=== PATIENT | female | born 1965 | race Caucasian/White ===

== ENCOUNTER 2017-09-08 15:27 | Outpatient (POV) | payer MEDICAID, SELFPAY | END 2017-09-08 16:23 | disposition home or self-care (01) | PROVIDERS: Visit Provider Podiatrist | DX: S93.402D Sprain of unspecified ligament of left ankle, subsequent encounter (principal); M76.72 Peroneal tendinitis, left leg | CPT/HCPCS: 99213 ==

== ENCOUNTER 2017-09-24 13:35 | Outpatient (POV) | payer MEDICAID, SELFPAY | END 2017-09-24 14:12 | disposition home or self-care (01) | PROVIDERS: Visit Provider Podiatrist | DX: S93.402D Sprain of unspecified ligament of left ankle, subsequent encounter (principal) | CPT/HCPCS: 99212 ==

== ENCOUNTER → 2017-10-29 19:19 | Outpatient (CLI) | payer MEDICAID, SELFPAY | PROVIDERS: PCP Podiatrist; Visit Provider Podiatrist | DX: B35.1 Tinea unguium (principal) | CPT/HCPCS: 87220 ==

== ENCOUNTER 2017-12-09 15:00 | Outpatient (RCR) | payer MEDICAID, SELFPAY ==
--- NOTE | 2017-11-17 16:10 | HMH.PTOPEV ---
Rehab Outpatient Evaluation Rehab OP Evaluation Start: 11/17/17 15:42 Freq: Status: Active Protocol: Document 11/17/17 15:54 PHOWILL (Rec: 11/17/17 16:09 PHORNE [id number]) Electronically Signed By Naga Estrada, PT 11/17/17 15:54 Outpatient Therapy Subjective History Subjective History Pt presents with c/o pain in left ankle and foot x ~ 3-4 mos s/p ankle sprain. She reports, I did it at work, but worker's comp denied it so I have to fight them. Pt reports her foot became stuck under a rail and she almost fell, but was able to catch herself. She reports going to the ED ~ 2 days later where she received X-ray with no fx present. She had been wearing a walking boot and then an ankle brace until recently. She currently c/o continued pain worse around the lateral foot. Chief Complaint Pain Symptom Type Ache Sharp Symptoms Relieved By Rest/Positioning Symptoms Aggravated By Standing Physical Activity Walking Prior Functional Limitations None Current Functional Limitations Standing Walking Symptom Description Constant but Variable Level of pain today (0-10) 2 Pain scale - at its worst (0-10) 8 Ankle/Foot Eval Gait Observation General Gait Pattern Observation Antalgic Gait Palpation Tenderness left Ankle/Foot Palpation Findings Tenderness Ankle/Foot Palpation Overall Comment peroneal tendon insertion. ROM Ankle/Foot Dorsiflexion w/Knee Extended 0-10 Active Range Motion (degrees) Ankle/Foot Dorsiflexion w/Knee Extended 0-24 Passive Range (degrees) Ankle/Foot Plantar Flexion Active Range 0-37 of Motion (degrees) Ankle/Foot Plantar Flexion Passive Range 0-38 of Motion (degrees) Ankle/Foot Eversion Active Range of 0-15 Motion (degrees) Ankle/Foot Eversion Passive Range of 0-26 Motion (degrees) Ankle/Foot Inversion Active Range of 0-38 Motion (degrees) Ankle/Foot Inversion Passive Range of 0-40 Motion (degrees) Ankle/Foot ROM Limitations Pain Special Tests Ankle Anterior Drawer Test Negative Left Ankle Eversion Test Negative Left Talar Tilt T
== END 2017-12-09 15:01 | disposition home or self-care (01) ==
LOC: PT 15:00
PROVIDERS: PCP Physician Assistant; Visit Provider Podiatrist
DX: S93.402A Sprain of unspecified ligament of left ankle, initial encounter (principal)
CPT/HCPCS: 97010; 97014; 97033; 97035; 97110; G0283

== ENCOUNTER 2017-12-18 20:53 | Observation (INO) | payer MEDICAID, SELFPAY ==
[2017-12-18 20:58] VITALS: BP 171/99; PULSE 111; RESP 24; TEMP 37; O2SAT 95; BMI 23.0
--- NOTE | 2017-12-18 21:09 | XR_ITS ---
XR chest 2V COMPARISON: PA and lateral chest 01/29/2017 HISTORY: Shortness of breath TECHNIQUE: PA and lateral chest FINDINGS: Moderate emphysematous changes are seen with hyperexpansion lung hartman and depression and flattening of the hemidiaphragms. There is no infiltrate. Cardiac size is normal and is no pleural fluid. IMPRESSION: Moderate COPD, no acute chest pathology noted
[2017-12-18 21:25] LABS: ABG Base Excess 0.4 mmol/L (-2.4-2.3); ABG Oxygen Saturation 94 % (90-100); ABG PCO2 40.3 mmhg (35.0-45.0); ABG PH 7.41 mmol/L (7.35-7.45); ABG PO2 64.3 mmhg (80-100); ABG TCO2 26.3 mmhg (23-27)
[2017-12-18 21:27] LABS: Allen's Test Acceptable; Oxygen room air %; Source Right Radial
--- NOTE | 2017-12-18 21:51 | HMH.EDGENADL ---
ED Disposition Clinical Impression: COPD exacerbation Upper respiratory infection Qualifiers: URI type: unspecified URI Qualified Code(s): J06.9 - Acute upper respiratory infection, unspecified Disposition: Still a Patient Condition on Discharge: Fair Referrals: Billie Quesada PA [Primary Care Provider] - - Critical Care Critical Care Time: No Attestation: On 12/18/17, the high probability of a clinically significant, sudden or life threatening deterioration of the following system(s) required my full and direct attention, intervention and personal management. The time I documented below is in addition to time spent performing reported procedures but includes the following listed in this critical care notation. Medical Decision Making - Kiel Inquiry Pt receiving controlled substance: No Vital Signs: 12/18/17 20:58 12/18/17 22:25 Temperature 98.6 F Temperature Source Oral Pulse Rate [Right Radial] 111 H 94 H Respiratory Rate 24 Blood Pressure [Right Arm] 171/99 123/87 Blood Pressure Mean [Right Arm] 123 99 Blood Pressure Source [Right Arm] Automatic Cuff Blood Pressure Position [Right Arm] Sitting Supine 02 Sat by Pulse Oximetry 95 95 Oxygen Delivery Method Room Air - Lab Data Lab Results 12/18/17 21:10: Specimen Source Right radial, O2 % room air, ABG pH 7.41, ABG pCO2 40.3, ABG pO2 64.3 L, ABG HCO3 25.0, ABG Total CO2 26.3, ABG O2 Saturation 94, ABG Base Excess 0.4, Fabiano Test Acceptable 12/18/17 21:25: WBC 9.5, RBC 4.59, Hgb 14.5, Hct 43.4, MCV 94.6, MCH 31.7 H, MCHC 33.5, RDW 12.2, Plt Count 232, MPV 8.4, Neut % (Auto) 46.7, Lymph % (Auto) 44.3, [place] % (Auto) 7.8, Eos % (Auto) 0.7, Baso % (Auto) 0.5, Neut # (Auto) 4.5, Lymph # (Auto) 4.2, [place] # (Auto) 0.7, Eos # (Auto) 0.1, Baso # (Auto) 0.1 12/18/17 21:25: Sodium 139, Potassium 3.6, Chloride 103, Carbon Dioxide 26, Anion Gap 13.6, BUN 5 L, Creatinine 0.64, Estimated Creat Clear 99, Estimated GFR 97, Est GFR ( Amer) 118, Glucose 107 H, Calcium 8.8, Total Bilirubin 0.2, AST 15, ALT 18, Alkaline Phosphatase 114, Total Creatine Kinase 124, CK-MB (CK-2) 0.8, CK-MB (CK-2) Rel Index 0.6, Troponin I < 0.02, Total Protein 7.7, Albumin 3.9, Globulin 3.8 H, Albumin/Globulin Ratio 1.0 L 12/18/17 21:25: Lactic Acid 1.5 Result diagrams: 12/18/17 21:25 12/18/17 21:25 Orders (Tests/Meds): ED MEDICATIONS Generic Name Dose Route Start Last Admin Trade Name Freq PRN Reason Stop Dose Admin Azithromycin 500 mg/ Sodium 250 mls @ 250 mls/hr 12/18/17 23:45 Chloride IV 01/01/18 23:44 Q24H FATOU Protocol Discontinued Medications Generic Name Dose Route Start Last Admin Trade Name Freq PRN Reason Stop Dose Admin Acetaminophen 500 mg 12/18/17 22:17 12/18/17 22:20 Tylenol 500mg Tablet PO 12/18/17 22:18 500 mg ONCE ONE Administration Albuterol/Ipratropium 3 ml 12/18/17 21:09 12/18/17 21:14 Duoneb 3ml [facility] 12/18/17 21:10 3 ml ONCE ONE Administration Albuterol/Ipratropium 3 ml 12/18/17 23:52 Duoneb 3ml [facility] 12/18/17 23:53 ONCE ONE Methylprednisolone Sodium Succinate 125 mg 12/18/17 21:10 12/18/17 21:14 Solu-Medrol 125mg/2ml Vial IV 12/18/17 21:11 125 mg ONCE ONE Administration ORDERS Category Date Time Status XR chest 2V Stat Exams 12/18/17 21:09 Taken Upper Respiratory Panel, PCR Stat Lab 12/18/17 23:44 Ordered Blood Culture Stat Micro 12/18/17 21:25 Received Sputum Culture & Gram Stain Stat Micro 12/18/17 21:25 Results - Radiology Data #1 Image(s): Chest Image Reviewed: Yes I reviewed the patient's radiology image COPD, calcified granuloma. No infiltrate seen. - ECG Data Tracing #1 EKG interpreted by Chong Oviedo MD: Rhythm: sinus Rate: 99 [place]son: normal Ectopy: none Conduction: normal ST Segment Changes: none T Wave Changes: none Q Waves: none No evidence of acute ischemia or injury Medical Decision Narrative:
[2017-12-18 21:58] LABS: Basophils # 0.1 K/mm3 (0-0.2); Basophils % 0.5 % (0.1-2.0); Eosinophils # 0.1 K/mm3 (0.0-0.4); Eosinophils % 0.7 % (0.1-12.0); Hematocrit 43.4 % (37.0-47.0); Hemoglobin 14.5 g/dL (12.2-16.2); Lymphocytes # 4.2 K/mm3 (0.7-4.5); Lymphocytes % 44.3 K/mm3 (10-50); Mean Corpuscular HGB Conc 33.5 g/dL (31.8-35.4); Mean Corpuscular Hemoglobin 31.7 pg (27.0-31.2); Mean Corpuscular Volume 94.6 fl (81-99); Mean Platelet Volume 8.4 fl (7.4-10.4); Monocytes # 0.7 K/mm3 (0.1-1.0); Monocytes % 7.8 % (1.7-9.3); Neutrophils # 4.5 K/mm3 (1.8-7.8); Neutrophils % 46.7 % (37.0-80.0); Platelet Count 232 K/mm3 (142-424); Red Blood Count 4.59 M/mm3 (4.20-5.40); Red Cell Distribution Width 12.2 % (11.5-17.5); White Blood Count 9.5 K/mm3 (4.8-10.8)
[2017-12-18 22:15] LABS: Lactic Acid 1.5 mmol/L (0.4-2.0)
[2017-12-18 22:24] LABS: Alanine Aminotransferase 18 U/L (12-78); Albumin Level 3.9 gm/dL (3.4-5.0); Alkaline Phosphatase 114 U/L (46-116); Anion Gap 13.6 mEq/L (5-15); Aspartate Amino Transferase 15 U/L (15-37); Bilirubin,Total 0.2 mg/dL (0.2-1.0); Blood Urea Nitrogen 5 mg/dL (7-18); CKMB Relative Index 0.6 U/L (0-4.0); Calcium 8.8 mg/dL (8.5-10.1); Carbon Dioxide 26 mmol/L (21.0-32.0); Chloride 103 mmol/L (98-107); Creatine Kinase 124 U/L (26-192); Creatine Kinase MB 0.8 mg/ml (0.0-3.6); Creatinine Clearance Estimated 99 mL/min (0-300); Creatinine,Serum 0.64 mg/dL (0.55-1.02); Estimated Glomerular Filt Rate 97 ml/min (>60); GFR (African American) 118 ML/MIN (>60); Globulin 3.8 gm/dl (1.3-3.2); Glucose 107 mg/dL (74-106); Potassium 3.6 mmoL/L (3.5-5.1); Sodium 139 mmol/L (136-145); Total Protein,Serum 7.7 gm/dL (6.4-8.2); Troponin I < 0.02 ng/ml (0.00-0.06)
[2017-12-18 22:25] VITALS: BP 123/87; PULSE 94; O2SAT 95
[2017-12-19] VITALS (13 sets, daily range): BP systolic 109–148; BP diastolic 68–89; PULSE 73–117; RESP 18–22; TEMP 36.6–37.7; O2SAT 92–96; BMI 20.5
[2017-12-19 00:12] LABS: Adenovirus,PCR Not Detected (NotDetected); Bordetella Pertussis Not Detected (NotDetected); Chlamydophila Pneumoniae, PCR Not Detected (NotDetected); Coronavirus 229E Not Detected (NotDetected); Coronavirus NL63 Not Detected (NotDetected); Coronavirus OC43 Not Detected (NotDetected); Coronovirus HKU1,PCR Not Detected (NotDetected); Human Metapneumovirus Not Detected (NotDetected); Influenza A, PCR Not Detected (NotDetected); Influenza AH1, 2009 Not Detected (NotDetected); Influenza AH1, PCR Not Detected (NotDetected); Influenza AH3,PCR Not Detected (NotDetected); Influenza B, PCR Not Detected (NotDetected); Mycoplasma Pneumoniae, PCR Not Detected (NotDected); Parainfluenza 1, PCR Not Detected (NotDetected); Parainfluenza 2, PCR Not Detected (NotDetected); Parainfluenza 3, PCR Not Detected (NotDetected); Parainfluenza 4, PCR Not Detected (NotDetected); Rhinovirus/Enterovirus Not Detected (NotDetected)
--- NOTE | 2017-12-19 00:16 | PC.NURSE ---
PT FULL CODE, REPORT FROM [facility] IN ER
[2017-12-19 01:28] LABS: Respiratory Syncytial Virus Detected (NotDetected)
--- NOTE | 2017-12-19 07:21 | PC.NURSE ---
NEW ADMIT, COPD EXACERBATION AND URI. BREATH SOUNDS EQUAL AND CLEAR, NO S/S OF DISTRESS. SATS WNL ON ROOM AIR. C/O IGNACIO X1 THIS SHIFT, PT GIVEN TYLENOL. SLEEPING SOUNDLY SOON AFTER THIS. IV TO SALINE LOCK. IV ABX AND STEROIDS. PT STABLE. WILL CONTINUE TO MONITOR. REPORT TO BE GIVEN TO ONCOMING NURSE.
--- NOTE | 2017-12-19 07:30 | PC.NURSE ---
REPORT GIVEN TO Kevin HEDRICK W/C
--- NOTE | 2017-12-19 13:10 | HMH.PHAVTE ---
[facility] Pharmacy VTE Monitoring - Patient Demographics Admission date: 12/19/17 Report Date: 12/19/17 Time: 13:10 Allergies/Adverse Reactions: Patient Allergies Sulfa (Sulfonamide Antibiotics) [SULFA (SULFONAMIDE ANTIBIOTICS)] Allergy (Intermediate, Verified 12/10/17 13:53) I-RASH Height: 1.63 m Weight: 54.431 kg Patient Problems: Current Active Problems COPD exacerbation (Acute) Upper respiratory infection (Acute) - VTE Risk Labs: VTE Related Lab Results Hgb 14.5 g/dL (12.2-16.2) 12/18/17 21:25 Hct 43.4 % (37.0-47.0) 12/18/17 21:25 Plt Count 232 K/mm3 (142-424) 12/18/17 21:25 BUN 5 mg/dL (7-18) L 12/18/17 21:25 Creatinine 0.64 mg/dL (0.55-1.02) 12/18/17 21:25 Estimated Creat Clear 99 mL/min (0-300) 12/18/17 21:25 VTE Score: 3 VTE Risk Level: Low Risk - Prophylaxis Types of VTE Prophylaxis: TEDS Knee High Location of Applied Device: Refused - VTE Diagnosis Confirmed Comment: [place] ORDERED
--- NOTE | 2017-12-19 15:04 | HMH.HP ---
*Admission Date: 12/19/17 *Chief complaint: sob *History of present illness: 52-year-old female presented to the ER with complains of a 3 day history of cough, patient states coughing fits will make her very short of breath,increasing shortness of breath, dyspnea on exertion, fever, bilateral rib pain, wheezing and productive thick colored sputum. History of COPD. Patient states she has a nebulizer at home, ran out of solution in mouthpieces, but had them refilled today. Has been using her rescue inhaler without improvement. Patient admitted for COPD exacerbation placed on IV steroids. [facility] History I have reviewed the patient's past medical history: Yes Medical History: Reports:: Chronic Obstructive Pulmonary Disease (COPD), Hyperlipidemia Denies:: Cancer, Diabetes Mellitus Type 1, Diabetes Mellitus Type 2, Hypertension, MRSA Other Medical History: Reports: Hypothyroidism, Thyroid Disease Laterality Cases: Bilateral: Tonsillectomy Other Surgeries: Yes: Hysterectomy-Total, Other Amputation: No Fractures: No - *Social History Smoking Status: Current every day smoker Tobacco Type: cigarettes # Packs/Day (cigarettes): 1 Alcohol Intake: never Alcohol Intake Frequency:: 0-2 drinks per day Substance Use Type: denies use Occupational Status: unemployed Housing: house Household Members: family, children - Psychiatric History Expresses thoughts of harming self/others: None Suicide Plan Description: No Plan *Family Hx:: Hyperlipidemia, Hypertension, Cancer Review of Systems - Review of Systems Review of systems:: pertinent systems reviewed and negative unless documented below - Constitutional Reports chills, Reports fever(s) - Eyes Denies change in vision - ENT Denies change in voice - *Cardiovascular Reports chest pain with activity, Reports shortness of breath - *Respiratory Reports change in phlegm color, Reports chest congestion, Reports cough, Reports shortness of breath, Reports shortness of breath with activity, Reports excessive phlegm production, Reports pain on inspiration, Reports pain with cough, Reports wheezing - *Gastrointestinal Denies bloating - *Genitourinary Denies abnormal vaginal bleeding - *Musculoskeletal Denies decreased muscle mass - Integumentary/Breasts Denies change in hair - *Neurologic Reports weakness, Denies abnormal movements - Psychiatric Denies lack of enjoyment - Endocrine Denies flushing - Hematologic/Lymphatic Denies enlarged lymph nodes - Allergic/Immunologic Denies lip swelling Meds Home Medications Medication Instructions Recorded Confirmed Type fluticasone 250 mcg-salmeterol 50 1 inh INHALATION BID 12/10/17 12/19/17 History mcg/dose blistr powdr for inhalation umeclidinium 62.5 mcg/actuation 1 inh INHALATION Q24H 12/10/17 12/19/17 History blister powder for inhalation Cholecalciferol (Vitamin D3) 1,000 unit PO DAILY 12/19/17 12/19/17 History [Vitamin D3 1,000 Unit Tab] Omeprazole [Omeprazole 40mg 40 mg PO DAILY 12/19/17 12/19/17 History Capsule] Simvastatin [Simvastatin] 20 mg PO HS 12/19/17 12/19/17 History Venlafaxine HCl [Venlafaxine HCl 150 mg PO DAILY 12/19/17 12/19/17 History ER] Allergies Allergy/AdvReac Type Severity Reaction Status Date / Time Sulfa (Sulfonamide Allergy Intermediate I-RASH Verified 12/10/17 13:53 Antibiotics) [SULFA (SULFONAMIDE ANTIBIOTICS)] Exam Vital signs and Labs for Last 24 Hours: Temp Pulse Resp BP Pulse Ox 97.8 F 86 18 109/69 94 L 12/19/17 07:37 12/19/17 07:37 12/19/17 07:37 12/19/17 07:37 12/19/17 08:00 I & O for Last 24 hours: Intake & Output 12/17/17 12/18/17 12/19/17 12/20/17 11:59 11:59 11:59 11:59 Intake Total 620 / 620 240 / 240 Balance 620 / 620 240 / 240 Weight 120 lb 120 lb - Constitutional no acute distress - *Routine HEENT Exam Head: Present: normocephalic Eye: Present: PERRL ENT: Present: muco
--- NOTE | 2017-12-19 15:07 | P.HP_ITS ---
*Admission Date: 12/19/17 *Chief complaint: sob *History of present illness: 52-year-old female presented to the ER with complains of a 3 day history of cough, patient states coughing fits will make her very short of breath, increasing shortness of breath, dyspnea on exertion, fever, bilateral rib pain, wheezing and productive thick colored sputum. History of COPD. Patient states she has a nebulizer at home, ran out of solution in mouthpieces, but had them refilled today. Has been using her rescue inhaler without improvement. Patient admitted for COPD exacerbation placed on IV steroids. [facility] History I have reviewed the patient's past medical history: Yes Medical History: Reports:: Chronic Obstructive Pulmonary Disease (COPD), Hyperlipidemia Denies:: Cancer, Diabetes Mellitus Type 1, Diabetes Mellitus Type 2, Hypertension, MRSA Other Medical History: Reports: Hypothyroidism, Thyroid Disease Laterality Cases: Bilateral: Tonsillectomy Other Surgeries: Yes: Hysterectomy-Total, Other Amputation: No Fractures: No - *Social History Smoking Status: Current every day smoker Tobacco Type: cigarettes # Packs/Day (cigarettes): 1 Alcohol Intake: never Alcohol Intake Frequency:: 0-2 drinks per day Substance Use Type: denies use Occupational Status: unemployed Housing: house Household Members: family, children - Psychiatric History Expresses thoughts of harming self/others: None Suicide Plan Description: No Plan *Family Hx:: Hyperlipidemia, Hypertension, Cancer Review of Systems - Review of Systems Review of systems:: pertinent systems reviewed and negative unless documented below - Constitutional Reports chills, Reports fever(s) - Eyes Denies change in vision - ENT Denies change in voice - *Cardiovascular Reports chest pain with activity, Reports shortness of breath - *Respiratory Reports change in phlegm color, Reports chest congestion, Reports cough, Reports shortness of breath, Reports shortness of breath with activity, Reports excessive phlegm production, Reports pain on inspiration, Reports pain with cough, Reports wheezing - *Gastrointestinal Denies bloating - *Genitourinary Denies abnormal vaginal bleeding - *Musculoskeletal Denies decreased muscle mass - Integumentary/Breasts Denies change in hair - *Neurologic Reports weakness, Denies abnormal movements - Psychiatric Denies lack of enjoyment - Endocrine Denies flushing - Hematologic/Lymphatic Denies enlarged lymph nodes - Allergic/Immunologic Denies lip swelling Meds Home Medications Medication Instructions Recorded Confirmed Type fluticasone 250 mcg-salmeterol 50 1 inh INHALATION BID 12/10/17 12/19/17 History mcg/dose blistr powdr for inhalation umeclidinium 62.5 mcg/actuation 1 inh INHALATION Q24H 12/10/17 12/19/17 History blister powder for inhalation Cholecalciferol (Vitamin D3) 1,000 unit PO DAILY 12/19/17 12/19/17 History [Vitamin D3 1,000 Unit Tab] Omeprazole [Omeprazole 40mg 40 mg PO DAILY 12/19/17 12/19/17 History Capsule] Simvastatin [Simvastatin] 20 mg PO HS 12/19/17 12/19/17 History Venlafaxine HCl [Venlafaxine HCl 150 mg PO DAILY 12/19/17 12/19/17 History ER] Allergies Allergy/AdvReac Type Severity Reaction Status Date / Time Sulfa (Sulfonamide Allergy Intermediate I-RASH Verified 12/10/17 13:53 Antibiotics) [SULFA (GONZALEZ
[2017-12-20] VITALS (7 sets, daily range): BP systolic 103–143; BP diastolic 60–76; PULSE 81–101; RESP 18–20; TEMP 36.3–36.9; O2SAT 92–96
--- NOTE | 2017-12-20 03:35 | PC.NURSE ---
C/O COUGH AND IGNACIO THIS SHIFT, MEDICATED PER MAR WITH PRN COUGH AND PAIN MEDICATIONS. ICE PACK WAS ALSO PROVIDED R/T PT STATING I THINK IF I WAS TO HAVE AN ICE PACK ON MY HEAD IT WOULD HELP WITH MY HEADACHE. ON REASSESSMENT PT STATED MY IGNACIO IS GONE. SCATTERED WHEEZING HEARD ON AUSCULTATION OF LUNG SOUNDS. TOLERATED RA WELL. VSS. WILL CONTINUE TO MONITOR.
--- NOTE | 2017-12-20 06:33 | PC.NURSE ---
DROPLET PRECAUTIONS IN PLACE AND EDUCATION PROVIDED REGARDING PPE.
--- NOTE | 2017-12-20 07:16 | PC.NURSE ---
REPORT GIVEN TO Kevin HEDRICK W/C
[2017-12-20 07:17] LABS: Basophils % 0.1 % (0.1-2.0); Eosinophils # 0.1 K/mm3 (0.0-0.4); Eosinophils % 0.7 % (0.1-12.0); Hematocrit 40.9 % (37.0-47.0); Hemoglobin 13.6 g/dL (12.2-16.2); Lymphocytes # 1.4 K/mm3 (0.7-4.5); Lymphocytes % 9.4 K/mm3 (10-50); Mean Corpuscular HGB Conc 33.1 g/dL (31.8-35.4); Mean Corpuscular Hemoglobin 31.8 pg (27.0-31.2); Mean Corpuscular Volume 96.1 fl (81-99); Mean Platelet Volume 8.4 fl (7.4-10.4); Monocytes # 0.3 K/mm3 (0.1-1.0); Monocytes % 1.8 % (1.7-9.3); Neutrophils % 87.9 % (37.0-80.0); Platelet Count 239 K/mm3 (142-424); Red Blood Count 4.26 M/mm3 (4.20-5.40); Red Cell Distribution Width 12.3 % (11.5-17.5); White Blood Count 14.8 K/mm3 (4.8-10.8)
[2017-12-20 07:24] LABS: MANUAL DIFFERENTIAL MANUAL DIFFERENTIAL (MANUAL DIFF)
[2017-12-20 07:29] LABS: Alanine Aminotransferase 16 U/L (12-78); Albumin Level 3.5 gm/dL (3.4-5.0); Anion Gap 15.1 mEq/L (5-15); Aspartate Amino Transferase 12 U/L (15-37); Blood Urea Nitrogen 11 mg/dL (7-18); Calcium 8.7 mg/dL (8.5-10.1); Carbon Dioxide 25 mmol/L (21.0-32.0); Chloride 107 mmol/L (98-107); Creatinine Clearance Estimated 93 mL/min (0-300); Creatinine,Serum 0.61 mg/dL (0.55-1.02); Estimated Glomerular Filt Rate 103 ml/min (>60); GFR (African American) 125 ML/MIN (>60); Glucose 132 mg/dL (74-106); Potassium 4.1 mmoL/L (3.5-5.1); Sodium 143 mmol/L (136-145)
[2017-12-20 07:42] LABS: Alkaline Phosphatase 87 U/L (46-116); Bilirubin,Total 0.1 mg/dL (0.2-1.0); Globulin 3.6 gm/dl (1.3-3.2); Total Protein,Serum 7.1 gm/dL (6.4-8.2)
[2017-12-20 08:30] LABS: Lymphocytes % 9 % (10-50); Monocytes % 3 % (2-9); Neutrophils % 88 % (42-76); Platelet Estimate Normal; RBC Morphology Normal; Total Cells Counted 100
--- NOTE | 2017-12-20 09:45 | HMH.ACPN2 ---
Internal Medicine - PN: Subj *Date: 12/20/17 *Time: 09:45 Exam Vital signs and Labs for Last 24 Hours: Temp Pulse Resp BP Pulse Ox 97.4 F L 96 H 18 112/70 92 L 12/20/17 07:33 12/20/17 07:33 12/20/17 07:33 12/20/17 07:33 12/20/17 07:33 Laboratory Results - last 24 hr 12/20/17 06:30: WBC 14.8 H D, RBC 4.26, Hgb 13.6, Hct 40.9, MCV 96.1, MCH 31.8 H, MCHC 33.1, RDW 12.3, Plt Count 239, MPV 8.4, Neut % (Auto) 87.9 H, Lymph % (Auto) 9.4 L, [place] % (Auto) 1.8, Eos % (Auto) 0.7, Baso % (Auto) 0.1, Neut # (Auto) 13.0 H, Lymph # (Auto) 1.4, [place] # (Auto) 0.3, Eos # (Auto) 0.1, Baso # (Auto) 0.0, Total Counted 100, Neutrophils % (Manual) 88 H, Lymphocytes % (Manual) 9 L, Monocytes % (Manual) 3, Platelet Estimate Normal, RBC Morphology Normal 12/20/17 06:30: Sodium 143, Potassium 4.1, Chloride 107, Carbon Dioxide 25, Anion Gap 15.1 H, BUN 11 D, Creatinine 0.61, Estimated Creat Clear 93, Estimated GFR 103, Est GFR ( Amer) 125, Glucose 132 H, Calcium 8.7, Total Bilirubin 0.1 L, AST 12 L, ALT 16, Alkaline Phosphatase 87, Total Protein 7.1, Albumin 3.5 D, Globulin 3.6 H, Albumin/Globulin Ratio 1.0 L I & O for Last 24 hours: Intake & Output 12/17/17 12/18/17 12/19/17 12/20/17 11:59 11:59 11:59 11:59 Intake Total 620 / 620 1320 / 1320 Output Total 450 / 450 Balance 620 / 620 870 / 870 Weight 120 lb 120 lb - Constitutional no acute distress - *Routine HEENT Exam Head: Present: normocephalic Eye: Present: PERRL ENT: Present: mucous membranes moist - *Routine Neck Exam Present: supple, full ROM - *Routine Respiratory Exam Present: wheezes, diminished air movement - *Routine Cardiovascular Exam Present: RRR - *Routine Abdominal Exam Present: soft, normoactive bowel sounds - *Routine Extremities Exam Present: full ROM - *Routine Skin Exam Present: intact - *Routine Neurological Exam Present: alert, oriented X3, CN II-XII intact - Routine Psychiatric Exam Present: normal affect, normal thought process Assessment and Plan - Assessment and plan all Dx Assessment and Plan for all problems:: Waiting for C&S, continue IV steroids
--- NOTE | 2017-12-20 09:48 | P.PN_ITS ---
Internal Medicine - PN: Subj *Date: 12/20/17 *Time: 09:45 Exam Vital signs and Labs for Last 24 Hours: Temp Pulse Resp BP Pulse Ox 97.4 F L 96 H 18 112/70 92 L 12/20/17 07:33 12/20/17 07:33 12/20/17 07:33 12/20/17 07:33 12/20/17 07:33 Laboratory Results - last 24 hr 12/20/17 06:30: WBC 14.8 H D, RBC 4.26, Hgb 13.6, Hct 40.9, MCV 96.1, MCH 31.8 H , MCHC 33.1, RDW 12.3, Plt Count 239, MPV 8.4, Neut % (Auto) 87.9 H, Lymph % ( Auto) 9.4 L, [place] % (Auto) 1.8, Eos % (Auto) 0.7, Baso % (Auto) 0.1, Neut # ( Auto) 13.0 H, Lymph # (Auto) 1.4, [place] # (Auto) 0.3, Eos # (Auto) 0.1, Baso # ( Auto) 0.0, Total Counted 100, Neutrophils % (Manual) 88 H, Lymphocytes % (Manual ) 9 L, Monocytes % (Manual) 3, Platelet Estimate Normal, RBC Morphology Normal 12/20/17 06:30: Sodium 143, Potassium 4.1, Chloride 107, Carbon Dioxide 25, Anion Gap 15.1 H, BUN 11 D, Creatinine 0.61, Estimated Creat Clear 93, Estimated GFR 103, Est GFR ( Amer) 125, Glucose 132 H, Calcium 8.7, Total Bilirubin 0.1 L, AST 12 L, ALT 16, Alkaline Phosphatase 87, Total Protein 7.1, Albumin 3.5 D, Globulin 3.6 H, Albumin/Globulin Ratio 1.0 L I & O for Last 24 hours: Intake & Output 12/17/17 12/18/17 12/19/17 12/20/17 11:59 11:59 11:59 11:59 Intake Total 620 / 620 1320 / 1320 Output Total 450 / 450 Balance 620 / 620 870 / 870 Weight 120 lb 120 lb - Constitutional no acute distress - *Routine HEENT Exam Head: Present: normocephalic Eye: Present: PERRL ENT: Present: mucous membranes moist - *Routine Neck Exam Present: supple, full ROM - *Routine Respiratory Exam Present: wheezes, diminished air movement - *Routine Cardiovascular Exam Present: RRR - *Routine Abdominal Exam Present: soft, normoactive bowel sounds - *Routine Extremities Exam Present: full ROM - *Routine Skin Exam Present: intact - *Routine Neurological Exam Present: alert, oriented X3, CN II-XII intact - Routine Psychiatric Exam Present: normal affect, normal thought process Assessment and Plan - Assessment and plan all Dx Assessment and Plan for all problems:: Waiting for C&S, continue IV steroids
--- NOTE | 2017-12-20 17:40 | PC.NURSE ---
Rhonchi and wheezes noted t/o lungs. O2 sats in mid 90's on RA. Pt reports a non productive cough with no relief from tessalon perls. She slept the majority of morning w/no complaints. She has ambulated to and from the bathroom with no distress of shortness of air noted. Appetite is good. Will continue to monitor.
[2017-12-21 04:00] VITALS: BP 112/76; PULSE 78; RESP 18; TEMP 36.2; O2SAT 96
--- NOTE | 2017-12-21 04:03 | PC.NURSE ---
REQUESTED PRN COUGH MEDICATION, ADMINISTERED PRN ROBITUSSIN PER DEC, NO COMPLAINTS OF COUGH OR FURTHER REQUESTS STATED FOLLOWING ADMINISTRATION. NICOTENE PATCH ADMINISTERED PER REQUEST, APPLIED TO AKIRA. DROPLET PRECAUTIONS MAINTAINED THIS SHIFT. EDUCATION PROVIDED R/T RSV SYMPTOMS/TREATMENT AND ISOLATION PRECAUTIONS. WHEEZING T/O PER AUSCULTATION. TOLERATED RA WELL. VSS. WILL CONTINUE TO MONITOR.
[2017-12-21 05:53] VITALS: PULSE 100; PULSE 96; O2SAT 94
[2017-12-21 06:42] LABS: Basophils % 0.1 % (0.1-2.0); Eosinophils % 0.3 % (0.1-12.0); Hematocrit 39.1 % (37.0-47.0); Hemoglobin 12.7 g/dL (12.2-16.2); Lymphocytes # 1.6 K/mm3 (0.7-4.5); Lymphocytes % 13.1 K/mm3 (10-50); Mean Corpuscular HGB Conc 32.6 g/dL (31.8-35.4); Mean Corpuscular Hemoglobin 31.5 pg (27.0-31.2); Mean Corpuscular Volume 96.7 fl (81-99); Mean Platelet Volume 8.4 fl (7.4-10.4); Monocytes # 0.2 K/mm3 (0.1-1.0); Monocytes % 1.8 % (1.7-9.3); Neutrophils # 10.2 K/mm3 (1.8-7.8); Neutrophils % 84.8 % (37.0-80.0); Platelet Count 237 K/mm3 (142-424); Red Blood Count 4.04 M/mm3 (4.20-5.40); Red Cell Distribution Width 12.4 % (11.5-17.5)
--- NOTE | 2017-12-21 06:44 | PC.NURSE ---
PT REPORT PRODUCTIVE COUGH BUT SCANT DRAINAGE, PT STATES THE DRAINAGE IS CLEAR IN COLOR AND THIN WHEN I ACTUALLY DO COUGH STUFF UP BUT I HAVEN'T BEEN COUGHING MUCH UP AT ALL.
--- NOTE | 2017-12-21 07:16 | PC.NURSE ---
REPORT GIVEN TO Aleksandra DONALD W/C
[2017-12-21 07:26] VITALS: BP 120/73; PULSE 85; RESP 16; TEMP 36.6; O2SAT 94
[2017-12-21 07:32] LABS: Alanine Aminotransferase 16 U/L (12-78); Albumin Level 3.4 gm/dL (3.4-5.0); Albumin/Globulin Ratio 1.1 (1.1-1.8); Alkaline Phosphatase 84 U/L (46-116); Anion Gap 13.1 mEq/L (5-15); Aspartate Amino Transferase 9 U/L (15-37); Blood Urea Nitrogen 15 mg/dL (7-18); Calcium 8.5 mg/dL (8.5-10.1); Carbon Dioxide 27 mmol/L (21.0-32.0); Chloride 107 mmol/L (98-107); Creatinine Clearance Estimated 99 mL/min (0-300); Creatinine,Serum 0.57 mg/dL (0.55-1.02); Estimated Glomerular Filt Rate 111 ml/min (>60); GFR (African American) 135 ML/MIN (>60); Glucose 129 mg/dL (74-106); Potassium 4.1 mmoL/L (3.5-5.1); Sodium 143 mmol/L (136-145); Total Protein,Serum 6.4 gm/dL (6.4-8.2)
[2017-12-21 09:20] VITALS: PULSE 86; PULSE 91
--- NOTE | 2017-12-21 10:04 | PC.NURSE ---
Ambulated complete lap on [facility] floor
--- NOTE | 2017-12-21 13:03 | HMH.DCSUM ---
General - General Admission date: 12/19/17 Discharge date: 12/21/17 HPI HPI: 52-year-old female presented to the ER with complains of a 3 day history of cough, patient states coughing fits will make her very short of breath,increasing shortness of breath, dyspnea on exertion, fever, bilateral rib pain, wheezing and productive thick colored sputum. History of COPD. Patient states she has a nebulizer at home, ran out of solution in mouthpieces, but had them refilled today. Has been using her rescue inhaler without improvement. Patient admitted for COPD exacerbation placed on IV steroids. Hospital Course Hospital Course: pt has did well on meds and has ongoing resp illness- no added o2 requirement at this time and will d/c on steroids and inhalers at this time Objective Vital signs: Temp Pulse Resp BP Pulse Ox 97.8 F 91 H 16 120/73 94 L 12/21/17 07:26 12/21/17 09:20 12/21/17 07:26 12/21/17 07:26 12/21/17 07:26 no acute distress - *Routine HEENT Exam Head: Present: normocephalic Eye: Present: EOMI, PERRL ENT: Present: mucous membranes dry - *Routine Neck Exam Present: supple - *Routine Respiratory Exam Present: CTA bilaterally. Absent: accessory muscle use - *Routine Cardiovascular Exam Present: RRR. Absent: murmur - *Routine Abdominal Exam Present: soft - *Routine Extremities Exam Present: full ROM - *Routine Skin Exam Present: intact - *Routine Neurological Exam Present: alert, oriented X3, CN II-XII intact - Routine Psychiatric Exam Present: normal affect Results Labs on day of discharge: Labs from last 24 hours 12/21/17 12/21/17 06:08 06:08 WBC 12.0 H RBC 4.04 L Hgb 12.7 Hct 39.1 MCV 96.7 MCH 31.5 H MCHC 32.6 RDW 12.4 Plt Count 237 MPV 8.4 Neut % (Auto) 84.8 H Lymph % (Auto) 13.1 Crenshaw % (Auto) 1.8 Eos % (Auto) 0.3 Baso % (Auto) 0.1 Neut # (Auto) 10.2 H Lymph # (Auto) 1.6 Crenshaw # (Auto) 0.2 Eos # (Auto) 0.0 Baso # (Auto) 0.0 Sodium 143 Potassium 4.1 Chloride 107 Carbon Dioxide 27 Anion Gap 13.1 BUN 15 D Creatinine 0.57 Estimated Creat Clear 99 Estimated GFR 111 Est GFR ( Amer) 135 Glucose 129 H Calcium 8.5 Total Bilirubin 0.0 L AST 9 L ALT 16 Alkaline Phosphatase 84 Total Protein 6.4 Albumin 3.4 Globulin 3.0 Albumin/Globulin Ratio 1.1 DS: Diagnosis - Discharge Diagnosis (1) COPD exacerbation Status: Acute (2) Upper respiratory infection Status: Acute (3) RSV (respiratory syncytial virus infection) Status: Acute (4) RSV bronchitis Status: Acute Discharge Plan - Patient Discharge Instructions ACTIVITY: Continue current activity DIET: continue same diet Patient Instructions: DI for Respiratory Syncytial Virus -- Adults, DI for Chronic Obstructive Pulmonary Disease - Follow up Plan Disposition: Home, Self-[facility] Medications: Home Medications Medication Instructions Recorded Confirmed Type fluticasone 250 mcg-salmeterol 50 1 inh INHALATION BID 12/10/17 12/19/17 History mcg/dose blistr powdr for inhalation umeclidinium 62.5 mcg/actuation 1 inh INHALATION Q24H 12/10/17 12/19/17 History blister powder for inhalation Cholecalciferol (Vitamin D3) 1,000 unit PO DAILY 12/19/17 12/19/17 History [Vitamin D3 1,000 Unit Tab] Omeprazole [Omeprazole 40mg 40 mg PO DAILY 12/19/17 12/19/17 History Capsule] Simvastatin [Simvastatin] 20 mg PO HS 12/19/17 12/19/17 History Venlafaxine HCl [Venlafaxine HCl 150 mg PO DAILY 12/19/17 12/19/17 History ER] Prescriptions/Medication Reconciliation: New predniSONE [Prednisone 20mg Tab] 20 mg PO DAILY #10 tab Benzonatate [Benzonatate 100mg cap] 100 mg PO TID PRN #30 cap PRN Reason: Cough Continue levothyroxine 50 mcg tablet 50 mcg PO QDAY 90 Days #90 tab umeclidinium 62.5 mcg/actuation blister powder for inhalation 1
--- NOTE | 2017-12-21 13:07 | P.DS_ITS ---
General - General Admission date: 12/19/17 Discharge date: 12/21/17 HPI HPI: 52-year-old female presented to the ER with complains of a 3 day history of cough, patient states coughing fits will make her very short of breath, increasing shortness of breath, dyspnea on exertion, fever, bilateral rib pain, wheezing and productive thick colored sputum. History of COPD. Patient states she has a nebulizer at home, ran out of solution in mouthpieces, but had them refilled today. Has been using her rescue inhaler without improvement. Patient admitted for COPD exacerbation placed on IV steroids. Hospital Course Hospital Course: pt has did well on meds and has ongoing resp illness- no added o2 requirement at this time and will d/c on steroids and inhalers at this time Objective Vital signs: Temp Pulse Resp BP Pulse Ox 97.8 F 91 H 16 120/73 94 L 12/21/17 07:26 12/21/17 09:20 12/21/17 07:26 12/21/17 07:26 12/21/17 07:26 no acute distress - *Routine HEENT Exam Head: Present: normocephalic Eye: Present: EOMI, PERRL ENT: Present: mucous membranes dry - *Routine Neck Exam Present: supple - *Routine Respiratory Exam Present: CTA bilaterally. Absent: accessory muscle use - *Routine Cardiovascular Exam Present: RRR. Absent: murmur - *Routine Abdominal Exam Present: soft - *Routine Extremities Exam Present: full ROM - *Routine Skin Exam Present: intact - *Routine Neurological Exam Present: alert, oriented X3, CN II-XII intact - Routine Psychiatric Exam Present: normal affect Results Labs on day of discharge: Labs from last 24 hours 12/21/17 12/21/17 06:08 06:08 WBC 12.0 H RBC 4.04 L Hgb 12.7 Hct 39.1 MCV 96.7 MCH 31.5 H MCHC 32.6 RDW 12.4 Plt Count 237 MPV 8.4 Neut % (Auto) 84.8 H Lymph % (Auto) 13.1 Hale % (Auto) 1.8 Eos % (Auto) 0.3 Baso % (Auto) 0.1 Neut # (Auto) 10.2 H Lymph # (Auto) 1.6 Hale # (Auto) 0.2 Eos # (Auto) 0.0 Baso # (Auto) 0.0 Sodium 143 Potassium 4.1 Chloride 107 Carbon Dioxide 27 Anion Gap 13.1 BUN 15 D Creatinine 0.57 Estimated Creat Clear 99 Estimated GFR 111 Est GFR ( Amer) 135 Glucose 129 H Calcium 8.5 Total Bilirubin 0.0 L AST 9 L ALT 16 Alkaline Phosphatase 84 Total Protein 6.4 Albumin 3.4 Globulin 3.0 Albumin/Globulin Ratio 1.1 DS: Diagnosis - Discharge Diagnosis (1) COPD exacerbation Status: Acute (2) Upper respiratory infection Status: Acute (3) RSV (respiratory syncytial virus infection) Status: Acute (4) RSV bronchitis Status: Acute Discharge Plan - Patient Discharge Instructions ACTIVITY: Continue current activity DIET: continue same diet Patient Instructions: DI for Respiratory Syncytial Virus -- Adults, DI for Chronic Obstructive Pulmonary Disease - Follow up Plan Disposition: Home, [facility] Medications: Home Medications Medication Instructions Recorded Confirmed Type fluticasone
== END 2017-12-21 12:40 | disposition home or self-care (01) ==
LOC: ER 23:56 → 2ND 12-19 00:35
PROVIDERS: Nurse Practitioner Family; Admitting Provider Family Medicine; Emergency Provider Emergency Medicine; PCP Physician Assistant; Visit Provider Emergency Medicine
DX: J44.1 Chronic obstructive pulmonary disease with (acute) exacerbation (principal); J06.9 Acute upper respiratory infection, unspecified; B97.4 Respiratory syncytial virus as the cause of diseases classified elsewhere; F41.9 Anxiety disorder, unspecified
CPT/HCPCS: 36415; 71046; 80053; 82550; 82553; 82803; 83605; 84484; 85007; 85025; 87040; 87070; 87077; 87186; 87205; 87486; 87581; 87633; 87798; 93005; 94640; 94761; 96366; 96374; 99284; G0378; J0456

== ENCOUNTER 2018-01-13 15:30 | Outpatient (RCR) | payer MEDICAID, SELFPAY | END 2018-01-13 15:31 | disposition home or self-care (01) | LOC: PT 15:30 | PROVIDERS: Visit Provider Podiatrist | DX: S93.402A Sprain of unspecified ligament of left ankle, initial encounter (principal); M76.72 Peroneal tendinitis, left leg | CPT/HCPCS: 97016; 97110; 97112 ==

== ENCOUNTER → 2018-01-21 14:54 | Outpatient (CLI) | payer MEDICAID, SELFPAY ==
--- NOTE | 2018-01-21 14:54 | XR_ITS ---
XR foot wt bearing LT 3V HISTORY: Foot pain ORDERING PHYSICIAN: Ifeoma Davis DPM PATIENT AGE: 52 years COMPARISON: 07/16/2017 FINDINGS: No fracture or dislocation. No lytic or blastic change. There is normal mineralization.. The joint spaces are well-preserved. No significant degenerative/arthritic changes. No erosive changes evident. No change with no acute finding IMPRESSION: Negative, no acute finding
--- NOTE | 2018-01-21 14:54 | XR_ITS ---
XR ankle wt bearing LT min 3V HISTORY: Ankle pain ORDERING PHYSICIAN: Ifeoma Davis DPM PATIENT AGE: 52 years COMPARISON: None FINDINGS: No fracture or dislocation. No lytic or blastic change. There is normal mineralization.. The joint spaces are well-preserved. No significant degenerative/arthritic changes. No erosive changes evident. IMPRESSION: Negative ankle, no acute finding
== END ==
PROVIDERS: Visit Provider Podiatrist
DX: M79.672 Pain in left foot (principal)
CPT/HCPCS: 73610; 73630

== ENCOUNTER → 2018-02-26 13:04 | Outpatient (CLI) | payer MEDICAID, SELFPAY ==
--- NOTE | 2018-02-26 13:06 | MR_ITS ---
MR foot LT wo con, MR ankle LT wo con Ordering Physician: Ifeoma Davis DPM Patient Age: 52 years: Female HISTORY: ITS.REASON: Left Foot Peroneal Tendonitis Left foot and ankle pain. Peroneal tendinitis. Twisted foot 7 months ago pain lateral and dorsal aspect of foot. Burning pain dorsal aspect of foot. Ongoing Physical therapy. TECHNIQUE: Multisequence multiplanar MR imaging 1.5 T MR of left ankle; with separate MRI left foot positioning and exam COMPARISON :. Plain films left foot MRI OF LEFT ANKLE The peroneus tendons appear overall intact but noting slight starks signal at the the distal peroneus brevis as it passes along the distal calcaneus,. This is actually most evident on the coronal image set, coronal slice 22, 21 and less evident on the axial & sagittal images. On this is minimal observation but can be seen with prior interstitial tear or injury of the peroneus brevis tendon tendon. Magic angle artifact may also contribute to increased signal at these tendons in this region. No fluid or inflammation is otherwise seen associated with peroneus tendons. The previous plain films showed a moderate-sized ovoid osseous density reflecting accessory ossicle most likely the os peroneum. On plain film I question there may be some connection of this accessory ossicle to the cuboid but this is not apparent on MR. It appears to be a separate discrete ossicle. But this ossicle incorporated within the course of the peroneus longus tendon as it turns beneath the cuboid. No abnormal increased signal within this accessory ossicle or adjacent tendon appreciated. ....... Also at lateral ankle the talofibular ligament appears to be intact fact. Small Fibular calcaneal ligament I believe intact as well. Anterior & posterior tibiofibular ligament intact. It distal calcaneus with normal signal. Subtalar joint unremarkable. MRI LEFT FOOT There is a focus of increased signal at the dorsal aspect of the intermediate cuneiform. (Coronal foot image 29, sagittal 16.; Axial slice 4). Appears to be a cystic area, suspect subchondral cyst at this dorsal subarticular location and what are likely some early degenerative changes of this joint.... It measures up to 11 mm length x 6 mm wide x 7 mm height . It is not readily apparent on previous plain films only questionably vaguely evident on one of the oblique views of the ankle. If the patient should developed progressive pain or redness in this region then this might consider follow-up MR with contrast but currently favor most likely a subchondral cyst. Doubt erosive change. other joint spaces are satisfactory with no no erosions elsewhere On close inspection there may be 2 or 3 extremely tiny subchondral cystic areas at the distal margin cuboid, at articulation with fourth and fifth metatarsals. Equivocal. (Sagittal image 22 and axial STIR foot image 8,).. A very unimpressive but noted Otherwise the metatarsals and toes appear satisfactory with no erosions or soft tissue findings of significance otherwise seen. IMPRESSION------- MRI Left Ankle: 1. Slightly starks [id number] is seen at the peroneus brevis tendon distally. No fluid here currently on water-weighted images but with this appearance raise possibility question prior interstitial tear or injury if focally tender here.. Magic angle artifact may also contribute to signal in this region 2. Note moderate-sized os peroneumaccessory ossicle is seen along the course of peroneus longus tendon. No inflammation or edema at the tendon or ossicle . 3. The anterior talofibular ligament appears intact.. No tear nor inflammation or edema or swelling evident here or in this region. 4. Upper normal joint fluid ankle and posterior subtalar joint. MRI Left Foot:: 11 x 7 mm area of increased signal, dorsal subar
== END ==
PROVIDERS: Visit Provider Podiatrist
DX: M76.72 Peroneal tendinitis, left leg (principal)
CPT/HCPCS: 73718; 73721

== ENCOUNTER 2018-04-30 15:30 | Outpatient (RCR) | payer MEDICAID, SELFPAY ==
--- NOTE | 2018-03-31 15:36 | HMH.PTOPEV ---
PT Outpatient Evaluation Rehab PT Outpatient Evaluation Start: 03/31/18 14:15 Freq: Status: Active Protocol: Document 03/31/18 14:57 KIMO (Rec: 03/31/18 15:33 PHORNE [id number]) Electronically Signed By Naga Estrada, PT 03/31/18 14:57 Outpatient Therapy Subjective History Subjective History Pt is 52 yo white female who presents with left ankle/foot pain x ~ 8 mos after initially injuring her left ankle at work. 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 She has had therapy previously and states, When they started me doing exercises the first day it just ached and burned too bad and I couldn't do it. Pt had MRI performed ~ 1 mo ago which showed possible peroneal tendinitis and arthritis, but was otherwise unremarkable. She has been wearing her lace up ankle brace per MD recommendations x ~ 2-3 wks, but reports increased pain and swelling with the brace. Today she reports no pain or swelling, but reports she has not been in the brace very long. She reports pain is worse with prolonged walking. She has PMH of HL and COPD. Chief Complaint Pain Symptom Type Ache Sharp Symptoms Relieved By Rest/Positioning Symptoms Aggravated By Walking Prior Functional Limitations Walking Current Functional Limitations Walking Symptom Description Activity Dependent Level of pain today (0-10) 0 Pain scale - at its worst (0-10) 8 Ankle/Foot Eval Gait Observation General Gait Pattern Observation Antalgic Gait Decrease Stride Lngth (L) Palpation Tenderness left Ankle/Foot Palpation Findings None/Normal ROM right Ankle/Foot Dorsiflexion w/Knee Extended 0-9 Active Range Motion (degrees) Ankle/Foot Dorsiflexion w/Knee Extended 0-13 Passive Range (degrees) Ankle/Foot Plantar Flexion Active Range 0-56 of Motion (degrees)
== END 2018-04-30 15:31 | disposition home or self-care (01) ==
LOC: PT 15:30
PROVIDERS: Family Provider Nurse Practitioner Family; PCP Nurse Practitioner Family; Visit Provider Podiatrist
DX: M76.72 Peroneal tendinitis, left leg (principal)
CPT/HCPCS: 97033; 97035; 97110; 97163

== ENCOUNTER → 2018-07-20 13:53 | Outpatient (CLI) | payer MEDICAID, SELFPAY ==
--- NOTE | 2018-07-20 13:54 | XR_ITS ---
XR chest 2V HISTORY: ITS.REASON: cough ORDERING PHYSICIAN: GIORGI Bourne PATIENT AGE: 53 years COMPARISON: 12/18/2017 FINDINGS: The cardiomediastinal silhouette and pulmonary vascularity are within normal limits. The lungs are clear without infiltrates, suspicious nodules, or pleural effusions. No acute bony abnormalities. IMPRESSION: Negative chest, no acute finding
== END ==
PROVIDERS: PCP Physician Assistant; Visit Provider Physician Assistant
DX: R05 Cough (principal)
CPT/HCPCS: 71046

== ENCOUNTER → 2018-07-20 16:16 | Outpatient (REF) | payer MEDICAID, SELFPAY ==
[2018-07-20 19:44] LABS: Basophils # 0.1 K/mm3 (0-0.2); Basophils % 0.7 % (0.1-2.0); Eosinophils # 0.1 K/mm3 (0.0-0.4); Eosinophils % 0.8 % (0.1-12.0); Hematocrit 45.7 % (37.0-47.0); Hemoglobin 14.7 g/dL (12.2-16.2); Lymphocytes # 3.4 K/mm3 (0.7-4.5); Lymphocytes % 33.7 K/mm3 (10-50); Mean Corpuscular HGB Conc 32.2 g/dL (31.8-35.4); Mean Corpuscular Hemoglobin 30.9 pg (27.0-31.2); Mean Platelet Volume 8.3 fl (7.4-10.4); Monocytes # 0.6 K/mm3 (0.1-1.0); Monocytes % 6.2 % (1.7-9.3); Neutrophils # 5.9 K/mm3 (1.8-7.8); Neutrophils % 58.6 % (37.0-80.0); Platelet Count 285 K/mm3 (142-424); Red Blood Count 4.76 M/mm3 (4.20-5.40); Red Cell Distribution Width 12.3 % (11.5-17.5)
[2018-07-20 20:04] LABS: Alanine Aminotransferase 18 U/L (12-78); Albumin Level 3.8 gm/dL (3.4-5.0); Albumin/Globulin Ratio 1.2 (1.1-1.8); Alkaline Phosphatase 96 U/L (46-116); Anion Gap 10.8 mEq/L (5-15); Aspartate Amino Transferase 14 U/L (15-37); Bilirubin,Total 0.2 mg/dL (0.2-1.0); Blood Urea Nitrogen 6 mg/dL (7-18); Calcium 8.9 mg/dL (8.5-10.1); Carbon Dioxide 32 mmol/L (21.0-32.0); Chloride 104 mmol/L (98-107); Cholesterol 201 mg/dL (140-200); Creatinine,Serum 0.47 mg/dL (0.55-1.02); Estimated Glomerular Filt Rate 139 ml/min (>60); GFR (African American) 168 ML/MIN (>60); Globulin 3.1 gm/dl (1.3-3.2); Glucose 73 mg/dL (74-106); HDL Cholesterol 67 mg/dL (29-89); LDL Cholesterol 104 mg/dL (0-130); Potassium 3.8 mmoL/L (3.5-5.1); Sodium 143 mmol/L (136-145); T4 (Thyroxine) 8.3 ug/dl (4.7-13.3); Thyroid Stimulating Hormone 5.53 uIU/ml (0.358-3.740); Total Protein,Serum 6.9 gm/dL (6.4-8.2); Triglycerides 152 mg/dL (30-200); VLDL Cholesterol 30 mg/dL (0-40)
[2018-07-22 10:15] LABS: Vitamin D 25 Hydroxy 39.1 ng/mL (30.0-100.0)
== END ==
LOC: LAB 16:16
PROVIDERS: Visit Provider Physician Assistant
DX: R53.81 Other malaise (principal)
CPT/HCPCS: 80053; 80061; 82652; 84436; 84443; 85025

== ENCOUNTER 2018-07-21 11:06 | Outpatient (CLI) | payer MEDICAID, SELFPAY ==
[2018-07-21 11:15] VITALS: BP 122/87; PULSE 87; RESP 18; TEMP 36.7; O2SAT 99
[2018-07-21 12:32] VITALS: BP 136/87; PULSE 70; RESP 18; O2SAT 95
[2018-07-21 12:53] LABS: Adenovirus F 40/41, stool Not Detected (NotDetected); Astrovirus Not Detected (NotDetected); Campylobacter Not Detected (NotDetected); Clostridium Difficile A/B, PCR Not Detected (NotDetected); Cryptosporidium Not Detected (NotDetected); Cyclospora Cayetanesis Not Detected (NotDetected); Entamoeba histolytica Not Detected (NotDetected); Enteroaggregative E coli Not Detected (NotDetected); Enteropathogenic E coli Not Detected (NotDetected); Enterotoxigenic E coli Not Detected (NotDetected); Giardia lamblia Not Detected (NotDetected); Norovirus Not Detected (NotDetected); Plesimonas Shigalloides, PCR Not Detected (NotDetected); Rotavirus A Not Detected (NotDetected); Salmonella, PCR Not Detected (NotDetected); Sapovirus Not Detected (NotDetected); Shiga-like toxin E coli Not Detected (NotDetected); Shigella Enterovasive E coli Not Detected (NotDetected); Vibrio Cholerae Not Detected (NotDetected); Vibrio, PCR Not Detected (NotDetected); Yersinia Entercolitica, PCR Not Detected (NotDetected)
[2018-07-21 13:15] VITALS: BP 143/81; PULSE 84; RESP 18; O2SAT 95
[2018-07-21 13:45] VITALS: BMI 22.8
== END 2018-07-21 13:15 | disposition home or self-care (01) ==
LOC: INF 11:07
PROVIDERS: PCP Physician Assistant; Visit Provider Physician Assistant
DX: R19.7 Diarrhea, unspecified (principal); E86.0 Dehydration; R34 Anuria and oliguria
CPT/HCPCS: 87507; 96360; 96361

== ENCOUNTER → 2018-07-28 16:07 | Outpatient (CLI) | payer MEDICAID, SELFPAY ==
--- NOTE | 2018-07-28 16:11 | CT_ITS ---
CT head/brain wo con HISTORY: ITS.REASON: Confusion, chills, vertigo ORDERING PHYSICIAN: GIORGI Bourne PATIENT AGE: 53 years COMPARISON: 12/25/2008 TECHNIQUE: Axial images obtained without contrast. Brain and bone windows reviewed. All CT scans at the facility use one or more dose reduction, viz: automated exposure control, ma/kV adjustment per patient size (including targeted exams where dose is matched to indication, i.e. head), or iterative reconstruction technique. FINDINGS: No midline shift, mass effect, intracranial hemorrhage, hydrocephalus, or extra-axial fluid collection is evident. Small isodense area in both basal ganglia 6 mm on the right and 4 mm on the left and may be due to choroidal fissure cyst or dilated perivascular spaces similar when compared to the previous exam The calvarium has an unremarkable appearance. No mastoid effusion. No sinus air-fluid levels.. IMPRESSION: No change with no acute finding
== END ==
PROVIDERS: PCP Physician Assistant; Visit Provider Physician Assistant
DX: R41.0 Disorientation, unspecified (principal)
CPT/HCPCS: 70450

== ENCOUNTER → 2018-08-02 10:53 | Outpatient (POV) | payer MEDICAID, SELFPAY ==
[2018-08-02 11:07] VITALS: BP 149/93; PULSE 96; RESP 18; O2SAT 98
--- NOTE | 2018-08-02 12:17 | HMH.PMCON ---
Assessment and Plan (1) CRPS (complex regional pain syndrome type I) Current visit: Yes Status: Chronic Qualifiers: Complex regional pain syndrome affected site: lower extremity Laterality: left Qualified Code(s): G90.522 - Complex regional pain syndrome I of left lower limb Category: Medical Code(s): G90.50 - Complex regional pain syndrome I, unspecified - Assessment and plan all Dx Assessment and Plan for all problems:: Patient and I had a long discussion in regards to the best treatment. I believe a DRG stimulator would be the best course of treatment given her age. I gave the patient information regards to this we will get a psychological evaluation to determine if she is candidate. I will follow-up with the patient after her psych eval... This note was dictated using voice recognition software and may contain errors or omissions HPI - Data of Consult Consult date: 08/02/18 Requesting Physician: Karma Giraldo APRN Primary Care Provider: GIORGI Marcial - Consult Narrative Reason for consult: CRPS left foot History of present illness: Ms. Malhotra is a 53 year old female who presents for consultation in regards to her CRPS. Patient had a crush injury at work a year ago. Since then she has continual burning and swelling and color changes in her left foot. Patient rates her pain today a 4 out of 10 she states that it is constant. Patient states that it feels like it is on fire and freezing at the same time. Patient's tried and failed physical therapy and massage therapy she is taking ibuprofen and Tylenol for several months without any relief. Patient states that any activity increases her pain while resting decreases her pain. Patient has been followed by podiatry. CC: Karma Giraldo APRN [facility] History I have reviewed the patient's past medical history: Yes Medical History: Reports:: Chronic Obstructive Pulmonary Disease (COPD), Hyperlipidemia Denies:: Cancer, Diabetes Mellitus Type 1, Diabetes Mellitus Type 2, Hypertension, MRSA Other Medical History: Reports: Hypothyroidism, Thyroid Disease Laterality Cases: Bilateral: Tonsillectomy Other Surgeries: Yes: Cholecystectomy, Hysterectomy-Total, Other Amputation: No Fractures: No - *Social History Smoking Status: Current every day smoker Tobacco Type: cigarettes # Packs/Day (cigarettes): 1 #Yrs smoked (if former smoker): 39 Alcohol Intake: never Alcohol Intake Frequency:: other Substance Use Type: denies use Occupational Status: unemployed Housing: house Household Members: family, children - Psychiatric History Expresses thoughts of harming self/others: None Suicide Plan Description: No Plan *Family Hx:: Hyperlipidemia, Hypertension, Cancer Review of Systems - Review of Systems ROS General: no recent weight change, no fever, no sleep disturbances Respiratory: no cough, no shortness of air, no recurring pulmonary infections Cardiovascular/Peripheral Vascular: No chest pain, No palpitations, no edema, no shortness of breath. Gastrointestinal: no incontinence, normal bowel movements reported Genitourinary: no incontinence Musculoskeletal: Left foot pain Psychiatric: normal mood/ affect Neurological: [denies weakness in extremities], [denies balance issues] Meds Home Medications Medication Instructions Recorded Confirmed Type Cholecalciferol (Vitamin D3) 1,000 unit PO DAILY 12/19/17 07/21/18 History [Vitamin D3 1,000 Unit Tab] ciclopirox 8 % topical solution 1 applic TOPICAL QHS 12/28/17 07/21/18 History Ergocalciferol (Vitamin D2) 50,000 unit PO QWEEK 07/21/18 07/21/18 History [Drisdol] Omeprazole [Omeprazole 40mg 40 mg PO DAILY 07/21/18 07/21/18 History Capsule] Venlafaxine HCl [Venlafaxine HCl 150 mg PO DAILY 07/21/18 07/21/18 History ER] Allergies Allergy/AdvReac Type Severity Reaction Status Date / Time Sulfa (Sulfonamide Allergy Intermediate I-RASH Verified
--- NOTE | 2018-08-02 12:23 | P.CONS_ITS ---
Assessment and Plan (1) CRPS (complex regional pain syndrome type I) Current visit: Yes Status: Chronic Qualifiers: Complex regional pain syndrome affected site: lower extremity Laterality: left Qualified Code(s): G90.522 - Complex regional pain syndrome I of left lower limb Category: Medical Code(s): G90.50 - Complex regional pain syndrome I, unspecified - Assessment and plan all Dx Assessment and Plan for all problems:: Patient and I had a long discussion in regards to the best treatment. I believe a DRG stimulator would be the best course of treatment given her age. I gave the patient information regards to this we will get a psychological evaluation to determine if she is candidate. I will follow-up with the patient after her psych eval... This note was dictated using voice recognition software and may contain errors or omissions HPI - Data of Consult Consult date: 08/02/18 Requesting Physician: Karma Giraldo APRN Primary Care Provider: GIORGI Marcial - Consult Narrative Reason for consult: CRPS left foot History of present illness: Ms. Malhotra is a 53 year old female who presents for consultation in regards to her CRPS. Patient had a crush injury at work a year ago. Since then she has continual burning and swelling and color changes in her left foot. Patient rates her pain today a 4 out of 10 she states that it is constant. Patient states that it feels like it is on fire and freezing at the same time. Patient's tried and failed physical therapy and massage therapy she is taking ibuprofen and Tylenol for several months without any relief. Patient states that any activity increases her pain while resting decreases her pain. Patient has been followed by podiatry. CC: Karma Giraldo APRN [facility] History I have reviewed the patient's past medical history: Yes Medical History: Reports:: Chronic Obstructive Pulmonary Disease (COPD), Hyperlipidemia Denies:: Cancer, Diabetes Mellitus Type 1, Diabetes Mellitus Type 2, Hypertension, MRSA Other Medical History: Reports: Hypothyroidism, Thyroid Disease Laterality Cases: Bilateral: Tonsillectomy Other Surgeries: Yes: Cholecystectomy, Hysterectomy-Total, Other Amputation: No Fractures: No - *Social History Smoking Status: Current every day smoker Tobacco Type: cigarettes # Packs/Day (cigarettes): 1 #Yrs smoked (if former smoker): 39 Alcohol Intake: never Alcohol Intake Frequency:: other Substance Use Type: denies use Occupational Status: unemployed Housing: house Household Members: family, children - Psychiatric History Expresses thoughts of harming self/others: None Suicide Plan Description: No Plan *Family Hx:: Hyperlipidemia, Hypertension, Cancer Review of Systems - Review of Systems ROS General: no recent weight change, no fever, no sleep disturbances Respiratory: no cough, no shortness of air, no recurring pulmonary infections Cardiovascular/Peripheral Vascular: No chest pain, No palpitations, no edema, no shortness of breath. Gastrointestinal: no incontinence, normal bowel movements reported Genitourinary: no incontinence Musculoskeletal: Left foot pain Psychiatric: normal mood/ affect Neurological: [denies weakness in extremities], [denies balance issues] Meds Home Medications Medication Instructions Recorded Confirmed Type Cholecalciferol (Vitamin D3) 1,000 unit PO DAILY 12/19/17 07/21/18 History [Vitamin D3 1,000 Unit Tab]
== END ==
PROVIDERS: PCP Physician Assistant; Visit Provider Clinical Nurse Specialist Family Health
DX: G90.522 Complex regional pain syndrome I of left lower limb (principal)
CPT/HCPCS: 99202

== ENCOUNTER → 2018-08-19 13:00 | Outpatient (CLI) | payer MEDICAID, SELFPAY ==
--- NOTE | 2018-08-19 13:01 | FL_ITS ---
FL barium swallow modified: 08/19/2018 1:01 PM CLINICAL HISTORY: Dysphagia ORDERING PHYSICIAN: GIORGI Bourne PATIENT AGE: 53 years Comparison: None TECHNIQUE: Patient administered varying consistencies of barium contrast, while viewed in lateral position under real-time fluoroscopy with cine recording. FLUOROSCOPY TIME: 2 minutes and 54 seconds The study was performed in conjunction with speech pathologist. Please see that report & recommendations. FINDINGS: Patient was given varying consistencies of barium. Normal swallowing mechanism. No evidence of aspiration or penetration or pooling. IMPRESSION: Unremarkable modified barium swallow Please see speech pathologist report and recommendations.
--- NOTE | 2018-08-19 14:08 | HMH.SLMBS2 ---
Speech & Language Evaluation Speech/Language Mod Barium Swallow Start: 08/19/18 13:56 Freq: once Status: Complete Protocol: Document 08/19/18 13:56 JOSE (Rec: 08/19/18 14:08 JOSE [id number]) [facility] [place], [place] Recommendations Diet Dietary Recommendations Regular Thin Liquids Referrals/Other Recommended Referrals ENT Consult Other Recommendations Schedule laryngoscopy to determine cause of discomfort. Mod Barium Swallow Impressions Summary and Impressions Oral Phase Impression No Impairment (WFL) Oral Phase Summary Ms. Malhotra was given the following consistencies: thins via straw and open cup, pudding, mechanical soft, regular, and pill with thin wash. No oral phase impairments noted. Pharyngeal Phase Impression No Impairment (WFL) Pharyngeal Phase Summary No pharyngeal phase impairments noted. Speech/Language MBS Assessment/Goals/Plan Assessment Date of Evaluation: 08/19/18 Evaluation Type Initial Certification Assessment/Problems Dysphagia Does Patient Qualify for Service No Qualify/Failure Comment Diet is appropriate Plan Pt/Guardian verbally ack understanding Yes of dx/prognosis/goals G -code Required No Mod Barium Swallow Setup Exam Setup Radiologist Fabiano Valentine Level of Consciousness Awake Position (degrees) 90 PHYSICIAN CERTIFICATION: I certify the specified therapy services for Mckenna Malhotra are required, authorized, and reviewed every 30 days.
== END ==
PROVIDERS: PCP Physician Assistant; Visit Provider Physician Assistant
DX: R13.10 Dysphagia, unspecified (principal)
CPT/HCPCS: 70371; 92611

== ENCOUNTER → 2018-09-22 21:03 | Outpatient (CLI) | payer MEDICAID, SELFPAY ==
[2018-09-22 21:12] LABS: Basophils % 0.6 % (0.1-2.0); Eosinophils # 0.1 K/mm3 (0.0-0.4); Eosinophils % 1.1 % (0.1-12.0); Hematocrit 44.9 % (37.0-47.0); Hemoglobin 14.5 g/dL (12.2-16.2); Lymphocytes # 2.2 K/mm3 (0.7-4.5); Lymphocytes % 32.1 % (10-50); Mean Corpuscular HGB Conc 32.4 g/dL (31.8-35.4); Mean Corpuscular Hemoglobin 31.6 pg (27.0-31.2); Mean Corpuscular Volume 97.4 fl (81-99); Mean Platelet Volume 9.6 fl (7.4-10.4); Monocytes # 0.4 K/mm3 (0.1-1.0); Monocytes % 6.3 % (1.7-9.3); Neutrophils # 4.1 K/mm3 (1.8-7.8); Neutrophils % 59.9 % (37.0-80.0); Platelet Count 279 K/mm3 (142-424); Red Blood Count 4.61 M/mm3 (4.20-5.40); Red Cell Distribution Width 12.8 % (11.5-17.5); White Blood Count 6.8 K/mm3 (4.8-10.8)
[2018-09-22 23:21] LABS: Alanine Aminotransferase 17 U/L (12-78); Albumin Level 4.1 gm/dL (3.4-5.0); Albumin/Globulin Ratio 1.3 (1.1-1.8); Alkaline Phosphatase 107 U/L (46-116); Aspartate Amino Transferase 12 U/L (15-37); Bilirubin,Total 0.3 mg/dL (0.2-1.0); Blood Urea Nitrogen 8 mg/dL (7-18); Calcium 9.1 mg/dL (8.5-10.1); Carbon Dioxide 29 mmol/L (21.0-32.0); Chloride 102 mmol/L (98-107); Chol/HDL Ratio 3.2 (1-3.5); Cholesterol 198 mg/dL (140-200); Creatinine,Serum 0.57 mg/dL (0.55-1.02); Estimated Glomerular Filt Rate 111 ml/min (>60); GFR (African American) 134 ML/MIN (>60); Globulin 3.2 gm/dl (1.3-3.2); Glucose 102 mg/dL (74-106); HDL Cholesterol 62 mg/dL (29-89); LDL Cholesterol 124 mg/dL (0-130); Sodium 139 mmol/L (136-145); T4 (Thyroxine) 11.9 ug/dl (4.7-13.3); Thyroid Stimulating Hormone 0.74 uIU/ml (0.358-3.740); Total Protein,Serum 7.3 gm/dL (6.4-8.2); Triglycerides 59 mg/dL (30-200); VLDL Cholesterol 12 mg/dL (0-40)
[2018-09-24 16:15] LABS: Vitamin D 25 Hydroxy 40.6 ng/mL (30.0-100.0)
== END ==
PROVIDERS: Visit Provider Physician Assistant
DX: F41.9 Anxiety disorder, unspecified (principal)
CPT/HCPCS: 80053; 80061; 82652; 84436; 84443; 85025

== ENCOUNTER → 2018-10-11 10:44 | Outpatient (CLI) | payer MEDICAID, SELFPAY | PROVIDERS: Visit Provider Podiatrist | DX: L60.8 Other nail disorders (principal) | CPT/HCPCS: 87102; 87206; 87220 ==

== ENCOUNTER → 2018-10-12 12:59 | Outpatient (CLI) | payer MEDICAID, SELFPAY ==
--- NOTE | 2018-10-12 13:04 | US_ITS ---
US extremity LT limited HISTORY: Palpable abnormality of the left buttock ITS.REASON: Knot left buttock ORDERING PHYSICIAN: GIORGI Bourne PATIENT AGE: 53 years COMPARISON: None FINDINGS: ultrasound is performed of the area of clinical concern in the left buttock region. No sonographic abnormality is are evident. No soft tissue mass or abnormal fluid collection. If pain persists, would consider CT or MRI for further evaluation. IMPRESSION: Unremarkable ultrasound of the left buttock region
== END ==
PROVIDERS: PCP Physician Assistant; Visit Provider Physician Assistant
DX: R22.2 Localized swelling, mass and lump, trunk (principal)
CPT/HCPCS: 76882

== ENCOUNTER → 2018-10-21 09:31 | Outpatient (CLI) | payer MEDICAID, SELFPAY ==
--- NOTE | 2018-10-21 09:35 | CT_ITS ---
CT abdomen pelvis wo/w con CLINICAL INDICATION: ITS.REASON: Hematuria ORDERING PHYSICIAN: Mark Nash MD PATIENT AGE: 53 years COMPARISON: 05/14/2017 TECHNIQUE: Axial images obtained without contrast. Sagittal and coronal reformatted images were also generated and reviewed.. All CT scans at the facility use one or more dose reduction, viz: automated exposure control, ma/kV adjustment per patient size (including targeted exams where dose is matched to indication, i.e. head), or iterative reconstruction technique. PROCEDURE: Oral Contrast: None IV Contrast: 75 mL Isovue-370. FINDINGS: Lower thorax: There are scattered small ill-defined opacities in both lower lobes measuring up to 7 mm more prominent in the left lower lobe. These have developed since the previous exam of 05/14/2017. No effusions. Postcholecystectomy change. The liver, spleen, adrenal glands, and pancreas have an unremarkable appearance. No renal or ureteral calculi. No hydronephrosis. There is an exophytic right renal isodensity measuring 17 mm consistent with a renal cyst. This previously measured 12 mm No suspicious renal masses. No intestinal obstruction or free air. There has been a prior appendectomy. Status post hysterectomy. No pelvic mass or abnormal fluid collection or focal inflammatory change of the pelvis. Urinary bladder has an unremarkable CT appearance. No acute bony anomalies. IMPRESSION: 1. No acute abdominal or pelvic findings. 2. 17 mm right renal cyst slightly increased in size. 3. No renal or ureteral calculi. No suspicious renal masses.
== END ==
PROVIDERS: PCP Physician Assistant; Visit Provider Urology
DX: R31.9 Hematuria, unspecified (principal)
CPT/HCPCS: 74178; Q9967

== ENCOUNTER → 2018-11-23 09:37 | Outpatient (CLI) | payer MEDICAID, SELFPAY ==
--- NOTE | 2018-11-23 09:41 | MM_ITS ---
MM Dig screening mamm BI w/CAD ORDERING PHYSICIAN : Rafael Guardado MD PATIENT AGE: 53 years GENDER: Female COMPARISON: Bilateral mammogram August 2016 [facility] and April 2010 [facility] INDICATION: .: screening. No hormones. No new complaints. Noncontributory family history TECHNIQUE: Standard CC and MLO images were obtained. R2 CAD reviewed. FINDINGS: Minimal fibroglandular elements bilaterally with no dominant mass nor suspicious calcifications. No new areas of significant concern when compared to 2016. . IMPRESSION: Stable bilateral mammogram with no significant new findings. Bilateral follow-up in one year suggested BI-RADS Category: 1 Negative RECOMMENDED FOLLOW-UP: 1YR 1 YEAR FOLLOW-UP (A letter has been sent to the patient regarding results of the study.)
--- NOTE | 2018-11-23 09:41 | XR_ITS ---
XR DEXA axial skeleton HISTORY: ITS.REASON: screening ORDERING PHYSICIAN: Rafael Guardado MD PATIENT AGE: 53 years COMPARISON: None FINDINGS: The BMD measured at the right femoral neck is 0.693 g/cm squared with a T score of -2.5. This is considered osteoporotic according to the World Health Organization criteria. Fracture risk is high. The L1 L4 density has a T score of -0.8. IMPRESSION: Osteoporosis with high fracture risk. Treatment recommended. Suggest follow-up exam November 2019
== END ==
PROVIDERS: PCP Physician Assistant; Visit Provider Obstetrics & Gynecology
DX: Z12.31 Encounter for screening mammogram for malignant neoplasm of breast (principal); Z78.0 Asymptomatic menopausal state
CPT/HCPCS: 77067; 77080

== ENCOUNTER → 2018-12-29 16:34 | Outpatient (CLI) | payer MEDICAID, SELFPAY ==
[2018-12-29 17:12] LABS: Calcium 9.2 mg/dL (8.5-10.1)
== END ==
PROVIDERS: Visit Provider Obstetrics & Gynecology
DX: M81.0 Age-related osteoporosis without current pathological fracture (principal)
CPT/HCPCS: 36415; 82310

== ENCOUNTER 2019-01-21 15:09 | Outpatient (CLI) | payer MEDICAID, SELFPAY ==
[2019-01-21 15:15] VITALS: BP 99/64; PULSE 68; RESP 20; TEMP 36.9; O2SAT 95
== END 2019-01-21 15:40 | disposition home or self-care (01) ==
LOC: INF 15:09
PROVIDERS: Visit Provider Obstetrics & Gynecology
DX: M81.0 Age-related osteoporosis without current pathological fracture (principal)
CPT/HCPCS: 96372; J0897

== ENCOUNTER → 2019-02-03 15:00 | Outpatient (CLI) | payer MEDICAID, SELFPAY ==
--- NOTE | 2019-02-03 15:04 | CT_ITS ---
CT chest wo con HISTORY: Follow-up pulmonary nodule ITS.REASON: nodule,smoker, dyspnea ORDERING PHYSICIAN: GIORGI Marcial PATIENT AGE: 53 years COMPARISON: 05/06/2017 Technique: Axial images obtained. Sagittal, and coronal reformatted images are also generated and reviewed. All CT scans at the facility use one or more dose reduction, viz: automated exposure control, ma/kV adjustment per patient size (including targeted exams where dose is matched to indication, i.e. head), or iterative reconstruction technique. FINDINGS: No mediastinal or hilar mass or adenopathy. Coronary artery calcifications are present. Normal heart size. Centrilobular emphysema. There are 2 nodular opacities in the apex on the right which are unchanged the largest at 6 mm. There is a new nodule in the right upper lobe posteriorly at 5 mm series 3 #18. There is an irregular nodule in the right upper lobe anteriorly measuring approximately 12 x 8 x 13 mm. This has increased in size from the previous study. There is some subadjacent hyperlucency/emphysematous change around this nodule medially. There is a stable 5 mm nodule in the right lung base medially along the major fissure. There is a calcified granuloma in the right lower lobe. On the left there is a new 6 mm nodule in the left upper lobe anteriorly series the #21. A 3 mm nodule is present in the left upper lobe centrally series 3 #38 unchanged. A new irregular nodule present in the left apex laterally at 7 mm series 3 #18 There is a small hiatal hernia. No effusions are evident. There are few small lymph nodes in the retroperitoneum within the upper abdomen. The adrenal glands are unremarkable. The intrinsic imaged. IMPRESSION: 1. 13 x 12 x 8 mm irregular nodule in the right upper lobe centrally slightly increased in size. The nodule has irregular margins and there is some subadjacent emphysematous change. This is suspicious for neoplasm due to the increase in size and appearance of the nodule. PET/CT and pulmonary consult suggested for further evaluation 2. There are multiple small new nodular opacities of the lungs also present as described above which could be neoplastic/metastatic disease versus inflammatory or infectious changes. 3. Centrilobular emphysema. 4. Coronary artery calcifications
== END ==
PROVIDERS: PCP Physician Assistant; Visit Provider Physician Assistant
DX: R91.1 Solitary pulmonary nodule (principal); R06.00 Dyspnea, unspecified; F17.200 Nicotine dependence, unspecified, uncomplicated
CPT/HCPCS: 71250

== ENCOUNTER 2019-08-02 14:56 | Outpatient (CLI) | payer MEDICAID, SELFPAY ==
[2019-08-02 15:00] VITALS: BP 135/78; PULSE 98; RESP 20; TEMP 36.9; O2SAT 97
== END 2019-08-02 15:30 | disposition home or self-care (01) ==
LOC: INF 14:56
PROVIDERS: Visit Provider Obstetrics & Gynecology
DX: M81.0 Age-related osteoporosis without current pathological fracture (principal)
CPT/HCPCS: 96372; J0897

== ENCOUNTER 2019-09-22 13:14 | Outpatient (RCR) | payer MEDICAID, SELFPAY | END 2020-01-04 10:11 | disposition home or self-care (01) | LOC: PT 13:14 | PROVIDERS: Visit Provider Internal Medicine Pulmonary Disease | DX: J44.9 Chronic obstructive pulmonary disease, unspecified (principal) | CPT/HCPCS: G0424 ==

== ENCOUNTER → 2019-10-18 14:24 | Outpatient (CLI) | payer MEDICAID, SELFPAY ==
--- NOTE | 2019-10-18 14:25 | US_ITS ---
PROCEDURE: US BREAST RT COMPLETE CLINICAL INDICATION: swelling right breast and axilla Possible lump, swelling at 11 o'clock COMPARISON: No exams were available for comparison FINDINGS: No cystic or solid lesions evident. Recommend correlation with mammography IMPRESSION: Category 0 incomplete. Additional imaging recommended with mammogram Dictated by: Fabiano Valentine MD 10/21/2019 14:32 Electronically signed by Fabiano Valentine MD in [place] 10/21/2019 14:32
== END ==
PROVIDERS: PCP Physician Assistant; Visit Provider Physician Assistant
DX: N63.10 Unspecified lump in the right breast, unspecified quadrant (principal)
CPT/HCPCS: 76641

== ENCOUNTER → 2019-12-01 12:54 | Outpatient (CLI) | payer MEDICAID, SELFPAY ==
--- NOTE | 2019-12-01 12:54 | MM_ITS ---
PROCEDURE: MM DIG MAMM BI DX W/CAD CLINICAL INDICATION: swelling Right axillary swelling COMPARISON: DIGMAMMS MAMMOGRAM SCREEN-QUALITY MANAGEMENT COORDINATOR N/C from 05/03/2010 DMDXUL DIG MAMM-DX UNILATERAL-LT from 01/20/2011 DMSB DIG MAMM-SCREEN CAIN from 09/03/2016 [facility] MM Dig screening mamm BI w/CAD from 11/23/2018 US BREAST RT COMPLETE from 10/18/2019 TECHNIQUE: Standard CC and MLO images and 3D Tomosynthesis was obtained. R2 CAD reviewed. FINDINGS: There is mild degree of motion artifact on several of the images. There is average fibroglandular tissue. No malignant appearing mass or malignant-appearing microcalcification is evident. There is puffiness of the axillary fat on the right. No discrete mass. There is a small cluster microcalcifications noted in the deep slightly inferior aspect of the right breast. This is only seen on the MLO view. This may been present on the previous study of 09/03/2016 however appearing somewhat more anterior on that exam. A stable benign-appearing nodular density is present in the upper aspect of the left breast. IMPRESSION: No convincing evidence of malignancy. There is a cluster of calcifications along the inferior aspect of the right breast which may have been present previously somewhat difficult to ascertain due to the slight difference in positioning. Would recommend a 3 month follow-up of the right breast with magnification views . BI-RAD Category: 3 Probably Benign Finding Short Term Follow-up FOLLOW-UP: 3M 3 Month Follow-up (A letter has been sent to the patient regarding results of the study.) Dictated by: Fabiano Valentine MD 12/06/2019 09:57 Electronically signed by Fabiano Valentine MD in [place] 12/06/2019 09:57
== END ==
PROVIDERS: PCP Physician Assistant; Visit Provider Physician Assistant
DX: N63.10 Unspecified lump in the right breast, unspecified quadrant (principal); M79.89 Other specified soft tissue disorders
CPT/HCPCS: 77062; 77066; G0279

== ENCOUNTER → 2020-03-05 14:04 | Outpatient (CLI) | payer MEDICAID, SELFPAY ==
--- NOTE | 2020-03-05 14:04 | MM_ITS ---
PROCEDURE: MM DIG MAMM DX UNILAT RT CAD Digital Breast Tomosynthesis Included CLINICAL INDICATION: 3 mth f/u Follow-up calcifications COMPARISON: DMSB DIG MAMM-SCREEN CAIN from 09/03/2016 [facility] MM Dig screening mamm BI w/CAD from 11/23/2018 MM DIG MAMM BI DX W/CAD from 12/01/2019 TECHNIQUE: Mag views performed of the right breast along with standard images FINDINGS: Average fibroglandular tissue. Faint cluster of calcification noted in the deep inferior aspect of the right breast does not appear significantly changed probably benign. The no malignant appearing mass or malignant-appearing microcalcification IMPRESSION: BI-RAD Category: 2 Benign Finding(s) FOLLOW-UP: 9M 9Month Follow-up bilateral (A letter has been sent to the patient regarding results of the study.) Dictated by: Fabiano Valentine MD 03/09/2020 13:02 Electronically signed by Fabiano Valentine MD in [place] 03/09/2020 13:02
[2020-03-05 15:26] LABS: Basophils # 0.1 K/mm3 (0-0.2); Basophils % 1.5 % (0.1-2.0); Eosinophils # 0.1 K/mm3 (0.0-0.4); Eosinophils % 1.5 % (0.1-12.0); Hematocrit 39.9 % (37.0-47.0); Hemoglobin 13.1 g/dL (12.2-16.2); Lymphocytes # 2.6 K/mm3 (0.7-4.5); Lymphocytes % 31.9 % (10-50); Mean Corpuscular HGB Conc 32.8 g/dL (31.8-35.4); Mean Corpuscular Hemoglobin 31.1 pg (27.0-31.2); Mean Corpuscular Volume 94.9 fl (81-99); Mean Platelet Volume 7.2 fl (7.4-10.4); Monocytes # 0.6 K/mm3 (0.1-1.0); Monocytes % 7.1 % (1.7-9.3); Neutrophils # 4.8 K/mm3 (1.8-7.8); Platelet Count 410 K/mm3 (142-424); Red Cell Distribution Width 12.3 % (11.5-17.5); White Blood Count 8.3 K/mm3 (4.8-10.8)
[2020-03-05 16:28] LABS: Chloride 100 mmol/L (98-107); Potassium 4.5 mmoL/L (3.5-5.1); Sodium 139 mmol/L (136-145)
[2020-03-05 16:30] LABS: Alanine Aminotransferase 15 U/L (12-78); Aspartate Amino Transferase 23 U/L (14-36); Blood Urea Nitrogen 14 mg/dl (7-17); Estimated Glomerular Filt Rate 75 ml/min (>60); GFR (African American) 90 ML/MIN (>60)
[2020-03-05 16:31] LABS: Albumin Level 4.1 g/dl (3.5-5.0); Albumin/Globulin Ratio 1.3 (1.1-1.8); Alkaline Phosphatase 162 U/L (38-126); Anion Gap 11.5 mEq/L (5-15); Bilirubin,Total 0.4 mg/dl (0.2-1.3); Calcium 9.4 mg/dl (8.4-10.2); Carbon Dioxide 32 mmol/L (22.0-30.0); Cholesterol 175 mg/dl (140-200); Globulin 3.1 g/dL (1.3-3.2); Glucose 108 mg/dl (74-100); Total Protein,Serum 7.2 g/dl (6.3-8.2); Triglycerides 125 mg/dl (30-150); VLDL Cholesterol 25 mg/dL (0-40)
[2020-03-05 16:32] LABS: Chol/HDL Ratio 2.4 (1-3.5); HDL Cholesterol 74 mg/dl (40-60)
[2020-03-05 16:48] LABS: T4 (Thyroxine) 13.3 ug/dl (5.53-11.0)
[2020-03-07 14:16] LABS: Vitamin D 25 Hydroxy 66.4 ng/mL (30.0-100.0)
== END ==
PROVIDERS: PCP Physician Assistant; Visit Provider Physician Assistant
DX: R92.8 Other abnormal and inconclusive findings on diagnostic imaging of breast (principal); E03.9 Hypothyroidism, unspecified; E78.5 Hyperlipidemia, unspecified
CPT/HCPCS: 36415; 77061; 77065; 80053; 80061; 82652; 84436; 84443; 85025; G0279

== ENCOUNTER 2020-03-07 02:51 | Emergency (ER) | payer MEDICAID, SELFPAY ==
[2020-03-07 03:05] VITALS: BP 145/88; PULSE 90; RESP 22; TEMP 37.3; O2SAT 96; BMI 25.7
--- NOTE | 2020-03-07 03:14 | ECG_ITS ---
APPROVED REPORT Exam: Resting ECG HR:93 bpm ECG Measurements Heart Rate 93 AXES OH 112 P 60 QRSd 68 QRS 74 QT 386 T 29 QTc 479 <Conclusion> Normal sinus rhythm Junctional ST depression, probably normal Borderline ECG Electronically signed by : Cosme Mayberry, 03/10/2020 14:18:04
--- NOTE | 2020-03-07 03:14 | XR_ITS ---
PROCEDURE: XR CHEST 2V CLINICAL HISTORY: pain Right chest pain COMPARISON: CXR1 CHEST-PORTABLE from 06/15/2017 CXR2V XR chest 2V from 12/18/2017 CXR2V XR chest 2V from 07/20/[address] chest wo con from 02/03/2019 FINDINGS: The cardiomediastinal silhouette and pulmonary vascularity are within normal limits. There postsurgical changes on the right in the right midlung with irregular opacity noted at this area which could be due to postsurgical scarring. The left lung is clear. No effusions or infiltrates. No acute bony abnormalities. IMPRESSION: Postsurgical changes on the right. Consider follow-up to confirm stability as this was the region of the previously noted pulmonary nodule. Please correlate with surgical findings and pathology. No acute finding Dictated by: Fabiano Valentine MD 03/07/2020 06:50 Electronically signed by Fabiano Valentine MD in [place] 03/07/2020 06:50
--- NOTE | 2020-03-07 03:20 | PC.NURSE ---
spoke with electrician helper powerhouse at [facility] to get pt records from yesterdays visit.
--- NOTE | 2020-03-07 03:23 | XR_ITS ---
PROCEDURE: XR RIBS RT 2V CLINICAL INDICATION: right sided pain/soa Right-sided chest pain, rib pain COMPARISON: No exams were available for comparison FINDINGS: No fracture, lytic change or blastic change evident. IMPRESSION: No acute findings. Dictated by: Fabiano Valentine MD 03/07/2020 06:51 Electronically signed by Fabiano Valentine MD in [place] 03/07/2020 06:51
--- NOTE | 2020-03-07 03:25 | PC.NURSE ---
pt to xr at this time
[2020-03-07 03:40] LABS: Basophils # 0.1 K/mm3 (0-0.2); Basophils % 0.4 % (0.1-2.0); Eosinophils # 0.1 K/mm3 (0.0-0.4); Eosinophils % 1.1 % (0.1-12.0); Hematocrit 36.6 % (37.0-47.0); Hemoglobin 12.3 g/dL (12.2-16.2); Lymphocytes # 2.1 K/mm3 (0.7-4.5); Lymphocytes % 15.6 % (10-50); Mean Corpuscular HGB Conc 33.5 g/dL (31.8-35.4); Mean Corpuscular Hemoglobin 31.1 pg (27.0-31.2); Mean Platelet Volume 7.2 fl (7.4-10.4); Monocytes # 1.1 K/mm3 (0.1-1.0); Monocytes % 8.1 % (1.7-9.3); Neutrophils # 10.1 K/mm3 (1.8-7.8); Neutrophils % 74.8 % (37.0-80.0); Platelet Count 351 K/mm3 (142-424); Red Blood Count 3.94 M/mm3 (4.20-5.40); Red Cell Distribution Width 12.3 % (11.5-17.5); White Blood Count 13.5 K/mm3 (4.8-10.8)
[2020-03-07 03:41] LABS: Chloride 103 mmol/L (98-107)
[2020-03-07 03:42] LABS: Sodium 137 mmol/L (136-145)
[2020-03-07 03:44] LABS: Blood Urea Nitrogen 12 mg/dl (7-17); Creatinine Clearance Estimated 99 mL/min (50-200); Estimated Glomerular Filt Rate 87 ml/min (>60); GFR (African American) 106 ML/MIN (>60)
[2020-03-07 03:45] LABS: Alanine Aminotransferase 19 U/L (12-78); Albumin Level 3.9 g/dl (3.5-5.0); Albumin/Globulin Ratio 1.2 (1.1-1.8); Alkaline Phosphatase 161 U/L (38-126); Aspartate Amino Transferase 24 U/L (14-36); Bilirubin,Total 0.4 mg/dl (0.2-1.3); Calcium 8.7 mg/dl (8.4-10.2); Carbon Dioxide 26 mmol/L (22.0-30.0); Globulin 3.2 g/dL (1.3-3.2); Glucose 106 mg/dl (74-100); Total Protein,Serum 7.1 g/dl (6.3-8.2)
[2020-03-07 03:46] VITALS: BP 148/81; PULSE 88; RESP 24; O2SAT 95
[2020-03-07 03:59] VITALS: BP 142/91; PULSE 90; RESP 22; O2SAT 94
[2020-03-07 04:00] LABS: Troponin I < 0.01 ng/ml (0.00-0.034)
[2020-03-07 04:05] LABS: Coronavirus 19 IgG Antibody Negative (Negative); Coronavirus 19 IgM Antibody Negative (Negative)
[2020-03-07 04:13] LABS: Erythrocyte Sedimentation Rate 73 mm/hr (0-30)
[2020-03-07 04:15] LABS: Lactic Acid 1.1 mmol/L (0.7-2.1)
--- NOTE | 2020-03-07 04:20 | PC.NURSE ---
[facility] states their phone lines are down and cant send the records
--- NOTE | 2020-03-07 04:24 | HMH.EDGENADL ---
ED Disposition Clinical Impression: Pleuritic chest pain Disposition: Home, Self-Care Condition on Discharge: Good Instructions: DI for Acute Pain -- Adult Additional Instructions: use meds and see pcp this week Prescriptions: predniSONE [Prednisone 20mg Tab] 20 mg PO BID #10 tab Transmission Status: Pending to [facility] Referrals: Billie Quesada PA [Primary Care Provider] - - Critical Care Critical Care Time: No Attestation: On 03/07/20, the high probability of a clinically significant, sudden or life threatening deterioration of the following system(s) required my full and direct attention, intervention and personal management. The time I documented below is in addition to time spent performing reported procedures but includes the following listed in this critical care notation. Medical Decision Making - Medical Records Medical records reviewed: Yes: I reviewed the patient's medical records. - [place] Inquiry Pt receiving controlled substance: No Vital Signs: 03/07/20 03:05 03/07/20 03:46 03/07/20 03:59 Temperature 99.1 F Temperature Source Oral Pulse Rate [Right Brachial] 90 88 90 Respiratory Rate 22 24 22 Blood Pressure [Right Arm] 145/88 H 148/81 H 142/91 H Blood Pressure Mean [Right Arm] 107 103 108 Blood Pressure Source [Right Arm] Automatic Cuff Blood Pressure Position [Right Arm] Sitting 02 Sat by Pulse Oximetry 96 95 94 L Oxygen Delivery Method Room Air Room Air Room Air 03/07/20 04:27 Temperature Temperature Source Pulse Rate [Right Brachial] 89 Respiratory Rate 21 Blood Pressure [Right Arm] 132/75 Blood Pressure Mean [Right Arm] 94 Blood Pressure Source [Right Arm] Blood Pressure Position [Right Arm] 02 Sat by Pulse Oximetry 93 L Oxygen Delivery Method Room Air - Lab Data Lab results reviewed: Yes: I reviewed the patient's lab results. Lab Results 03/07/20 03:15: WBC 13.5 H D, RBC 3.94 L, Hgb 12.3, Hct 36.6 L, MCV 93.0, MCH 31.1, MCHC 33.5, RDW 12.3, Plt Count 351, MPV 7.2 L, Neut % (Auto) 74.8, Lymph % (Auto) 15.6, [place] % (Auto) 8.1, Eos % (Auto) 1.1, Baso % (Auto) 0.4, Neut # (Auto) 10.1 H, Lymph # (Auto) 2.1, [place] # (Auto) 1.1 H, Eos # (Auto) 0.1, Baso # (Auto) 0.1 03/07/20 03:15: Sodium 137, Potassium 4.0, Chloride 103, Carbon Dioxide 26, Anion Gap 12.0, BUN 12, Creatinine 0.70, Estimated Creat Clear 99, Estimated GFR 87, Est GFR ( Amer) 106, Glucose 106 H, Calcium 8.7, Total Bilirubin 0.4, AST 24, ALT 19 D, Alkaline Phosphatase 161 H, Troponin I < 0.01, C-Reactive Protein 15.0 H, Total Protein 7.1, Albumin 3.9, Globulin 3.2, Albumin/Globulin Ratio 1.2 03/07/20 03:15: ESR 73 H 03/07/20 03:15: SARS-CoV-2 IgG Ab (Rapid) Negative, SARS-CoV-2 IgM Ab (Rapid) Negative 03/07/20 03:55: Lactate 1.1 Result diagrams: 03/07/20 03:15 03/07/20 03:15 Orders (Tests/Meds): ED MEDICATIONS Generic Name Dose Route Start Last Admin Trade Name Freq PRN Reason Stop Dose Admin Sodium Chloride 1,000 mls @ 999 mls/hr 03/07/20 03:30 03/07/20 03:26 Sod Chlor 0.9% 1000ml Bag IV 03/07/20 04:30 999 mls/hr .Q1H1M FATOU Administration Discontinued Medications Generic Name Dose Route Start Last Admin Trade Name Freq PRN Reason Stop Dose Admin Ketorolac Tromethamine 30 mg 03/07/20 03:19 03/07/20 03:26 Toradol 30mg/Ml Vial IV 03/07/20 03:20 30 mg ONCE ONE Administration Methylprednisolone Sodium Succinate 125 mg 03/07/20 03:19 03/07/20 03:26 Solu-Medrol 125mg/2ml Vial IV 03/07/20 03:20 125 mg ONCE ONE Administration ORDERS Category Date Time Status XR chest 2V Stat Exams 03/07/20 03:14 Taken XR ribs RT 2V Stat Exams 03/07/20 03:23 Taken Troponin I Q3H Lab 03/07/20 06:15 Ordered Troponin I Q3H Lab 03/07/20 09:15 Ordered Blood Culture Stat Micro 03/07/20 03:55 Received - Radiology Data #1 Image(s): Chest Image Reviewed: Yes I reviewed the patient's radiology image Preliminary Findings: No Fra
[2020-03-07 04:27] VITALS: BP 132/75; PULSE 89; RESP 21; O2SAT 93
[2020-03-07 04:41] VITALS: BP 132/75; PULSE 94; RESP 25; TEMP 37.1; O2SAT 97
== END 2020-03-07 04:59 | disposition home or self-care (01) ==
PROVIDERS: Emergency Provider Emergency Medicine; PCP Physician Assistant
DX: R07.81 Pleurodynia (principal); Z88.2 Allergy status to sulfonamides; Z79.899 Other long term (current) drug therapy; J44.9 Chronic obstructive pulmonary disease, unspecified; E78.5 Hyperlipidemia, unspecified; E03.9 Hypothyroidism, unspecified; F17.210 Nicotine dependence, cigarettes, uncomplicated; Z90.49 Acquired absence of other specified parts of digestive tract; Z90.79 Acquired absence of other genital organ(s)
CPT/HCPCS: 71046; 71100; 80053; 83605; 84484; 85025; 85651; 86140; 86328; 87040; 93005; 96365; 96375; 99284; J2405

== ENCOUNTER 2020-04-18 14:15 | Outpatient (CLI) | payer MEDICAID, SELFPAY ==
[2020-04-18 14:20] VITALS: BP 146/96; PULSE 112; RESP 22; TEMP 36.6; O2SAT 95
== END 2020-04-18 14:47 | disposition home or self-care (01) ==
LOC: INF 14:15
PROVIDERS: Visit Provider Physician Assistant
DX: M81.0 Age-related osteoporosis without current pathological fracture (principal)
CPT/HCPCS: 96372; J0897

== ENCOUNTER 2020-06-13 18:38 | Emergency (ER) | payer MEDICARE, MEDICAID, SELFPAY ==
[2020-06-13 18:45] VITALS: BP 146/80; PULSE 105; RESP 22; TEMP 36.9; O2SAT 96; BMI 26.4
--- NOTE | 2020-06-13 19:02 | PC.NURSE ---
shift change report given to carorn notified pt we will get her in a room as soon as one is available. Pt SaO2 96% on RA at this time HR 95, pt is calmer at this time. Pt verbalized understanding of increased pt volume and room availability at this time
--- NOTE | 2020-06-13 19:08 | XR_ITS ---
PROCEDURE: XR CHEST 2V CLINICAL HISTORY: shortness of air Shortness of air with cough COMPARISON: CR CXR2V XR chest 2V from 12/18/2017 CR CXR2V XR chest 2V from 07/20/[address] chest wo con from 02/03/2019 CR XR CHEST 2V from 03/07/2020 FINDINGS: Normal heart size. There is increased density in the right cardio phrenic angle consistent with pericardial fat pad Postsurgical changes on the right with surgical clips in the right midlung. There is a parenchymal opacity in this region which may be due to postsurgical scarring or pulmonary nodule not significantly changed. Minimal atelectatic or fibrotic changes are present along the anterior aspect of the heart on the lateral view. Small anchor screw in the right humeral head. IMPRESSION: No change with no acute finding. Postsurgical changes on the right with no change in the nodular opacity in the right midlung Dictated by: Fabiano Valentine MD 06/14/2020 05:47 Fabiano Valentine MD in [place] 06/14/2020 05:47
[2020-06-13 19:53] LABS: Microscopic, Urine URINE MICROSCOPIC (MICROSCOPIC)
[2020-06-13 19:55] LABS: Appearance,Urine SL CLOUDY (Clear); Blood, Urine 1+ (Negative); Color,Urine YELLOW (Yellow); Glucose,Urine (UA) Negative (Negative); Ketones,Urine TRACE (Negative); Leukocyte Esterase,Urine TRACE (Negative); Nitrate,Urine Negative (Negative); PH,Urine 5.5 (5.0-8.5); Protein,Urine Negative (Negative); Specific Gravity, Urine >= 1.030 (1.005-1.030); Urobilinogen,Urine 0.2 EU/dl (0.2)
[2020-06-13 19:58] LABS: Bilirubin,Urine Negative (Negative)
[2020-06-13 20:03] LABS: Bacteria,Urine 1+ /lpf
[2020-06-13 20:10] LABS: Basophils # 0.1 K/mm3 (0-0.2); Basophils % 0.7 % (0.1-2.0); Eosinophils # 0.2 K/mm3 (0.0-0.4); Eosinophils % 1.4 % (0.1-12.0); Hematocrit 42.1 % (37.0-47.0); Hemoglobin 14.5 g/dL (12.2-16.2); Lymphocytes # 4.5 K/mm3 (0.7-4.5); Lymphocytes % 43.3 % (10-50); Mean Corpuscular HGB Conc 34.4 g/dL (31.8-35.4); Mean Corpuscular Hemoglobin 30.8 pg (27.0-31.2); Mean Corpuscular Volume 89.6 fl (81-99); Mean Platelet Volume 7.3 fl (7.4-10.4); Monocytes # 0.7 K/mm3 (0.1-1.0); Monocytes % 7.2 % (1.7-9.3); Neutrophils # 4.9 K/mm3 (1.8-7.8); Neutrophils % 47.4 % (37.0-80.0); Platelet Count 313 K/mm3 (142-424); Red Cell Distribution Width 13.1 % (11.5-17.5); White Blood Count 10.3 K/mm3 (4.8-10.8)
--- NOTE | 2020-06-13 20:15 | HMH.EDSOB ---
ED Disposition Clinical Impression: Acute exacerbation of chronic obstructive airways disease Disposition: Home, Self-Care Condition on Discharge: Fair Instructions: DI for Chronic Obstructive Pulmonary Disease Additional Instructions: We checked chest x-ray and find COPD; lab results are essentially normal with no signs of pneumonia; urinalysis does show 1+ bacteria; BNP which is a measure of congestive heart failure is normal; we have ordered a COVID-19 test and results should be back in about 3 days; We are sending you home with a steroid Dosepak as well as an antibiotic please follow-up as needed with your primary care physician Prescriptions: Ciprofloxacin HCl [Ciprofloxacin 500mg Tab] 500 mg PO BID 7 Days #14 tab Transmission Status: Pending to [facility] methylPREDNISolone [Medrol 4mg tab] 4 mg PO DIRECTED #21 tab Transmission Status: Pending to [facility] Referrals: Billie Quesada PA [Primary Care Provider] - Time of Disposition: 23:20 - Critical Care Critical Care Time: No Attestation: On 06/13/20, the high probability of a clinically significant, sudden or life threatening deterioration of the following system(s) required my full and direct attention, intervention and personal management. The time I documented below is in addition to time spent performing reported procedures but includes the following listed in this critical care notation. Medical Decision Making - Medical Records Medical records reviewed: Yes: I reviewed the patient's medical records. MR Comment: 55 year old female not feeling well for approx 1 week, reports SOA, cough, weakness, tired feeling and nausea. She has not had a exposure to Covid 19 that she recalls but would like to get tested. She quit smoking recently about 6 months ago and since then has gained some weight, denies chest pain, denies any other medical problems. We checked chest x-ray and find COPD; lab results are essentially normal with no signs of pneumonia; urinalysis does show 1+ bacteria; BNP normal; we have ordered a COVID-19 test and results should be back in about 3 days; sending home with a steroid Dosepak as well as an antibiotic. Advised follow-up as needed with primary care physician - Kiel Brock Pt receiving controlled substance: No Vital Signs: 06/13/20 18:45 06/13/20 21:40 06/13/20 22:17 Temperature 98.4 F Temperature Source Oral Pulse Rate [Right Radial] 105 H 88 91 H Respiratory Rate 22 18 18 Blood Pressure [Right Arm] 146/80 H 141/89 H 141/93 H Blood Pressure Mean [Right Arm] 102 106 109 Blood Pressure Source [Right Arm] Automatic Cuff Automatic Cuff Blood Pressure Position [Right Arm] Sitting Sitting 02 Sat by Pulse Oximetry 96 97 94 L Oxygen Delivery Method Room Air Room Air - Lab Data Lab results reviewed: Yes: I reviewed the patient's lab results. Lab Results 06/13/20 19:46: Urine Color Yellow, Urine Appearance Sl cloudy, Urine pH 5.5, Ur Specific [place] >= 1.030, Urine Protein Negative, Urine Glucose (UA) Negative, Urine Ketones Trace, Urine Blood 1+, Urine Nitrate Negative, Urine Bilirubin Negative, Urine Urobilinogen 0.2, Ur Leukocyte Esterase Trace, Urine RBC 5-10, Urine WBC 5-10, Ur Squamous Epith Cells 5-10, Urine Bacteria 1+ 06/13/20 20:00: WBC 10.3, RBC 4.70, Hgb 14.5, Hct 42.1, MCV 89.6, MCH 30.8, MCHC 34.4, RDW 13.1, Plt Count 313, MPV 7.3 L, Neut % (Auto) 47.4, Lymph % (Auto) 43.3, Orange % (Auto) 7.2, Eos % (Auto) 1.4, Baso % (Auto) 0.7, Neut # (Auto) 4.9, Lymph # (Auto) 4.5, Orange # (Auto) 0.7, Eos # (Auto) 0.2, Baso # (Auto) 0.1 06/13/20 20:00: Sodium 142, Potassium 4.1, Chloride 103, Carbon Dioxide 29, Anion Gap 14.1, BUN 13, Creatinine 0.70, Estimated Creat Clear 100, Estimated GFR 87, Est GFR ( Amer) 105, Glucose 92, Calcium 9.9, Total Bilirubin 0.4, AST 44 H, ALT 37, Alkaline Phosphatase 129 H, Total Protein 8.0, Albumin 4.6, Globulin 3.4 H, Albumin/Globulin Ratio 1.4 06/13/20 20:00
[2020-06-13 20:17] LABS: Chloride 103 mmol/L (98-107); Potassium 4.1 mmoL/L (3.5-5.1); Sodium 142 mmol/L (136-145)
[2020-06-13 20:20] LABS: Alanine Aminotransferase 37 U/L (12-78); Albumin Level 4.6 g/dl (3.5-5.0); Albumin/Globulin Ratio 1.4 (1.1-1.8); Alkaline Phosphatase 129 U/L (38-126); Anion Gap 14.1 mEq/L (5-15); Aspartate Amino Transferase 44 U/L (14-36); Bilirubin,Total 0.4 mg/dl (0.2-1.3); Blood Urea Nitrogen 13 mg/dl (7-17); Calcium 9.9 mg/dl (8.4-10.2); Carbon Dioxide 29 mmol/L (22.0-30.0); Creatinine Clearance Estimated 100 mL/min (50-200); Estimated Glomerular Filt Rate 87 ml/min (>60); GFR (African American) 105 ML/MIN (>60); Globulin 3.4 g/dL (1.3-3.2); Glucose 92 mg/dl (74-100)
[2020-06-13 20:28] LABS: Lactic Acid 1.2 mmol/L (0.7-2.1)
[2020-06-13 20:32] LABS: NT Pro Brain Natriuretic Pep. 28.9 pg/mL (0-125)
[2020-06-13 21:40] VITALS: BP 141/89; PULSE 88; RESP 18; O2SAT 97
[2020-06-13 22:17] VITALS: BP 141/93; PULSE 91; RESP 18; O2SAT 94
[2020-06-13 23:37] VITALS: BP 130/83; PULSE 85; RESP 18; TEMP 36.9; O2SAT 95
[2020-06-14 06:48] LABS: ABG Base Excess 0.4 mmol/L (-2.4-2.3); ABG HCO3 25.5 mmhg (22.0-26.0); ABG Oxygen Saturation 96 % (90-100); ABG PCO2 43.8 mmhg (35.0-45.0); ABG PH 7.38 mmol/L (7.35-7.45); ABG PO2 83.2 mmhg (80-100); ABG TCO2 26.8 mmhg (23-27); Oxygen ROOM AIR %
[2020-06-14 06:49] LABS: Allen's Test ACCEPTABLE; Source R RADIAL
[2020-06-15 13:36] LABS: Covid-19 Nasal PCR Sendout Lex Not Detected
== END 2020-06-13 23:40 | disposition home or self-care (01) ==
PROVIDERS: Emergency Medicine; Emergency Provider Physician Assistant; PCP Physician Assistant
DX: J44.1 Chronic obstructive pulmonary disease with (acute) exacerbation (principal); E03.9 Hypothyroidism, unspecified; F41.9 Anxiety disorder, unspecified; E78.5 Hyperlipidemia, unspecified; Z03.818 Encounter for observation for suspected exposure to other biological agents ruled out; Z87.891 Personal history of nicotine dependence; Z88.2 Allergy status to sulfonamides
CPT/HCPCS: 71046; 80053; 81001; 82803; 83605; 83880; 85025; 87040; 96374; 99284; U0004

== ENCOUNTER 2020-10-07 15:53 | Observation (INO) | payer MEDICARE, MEDICAID, SELFPAY ==
[2020-10-07] VITALS (7 sets, daily range): BP systolic 105–173; BP diastolic 61–94; PULSE 73–100; RESP 14–30; TEMP 36.8–36.9; O2SAT 94–98; BMI 26.5; BMI 29.8
--- NOTE | 2020-10-07 15:57 | XR_ITS ---
PROCEDURE: XR CHEST PORTABLE CLINICAL HISTORY: soa Shortness of air COMPARISON: CR CXR2V XR chest 2V from 07/20/[address] chest wo con from 02/03/2019 CR XR CHEST 2V from 03/07/2020 CR XR CHEST 2V from 06/13/2020 FINDINGS: The cardiomediastinal silhouette and pulmonary vascularity are within normal limits. Scarring is present in the right midlung. There are surgical clips in this region as well there is a right-sided pericardial fat pad. No lobar consolidation or collapse. No acute bony abnormalities. IMPRESSION: As above, no acute finding with no significant change Dictated by: Fabiano Valentine MD 10/08/2020 05:09 Fabiano Valentine MD in [place] 10/08/2020 05:09
--- NOTE | 2020-10-07 15:59 | HMH.EDGENADL ---
ED Disposition Condition on Discharge: Good - Critical Care Critical Care Time: No <Vishal Parish - Last Filed: 10/07/20 19:26> <Morro Poe - Last Filed: 10/07/20 21:38> Clinical Impression: COPD exacerbation Chest pain Qualifiers: Chest pain type: unspecified Qualified Code(s): R07.9 - Chest pain, unspecified Disposition: Admitted as Observation Attestation: On 10/07/20, the high probability of a clinically significant, sudden or life threatening deterioration of the following system(s) required my full and direct attention, intervention and personal management. The time I documented below is in addition to time spent performing reported procedures but includes the following listed in this critical care notation. Medical Decision Making - Medical Records Medical records reviewed: Yes: I reviewed the patient's medical records. - Kiel Inquiry Pt receiving controlled substance: No - Lab Data Lab results reviewed: Yes: I reviewed the patient's lab results. Result diagrams: 10/07/20 16:21 10/07/20 16:21 <Vishal Parish - Last Filed: 10/07/20 19:26> - Lab Data Result diagrams: 10/07/20 16:21 10/07/20 16:21 - Physician Consults Physician Consulted: chuck Reason -: Admission - SAM Score for Non-Stemi Age of Patient: 50-59 years old Heart Rate: 90-109 bpm Systolic Blood Pressure: 160-199 mmHg Serum Creatinine: 0.40-0.79 mg/dl CHF Kill[place] Class: I-No CHF Other Risk Factors: None Non-Stemi Risk Score: 70 <Morro Poe S - Last Filed: 10/07/20 21:38> Vital Signs: 10/07/20 15:54 10/07/20 18:54 10/07/20 19:24 Temperature 98.3 F Temperature Source Oral Pulse Rate [Radial] 97 H 86 84 Respiratory Rate 30 H 16 15 Blood Pressure [Right Arm] 173/94 H 139/75 114/88 Blood Pressure Mean [Right Arm] 120 96 96 Blood Pressure Source [Right Arm] Automatic Cuff Automatic Cuff Blood Pressure Position [Right Arm] Sitting Sitting Sitting 02 Sat by Pulse Oximetry 98 96 95 Oxygen Delivery Method Room Air Room Air Room Air 10/07/20 20:00 10/07/20 20:30 Temperature Temperature Source Pulse Rate [Radial] 84 89 Respiratory Rate 15 14 Blood Pressure [Right Arm] 129/77 105/61 L Blood Pressure Mean [Right Arm] 94 75 Blood Pressure Source [Right Arm] Automatic Cuff Automatic Cuff Blood Pressure Position [Right Arm] Sitting Sitting 02 Sat by Pulse Oximetry 96 94 L Oxygen Delivery Method Room Air - Lab Data Lab Results 10/07/20 16:21: WBC 8.6, RBC 4.52, Hgb 13.8, Hct 42.1, MCV 93.2, MCH 30.6, MCHC 32.9, RDW 13.3, Plt Count 331, MPV 7.3 L, Neut % (Auto) 59.9, Lymph % (Auto) 31.4, Mcleod % (Auto) 6.4, Eos % (Auto) 1.5, Baso % (Auto) 0.8, Neut # (Auto) 5.1, Lymph # (Auto) 2.7, Mcleod # (Auto) 0.6, Eos # (Auto) 0.1, Baso # (Auto) 0.1 10/07/20 16:21: Sodium 140, Potassium 3.8, Chloride 102, Carbon Dioxide 32 H, Anion Gap 9.8, BUN 17, Creatinine 0.60, Estimated Creat Clear 110, Estimated GFR 104, Est GFR ( Amer) 126, Glucose 101 H, Calcium 9.6, Total Bilirubin 0.3, AST 33, ALT 19, Alkaline Phosphatase 120, Troponin I < 0.01, Total Protein 7.6, Albumin 4.3, Globulin 3.3 H, Albumin/Globulin Ratio 1.3 10/07/20 16:21: Magnesium 1.6 10/07/20 16:21: Lactate 1.1 10/07/20 16:21: SARS-CoV-2 IgG Ab (Rapid) Negative, SARS-CoV-2 IgM Ab (Rapid) Negative 10/07/20 16:21: D-Dimer 0.62 10/07/20 16:51: VBG pH 7.31, VBG pCO2 55.1 H, VBG pO2 37.0, VBG HCO3 27.0, VBG Total CO2 28.7 H, VBG O2 Saturation 68.7, VBG Base Excess 0.7 Orders (Tests/Meds): ED MEDICATIONS Discontinued Medications Generic Name Dose Route Start Last Admin Trade Name Freq PRN Reason Stop Dose Admin Albuterol Sulfate 4 puffs 10/07/20 16:26 10/07/20 16:26 Albuterol-Hfa 90mcg/Puff Inhaler 8gm 10/07/20 16:27 4 puffs ONCE ONE Administration Albuterol/Ipratropium 4 puff 10/07/20 15:57 10/07/20 19:34 Combivent 20mcg/100mcg Respimat Inhaler 10/07/20 15:58 4 puff ONCE ONE Administration Hydromorphone HC
--- NOTE | 2020-10-07 16:08 | ECG_ITS ---
APPROVED REPORT Exam: Resting ECG HR:92 bpm ECG Measurements Heart Rate 92 AXES VT 120 P 79 QRSd 78 QRS 86 QT 410 T 57 QTc 507 Conclusion Normal sinus rhythm Prolonged QT Abnormal ECG Electronically signed by : Cosme Mayberry, 10/08/2020 06:56:23
[2020-10-07 16:37] LABS: Chloride 102 mmol/L (98-107); Sodium 140 mmol/L (136-145)
[2020-10-07 16:38] LABS: Potassium 3.8 mmoL/L (3.5-5.1)
[2020-10-07 16:39] LABS: Basophils # 0.1 K/mm3 (0-0.2); Basophils % 0.8 % (0.1-2.0); Eosinophils # 0.1 K/mm3 (0.0-0.4); Eosinophils % 1.5 % (0.1-12.0); Hematocrit 42.1 % (37.0-47.0); Hemoglobin 13.8 g/dL (12.2-16.2); Lymphocytes # 2.7 K/mm3 (0.7-4.5); Lymphocytes % 31.4 % (10-50); Mean Corpuscular HGB Conc 32.9 g/dL (31.8-35.4); Mean Corpuscular Hemoglobin 30.6 pg (27.0-31.2); Mean Corpuscular Volume 93.2 fl (81-99); Mean Platelet Volume 7.3 fl (7.4-10.4); Monocytes # 0.6 K/mm3 (0.1-1.0); Monocytes % 6.4 % (1.7-9.3); Neutrophils # 5.1 K/mm3 (1.8-7.8); Neutrophils % 59.9 % (37.0-80.0); Platelet Count 331 K/mm3 (142-424); Red Blood Count 4.52 M/mm3 (4.20-5.40); Red Cell Distribution Width 13.3 % (11.5-17.5); White Blood Count 8.6 K/mm3 (4.8-10.8)
[2020-10-07 16:40] LABS: Alanine Aminotransferase 19 U/L (12-78); Albumin Level 4.3 g/dl (3.5-5.0); Albumin/Globulin Ratio 1.3 (1.1-1.8); Alkaline Phosphatase 120 U/L (38-126); Anion Gap 9.8 mEq/L (5-15); Aspartate Amino Transferase 33 U/L (14-36); Bilirubin,Total 0.3 mg/dl (0.2-1.3); Blood Urea Nitrogen 17 mg/dl (7-17); Carbon Dioxide 32 mmol/L (22.0-30.0); Creatinine Clearance Estimated 110 mL/min (50-200); Estimated Glomerular Filt Rate 104 ml/min (>60); GFR (African American) 126 ML/MIN (>60); Globulin 3.3 g/dL (1.3-3.2); Total Protein,Serum 7.6 g/dl (6.3-8.2)
[2020-10-07 16:41] LABS: Calcium 9.6 mg/dl (8.4-10.2); Glucose 101 mg/dl (74-100); Lactic Acid 1.1 mmol/L (0.7-2.1); Magnesium 1.6 mg/dl (1.6-2.3)
[2020-10-07 16:45] LABS: D-Dimer 0.62 ug/mL (0.15-8.0)
[2020-10-07 16:52] LABS: VBG Base Excess 0.7 mmol/L (-2.4-2.3); VBG Oxygen Saturation 68.7 % (50-70); VBG PH 7.31 mmol/L (7.31-7.41); VBG Total CO2 28.7 mmol/L (23-27)
[2020-10-07 16:53] LABS: VBG PCO2 55.1 mmol/L (35-51)
--- NOTE | 2020-10-07 16:55 | PC.NURSE ---
PT C/O PAIN RT SIDE CHEST, TEARFUL
--- NOTE | 2020-10-07 16:55 | PC.NURSE ---
CO2 value received from lab. Result 55.
[2020-10-07 16:57] LABS: Coronavirus 19 IgG Antibody Negative (Negative); Coronavirus 19 IgM Antibody Negative (Negative); Troponin I < 0.01 ng/ml (0.00-0.034)
--- NOTE | 2020-10-07 17:12 | PC.NURSE ---
MD request 2 hour cardiac enzymes instead of three hours.
--- NOTE | 2020-10-07 19:21 | PC.NURSE ---
called lab to check on second Trop. result. they stated that the analyzers have been down and they dont know when the trop will result and that it could take hours. spoke with Dalton.
--- NOTE | 2020-10-07 20:49 | PC.NURSE ---
pt family member asked if pt was going to be discharged soon. this nurse explained that the pts trop level was taking longer than expected due to trouble with the machine in the lab and apologized for the inconvenience. this nurse called lab to ask pt trop status. spoke with nancy who stated they had tried multiple times to result it and havent been able to
--- NOTE | 2020-10-07 22:44 | PC.NURSE ---
PT ARRIVED TO FLOOR VIA WHEELCHAIR @ [id number]
[2020-10-07 22:49] LABS: Troponin I < 0.01 ng/ml (0.00-0.034)
[2020-10-07 22:58] LABS: Troponin I < 0.01 ng/ml (0.00-0.034)
[2020-10-08] VITALS (9 sets, daily range): BP systolic 103–135; BP diastolic 62–87; PULSE 93–120; RESP 17–20; TEMP 36.7–37.2; O2SAT 97–100; BMI 29.9
--- NOTE | 2020-10-08 04:37 | PC.NURSE ---
no changes from previous assessment. pt remains to anxious but pleasant. reports pain to right shoulder and axillary. tylenol was given. pt is npo at this time. iv infusing per order. independent with transfer and uses bsc. vss. call light in reach. will continue to monitor.
[2020-10-08 06:29] LABS: Basophils % 0.1 % (0.1-2.0); Eosinophils # 0.1 K/mm3 (0.0-0.4); Eosinophils % 0.6 % (0.1-12.0); Hematocrit 39.1 % (37.0-47.0); Hemoglobin 13.2 g/dL (12.2-16.2); Lymphocytes # 1.6 K/mm3 (0.7-4.5); Lymphocytes % 15.2 % (10-50); Mean Corpuscular HGB Conc 33.7 g/dL (31.8-35.4); Mean Corpuscular Volume 91.8 fl (81-99); Mean Platelet Volume 7.8 fl (7.4-10.4); Monocytes # 0.1 K/mm3 (0.1-1.0); Monocytes % 1.4 % (1.7-9.3); Neutrophils # 8.6 K/mm3 (1.8-7.8); Neutrophils % 82.7 % (37.0-80.0); Platelet Count 335 K/mm3 (142-424); Red Blood Count 4.26 M/mm3 (4.20-5.40); Red Cell Distribution Width 13.3 % (11.5-17.5); White Blood Count 10.4 K/mm3 (4.8-10.8)
[2020-10-08 07:23] LABS: Anion Gap 13.1 mEq/L (5-15); Blood Urea Nitrogen 14 mg/dl (7-17); Calcium 9.2 mg/dl (8.4-10.2); Carbon Dioxide 24 mmol/L (22.0-30.0); Chloride 105 mmol/L (98-107); Chol/HDL Ratio 2.8 (1-3.5); Cholesterol 232 mg/dl (140-200); Creatinine Clearance Estimated 106 mL/min (50-200); Estimated Glomerular Filt Rate 87 ml/min (>60); GFR (African American) 105 ML/MIN (>60); Glucose 148 mg/dl (74-100); HDL Cholesterol 82 mg/dl (40-60); Magnesium 1.6 mg/dl (1.6-2.3); Potassium 4.1 mmoL/L (3.5-5.1); Sodium 138 mmol/L (136-145); Triglycerides 107 mg/dl (30-150); VLDL Cholesterol 21 mg/dL (0-40)
[2020-10-08 07:34] LABS: Direct LDL Cholesterol 123.91 mg/dL (100-129)
--- NOTE | 2020-10-08 07:38 | CT_ITS ---
PROCEDURE: CT ANGIO CHEST CLINCIAL INDICATION: chest pain, dyspnea, history of cancer COMPARISON: CT CHESTWO CT chest wo con from 02/03/2019 TECHNIQUE: IV Contrast: 70ML Isovue 370 Axial images obtained with sagittal and coronal reformats. All CT scans at the facility use one or more dose reduction, viz: automated exposure control, ma/kV adjustment per patient size (including targeted exams where dose is matched to indication, i.e. head), or iterative reconstruction technique. FINDINGS: HEART AND MEDIASTINAL STRUCTURES: No evidence of aortic aneurysm or dissection. No evidence of pulmonary embolus. No mediastinal or hilar mass or adenopathy. LUNGS AND PLEURAL SPACES: COPD with scattered areas of scarring and old granulomatous disease. Bronchial thickening is noted. There are postsurgical changes in the lower aspect of the right upper lobe with parenchymal areas of increased density at this region and surgical clips. Atelectatic changes are present in the right middle lobe. A 5 mm noncalcified nodules present in the right middle lobe anteriorly not significantly changed. A calcified granuloma is present in the right lower lobe. There is a stable 4 mm noncalcified nodule in the left upper lobe. BONY STRUCTURES: Right 4th rib fracture noted likely at patient's area thoracotomy. UPPER ABDOMEN: There is mild dilatation of the proximal aspect of the celiac artery nonspecific. ADDITIONAL FINDINGS: No other significant abnormalities. IMPRESSION: 1. No evidence of pulmonary embolus or aortic aneurysm or dissection. 2. Postsurgical changes with COPD and scattered areas of scarring with bronchial thickening. 3. No change in the 5 mm nodule in the right middle lobe and 4 mm nodule in the left upper lobe. Dictated by: Fabiano Valentine MD 10/08/2020 15:37 Fabiano Valentine MD in [place] 10/08/2020 15:37
--- NOTE | 2020-10-08 07:41 | SW/DCPLANNER ---
PATIENT ADMITTED TO AN OBSERVATION STATUS WITH COPD EXACERBATION...PATIENT DOING WELL ON ROOM AIR...SHE HAS BEEN UP IN ROOM AMBULATING... PATIENT IS FROM HOME AND THE PLAN IS FOR HER TO RETURN BACK THERE ONCE SHE HAS BEEN MEDICALLY CLEARED TO DO SO... DISPOSITION UNCERTAIN, SHOULD BE A SHORT ADMISSION...ANY HOME CARE THAT MAY BE NECESSARY WILL BE SET UP AT TIME OF DISPOSITION....
--- NOTE | 2020-10-08 07:47 | HMH.PHAVTE ---
[facility] Pharmacy VTE Monitoring - Patient Demographics Admission date: 10/07/20 Report Date: 10/08/20 Time: 07:48 Allergies/Adverse Reactions: Patient Allergies Sulfa (Sulfonamide Antibiotics) [SULFA (SULFONAMIDE ANTIBIOTICS)] Allergy (Intermediate, Verified 10/07/20 23:38) I-RASH Height: 1.57 m Weight: 73.936 kg Patient Problems: Current Active Problems Chest pain (Acute) COPD exacerbation (Acute) - VTE Risk Labs: VTE Related Lab Results Hgb 13.2 g/dL (12.2-16.2) 10/08/20 06:07 Hct 39.1 % (37.0-47.0) 10/08/20 06:07 Plt Count 335 K/mm3 (142-424) 10/08/20 06:07 BUN 14 mg/dl (7-17) 10/08/20 06:07 Creatinine 0.70 mg/dl (0.52-1.04) 10/08/20 06:07 Estimated Creat Clear 106 mL/min (50-200) 10/08/20 06:07 Was VTE Risk Assessment Performed: Yes VTE Score: 3 VTE Risk Level: Low Risk - Prophylaxis VTE Prophylaxis Ordered?: Yes Types of VTE Prophylaxis: TEDS Knee High Location of Applied Device: Bilateral Lower Extremeties
--- NOTE | 2020-10-08 07:49 | HMH.HPDC ---
General - General Admission date:: 10/07/20 Discharge date: 10/08/20 *Admission Date: 10/07/20 *Chief complaint: Right-sided chest pain and shortness of breath *History of present illness: 55-year-old female with history of lung cancer presented to the emergency department with increasing shortness of breath and some right-sided chest pain. The pain and shortness of breath have been present for 3 to 4 weeks but according to the patient are getting progressively worse. She feels a clicking sensation in the right side of her chest at times with movement or breathing. Work-up was begun in the emergency department and chest x-ray as well as labs were normal. During the interview patient also complains of headaches, anxiety, weakness in the legs. Patient was admitted and given steroids, IV fluids and breathing treatments. She admits to IV steroids and breathing treatments increase tremors. Patient denies fevers or chills. She denies productive cough. She denies hemoptysis. She does report pain with deep breathing. [facility] History I have reviewed the patient's past medical history: Yes Medical History: Reports:: Anxiety, Cancer (lung), Chronic Obstructive Pulmonary Disease (COPD), Hyperlipidemia, Hypertension Denies:: Diabetes Mellitus Type 1, Diabetes Mellitus Type 2, Internal Pacemaker, MRSA *Have you ever received a pneumonia vaccine?: No *Have you received a flu vaccine this season?: No Other Medical History: Reports: Hypothyroidism, Thyroid Disease Laterality Cases: Left: Other, Bilateral: Tonsillectomy Other Surgeries: Yes: Appendectomy, BSO, Cholecystectomy, Dilation and Curettage, Hysterectomy-Total, Other. No: Pacemaker Amputation: No Fractures: No - *Social History Smoking Status: Former smoker # Packs/Day (cigarettes): 1 #Yrs smoked (if former smoker): 39 Alcohol Intake: never Alcohol Intake Frequency:: other Substance Use Type: denies use *Occupational Status:: disabled Housing: house Household Members: family *Travel in the last 8 weeks: None - Psychiatric History Pschychiatric History:: Reports:: Anxiety Family Hx:: Cancer, Diabetes, Heart Attack, Hyperlipidemia, Hypertension, Kidney Disease, Thyroid Disorder, Alcoholism Review of Systems - Review of Systems Review of systems:: pertinent systems reviewed and negative unless documented below Exam Vital signs and Labs for Last 24 Hours: Temp Pulse Resp BP Pulse Ox 98.2 F 100 H 20 135/82 97 01/04/21 04:00 10/08/20 06:35 10/08/20 04:00 10/08/20 04:00 10/08/20 04:00 Laboratory Results - last 24 hr 10/07/20 16:21: WBC 8.6, RBC 4.52, Hgb 13.8, Hct 42.1, MCV 93.2, MCH 30.6, MCHC 32.9, RDW 13.3, Plt Count 331, MPV 7.3 L, Neut % (Auto) 59.9, Lymph % (Auto) 31.4, Rhea % (Auto) 6.4, Eos % (Auto) 1.5, Baso % (Auto) 0.8, Neut # (Auto) 5.1, Lymph # (Auto) 2.7, Rhea # (Auto) 0.6, Eos # (Auto) 0.1, Baso # (Auto) 0.1 10/07/20 16:21: Sodium 140, Potassium 3.8, Chloride 102, Carbon Dioxide 32 H, Anion Gap 9.8, BUN 17, Creatinine 0.60, Estimated Creat Clear 110, Estimated GFR 104, Est GFR ( Amer) 126, Glucose 101 H, Calcium 9.6, Total Bilirubin 0.3, AST 33, ALT 19, Alkaline Phosphatase 120, Troponin I < 0.01, Total Protein 7.6, Albumin 4.3, Globulin 3.3 H, Albumin/Globulin Ratio 1.3 10/07/20 16:21: Magnesium 1.6 10/07/20 16:21: Lactate 1.1 10/07/20 16:21: SARS-CoV-2 IgG Ab (Rapid) Negative, SARS-CoV-2 IgM Ab (Rapid) Negative 10/07/20 16:21: D-Dimer 0.62 10/07/20 16:51: VBG pH 7.31, VBG pCO2 55.1 H, VBG pO2 37.0, VBG HCO3 27.0, VBG Total CO2 28.7 H, VBG O2 Saturation 68.7, VBG Base Excess 0.7 10/07/20 18:53: Troponin I < 0.01 10/07/20 22:20: Troponin I < 0.01 10/08/20 06:07: WBC 10.4, RBC 4.26, Hgb 13.2, Hct 39.1, MCV 91.8, MCH 31.0, MCHC 33.7, RDW 13.3, Plt Count 335, MPV 7.8, Neut % (Auto) 82.7 H, Lymph % (Auto) 15.2, Rhea % (Auto) 1.4 L, Eos % (Auto) 0.6, Baso % (Auto) 0.1, Neut # (Auto) 8.6 H, Lymph # (Auto) 1.6, Rhea # (Auto) 0.1, Eos # (Auto) 0.1, Baso # (Auto
--- NOTE | 2020-10-08 08:00 | CA_ITS ---
APPROVED REPORT EXAM: Comprehensive 2D, Doppler, and color-flow Echocardiogram Hand Weaver: Rosa Cleveland CRT Ht: 5 ft 2 in Wt: 145lbs BSA: 1.67 BP: 105/61 mmHg Indications: Chest Pain, COPD, Shortness of Breath, Hyperlipidemia, Ca 2D Dimensions LVOT 1.86 cm (M/F) 1.5-2.5 M-Mode Dimensions RVDd 1.63 cm (0.9-2.6) LA Diam 2.64 cm (1.9-4.0) LVDd 3.75 cm (3.5-5.7) Ao Diam 3.08 cm (2.0-3.7) LVDs 2.41 cm (3.5-5.7) IVSd 0.97 cm (0.6-1.1) PWd 1.28 cm (0.6-1.1) EF (Teich) 66.00% FS 35.70% EDV (Teich) 60.00 mL ESV (Teich) 20.40 mL LV Diastology E Decel Time 150.00 (160-240 msec) E/A Ratio 0.68 MED E' 10.20 (< 7 cm/sec) E'/MED E' Ratio 4.95 (>14) LAT E' 7.60 (<10 cm/sec) E/LAT E' Ratio 6.64 (>14) Aortic Valve AO Peak GR. 2.60 mmHg Mitral Valve MV E Max Luis. 50.00 (40-130 cm/s) MV A Velocity 74.00 (40-130 cm/s) E/A Ratio 0.68 MV Decel. Time 150.00 (160-240 ms) MV PHT 44.00 ms Tricuspid Valve TR P. Velocity 115.00 cm/s RAP Estimate 10.00 mmHg RVSP 15.30 mmHg Left Ventricle Technically difficult study because of the patient factors and poor acoustic windows. Left atrium is mildly enlarged, left ventricle is normal size, there is mild concentric left ventricular hypertrophy, visually estimated ejection fraction 55% with no regional wall motion abnormality, diastolic parameters are inconclusive. Right Ventricle Right atrium and right ventricle are normal size and contractility. Aortic Valve Aortic valve is minimally thickened and fibrosed, there is no aortic stenosis or aortic insufficiency. Mitral Valve Mitral valve is grossly normal, there is mild mitral regurgitation. Tricuspid Valve Tricuspid valve grossly normal, there is mild tricuspid regurgitation, tricuspid regurgitation jet velocity is inadequate for calculation of the right ventricular systolic pressure. Pulmonic Valve Pulmonic valve is poorly visualized. Great Vessels Aortic root is normal size. Pericardium No significant pericardial effusion noted. Conclusion 1. Technically difficult study because of the patient factors and poor acoustic windows. 2. Normal left ventricular size, preserved left ventricular systolic function, visually estimated ejection fraction 55% with no regional wall motion abnormality, diastolic parameters are inconclusive. 3. Mild mitral and tricuspid regurgitation. 4. No significant pericardial effusion noted. Electronically signed by : Johnson Levy, 10/09/2020 05:27:07
--- NOTE | 2020-10-08 13:40 | HMH.PHAINT ---
verified home medication list with list from Dr Poe's office and home pharmacy
== END 2020-10-08 16:55 | disposition home or self-care (01) ==
LOC: ER 19:28 → 2ND 21:32
PROVIDERS: Emergency Medicine; Admitting Provider Family Medicine; Emergency Provider Physician Assistant; PCP Family Medicine; Visit Provider Family Medicine
DX: R07.9 Chest pain, unspecified (principal); J44.9 Chronic obstructive pulmonary disease, unspecified; I10 Essential (primary) hypertension; Z85.118 Personal history of other malignant neoplasm of bronchus and lung; Z87.891 Personal history of nicotine dependence; E03.9 Hypothyroidism, unspecified; Z79.890 Hormone replacement therapy; Z79.899 Other long term (current) drug therapy; Z88.2 Allergy status to sulfonamides; Z23 Encounter for immunization
CPT/HCPCS: G0008; 36415; 71045; 71275; 80048; 80053; 80061; 82803; 83605; 83735; 84484; 85025; 85378; 86328; 87040; 90686; 90732; 93005; 93306; 94640; 96374; 96375; 99285; G0378; Q9967

== ENCOUNTER → 2020-10-18 14:37 | Outpatient (CLI) | payer MEDICARE, MEDICAID, SELFPAY ==
--- NOTE | 2020-10-18 14:40 | MM_ITS ---
PROCEDURE: MM DIG MAMM BI DX W/CAD Digital Breast Tomosynthesis Included CLINICAL INDICATION: ABN MAMM Follow-up abnormal mammogram and ultrasound COMPARISON: MG SCBI MM Dig screening mamm BI w/CAD from 11/23/2018 US US BREAST RT COMPLETE from 10/18/2019 MG MM DIG MAMM BI DX W/CAD from 12/01/2019 MG MM DIG MAMM DX UNILAT RT CAD from 03/05/2020 US US BREAST RT COMPLETE from 10/18/2020 TECHNIQUE: Standard CC and MLO images and 3D Tomosynthesis was obtained. R2 CAD reviewed. FINDINGS: Average fibroglandular tissue. Benign-appearing nodule upper outer left breast unchanged. Puffiness once again noted in the axillary region on the right nonspecific. Skin fold present in this area. No malignant appearing mass or malignant-appearing microcalcification is evident. Calcifications noted in the inferior aspect of the right breast not significantly changed benign-appearing Right breast ultrasound: Palpable area is reported in the right axillary region. This appears to correspond to an area of fat consistent with a lipoma. No suspicious nodules are evident. No cyst or other significant anomaly IMPRESSION: BI-RAD Category: 2 Benign Finding(s) FOLLOW-UP: 1YR 1 Year Follow-up (A letter has been sent to the patient regarding results of the study.) Dictated by: Fabiano Valentine MD 11/05/2020 10:59 Fabiano Valentine MD in [place] 11/05/2020 10:59
== END ==
PROVIDERS: PCP Family Medicine; Visit Provider Family Medicine
DX: R92.8 Other abnormal and inconclusive findings on diagnostic imaging of breast (principal)
CPT/HCPCS: 76641; 77062; 77066; G0279

== ENCOUNTER 2020-10-26 10:00 | Outpatient (RCR) | payer MEDICARE, MEDICAID, SELFPAY ==
--- NOTE | 2020-10-18 13:49 | HMH.OTOPEV ---
OT Inpatient Evaluation Rehab OT Outpatient Eval Start: 10/18/20 13:36 Freq: Status: Active Protocol: Document 10/18/20 13:37 RMARTUROHALL (Rec: 10/18/20 13:48 [id number] Electronically Signed By Carla Ren OT 10/18/20 13:37 Outpatient Therapy Subjective History Subjective History Pt is a 55 year old female who reports to therapy for initial evaluation to R shoulder. Pt has a past medical history of COPD and lung cancer. Pt reports her shoulder has been causing pain for over a month in the lower aspect of shoulder blade, armpit area, and chest/breast area. Pt does not recall an injury to shoulder, but it has progressively become more painful. Pt does demonstrate with slight decrease in AROM/ strength at right shoulder. Pt will continue to be seen in order to address all deficits . Chief Complaint Pain,Stiff,Weakness Symptom Type Throb,Sharp Symptoms Relieved By Rest/Positioning Symptoms Aggravated By Physical Activity,Lifting Prior Functional Limitations None Current Functional Limitations Reaching,Lifting,Housework, Dressing,Recreation Activity Symptom Description Intermittent,Activity Dependent Level of pain today (0-10) 2 Pain scale - at its best (0-10) 0 Pain scale - at its worst (0-10) 7 Shoulder/Elbow Eval Shoulder Objective Measurements Shoulder ROM Right Shoulder Abduction Active Range of 125 degrees Motion (degrees) Shoulder Flexion Active Range of Motion 130 degrees (degrees) Query Text: Shoulder External Rotation Active Range 85 degrees of Motion (degrees) Shoulder Internal Rotation Active Range 50 degrees of Motion (degrees) pain with active ROM shoulder exam right standard pain with passive ROM shoulder exam right standard decreased ROM shoulder exam standard right Shoulder MMT Shoulder Abduction Strength Grade 3+ Fair+ Shoulder Flexion Strength Grade 3+ Fair+ Shoulder External Rotation Strength 3+ Fair+ Grade Shoulder Internal Rotation Strength 3+ Fair+ Grade Shoulder Strength Patient Testing
== END 2020-10-26 10:05 | disposition home or self-care (01) ==
LOC: OT 10:00
PROVIDERS: PCP Family Medicine; Visit Provider Family Medicine
DX: M25.511 Pain in right shoulder (principal)
CPT/HCPCS: 97166

== ENCOUNTER 2021-09-05 11:44 | Emergency (ER) | payer MEDICARE, MEDICAID, SELFPAY ==
[2021-09-05] VITALS (7 sets, daily range): BP systolic 131–189; BP diastolic 81–121; PULSE 74–114; RESP 12–38; TEMP 37.1–37.2; O2SAT 89–98; BMI 26.7
--- NOTE | 2021-09-05 11:38 | ECG_ITS ---
APPROVED REPORT Exam: Resting ECG HR:111 bpm ECG Measurements Heart Rate 111 AXES VA 120 P 76 QRSd 72 QRS 84 QT 354 T 76 QTc 481 Conclusion Sinus tachycardia Possible Left atrial enlargement Borderline ECG Electronically signed by : Cosme Mayberry MD 09/05/2021 20:19:19
--- NOTE | 2021-09-05 11:46 | XR_ITS ---
PROCEDURE: XR CHEST PORTABLE CLINICAL HISTORY: sob COMPARISON: CR XR CHEST 2V from 03/07/2020 CR XR CHEST 2V from 06/13/2020 CR XR CHEST PORTABLE from 10/07/[address] ANGIO CHEST from 10/08/2020 FINDINGS: The cardiomediastinal silhouette and pulmonary vascularity are within normal limits. Surgical clips with scarring noted in the right mid upper lung zone. No lobar consolidation or collapse. No acute bony findings. IMPRESSION: No change with no acute finding. Dictated by: Fabiano Valentine MD 09/05/2021 12:40 Fabiano Valentine MD in [place] 09/05/2021 12:40
--- NOTE | 2021-09-05 12:14 | HMH.EDGENADL ---
ED Disposition Clinical Impression: COPD exacerbation, Bronchitis Disposition: Home, Self-Care Condition on Discharge: Good Instructions: DI for Chronic Bronchitis Prescriptions: Doxycycline Monohydrate [Doxycycline Hamilton 100mg Tab] 100 mg PO Q12 #20 tab Transmission Status: Pending to [facility] Codeine Phosphate/Guaifenesin [Guaifenesin-Codeine Syrup] 5 ml PO BID #70 ml Transmission Status: Sent to [facility] Hydrocodone/Chlorphen P-Stirex [Tussionex Pennkinetic Susp] 5 ml PO BID #70 ml Referrals: Provider,Referral, [Primary Care Provider] - - Critical Care Critical Care Time: No Attestation: On 09/05/21, the high probability of a clinically significant, sudden or life threatening deterioration of the following system(s) required my full and direct attention, intervention and personal management. The time I documented below is in addition to time spent performing reported procedures but includes the following listed in this critical care notation. Medical Decision Making - Medical Records Medical records reviewed: Yes: I reviewed the patient's medical records. - Kiel Inquiry Pt receiving controlled substance: No Vital Signs: 09/05/21 11:45 09/05/21 12:19 09/05/21 12:21 Temperature 99 F Temperature Source Oral Pulse Rate 111 H 111 H Pulse Rate [Radial] 113 H Respiratory Rate 38 H 19 Blood Pressure 158/96 H 142/85 H Blood Pressure [Right Arm] 189/103 H Blood Pressure Mean 125 104 Blood Pressure Mean [Right Arm] 131 Blood Pressure Source [Right Arm] Automatic Cuff Blood Pressure Position [Right Arm] Sitting 02 Sat by Pulse Oximetry 92 L 97 97 Oxygen Delivery Method Room Air 09/05/21 12:30 09/05/21 12:41 09/05/21 13:00 Temperature Temperature Source Pulse Rate 114 H 104 H 102 H Pulse Rate [Radial] Respiratory Rate 12 12 Blood Pressure 150/121 H 131/88 139/81 Blood Pressure [Right Arm] Blood Pressure Mean 130 Blood Pressure Mean [Right Arm] Blood Pressure Source [Right Arm] Blood Pressure Position [Right Arm] 02 Sat by Pulse Oximetry 89 L 93 L 92 L Oxygen Delivery Method Room Air Room Air - Lab Data Lab Results 09/05/21 12:19: WBC 14.0 H, RBC 3.99 L, Hgb 12.5, Hct 35.7 L, MCV 89.3, MCH 31.3 H, MCHC 35.0, RDW 12.7, Plt Count 362, MPV 8.3, Neut % (Auto) 71.0, Lymph % (Auto) 20.9, Hamilton % (Auto) 5.4, Eos % (Auto) 2.2, Baso % (Auto) 0.6, Neut # (Auto) 9.9 H, Lymph # (Auto) 2.9, Hamilton # (Auto) 0.8, Eos # (Auto) 0.3, Baso # (Auto) 0.1 09/05/21 12:19: Sodium 136, Potassium 3.6, Chloride 100, Carbon Dioxide 28, Anion Gap 11.6, BUN 8, Creatinine 0.50 L, Estimated Creat Clear 140, Estimated GFR 128, Est GFR ( Amer) 154, Glucose 123 H, Calcium 9.4, Total Bilirubin 0.4, AST 32, ALT 16, Alkaline Phosphatase 161 H, Troponin I < 0.01, Total Protein 7.3, Albumin 4.1, Globulin 3.2, Albumin/Globulin Ratio 1.3 09/05/21 12:19: Lactate 0.9 09/05/21 12:30: SARS-CoV-2 (PCR) Not detected, Influenza A Untype (PCR) Not detected, Influenza Type B (PCR) Not detected Result diagrams: 09/05/21 12:19 09/05/21 12:19 Orders (Tests/Meds): ED MEDICATIONS Discontinued Medications Generic Name Dose Route Start Last Admin Trade Name Freq PRN Reason Stop Dose Admin Albuterol/Ipratropium 3 ml 09/05/21 11:51 09/05/21 12:04 Ipratropium/Albuterol 3 Ml Neb 09/05/21 11:52 3 ml ONCE ONE Administration Dexamethasone Sodium Phosphate 10 mg 09/05/21 11:53 09/05/21 12:17 Dexamethasone 4mg/Ml 5ml Mdv IV 09/05/21 11:54 10 mg ONCE ONE Administration Ketorolac Tromethamine 30 mg 09/05/21 12:24 09/05/21 12:25 Ketorolac 30mg/Ml Vial IV 09/05/21 12:25 30 mg ONCE ONE Administration Ondansetron HCl 4 mg 09/05/21 12:23 09/05/21 12:25 Ondansetron 4mg/2ml Vial IV 09/05/21 12:24 4 mg ONCE ONE Administration ORDERS Category Date Time Status Troponin I Q3H Lab 09/05/21 15:00 Ordered Troponin I Q3H Lab 09/05
[2021-09-05 12:34] LABS: Coronavirus 19, PCR Not Detected (NotDetected); Influenza A, PCR Not Detected (NotDetected); Influenza B, PCR Not Detected (NotDetected)
[2021-09-05 12:36] LABS: Basophils # 0.1 K/mm3 (0-0.2); Basophils % 0.6 % (0.1-2.0); Eosinophils # 0.3 K/mm3 (0.0-0.4); Eosinophils % 2.2 % (0.1-12.0); Hematocrit 35.7 % (37.0-47.0); Hemoglobin 12.5 g/dL (12.2-16.2); Lymphocytes # 2.9 K/mm3 (0.7-4.5); Lymphocytes % 20.9 % (10-50); Mean Corpuscular Hemoglobin 31.3 pg (27.0-31.2); Mean Corpuscular Volume 89.3 fl (81-99); Mean Platelet Volume 8.3 fl (7.4-10.4); Monocytes # 0.8 K/mm3 (0.1-1.0); Monocytes % 5.4 % (1.7-9.3); Neutrophils # 9.9 K/mm3 (1.8-7.8); Platelet Count 362 K/mm3 (142-424); Red Blood Count 3.99 M/mm3 (4.20-5.40); Red Cell Distribution Width 12.7 % (11.5-17.5)
[2021-09-05 12:39] LABS: Chloride 100 mmol/L (98-107); Potassium 3.6 mmoL/L (3.5-5.1); Sodium 136 mmol/L (136-145)
[2021-09-05 12:41] LABS: Alanine Aminotransferase 16 U/L (12-78); Blood Urea Nitrogen 8 mg/dl (7-17); Creatinine Clearance Estimated 140 mL/min (50-200); Estimated Glomerular Filt Rate 128 ml/min (>60); GFR (African American) 154 ML/MIN (>60); Lactic Acid 0.9 mmol/L (0.7-2.1)
[2021-09-05 12:42] LABS: Albumin Level 4.1 g/dl (3.5-5.0); Albumin/Globulin Ratio 1.3 (1.1-1.8); Alkaline Phosphatase 161 U/L (38-126); Anion Gap 11.6 mEq/L (5-15); Aspartate Amino Transferase 32 U/L (14-36); Bilirubin,Total 0.4 mg/dl (0.2-1.3); Calcium 9.4 mg/dl (8.4-10.2); Carbon Dioxide 28 mmol/L (22.0-30.0); Globulin 3.2 g/dL (1.3-3.2); Glucose 123 mg/dl (74-100); Total Protein,Serum 7.3 g/dl (6.3-8.2)
[2021-09-05 13:05] LABS: Troponin I < 0.01 ng/ml (0.00-0.034)
== END 2021-09-05 14:04 | disposition home or self-care (01) ==
PROVIDERS: Emergency Provider Emergency Medicine
DX: J44.1 Chronic obstructive pulmonary disease with (acute) exacerbation (principal); J44.0 Chronic obstructive pulmonary disease with (acute) lower respiratory infection; E78.5 Hyperlipidemia, unspecified; I10 Essential (primary) hypertension; Z87.891 Personal history of nicotine dependence
CPT/HCPCS: 71045; 80053; 83605; 84484; 85025; 87040; 93005; 96374; 96375; 99284; C9803; J2405; U0003; U0005

== ENCOUNTER 2021-12-25 01:52 | Observation (INO) | payer MEDICARE, MEDICAID, SELFPAY ==
[2021-12-25] VITALS (13 sets, daily range): BP systolic 92–136; BP diastolic 62–84; PULSE 89–94; RESP 18; TEMP 36.6–37; O2SAT 94–98; BMI 27.4; BMI 26.4
--- NOTE | 2021-12-25 01:56 | CT_ITS ---
PROCEDURE INFORMATION: Exam: CT Head Without Contrast Exam date and time: 12/25/2021 2:00 AM Age: 56 years old Clinical indication: Dizziness and visual disturbance; Additional info: Acute dizziness, headache TECHNIQUE: Imaging protocol: Computed tomography of the head without contrast. Radiation optimization: All CT scans at this facility use at least one of these dose optimization techniques: automated exposure control; mA and/or kV adjustment per patient size (includes targeted exams where dose is matched to clinical indication); or iterative reconstruction. COMPARISON: HEADWO CT head/brain wo con 07/28/2018 4:15 PM FINDINGS: Brain: Mild diffuse cerebral atrophy is consistent with this patient's age. The cortical/white matter interfaces are preserved throughout the brain. There is no evidence of mass, mass effect or midline shift. There is no evidence of acute hemorrhage within the brain parenchyma or the subarachnoid space. The visualized basilar cisterns are patent. There is mild heterogeneity and patchy areas of bilateral decreased attenuation of the white matter which are nonspecific but may reflect chronic white matter ischemic change. Cerebral ventricles: The ventricular system is normal in size and distribution. Paranasal sinuses: The visualized portions of the sinuses are clear. Mastoid air cells: The mastoid sinuses are normal. Orbital cavities: The orbits are normal. Bones/joints: There is no evidence of acute fracture. Soft tissues: No significant soft tissue edema. IMPRESSION: No acute posttraumatic intracranial abnormality. Stable exam.
[2021-12-25 02:06] LABS: Basophils # 0.2 K/mm3 (0-0.2); Basophils % 1.2 % (0.1-2.0); Eosinophils # 0.2 K/mm3 (0.0-0.4); Eosinophils % 1.2 % (0.1-12.0); Hematocrit 41.2 % (37.0-47.0); Hemoglobin 13.5 g/dL (12.2-16.2); Lymphocytes % 24.6 % (10-50); Mean Corpuscular HGB Conc 32.8 g/dL (31.8-35.4); Mean Corpuscular Hemoglobin 30.9 pg (27.0-31.2); Mean Corpuscular Volume 94.2 fl (81-99); Mean Platelet Volume 8.9 fl (7.4-10.4); Monocytes # 0.7 K/mm3 (0.1-1.0); Monocytes % 5.4 % (1.7-9.3); Neutrophils # 8.2 K/mm3 (1.8-7.8); Neutrophils % 67.6 % (37.0-80.0); Platelet Count 323 K/mm3 (142-424); Red Blood Count 4.37 M/mm3 (4.20-5.40); White Blood Count 12.1 K/mm3 (4.8-10.8)
[2021-12-25 02:07] LABS: Chloride 103 mmol/L (98-107); Sodium 137 mmol/L (136-145)
[2021-12-25 02:08] LABS: Potassium 3.6 mmoL/L (3.5-5.1)
[2021-12-25 02:10] LABS: Alanine Aminotransferase 25 U/L (12-78); Alkaline Phosphatase 109 U/L (38-126); Anion Gap 9.6 mEq/L (5-15); Aspartate Amino Transferase 32 U/L (14-36); Bilirubin,Total 0.4 mg/dl (0.2-1.3); Blood Urea Nitrogen 8 mg/dl (7-17); Carbon Dioxide 28 mmol/L (22.0-30.0); Creatinine Clearance Estimated 144 mL/min (50-200); Estimated Glomerular Filt Rate 128 ml/min (>60); GFR (African American) 154 ML/MIN (>60)
[2021-12-25 02:11] LABS: Albumin/Globulin Ratio 1.4 (1.1-1.8); Calcium 8.3 mg/dl (8.4-10.2); Globulin 2.9 g/dL (1.3-3.2); Glucose 152 mg/dl (74-100); Total Protein,Serum 6.9 g/dl (6.3-8.2)
[2021-12-25 02:15] LABS: INR 0.88 (0.9-1.1)
--- NOTE | 2021-12-25 02:53 | HMH.EDGENADL ---
ED Disposition Clinical Impression: Vertigo Disposition: Home, Self-Care Condition on Discharge: Good Referrals: Cosme Escalante MD [Primary Care Provider] - - Critical Care Critical Care Time: Yes (35) Attestation: On 12/25/21, the high probability of a clinically significant, sudden or life threatening deterioration of the following system(s) required my full and direct attention, intervention and personal management. The time I documented below is in addition to time spent performing reported procedures but includes the following listed in this critical care notation. Vital system(s) involved:: Central Nervous System My critical care processes included: Assessment & monitoring of V/S, Initial and Re-exams, Data Review/Interpretation, Coordinating Care, Medication Orders and management, Documentation Medical Decision Making - Medical Records Medical records reviewed: Yes: I reviewed the patient's medical records. - Kiel Inquiry Pt receiving controlled substance: No Vital Signs: 12/25/21 01:15 Temperature 98.6 F Temperature Source Oral Pulse Rate [Right] 91 H Respiratory Rate 18 Blood Pressure [Right Arm] 131/84 Blood Pressure Mean [Right Arm] 99 02 Sat by Pulse Oximetry 98 - Lab Data Lab Results 12/25/21 01:40: WBC 12.1 H, RBC 4.37, Hgb 13.5, Hct 41.2, MCV 94.2, MCH 30.9, MCHC 32.8, RDW 13.0, Plt Count 323, MPV 8.9, Neut % (Auto) 67.6, Lymph % (Auto) 24.6, [place] % (Auto) 5.4, Eos % (Auto) 1.2, Baso % (Auto) 1.2, Neut # (Auto) 8.2 H, Lymph # (Auto) 3.0, [place] # (Auto) 0.7, Eos # (Auto) 0.2, Baso # (Auto) 0.2 12/25/21 01:40: Sodium 137, Potassium 3.6, Chloride 103, Carbon Dioxide 28, Anion Gap 9.6, BUN 8, Creatinine 0.50 L, Estimated Creat Clear 144, Estimated GFR 128, Est GFR ( Amer) 154, Glucose 152 H, Calcium 8.3 L, Total Bilirubin 0.4, AST 32, ALT 25, Alkaline Phosphatase 109, Total Protein 6.9, Albumin 4.0, Globulin 2.9, Albumin/Globulin Ratio 1.4, TSH 2.50 12/25/21 01:40: PT 10.0 L, INR 0.88 L 12/25/21 03:00: SARS-CoV-2 (PCR) Not detected, Influenza A Untype (PCR) Not detected, Influenza Type B (PCR) Not detected Result diagrams: 12/25/21 01:40 12/25/21 01:40 Orders (Tests/Meds): ED MEDICATIONS Discontinued Medications Generic Name Dose Route Start Last Admin Trade Name Barber PRN Reason Stop Dose Admin Diphenhydramine HCl 25 mg 12/25/21 03:37 12/25/21 03:39 Diphenhydramine 50mg/Ml Vial IV 12/25/21 03:38 25 mg ONCE ONE Administration Epinephrine HCl 0.3 mg 12/25/21 03:38 12/25/21 03:40 Epinephrine 1 Mg/Ml Ampul IM 12/25/21 03:39 0.3 mg ONCE ONE Administration Iopamidol 100 ml 12/25/21 03:45 12/25/21 03:46 Iopamidol-370 (76%);100ml Bottle IV 12/25/21 03:46 100 ml ONCE ONE Administration Meclizine HCl 50 mg 12/25/21 02:47 12/25/21 02:54 Meclizine 25mg Tablet PO 12/25/21 02:48 50 mg ONCE ONE Administration Prochlorperazine Edisylate 10 mg 12/25/21 02:43 12/25/21 02:55 Prochlorperazine 10mg/2ml Vial IV 12/25/21 02:44 10 mg ONCE ONE Administration Sodium Chloride 50 ml 12/25/21 03:45 12/25/21 03:46 0.9 % Sodium Chloride 50 Ml Vial IV 12/25/21 03:46 50 ml ONCE ONE Administration Sodium Chloride 10 ml 12/25/21 03:45 12/25/21 03:46 Sodium Chloride 0.9% 10ml Syr (Rad Only) IV 12/25/21 03:46 10 ml ONCE ONE Administration Medical Decision Narrative: Patient is a 56-year-old female history of COPD who presents the ED today for further evaluation of acute onset of dizziness. Patient's presentation concerning for differential diagnosis which is broad, of acute vestibular syndrome, benign paroxysmal peripheral vertigo, acute cerebellar stroke, cerebellar TIA. Patient does not have any appreciable vertigo on examination with Mansura-Hallpike maneuver, there is no appreciable nystagmus with sitting up straight, laying down, or turning of the head., Peripheral neurologic examination patient does not have any focal wea
[2021-12-25 03:07] LABS: Coronavirus 19, PCR Not Detected (NotDetected); Influenza A, PCR Not Detected (NotDetected); Influenza B, PCR Not Detected (NotDetected)
--- NOTE | 2021-12-25 03:10 | CT_ITS ---
PROCEDURE INFORMATION: Exam: CT Angiography Neck With Contrast Exam date and time: 12/25/2021 3:27 AM Age: 56 years old Clinical indication: Dizziness and giddiness and visual disturbance; Additional info: Acute dizziness, concern for dissection or stroke TECHNIQUE: Imaging protocol: Computed tomography angiography of the neck with contrast. 3D rendering (Not supervised by radiologist): MIP and/or 3D reconstructed images were created by the technologist. Radiation optimization: All CT scans at this facility use at least one of these dose optimization techniques: automated exposure control; mA and/or kV adjustment per patient size (includes targeted exams where dose is matched to clinical indication); or iterative reconstruction. Contrast material: ISOVUE; Contrast volume: 100 ml; Contrast route: INTRAVENOUS (IV); COMPARISON: CT ANGIO CHEST 10/08/2020 10:26 AM FINDINGS: Right common carotid artery: No stenosis. No dissection or occlusion. Right internal carotid artery: There is calcified mural plaque at the carotid bifurcation, but no significant stenosis. The extracranial ICA is patent with no significant stenosis. However, there is marked tortuosity with a tight S-shaped bend at the level of the mandibular angle. No dissection or occlusion. Right external carotid artery: No occlusion or significant stenosis. Left common carotid artery: No stenosis. No dissection or occlusion. Left internal carotid artery: There is calcified mural plaque at the carotid bifurcation, but no significant stenosis. The extracranial ICA is patent with no significant stenosis. However, there is marked tortuosity of the distal cervical segment with a tight [id number] just proximal to entering the skull base. No dissection or occlusion. Left external carotid artery: No occlusion or stenosis of the origin. Right vertebral artery: No stenosis. No dissection or occlusion. Left vertebral artery: No stenosis. No dissection or occlusion. Soft tissues: Normal. No significant soft tissue swelling. Bones/joints: No acute fracture. IMPRESSION: Rred-ve-[id number] calcific atherosclerotic changes at the bilateral carotid bifurcations, but no significant stenosis or occlusion. There is marked tortuosity of the bilateral cervical internal carotid arteries with prominent S-shaped/looped curves. No evidence of dissection. REFERENCES: NASCET CRITERIA. The degree of internal carotid artery stenosis is based on NASCET criteria. Normal is no stenosis. Mild is less than 50% stenosis. Moderate is 50-69% stenosis. Severe is 70% to 99% stenosis. Total occlusion is no detectable patent lumen.
--- NOTE | 2021-12-25 03:10 | CT_ITS ---
PROCEDURE INFORMATION: Exam: CT Angiography Head With Contrast, Arteriography Exam date and time: 12/25/2021 3:27 AM Age: 56 years old Clinical indication: Dizziness and giddiness and visual disturbance; Additional info: Acute dizziness, concern for dissection or stroke TECHNIQUE: Imaging protocol: Computed tomography angiography of the head with contrast. Exam focused on the arteries. 3D rendering (Not supervised by radiologist): MIP and/or 3D reconstructed images were created by the technologist. Radiation optimization: All CT scans at this facility use at least one of these dose optimization techniques: automated exposure control; mA and/or kV adjustment per patient size (includes targeted exams where dose is matched to clinical indication); or iterative reconstruction. Contrast material: ISOVUE; Contrast volume: 100 ml; Contrast route: INTRAVENOUS (IV); COMPARISON: CT HEAD/BRAIN WO CON 12/25/2021 2:00 AM FINDINGS: ANTERIOR CIRCULATION: Right internal carotid artery: Unremarkable. Intracranial segment is patent with no significant stenosis. No aneurysm. Right middle cerebral artery: Unremarkable. No occlusion or significant stenosis. No aneurysm. Right anterior cerebral artery: Unremarkable. No occlusion or significant stenosis. No aneurysm. Left internal carotid artery: Unremarkable. Intracranial segment is patent with no significant stenosis. No aneurysm. Left middle cerebral artery: Unremarkable. No occlusion or significant stenosis. No aneurysm. Left anterior cerebral artery: Unremarkable. No occlusion or significant stenosis. No aneurysm. POSTERIOR CIRCULATION: Right vertebral artery: Unremarkable. No occlusion or significant stenosis. No aneurysm. Left vertebral artery: Unremarkable. No occlusion or significant stenosis. No aneurysm. Basilar artery: Unremarkable. No occlusion or significant stenosis. No aneurysm. Right posterior cerebral artery: Unremarkable. No occlusion or significant stenosis. No aneurysm. Left posterior cerebral artery: There is an hypoplastic/anaplastic P1 segment. The P2 segment is supplied by a patent P-comm. No occlusion or significant stenosis. No aneurysm. Brain: No definite mass, mass effect, or midline shift. Cerebral ventricles: No ventriculomegaly. Bones/joints: Unremarkable. No acute fracture. Soft tissues: Unremarkable. IMPRESSION: Negative CTA Head. No evidence of intracranial large vessel stenosis or occlusion. No evidence of aneurysm or AVM.
--- NOTE | 2021-12-25 03:23 | PC.NURSE ---
pt started having concerns about ct scan. I spoke with the pt and reassured her that she would be in the er for the scans and the Asphalt Paving SupervisorElroy Cui informed her of the contrast and helped to put her at ease
--- NOTE | 2021-12-25 03:49 | PC.NURSE ---
pt returned from ct and was having a possible reaction. pt treated per md and is resting comfortably with 2l o2 nasal canula
--- NOTE | 2021-12-25 04:51 | PC.NURSE ---
phone call from Operations Center requesting to speak to ED
--- NOTE | 2021-12-25 06:48 | MR_ITS ---
FINAL REPORT CLINICAL HISTORY: ACUTE VERTIGO, CONCERN POSTERIOR CIRCULATION STROKE, DIZZINESS, UNSTEADY ON FEET. FINDINGS: Multi planar MR imaging was obtained through the brain without contrast. The midline structures appear intact. There is no evidence of Chiari malformation. On T2 and flair axial images the brain parenchyma is homogeneous. On diffusion-weighted images there is no evidence of restricted diffusion. The visualized paranasal sinuses demonstrate normal signal voids. The seventh and eighth nerve root complexes are intact. IMPRESSION: Essentially unremarkable nonenhanced brain MRI. Reviewed, Interpreted and Dictated by Walker Clinton MD Transcribed by Teo Patton Authenticated by Walker Clinton MD on 12/25/2021 08:12:18 AM [facility]
--- NOTE | 2021-12-25 07:08 | HMH.PHAINT ---
MEDICATION RECONCILIATION COMPLETED ON PATIENT USING EXTERNAL FILL HISTORY FROM PHARMACY. -PEYTON BARLOW, ANABELLED
--- NOTE | 2021-12-25 07:27 | P.CONPHA_ITS ---
[facility] Pharmacy VTE Monitoring - Patient Demographics Admission date: 12/25/21 Report Date: 12/25/21 Time: 07:27 Allergies/Adverse Reactions: Patient Allergies iopamidol Allergy (Intermediate, Verified 12/25/21 03:58) Sulfa (Sulfonamide Antibiotics) [SULFA (SULFONAMIDE ANTIBIOTICS)] Allergy (Intermediate, Verified 10/07/20 23:38) I-RASH Height: 1.63 m Weight: 72.575 kg Patient Problems: Current Active Problems Vertigo (Acute) - VTE Risk Labs: VTE Related Lab Results Hgb 13.5 g/dL (12.2-16.2) 12/25/21 01:40 Hct 41.2 % (37.0-47.0) 12/25/21 01:40 Plt Count 323 K/mm3 (142-424) 12/25/21 01:40 PT 10.0 seconds (10.1-12.5) L 12/25/21 01:40 INR 0.88 (0.9-1.1) L 12/25/21 01:40 BUN 8 mg/dl (7-17) 12/25/21 01:40 Creatinine 0.50 mg/dl (0.52-1.04) L 12/25/21 01:40 Estimated Creat Clear 144 mL/min (50-200) 12/25/21 01:40 Clinical Trial Participant: No - Prophylaxis VTE Prophylaxis Ordered?: Yes Types of VTE Prophylaxis: TEDS Knee High
--- NOTE | 2021-12-25 07:49 | PC.NURSE ---
pt return from MRI
--- NOTE | 2021-12-25 08:22 | PC.NURSE ---
YAEL TABOR spoke with GIORGI Ames at this time
--- NOTE | 2021-12-25 08:32 | PC.NURSE ---
report called to akilah pandey on second floor at this time
[2021-12-25 08:36] LABS: Creatine Kinase 43 U/L (30-135)
--- NOTE | 2021-12-25 08:41 | PC.NURSE ---
SaO2 96% on RA, pt was previously on O2 r/t contrast reaction per cage shift manager report. Pt denies SOA at this time.
[2021-12-25 08:50] LABS: CKMB Relative Index 2.1 U/L (0-4.0); Creatine Kinase MB 0.9 ng/ml (0.0-2.03)
[2021-12-25 08:52] LABS: Troponin I < 0.01 ng/ml (0.00-0.034)
--- NOTE | 2021-12-25 09:18 | HMH.CNCARD ---
History of Present Illness Consult date: 12/25/21 Requesting physician: Johny Krueger Chief complaint: Dizziness Additional Medical History:: 1. Ex-smoker, discontinued about a year and a half ago A. Smoked for greater than 40 years. 2. COPD 3. Hypothyroidism 4. Vertigo, 12/[address] of the head, neck and MRI of the brain all negative for acute process 5. H/o Hypertension, on no meds at this time. BP controlled, 12/2021. 6. H/o Hyperlipidemia, on no meds at this time. 7. History of GERD History of present illness: 56-year-old white female was getting ready to go to bed last evening when she developed a sudden onset of severe dizziness as if the room were spinning. She was unable to ambulate to the bathroom without having to hold onto things so she would not fall. No recent fever, chills, nausea, vomiting, diarrhea or illness. No associated chest pain, palpitations or shortness of breath. Patient was seen in the ER last evening with work-up negative for acute process. She was given a combination of Compazine and meclizine and this morning her symptoms have significantly improved but not completely resolved. Cardiology consulted for evaluation. Troponin is normal x1. Patient denies any history of cardiac issues. [facility] History Medical History: Reports:: Anxiety, Cancer (lung), Chronic Obstructive Pulmonary Disease (COPD), Hyperlipidemia, Hypertension Denies:: Diabetes Mellitus Type 1, Diabetes Mellitus Type 2, Internal Pacemaker, MRSA *Have you ever received a pneumonia vaccine?: No *Have you received a flu vaccine this season?: No Other Medical History: Reports: Hypothyroidism, Thyroid Disease Laterality Cases: Left: Other, Bilateral: Tonsillectomy Other Surgeries: Yes: Appendectomy, BSO, Cholecystectomy, Dilation and Curettage, Hysterectomy-Total, Other. No: Pacemaker Amputation: No Fractures: No - *Social History Smoking Status: Former smoker # Packs/Day (cigarettes): 1 #Yrs smoked (if former smoker): 39 Alcohol Intake: never Alcohol Intake Frequency:: other Substance Use Type: denies use *Occupational Status:: disabled Housing: house Household Members: family *Travel in the last 8 weeks: Inside the [facility] - Psychiatric History Pschychiatric History:: Reports:: Anxiety Family Hx:: Cancer, Diabetes, Heart Attack, Hyperlipidemia, Hypertension, Kidney Disease, Thyroid Disorder, Alcoholism Meds Home Medications Medication Instructions Recorded Confirmed Type Cholecalciferol (Vitamin D3) 25 mcg PO DAILY 12/25/21 12/25/21 History [Vitamin D3 1,000 Unit Tab] Levothyroxine Sodium 88 mcg PO DAILY 12/25/21 12/25/21 History [Levothyroxine 88mcg (0.088mg) Tab] Omeprazole 40 mg PO DAILY 12/25/21 12/25/21 History Venlafaxine HCl [Venlafaxine HCl 150 mg PO DAILY 12/25/21 12/25/21 History ER] estradioL [Estradiol] 1 mg PO DAILY 12/25/21 12/25/21 History Allergies Allergy/AdvReac Type Severity Reaction Status Date / Time Iodinated Contrast Media Allergy Severe Difficulty Verified 12/25/21 08:34 Breathing iopamidol Allergy Intermediate Verified 12/25/21 03:58 Sulfa (Sulfonamide Allergy Intermediate I-RASH Verified 10/07/20 23:38 Antibiotics) [SULFA (SULFONAMIDE ANTIBIOTICS)] Exam Vital signs and Labs for Last 24 Hours: Temp Pulse Resp BP Pulse Ox 97.9 F 94 H 18 116/84 94 L 12/25/21 09:06 12/25/21 09:06 12/25/21 09:06 12/25/21 09:06 12/25/21 09:06 Laboratory Results - last 24 hr 12/25/21 01:40: WBC 12.1 H, RBC 4.37, Hgb 13.5, Hct 41.2, MCV 94.2, MCH 30.9, MCHC 32.8, RDW 13.0, Plt Count 323, MPV 8.9, Neut % (Auto) 67.6, Lymph % (Auto) 24.6, [place] % (Auto) 5.4, Eos % (Auto) 1.2, Baso % (Auto) 1.2, Neut # (Auto) 8.2 H, Lymph # (Auto) 3.0, [place] # (Auto) 0.7, Eos # (Auto) 0.2, Baso # (Auto) 0.2 12/25/21 01:40: Sodium 137, Potassium 3.6, Chloride 103, Carbon Dioxide 28, Anion Gap 9.6, BUN 8, Creatinine 0.50 L, Estimated Creat Clear 144, Estimated GFR 128, Est GF
--- NOTE | 2021-12-25 09:26 | CA_ITS ---
APPROVED REPORT EXAM: Comprehensive 2D, Doppler, and color-flow Echocardiogram Wet Primer Powder Blender: Skye Vines RDCS Ht: 5 ft 4 in Wt: 154lbs BSA: 1.75 BP: 110/60 mmHg Indications: VERTIGO,HTN,COPD,HLP 2D Dimensions LVOT 1.64 cm (M/F) 1.5-2.5 M-Mode Dimensions RVDd 1.84 cm (0.9-2.6) LA Diam 1.63 cm (1.9-4.0) LVDd 4.53 cm (3.5-5.7) Ao Diam 3.01 cm (2.0-3.7) LVDs 3.50 cm (3.5-5.7) IVSd 0.84 cm (0.6-1.1) PWd 0.59 cm (0.6-1.1) EF (Teich) 45.80% FS 22.70% EDV (Teich) 93.90 mL ESV (Teich) 50.90 mL LV Diastology E Decel Time 190.00 (160-240 msec) E/A Ratio 0.8 MED E' 8.40 (< 7 cm/sec) E'/MED E' Ratio 6.88 (>14) LAT E' 9.50 (<10 cm/sec) E/LAT E' Ratio 6.08 (>14) Mitral Valve MV E Max Luis. 58.00 (40-130 cm/s) MV A Velocity 70.00 (40-130 cm/s) E/A Ratio 0.83 MV Decel. Time 190.00 (160-240 ms) MV PHT 56.00 ms Left Ventricle Left atrium is mildly enlarged, left ventricle normal size, mild concentric left ventricular hypertrophy, visually estimated ejection fraction 55% with no regional wall motion abnormality, grade 1 diastolic dysfunction seen without tissue Doppler evidence of raise left atrial pressure. Right Ventricle Critical atrium and right ventricle are normal size and contractility. Aortic Valve Aortic valve is minimally thickened and fibrosed, there is no aortic stenosis or aortic insufficiency. Mitral Valve Mitral valve grossly normal, there is trace mitral regurgitation. Tricuspid Valve Tricuspid grossly normal, there is trace tricuspid regurgitation. Tricuspid regurgitation jet velocity is inadequate for calculation of the right ventricular systolic pressure. Pulmonic Valve Pulmonic valve is poorly visualized. Great Vessels Aortic root is normal size. Inferior vena cava is poorly visualized. Pericardium No significant pericardial effusion. Conclusion 1. Mildly enlarged left atrium, normal left ventricular size, mild concentric left ventricular hypertrophy, visually estimated ejection fraction 55% with no regional wall motion abnormality, grade 1 diastolic dysfunction seen without tissue Doppler evidence of raised left atrial pressure. 2. Trace mitral and tricuspid regurgitation. 3. No significant pericardial effusion 4. Inferior vena cava is poorly visualized. Electronically signed by : Johnson Levy MD 12/25/2021 20:57:51
--- NOTE | 2021-12-25 12:34 | HMH.HPDC ---
General - General Admission date:: 12/25/21 Discharge date: 12/25/21 *Admission Date: 12/25/21 *Chief complaint: dizziness *History of present illness: 56-year-old white female was getting ready to go to bed last evening when she developed a sudden onset of severe dizziness as if the room were spinning. She was unable to ambulate to the bathroom without having to hold onto things so she would not fall. No recent fever, chills, nausea, vomiting, diarrhea or illness. No associated chest pain, palpitations or shortness of breath. Patient was seen in the ER last evening with work-up negative for acute process. She was given a combination of Compazine and meclizine and this morning her symptoms have significantly improved but not completely resolved. Cardiology consulted for evaluation. Troponin is normal x1. Patient denies any history of cardiac issues-per cradiology [facility] History I have reviewed the patient's past medical history: Yes Medical History: Reports:: Anxiety, Chronic Obstructive Pulmonary Disease (COPD), Hyperlipidemia, Hypertension Denies:: Cancer, Diabetes Mellitus Type 1, Diabetes Mellitus Type 2, Internal Pacemaker, MRSA *Have you ever received a pneumonia vaccine?: No *Have you received a flu vaccine this season?: No Other Medical History: Reports: Hypothyroidism, Thyroid Disease Laterality Cases: Left: Other, Bilateral: Tonsillectomy Other Surgeries: Yes: Appendectomy, BSO, Cholecystectomy, Dilation and Curettage, Hysterectomy-Total, Other. No: Pacemaker Amputation: No Fractures: No - *Social History Last grade of school completed: GED Smoking Status: Former smoker # Packs/Day (cigarettes): 1 #Yrs smoked (if former smoker): 39 Alcohol Intake: never Alcohol Intake Frequency:: other Substance Use Type: denies use *Occupational Status:: retired Housing: house Household Members: family *Travel in the last 8 weeks: None - Psychiatric History Pschychiatric History:: Reports:: Anxiety Family Hx:: Cancer, Diabetes, Heart Attack, Hyperlipidemia, Hypertension, Kidney Disease, Thyroid Disorder, Alcoholism Review of Systems - Review of Systems Review of systems:: pertinent systems reviewed and negative unless documented below - Constitutional Denies body ache(s), Denies fatigue - Eyes Denies blurry vision - ENT Reports dizziness, Denies bleeding gums - *Cardiovascular Denies chest pain at rest, Denies chest pain with activity, Denies leg pain with activity, Denies shortness of breath - *Respiratory Denies chest congestion - *Gastrointestinal Denies abdominal pain - *Genitourinary Denies difficulty urinating - *Musculoskeletal Denies abnormal walking - Integumentary/Breasts Denies rash - *Neurologic Reports dizziness, Denies abnormal speech, Denies seizure-like activity, Denies unsteadiness, Denies memory loss, Denies numbness, Denies other visual disturbances, Denies tingling/numbness/burning sensations - Psychiatric Denies lack of enjoyment - Endocrine Denies excessive sweating - Hematologic/Lymphatic Denies easy bruising - Allergic/Immunologic Denies itchy eyes Exam Vital signs and Labs for Last 24 Hours: Temp Pulse Resp BP Pulse Ox 97.9 F 94 H 18 116/84 94 L 12/25/21 09:06 12/25/21 09:06 12/25/21 09:06 12/25/21 09:06 12/25/21 09:06 Laboratory Results - last 24 hr 12/25/21 01:40: WBC 12.1 H, RBC 4.37, Hgb 13.5, Hct 41.2, MCV 94.2, MCH 30.9, MCHC 32.8, RDW 13.0, Plt Count 323, MPV 8.9, Neut % (Auto) 67.6, Lymph % (Auto) 24.6, [place] % (Auto) 5.4, Eos % (Auto) 1.2, Baso % (Auto) 1.2, Neut # (Auto) 8.2 H, Lymph # (Auto) 3.0, [place] # (Auto) 0.7, Eos # (Auto) 0.2, Baso # (Auto) 0.2 12/25/21 01:40: Sodium 137, Potassium 3.6, Chloride 103, Carbon Dioxide 28, Anion Gap 9.6, BUN 8, Creatinine 0.50 L, Estimated Creat Clear 144, Estimated GFR 128, Est GFR ( Amer) 154, Glucose 152 H, Calcium 8.3 L, Total Bilirubin 0.4, AST 32, ALT 25, Alkaline Phosphatase 109, Total Pro
--- NOTE | 2021-12-25 13:31 | HMH.PHAINT ---
I spoke with Mrs. Malhotra today about her medication list. Went over the new medications she is going to be picking up from her pharmacy, and the medications she will be continuing on. When we spoke she did not have any questions or concerns about any of the medications. Patient was provided a copy of the medication list.
--- NOTE | 2021-12-27 12:42 | CARE MANAGER ---
Addendum entered by Connie Larose RN 12/27/21 13:21: Patient returned call. She states she has stopped taking the Prednisone because it has caused her not to be able to sleep. She states she has also developed a sore throat and fever. Encouraged her to reach out to PCP and make aware that she has stopped the medicine and that she is having other symptoms. She is aware of follow up appointments. Denies other questions or concerns. MARTIN Espinoza Original Note: Attempted to contact patient related to follow up from hospital discharge. Left voicemail message. MARTIN Espinoza
== END 2021-12-25 14:08 | disposition home or self-care (01) ==
LOC: ER 03:29 → 2ND 06:56
PROVIDERS: Nurse Practitioner Family; Admitting Provider Family Medicine; Emergency Provider Student in an Organized Health Care Education/Training Program; PCP Family Medicine; Visit Provider Family Medicine
DX: R42 Dizziness and giddiness (principal); J44.9 Chronic obstructive pulmonary disease, unspecified; E03.9 Hypothyroidism, unspecified; K21.9 Gastro-esophageal reflux disease without esophagitis; Z79.899 Other long term (current) drug therapy; Z20.822 Contact with and (suspected) exposure to COVID-19; Z79.890 Hormone replacement therapy; I10 Essential (primary) hypertension; E78.5 Hyperlipidemia, unspecified; Z87.891 Personal history of nicotine dependence; E56.9 Vitamin deficiency, unspecified
CPT/HCPCS: G0378; 70450; 70496; 70498; 70551; 80053; 82550; 82553; 84443; 84484; 85025; 85610; 93306; 96372; 96374; 96375; 99291; C9803; Q9967; U0003; U0005

== ENCOUNTER 2021-12-29 16:52 | Emergency (ER) | payer MEDICARE, MEDICAID, SELFPAY ==
[2021-12-29 17:54] LABS: UTC Influenza A Antigen Positive (Negative)
[2021-12-29 17:55] LABS: UTC Influenza B Antigen Negative (Negative)
[2021-12-29 18:00] VITALS: BP 140/79; PULSE 111; RESP 22; TEMP 39.2; O2SAT 93; BMI 26.7
--- NOTE | 2021-12-29 18:02 | HMH.EDUTC ---
[facility] – [place] Disposition Clinical Impression: Influenza A, COPD exacerbation Disposition: Home, Self-Care Condition on Discharge: Good Instructions: Influenza, Chronic Obstructive Pulmonary Disease, DI for Influenza -- Adult Additional Instructions: Drink plenty of fluids. Take tylenol or ibuprofen for pain or fever. Take the medications as directed. Follow up with your regular doctor. GO TO THE ER FOR ANY WORSENING SYMPTOMS Don't start the oral steroids until tomorrow, since you had the shot here today. The cough medication (promethazine dm) will make you drowsy, so don't drive or operate heavy machinery after taking it. Prescriptions: Albuterol Sulfate [Albuterol Sulfate Hfa] 2 puffs IH Q6HP PRN 30 Days #1 each PRN Reason: Shortness Of Breath Transmission Status: Received by [facility] Amoxicillin/Potassium Clav [Amox-Clav 875-125 mg Tablet] 1 tab PO BID #20 tab Transmission Status: Received by [facility] predniSONE [Deltasone 10mg tablet] 10 mg PO DAILY 9 Days #21 tab Transmission Status: Received by [facility] guaiFENesin [Mucinex 600mg tablet] 1 - 2 tab PO BIDP PRN #30 tab PRN Reason: Congestion Transmission Status: Received by [facility] Oseltamivir Phosphate [Tamiflu 75mg Capsule] 75 mg PO BID #10 cap Transmission Status: Received by [facility] Referrals: Morro Poe MD [Primary Care Provider] - Time of Disposition: 18:36 Medical Decision Making - Medical Records Medical records reviewed: No: I reviewed the patient's medical records. - Kiel Inquiry Pt receiving controlled substance: No Vital Signs: 12/29/21 18:00 12/29/21 18:39 Temperature 102.6 F H 100.7 F H Temperature Source Oral Pulse Rate 111 H Pulse Rate [Left] 111 H Respiratory Rate 22 22 Blood Pressure 140/79 Blood Pressure [Right Arm] 140/79 Blood Pressure Mean [Right Arm] 99 02 Sat by Pulse Oximetry 93 L Oxygen Delivery Method Room Air - Lab Data Lab results reviewed: Yes: I reviewed the patient's lab results. Lab Results 12/29/21 17:35: Group A Strep Rapid Negative 12/29/21 17:46: Influenza Type A Ag Positive A, Influenza Type B Ag Negative Orders (Tests/Meds): ED MEDICATIONS Discontinued Medications Generic Name Dose Route Start Last Admin Trade Name Barber PRN Reason Stop Dose Admin Acetaminophen 975 mg 12/29/21 18:45 12/29/21 18:48 Acetaminophen 325mg Tab PO 12/29/21 18:46 975 mg ONCE ONE Administration Ceftriaxone Sodium 1 gm 12/29/21 18:32 12/29/21 18:44 Ceftriaxone 1gm Vial IM 12/29/21 18:33 1 gm ONCE ONE Administration Ibuprofen 600 mg 12/29/21 18:45 12/29/21 18:48 Ibuprofen 600 Mg Tablet PO 12/29/21 18:46 600 mg ONCE ONE Administration Lidocaine HCl 0 ml 12/29/21 18:32 12/29/21 18:44 Lidocaine 1% 5ml Pf Vial IM 12/29/21 18:33 2 ml ONCE ONE Administration Methylprednisolone Sodium Succinate 125 mg 12/29/21 18:32 12/29/21 18:44 Methylprednisolone Sod Succ 125mg Vial IM 12/29/21 18:33 125 mg ONCE ONE Administration Ondansetron HCl 4 mg 12/29/21 18:45 12/29/21 18:49 Ondansetron 4mg Odt SL 12/29/21 18:46 4 mg ONCE ONE Administration ORDERS Category Date Time Status Strep Screen Confirmation Stat Micro 12/29/21 17:35 Received [facility] [place] HPI - General Stated complaint: Core thrat cough IGNACIO Weakness Time Seen by Provider: 12/29/21 18:02 - History of Present Illness Provider Complaint: She states that she started having a cough and chest congestion 2 days ago. She has been running a fever and chilling. She is coughing up greenish sputum. She has a history of copd. - Related Data Home Medications Medication Instructions Recorded Confirmed Cholecalciferol (Vitamin D3) 25 mcg PO DAILY 12/25/21 12/25/21 [Vitamin D3 1,000 Unit Tab] Levothyroxine Sodium 88 mcg PO DAILY 12/25/21 12/25/21 [Levothyroxine 88mcg (0.088mg) Tab] Omeprazole 40 mg PO KSENIA
[2021-12-29 18:29] LABS: Strep Scrn Group A (Rapid) Negative (Negative)
[2021-12-29 18:39] VITALS: BP 140/79; PULSE 111; RESP 22; TEMP 38.2
== END 2021-12-29 18:54 | disposition home or self-care (01) ==
PROVIDERS: Emergency Provider Nurse Practitioner Family; PCP Emergency Medicine
DX: J10.1 Influenza due to other identified influenza virus with other respiratory manifestations (principal); J44.1 Chronic obstructive pulmonary disease with (acute) exacerbation; I10 Essential (primary) hypertension
CPT/HCPCS: G0463; 87430; 87804; 96372; 99213; J0696

== ENCOUNTER → 2022-01-15 06:19 | Outpatient (CLI) | payer MEDICARE, MEDICAID, SELFPAY ==
--- NOTE | 2022-01-15 06:21 | CA_ITS ---
APPROVED REPORT Exam: Pharmacologic Technologist: Asuncion Lua, Ht: 5 ft 4 in Wt: 154 lbs BSA: 1.75 m2 HR: 90 bpm BP: 126/86 mmHg Rhythm: NSR, normal Medical History Medications: Omeprazole,,,,, Levothyroxine,,,,, Albuterol,,,,, Estradiol,,,,, Vit D3,,,,, Venlafaxine,,,,, Cardiac Risk Factors: Smoking Stress Test Details Test: LEXISCAN HR Resting HR: 99 bpm Max Heart Rate (APMHR): 164.506194 bpm Max HR Achieved: 116 bpm Target HR (85% APMHR): 139.371058 bpm % of APMHR: 70.73 Recovery HR: 107 bpm BP Resting BP: 126/86 mmHg Max BP: 166/85 mmHg Recovery BP: 156.0/84.0 mmHg ECG Resting ECG: NSR, normal Clinical Exercise duration: 04:02 min Highest Stage Achieved: Exercise capacity: 1.0 METs Stress ECG Conclusion During lexiscan pt experinced SOA, mild chest discomfort, and dizziness. No arrhythmias noted. No significant ST changes. Unremarkable lexiscan stress. Myoview images reported separately. Test Summary REST . . . . . . . Sitting REST . . . . . . . Sitting REST 03:52 . . 99 . 126/ 86 . . Stage 1 01:00 . . 116 . . . . Stage 2 01:00 . . 112 . 135/ 89 . . Stage 3 01:00 . . 103 . . . . Stage 4 01:00 . . 97 . 148/ 79 . . Stage 4 01:02 . . 97 . 148/ 79 . Stop exercise at 04:02 RECOVERY 01:00 . . 107 . 159/ 84 . . RECOVERY 02:00 . . 95 . 156/ 84 . . RECOVERY 03:00 . . 93 . 156/ 84 . . RECOVERY 04:00 . . 107 . 156/ 84 . . RECOVERY 05:00 . . 97 . 166/ 85 . . RECOVERY 06:00 . . 92 . 166/ 85 . . RECOVERY 07:00 . . 93 . 166/ 85 . . RECOVERY 07:29 . . 96 . 148/ 80 . . Electronically signed by : Johnson Levy MD 01/15/2022 21:15:21
--- NOTE | 2022-01-15 06:21 | NM_ITS ---
APPROVED REPORT Exam: Nuclear Stress Test Indication: HTN, TOB USER , FM HX., C.P., SOB Patient Location: Outpatient Stress Tech: Asuncion Lua NM Tech:Libertad Auguste, ARRT, RT (R)(N) Ht: 5 ft 4 in Wt: 154 lbs Bra Size: 34B HR: 99 bpm BP: 126/86 mmHg BSA: 1.75 m2 BMI: 26.4 History: HTN, TOB USER , FM HX., C.P., SOB Procedure: Patient received a 0.4 mg of intravenous Lexiscan, resting heart rate 99 bpm, resting blood pressure 126/86 mmHg, with Lexiscan maximum heart rate achived was 116 bpm which is Less than 85 % of the maximum predicted heart rate and blood pressure was 166/85 mmHg. With Lexiscan, patient denied any complaint of chest pain. Electrocardiogram Resting electrocardiogram shows sinus rhythm, with Lexiscan there is less than 1.[address] segment depression noted from the baseline EKG. The EKG portion of the Lexiscan is nondiagnostic. Cardiac Stress and Resting SPECT Images: Cardiac Stress and Resting SPECT images were obtained using technetium 99m Myoview 31.5 mCi stress and 9.84 mCi at rest. Gated SPECT for analysis of segmental wall motion and calculation of ejection fraction also done. Prone images were also obtained. Cardiac stress and resting SPECT images show uniform myocardial activity without segmental perfusion abnormality, computer derived ejection fraction is 50% with no regional wall motion abnormality, right ventricle is normal size and contractility, however there is transient ischemic dilatation of the left ventricle seen raising the concern for balanced ischemia and multivessel coronary artery disease. Conclusion: 1. The EKG portion of the Lexiscan is nondiagnostic. 2. No scintigraphic evidence of reversible ischemia seen, computer derived ejection fraction 50% with no regional wall motion abnormality, right ventricle is normal size and contractility. However there is transient ischemic dilatation of the left ventricle seen, raising the concerns for presence of balanced ischemia or multivessel coronary artery disease. 3. Abnormal Lexiscan Myoview study. Electronically signed by : Johnson Levy MD 01/15/2022 21:19:23
--- NOTE | 2022-01-15 06:21 | CT_ITS ---
FINAL REPORT TECHNIQUE: Axial images were obtained through the chest without contrast. Low-dose technique was utilized. CLINICAL HISTORY: chest pain, dyspnea COMPARISON: 10/08/2020 FINDINGS: There is no mediastinal mass or adenopathy. There are small bilateral axillary lymph nodes which are stable. The heart size is normal. There is no pericardial or pleural effusion. Limited images of the upper abdomen are unremarkable. There is a calcified granuloma in the right upper lobe. There are postoperative changes in the right perihilar region. There are 2 small stable noncalcified nodule in the anterior left upper lobe. There is also a small density in the anterior right lobe well seen on image number [id number] this is also stable. IMPRESSION: Mild axillary adenopathy. Stable nodules in the left upper lobe and right lower lobe. Reviewed, Interpreted and Dictated by Walker Clinton MD Transcribed by Kathy Medrano Authenticated by Walker Clinton MD on 01/15/2022 10:12:18 AM [facility]
--- NOTE | 2022-01-15 08:14 | HMH.ITSHM ---
Current Home Medications as stated by this patient Mckennaadrianna Malhotra or medical device sales representative. []ESTRADIOL VENLAFAXINE OMEPRAZOLE LEVOTHYROXINE VITAMIN D3 ALBUTEROL
== END ==
PROVIDERS: PCP Emergency Medicine; Visit Provider Internal Medicine
DX: F41.9 Anxiety disorder, unspecified (principal); I10 Essential (primary) hypertension; J44.9 Chronic obstructive pulmonary disease, unspecified; R00.0 Tachycardia, unspecified; R07.9 Chest pain, unspecified; R40.0 Somnolence; R42 Dizziness and giddiness; Z85.118 Personal history of other malignant neoplasm of bronchus and lung
CPT/HCPCS: 71250; 78452; 93017; A9502; J2785

== ENCOUNTER → 2022-02-01 13:50 | Outpatient (CLI) | payer MEDICARE, MEDICAID, SELFPAY ==
[2022-02-01 14:46] LABS: Basophils # 0.2 K/mm3 (0-0.2); Basophils % 2.8 % (0.1-2.0); Eosinophils # 0.2 K/mm3 (0.0-0.4); Eosinophils % 2.4 % (0.1-12.0); Hematocrit 43.2 % (37.0-47.0); Hemoglobin 14.2 g/dL (12.2-16.2); Lymphocytes # 3.6 K/mm3 (0.7-4.5); Mean Corpuscular HGB Conc 32.9 g/dL (31.8-35.4); Mean Corpuscular Volume 94.3 fl (81-99); Mean Platelet Volume 8.3 fl (7.4-10.4); Monocytes # 0.5 K/mm3 (0.1-1.0); Monocytes % 6.3 % (1.7-9.3); Neutrophils # 3.5 K/mm3 (1.8-7.8); Neutrophils % 43.5 % (37.0-80.0); Platelet Count 359 K/mm3 (142-424); Red Blood Count 4.58 M/mm3 (4.20-5.40); Red Cell Distribution Width 13.8 % (11.5-17.5)
[2022-02-01 15:04] LABS: Chloride 102 mmol/L (98-107); Potassium 4.2 mmoL/L (3.5-5.1); Sodium 140 mmol/L (136-145)
[2022-02-01 15:07] LABS: Anion Gap 8.2 mEq/L (5-15); Blood Urea Nitrogen 10 mg/dl (7-17); Carbon Dioxide 34 mmol/L (22.0-30.0); Estimated Glomerular Filt Rate 128 ml/min (>60); GFR (African American) 154 ML/MIN (>60)
[2022-02-01 15:08] LABS: Calcium 9.5 mg/dl (8.4-10.2); Glucose 104 mg/dl (74-100)
== END ==
PROVIDERS: Visit Provider Physician Assistant
DX: I20.9 Angina pectoris, unspecified (principal); R94.30 Abnormal result of cardiovascular function study, unspecified
CPT/HCPCS: 36415; 80048; 85025; C9803; U0003; U0005

== ENCOUNTER 2022-02-03 15:18 | Inpatient (IN) | payer MEDICARE, MEDICAID, SELFPAY ==
[2022-02-03] VITALS (28 sets, daily range): BP systolic 120–209; BP diastolic 69–120; PULSE 81–116; RESP 18–30; TEMP 37.1; O2SAT 84–99; BMI 29.9; BMI 29.0
--- NOTE | 2022-02-03 | CA_ITS ---
APPROVED REPORT EXAM: Comprehensive 2D, Doppler, and color-flow Echocardiogram Cable Mock Up Assembler: Rosa Cleveland CRT Ht: 5 ft 4 in Wt: 153lbs BSA: 1.75 BP: 118/93 mmHg Indications: Check for pericardial effusion post cath. Conclusion 1. Limited echocardiogram was performed to check for pericardial effusion. 2. There is trivial pericardial effusion noted. Electronically signed by : Johnson Levy MD 02/03/2022 13:57:51
--- NOTE | 2022-02-03 | IR_ITS ---
APPROVED REPORT Patient Location: Outpatient Fur Glazer: JIA Liriano RT (R) PROCEDURES Selective coronary angiogram FFR to the LAD Drug-eluting stent deployment to the proximal LAD Drug-eluting stent deployment to the distal left main artery extending into the proximal dominant circumflex artery Intravascular ultrasound to the LAD Right femoral arterial access Drug-eluting stent deployment to the distal left main artery extending into the proximal LAD Drug-eluting stent deployment to the proximal circumflex artery INDICATION Coronary artery disease, Ischemic response to adenosine above the LAD with an FFR index of 0.79, Significant plaque shift into the circumflex artery requiring revascularization Informed consent was obtained prior to the procedure. COMPLICATIONS None Estimated Blood Loss: Less than 10 mls TECHNIQUE One percent lidocaine used to anesthetize the right anterior aspect of the wrist. The right radial artery was accessed via the Seldinger technique. A 6 Lao sheath was placed in the right radial artery. 2.5 mg of verapamil, 800 mcg of nitroglycerin, 1mg Lidocaine and 5000 U Heparin were given through the arterial sheath. The papa catheter was also used to perform selective coronary angiogram. At the end of the diagnostic procedure therapeutic heparin was administered giving a therapeutic ACT. Plans were made to interrogate the LAD based on the greater than 40% ostial proximal stenosis. During the diagnostic procedure patient became extremely combative on the table requiring 5 different staff members to keep her on the table. Additional sedation was given and anesthesia was consulted for stat assistance. Eventually patient was given enough benzodiazepines and opiates in order to achieve sedation which allowed progression of the procedure. A wire had been placed on the LAD and FFR interrogation was performed using standard adenosine protocol. The FFR index dropped to 0.79. A 3.5 x 1 mm resolute Jeanmarie stent was deployed in the ostial proximal segment at 20 samantha. While this achieved excellent patency of the LAD it unfortunately caused plaque shift into the ostial segment of the dominant circumflex artery. A 4 mm x 12 mm resolute Jeanmarie stent was then placed in the distal left main artery extending into the proximal circumflex artery and deployed at 20 samantha. Excellent angiographic results were obtained however there was a defect in the LAD. Wire was pulled back placed into the LAD where 3.5 x 12 mm balloon was used to post dilate the LAD. After achieving excellent angiograph results with PENG-3 flow down the left main artery LAD and circumflex artery the apparatus was removed the sheath was removed good hemostasis was achieved using TR banding patient was transferred to the postop putting in stable condition. She did require mechanical bagging with the assistance of anesthesia due to heavy sedation. Must be stressed patient was highly combative during the procedure which did add to the complexity of the procedure. The ACT was out of range at the end of the procedure. In recovery patient was given 180 mg of Brilinta per rectum due to her inability to swallow pills secondary to the heavy sedation. During recovery it was noticed patient experienced evidence of ST elevation on the child monitor. At this point 8000 units of heparin was a immediately administered and patient was emergently returned to the [facility] where 1% lidocaine was used to anesthetize the right groin. The right femoral was accessed via the Salinger technique and a 6 Lao sheath was placed in the right radial artery. Guide catheter was used to intubate the left main artery. A 4.5 x 12 mm resolute [place] stent was then
[2022-02-03 12:46] LABS: CATHL Activated Clotting Time > 400 SEC (74-125)
--- NOTE | 2022-02-03 13:40 | SUR.PHASEII ---
pt was given 180 mg Brilinta rectally at 1230 due to decreased LOC and unable to take po meds. At 1340 EKG changes were noted on the monitor, strip printed and taken to MD. MD then stated to prepare patient to go back on the table and to give IV Heparin. Heparin was administered and patient was taken back to procedure room. ( see mar for medication details)
--- NOTE | 2022-02-03 15:23 | P.PN_ITS ---
Subjective Date: 02/03/22 Time: 15:23 Principal diagnosis: post cath Interval history: 56 yo WF with abnormal stress test came to [facility] as outpatient for [facility]. She received stents to LAD and Circumflex. Due to being sedated and unable to take oral antiplatelet meds, she was given brilinta rectally. While in recovery, she began having EKG changes and endorsed chest pain for which she was taken back to [facility] and found to have developed acute thrombus in the stents. This required repeat stenting with balloon angioplasty of the LAD and Circ. She was started on Integrilin IV along with oral DAPT. She will be admitted for overnight observation. Exam Vital signs and Labs for Last 24 Hours: Pulse Resp BP Pulse Ox 89 20 122/78 91 L 02/03/22 14:55 02/03/22 14:55 02/03/22 14:55 02/03/22 14:55 Laboratory Results - last 24 hr 02/03/22 11:40: Activated Clotting Time > 400 H* I & O for Last 24 hours: Intake & Output 02/01/22 02/02/22 02/03/22 02/04/22 11:59 11:59 11:59 11:59 Weight 174 lb 2.643 oz - *Routine Respiratory Exam Present: CTA bilaterally - *Routine Cardiovascular Exam Present: RRR - *Routine Extremities Exam Absent: cyanosis, clubbing, edema Progress Note: A&P (1) CAD (coronary artery disease), [place] coronary artery Status: Acute (2) Coronary stent thrombosis Status: Acute (3) Chronic obstructive pulmonary disease Status: Chronic Assessment and Plan for All Diagnoses:: 1. CAD with stenting, acute thrombosis and repeat stenting. DAPT with ASA and Brilinta. IV integrilin for up to 24 hrs. 2. HTN, resume metoprolol. 3. HLD, will start statin.
[2022-02-03 15:28] LABS: Microscopic, Urine URINE MICROSCOPIC (MICROSCOPIC)
--- NOTE | 2022-02-03 15:40 | SUR.PHASEII ---
see other case
[2022-02-03 15:54] LABS: Appearance,Urine CLEAR (Clear); Bilirubin,Urine Negative (Negative); Blood, Urine TRACE-I (Negative); Color,Urine YELLOW (Yellow); Glucose,Urine (UA) TRACE (Negative); Ketones,Urine Negative (Negative); Leukocyte Esterase,Urine Negative (Negative); Nitrate,Urine Negative (Negative); Protein,Urine Negative (Negative); Specific Gravity, Urine 1.015 (1.005-1.030); Urobilinogen,Urine 0.2 EU/dl (0.2)
[2022-02-03 15:55] LABS: Bacteria,Urine Trace /lpf; RBC,Urine Occasional #/hpf (0-3); Squamous Epithelial Cell,Urine Occasional #/hpf (0-5)
[2022-02-03 16:05] LABS: Coronavirus 19, PCR Not Detected (NotDetected); Influenza A, PCR Not Detected (NotDetected); Influenza B, PCR Not Detected (NotDetected)
[2022-02-03 16:12] LABS: CATHL Activated Clotting Time > 400 SEC (74-125)
[2022-02-03 16:54] LABS: Chloride 106 mmol/L (98-107); Potassium 4.1 mmoL/L (3.5-5.1); Sodium 138 mmol/L (136-145)
[2022-02-03 16:56] LABS: Alanine Aminotransferase 32 U/L (12-78); Aspartate Amino Transferase 89 U/L (14-36); Bilirubin,Total 0.3 mg/dl (0.2-1.3); Blood Urea Nitrogen 14 mg/dl (7-17); Creatinine Clearance Estimated 143 mL/min (50-200); Estimated Glomerular Filt Rate 128 ml/min (>60); GFR (African American) 154 ML/MIN (>60)
[2022-02-03 16:57] LABS: Albumin Level 3.8 g/dl (3.5-5.0); Albumin/Globulin Ratio 1.4 (1.1-1.8); Alkaline Phosphatase 84 U/L (38-126); Anion Gap 12.1 mEq/L (5-15); Calcium 8.5 mg/dl (8.4-10.2); Carbon Dioxide 24 mmol/L (22.0-30.0); Globulin 2.7 g/dL (1.3-3.2); Glucose 149 mg/dl (74-100); Total Protein,Serum 6.5 g/dl (6.3-8.2)
[2022-02-03 16:59] LABS: Basophils # 0.1 K/mm3 (0-0.2); Basophils % 0.3 % (0.1-2.0); Eosinophils # 0.1 K/mm3 (0.0-0.4); Eosinophils % 0.2 % (0.1-12.0); Hematocrit 41.2 % (37.0-47.0); Hemoglobin 13.8 g/dL (12.2-16.2); Lymphocytes # 1.5 K/mm3 (0.7-4.5); Lymphocytes % 4.6 % (10-50); Mean Corpuscular HGB Conc 33.4 g/dL (31.8-35.4); Mean Corpuscular Hemoglobin 31.4 pg (27.0-31.2); Mean Corpuscular Volume 93.9 fl (81-99); Monocytes # 1.8 K/mm3 (0.1-1.0); Monocytes % 5.4 % (1.7-9.3); Neutrophils # 29.7 K/mm3 (1.8-7.8); Neutrophils % 89.5 % (37.0-80.0); Platelet Count 393 K/mm3 (142-424); Red Blood Count 4.39 M/mm3 (4.20-5.40); Red Cell Distribution Width 13.6 % (11.5-17.5); White Blood Count 33.2 K/mm3 (4.8-10.8)
--- NOTE | 2022-02-03 17:43 | PC.NURSE ---
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 no meds ordered. new order: morphine 1mb q1h prn mod- severe pain.
[2022-02-03 18:20] LABS: MANUAL DIFFERENTIAL MANUAL DIFFERENTIAL (MANUAL DIFF)
--- NOTE | 2022-02-03 18:31 | CT_ITS ---
PROCEDURE INFORMATION: Exam: CT Abdomen And Pelvis Without Contrast Exam date and time: 02/03/2022 7:18 PM Age: 56 years old Clinical indication: Abdominal pain; Generalized; Prior surgery; Surgery date: 6+ months; Surgery type: Abd pain // status post cardiac cath and stemi earlier today; Additional info: Abd pain post cardiac cath TECHNIQUE: Imaging protocol: Computed tomography of the abdomen and pelvis without contrast. Radiation optimization: All CT scans at this facility use at least one of these dose optimization techniques: automated exposure control; mA and/or kV adjustment per patient size (includes targeted exams where dose is matched to clinical indication); or iterative reconstruction. COMPARISON: [id number] CT abdomen pelvis wo/w con 10/21/2018 10:51 AM FINDINGS: Tubes, catheters and devices: Page catheter. Lungs: Patchy regions of parenchymal scarring are present anteriorly in the right middle lobe as well as in the left upper lobe. Liver: Normal. No mass. Gallbladder and bile ducts: Status post cholecystectomy. Pancreas: Normal. No ductal dilation. Spleen: Normal. No splenomegaly. Adrenal glands: Normal. No mass. Kidneys and ureters: 2.4 cm cyst arising from the lower pole of the right kidney. Similar findings demonstrated on the previous study. Stomach and bowel: Unremarkable. No obstruction. No mucosal thickening. Appendix: No evidence of appendicitis. Intraperitoneal space: Unremarkable. No free air. No significant fluid collection. Vasculature: Scattered regions of atherosclerotic vascular calcification within the abdominal aorta and common iliac arteries. Lymph nodes: Unremarkable. No enlarged lymph nodes. Urinary bladder: Unremarkable as visualized. Reproductive: Status post hysterectomy Bones/joints: Unremarkable. No acute fracture. Soft tissues: Stranding of the subcutaneous fatty tissues in the right inguinal region . Edematous changes are present in the region of the common femoral artery and vein. Findings consistent with history of status post cardiac catheterization on this date. IMPRESSION: 1. Edematous changes involving the subcutaneous fatty tissues right inguinal region as well as in the region of the common femoral artery and vein consistent with cardiac catheterization on this date. 2. 2.4 cm cyst lower pole right kidney.
--- NOTE | 2022-02-03 18:32 | PC.NURSE ---
174: notified lola gandhi that pt is complaining of abd pain and is distended and tight. new orders: ct of abdomen without contrast 1801 pt states that morphine did not last for pain. lortab 7.5 q4h mod pain ordered at this time by lola gandhi pa
--- NOTE | 2022-02-03 19:15 | PC.NURSE ---
pt to ct scan
--- NOTE | 2022-02-03 19:16 | PC.NURSE ---
off unit at this time with radiology
--- NOTE | 2022-02-03 19:21 | PC.NURSE ---
noted stop time of pt integrilin drip. called Dr Diaz at 1920 and clarified if med was to continue or stop. Dr Diaz states that it is ok to go ahead and stop the integrilin drip now.
--- NOTE | 2022-02-03 19:25 | PC.NURSE ---
pt back from ct scan
--- NOTE | 2022-02-03 19:28 | PC.NURSE ---
pt back from radiology at this time
[2022-02-03 21:15] LABS: Lymphocytes % 6 % (10-50); Monocytes % 6 % (2-9); Neutrophils % 85 % (42-76); Total Cells Counted 100
[2022-02-03 21:16] LABS: Platelet Estimate Normal
[2022-02-04] VITALS (10 sets, daily range): BP systolic 108–141; BP diastolic 64–93; PULSE 80–100; RESP 16–36; TEMP 36.7–36.8; O2SAT 94–98; BMI 29.2
[2022-02-04 07:05] LABS: Basophils # 0.1 K/mm3 (0-0.2); Basophils % 0.5 % (0.1-2.0); Eosinophils # 0.1 K/mm3 (0.0-0.4); Eosinophils % 0.3 % (0.1-12.0); Hematocrit 36.4 % (37.0-47.0); Lymphocytes # 4.6 K/mm3 (0.7-4.5); Lymphocytes % 21.1 % (10-50); Mean Corpuscular HGB Conc 33.9 g/dL (31.8-35.4); Mean Corpuscular Hemoglobin 31.3 pg (27.0-31.2); Mean Corpuscular Volume 92.5 fl (81-99); Mean Platelet Volume 8.1 fl (7.4-10.4); Monocytes # 1.3 K/mm3 (0.1-1.0); Monocytes % 5.9 % (1.7-9.3); Neutrophils # 15.6 K/mm3 (1.8-7.8); Neutrophils % 72.1 % (37.0-80.0); Platelet Count 352 K/mm3 (142-424); Red Blood Count 3.94 M/mm3 (4.20-5.40); Red Cell Distribution Width 13.7 % (11.5-17.5); White Blood Count 21.6 K/mm3 (4.8-10.8)
[2022-02-04 07:10] LABS: Hemoglobin 12.3 g/dL (12.2-16.2); MANUAL DIFFERENTIAL MANUAL DIFFERENTIAL (MANUAL DIFF)
[2022-02-04 07:12] LABS: Chloride 104 mmol/L (98-107)
[2022-02-04 07:13] LABS: Potassium 3.5 mmoL/L (3.5-5.1); Sodium 137 mmol/L (136-145)
[2022-02-04 07:15] LABS: Blood Urea Nitrogen 13 mg/dl (7-17); Creatinine Clearance Estimated 143 mL/min (50-200); Estimated Glomerular Filt Rate 128 ml/min (>60); GFR (African American) 154 ML/MIN (>60)
[2022-02-04 07:16] LABS: Anion Gap 6.5 mEq/L (5-15); Calcium 8.8 mg/dl (8.4-10.2); Carbon Dioxide 30 mmol/L (22.0-30.0); Glucose 111 mg/dl (74-100)
--- NOTE | 2022-02-04 07:19 | HMH.PHAVTE ---
[facility] Pharmacy VTE Monitoring - Patient Demographics Admission date: 02/03/22 Report Date: 02/04/22 Time: 07:19 Allergies/Adverse Reactions: Patient Allergies Iodinated Contrast Media Allergy (Severe, Verified 01/29/22 14:43) Difficulty Breathing iopamidol Allergy (Intermediate, Verified 01/29/22 14:43) Sulfa (Sulfonamide Antibiotics) [SULFA (SULFONAMIDE ANTIBIOTICS)] Allergy (Intermediate, Verified 01/29/22 14:43) I-RASH Height: 1.57 m Weight: 72 kg Patient Problems: Current Active Problems CAD (coronary artery disease), [place] coronary artery (Acute) Coronary stent thrombosis (Acute) Chronic obstructive pulmonary disease (Chronic) - VTE Risk Labs: VTE Related Lab Results Hgb 12.3 g/dL (12.2-16.2) D 02/04/22 06:45 Hct 36.4 % (37.0-47.0) L 02/04/22 06:45 Plt Count 352 K/mm3 (142-424) 02/04/22 06:45 BUN 14 mg/dl (7-17) D 02/03/22 16:30 Creatinine 0.50 mg/dl (0.52-1.04) L 02/03/22 16:30 Estimated Creat Clear 143 mL/min (50-200) 02/03/22 16:30 Was VTE Risk Assessment Performed: Yes VTE Score: 4 VTE Risk Level: Low Risk - Prophylaxis VTE Prophylaxis Ordered?: Yes Types of VTE Prophylaxis: TEDS Knee High Location of Applied Device: Bilateral Lower Extremeties
--- NOTE | 2022-02-04 07:31 | HMH.PHAINT ---
MEDICATION RECONCILIATION COMPLETED ON PATIENT USING EXTERNAL FILL HISTORY FROM PHARMACY. -PEYTON BARLOW, ANABELLED
[2022-02-04 07:57] LABS: Lymphocytes % 21 % (10-50); Monocytes % 5 % (2-9); Neutrophils % 74 % (42-76); Platelet Estimate Normal; RBC Morphology Normal; Total Cells Counted 100
--- NOTE | 2022-02-04 13:56 | HMH.PNCARD ---
Subjective Date: 02/04/22 Time: 13:56 Principal diagnosis: post cath Interval history: 56 yo WF in bed in NAD. Some SOA with ambulation which may be the exacerbation of her COPD in combination with the brilinta. Denies any chest pain. Telemetry is sinus with rates about 90-100 bpm. Exam Vital signs and Labs for Last 24 Hours: Temp Pulse Resp BP Pulse Ox 98.3 F 97 H 36 H 128/86 97 02/04/22 12:00 02/04/22 12:00 02/04/22 12:00 02/04/22 12:00 02/04/22 12:00 Laboratory Results - last 24 hr 02/03/22 13:52: Activated Clotting Time > 400 H* 02/03/22 15:15: Urine Color Yellow, Urine Appearance Clear, Urine pH 6.0, Ur Specific [place] 1.015, Urine Protein Negative, Urine Glucose (UA) Trace, Urine Ketones Negative, Urine Blood Trace-i, Urine Nitrate Negative, Urine Bilirubin Negative, Urine Urobilinogen 0.2, Ur Leukocyte Esterase Negative, Urine RBC Occasional, Urine WBC None, Ur Squamous Epith Cells Occasional, Urine Bacteria Trace 02/03/22 15:50: SARS-CoV-2 (PCR) Not detected, Influenza A Untype (PCR) Not detected, Influenza Type B (PCR) Not detected 02/03/22 16:30: WBC 33.2 H* D, RBC 4.39, Hgb 13.8, Hct 41.2, MCV 93.9, MCH 31.4 H, MCHC 33.4, RDW 13.6, Plt Count 393, MPV 9.0, Neut % (Auto) 89.5 H, Lymph % (Auto) 4.6 L, [place] % (Auto) 5.4, Eos % (Auto) 0.2, Baso % (Auto) 0.3, Neut # (Auto) 29.7 H, Lymph # (Auto) 1.5, [place] # (Auto) 1.8 H, Eos # (Auto) 0.1, Baso # (Auto) 0.1, Total Counted 100, Neutrophils % (Manual) 85 H, Band Neutrophils % 1.0, Lymphocytes % (Manual) 6 L, Monocytes % (Manual) 6, Basophils % (Manual) 2.0 H, Platelet Estimate Normal 02/03/22 16:30: Sodium 138, Potassium 4.1, Chloride 106, Carbon Dioxide 24, Anion Gap 12.1, BUN 14 D, Creatinine 0.50 L, Estimated Creat Clear 143, Estimated GFR 128, Est GFR ( Amer) 154, Glucose 149 H, Calcium 8.5, Total Bilirubin 0.3, AST 89 H, ALT 32, Alkaline Phosphatase 84, Total Protein 6.5, Albumin 3.8, Globulin 2.7, Albumin/Globulin Ratio 1.4 02/04/22 06:45: WBC 21.6 H* D, RBC 3.94 L, Hgb 12.3 D, Hct 36.4 L, MCV 92.5, MCH 31.3 H, MCHC 33.9, RDW 13.7, Plt Count 352, MPV 8.1, Neut % (Auto) 72.1, Lymph % (Auto) 21.1, [place] % (Auto) 5.9, Eos % (Auto) 0.3, Baso % (Auto) 0.5, Neut # (Auto) 15.6 H, Lymph # (Auto) 4.6 H, [place] # (Auto) 1.3 H, Eos # (Auto) 0.1, Baso # (Auto) 0.1, Total Counted 100, Neutrophils % (Manual) 74, Lymphocytes % (Manual) 21, Monocytes % (Manual) 5, Platelet Estimate Normal, RBC Morphology Normal 02/04/22 06:45: Sodium 137, Potassium 3.5, Chloride 104, Carbon Dioxide 30, Anion Gap 6.5, BUN 13, Creatinine 0.50 L, Estimated Creat Clear 143, Estimated GFR 128, Est GFR ( Amer) 154, Glucose 111 H D, Calcium 8.8 I & O for Last 24 hours: Intake & Output 02/02/22 02/03/22 02/04/22 02/05/22 11:59 11:59 11:59 11:59 Intake Total 1020 / 1020 Output Total 1350 / 1350 Balance -330 / -330 Weight 174 lb 2.643 oz 158 lb 11.725 oz - Constitutional no acute distress - *Routine HEENT Exam Head: Present: normocephalic Eye: Present: EOMI, PERRL ENT: Present: mucous membranes moist - *Routine Neck Exam Present: supple. Absent: lymphadenopathy - *Routine Respiratory Exam Present: CTA bilaterally - *Routine Cardiovascular Exam Present: RRR - *Routine Abdominal Exam Present: soft, normoactive bowel sounds. Absent: tenderness - *Routine Extremities Exam Absent: cyanosis, clubbing, edema - *Routine Skin Exam Present: warm. Absent: rash - *Routine Neurological Exam Present: alert, oriented X3 Progress Note: A&P (1) CAD (coronary artery disease), [place] coronary artery Status: Acute (2) Coronary stent thrombosis Status: Acute (3) Chronic obstructive pulmonary disease Status: Chronic (4) Anxiety Status: Chronic Assessment and Plan for All Diagnoses:: 1. CAD, s/p LAD and Circ stenting X 2 with acute thrombosis in post op area requiring repeat cath with additional stents to LAD and circ X 3. Clinically stable. Will swi
--- NOTE | 2022-02-04 13:58 | HMH.HP ---
*Admission Date: 02/03/22 *Chief complaint: Chest Pain *History of present illness: 56 yo WF with abnormal stress test came [place] [facility] outpatient for [facility]. She received stents to LAD and Circumflex. Due to being sedated and unable to take oral antiplatelet meds, she was given brilinta rectally. While in recovery, she began having EKG changes and endorsed chest pain for which she was taken back to [facility] [employer] [facility] and found to have developed acute thrombus in the stents. This required repeat stenting with balloon angioplasty of the LAD and Circ. She was started on Integrilin IV along with oral DAPT )Per Monae RAND). [facility] History I have reviewed the patient's past medical history: Yes Medical History: Reports:: Anxiety, Chronic Obstructive Pulmonary Disease (COPD), Hyperlipidemia, Hypertension Denies:: Cancer, Diabetes Mellitus Type 1, Diabetes Mellitus Type 2, Internal Pacemaker, MRSA, Seizures *Have you ever received a pneumonia vaccine?: No (ref) *Have you received a flu vaccine this season?: No (ref) Other Medical History: Reports: Hypothyroidism, Thyroid Disease Laterality Cases: Left: Other, Bilateral: Tonsillectomy Other Surgeries: Yes: Appendectomy, BSO, Cholecystectomy, Dilation and Curettage, Hysterectomy-Total, Other. No: Pacemaker Amputation: No Fractures: No - *Social History Last grade of school completed: GED Smoking Status: Former smoker Tobacco Type: cigarettes # Packs/Day (cigarettes): 0 #Yrs smoked (if former smoker): 39 Alcohol Intake: never Alcohol Intake Frequency:: other Substance Use Type: denies use *Occupational Status:: unemployed Housing: house Household Members: family *Travel in the last 8 weeks: None - Psychiatric History Pschychiatric History:: Reports:: Anxiety Family Hx:: Cancer, Diabetes, Heart Attack, Hyperlipidemia, Hypertension, Kidney Disease, Thyroid Disorder, Alcoholism Review of Systems - Review of Systems Review of systems:: pertinent systems reviewed and negative unless documented below - Constitutional Denies body ache(s), Denies lack of energy - Eyes Denies blind spots, Denies double vision - ENT Denies poor balance, Denies difficulty swallowing - *Cardiovascular Reports chest pain, Reports shortness of breath with activity - *Respiratory Reports shortness of breath, Reports shortness of breath with activity - *Gastrointestinal Denies abdominal pain, Denies change in bowel habits, Denies difficulty swallowing - *Musculoskeletal Denies abnormal walking, Denies decreased muscle mass - Integumentary/Breasts Denies bleeding lesions, Denies excessive hair growth, Denies yellowing of the skin - *Neurologic Denies abnormal walking, Denies abnormal speech, Denies seizure-like activity - Psychiatric Denies lack of enjoyment, Denies hearing things others do not hear - Endocrine Denies cold intolerance, Denies increased thirst - Hematologic/Lymphatic Denies easy bleeding, Denies easy bruising - Allergic/Immunologic Denies GI upset with certain foods, Denies tongue swelling Meds Home Medications Medication Instructions Recorded Confirmed Type Cholecalciferol (Vitamin D3) 25 mcg PO DAILY 12/25/21 02/03/22 History [Vitamin D3 1,000 Unit Tab] Levothyroxine Sodium 88 mcg PO DAILY 12/25/21 02/03/22 History [Levothyroxine 88mcg (0.088mg) Tab] Omeprazole 40 mg PO DAILY 12/25/21 02/03/22 History Venlafaxine HCl [Venlafaxine HCl 150 mg PO DAILY 12/25/21 02/03/22 History ER] estradioL [Estradiol] 1 mg PO DAILY 12/25/21 02/03/22 History Albuterol Sulfate [Albuterol 2 puffs IH Q6HP PRN 30 Days #1 each 12/29/21 02/03/22 Rx Sulfate Hfa] Aspirin [Low Dose Aspirin EC] 81 mg PO DAILY 02/03/22 02/03/22 History Famotidine [[facility] [employer]] 20 mg PO DAILY 02/03/22 02/03/22 History Metoprolol Succinate [Metoprolol 25 mg PO DAILY 02/03/22 02/03/22 History Succinate 25mg Tablet*] diphenhydrAMINE HCL 25 mg PO HS 02/03/22 02/03/22 History [Diphenhydramine HCl]
--- NOTE | 2022-02-04 14:57 | PC.NURSE ---
pt is now med surg status
--- NOTE | 2022-02-04 18:31 | PC.NURSE ---
shift summary: Pt is A&O. VSS. NSR on tele. On RA. Pt got SOA earlier today while ambulating to bathroom. O2 sat dropped to 78% on RA. Pt had to sit down and rest while ambulating back to bed. Dr. Diaz notified and stopped Brilinta and started Plavix. Page cath was discontinued this morning during rounds. No BM this shift. No c/o CP.
[2022-02-05] VITALS: BP 149/59; PULSE 76; PULSE 79; RESP 18; TEMP 36.7; O2SAT 96
[2022-02-05 04:00] VITALS: BP 123/62; PULSE 72; PULSE 78; RESP 16; TEMP 37; O2SAT 97
[2022-02-05 05:05] VITALS: BMI 29.3
[2022-02-05 05:58] LABS: Basophils # 0.2 K/mm3 (0-0.2); Basophils % 1.4 % (0.1-2.0); Eosinophils # 0.2 K/mm3 (0.0-0.4); Eosinophils % 1.4 % (0.1-12.0); Hematocrit 36.9 % (37.0-47.0); Hemoglobin 12.3 g/dL (12.2-16.2); Lymphocytes # 5.4 K/mm3 (0.7-4.5); Lymphocytes % 33.4 % (10-50); Mean Corpuscular HGB Conc 33.3 g/dL (31.8-35.4); Mean Corpuscular Hemoglobin 31.4 pg (27.0-31.2); Mean Corpuscular Volume 94.2 fl (81-99); Mean Platelet Volume 7.8 fl (7.4-10.4); Monocytes # 1.3 K/mm3 (0.1-1.0); Monocytes % 8.3 % (1.7-9.3); Neutrophils # 8.9 K/mm3 (1.8-7.8); Neutrophils % 55.5 % (37.0-80.0); Platelet Count 330 K/mm3 (142-424); Red Blood Count 3.92 M/mm3 (4.20-5.40)
[2022-02-05 06:02] LABS: MANUAL DIFFERENTIAL MANUAL DIFFERENTIAL (MANUAL DIFF)
[2022-02-05 06:06] LABS: Anion Gap 8.8 mEq/L (5-15); Blood Urea Nitrogen 12 mg/dl (7-17); Calcium 8.9 mg/dl (8.4-10.2); Carbon Dioxide 33 mmol/L (22.0-30.0); Chloride 100 mmol/L (98-107); Creatinine Clearance Estimated 143 mL/min (50-200); Estimated Glomerular Filt Rate 128 ml/min (>60); GFR (African American) 154 ML/MIN (>60); Glucose 97 mg/dl (74-100); Potassium 3.8 mmoL/L (3.5-5.1); Sodium 138 mmol/L (136-145)
[2022-02-05 07:25] LABS: Eosinophils % 1 % (0-3); Lymphocytes % 33 % (10-50); Monocytes % 7 % (2-9); Neutrophils % 58 % (42-76); Platelet Estimate Normal; RBC Morphology Normal; Total Cells Counted 100
[2022-02-05 08:00] VITALS: BP 129/77; PULSE 78; RESP 16; TEMP 36.8; O2SAT 97
--- NOTE | 2022-02-05 08:14 | HMH.PNCARD ---
Subjective Date: 02/05/22 Time: 08:14 Principal diagnosis: post cath Interval history: 56-year-old white female in bed in no acute distress. No chest pain, pressure or tightness overnight. Soreness of the right wrist but angiogram insertion site looks good with good pulse. Right femoral area dressing removed. Slight hematoma noted with no abdominal pain. Exam Vital signs and Labs for Last 24 Hours: Temp Pulse Resp BP Pulse Ox 98.6 F 78 16 123/62 97 02/05/22 04:00 02/05/22 04:00 02/05/22 04:00 02/05/22 04:00 02/05/22 04:00 Laboratory Results - last 24 hr 02/05/22 05:30: WBC 16.0 H D, RBC 3.92 L, Hgb 12.3, Hct 36.9 L, MCV 94.2, MCH 31.4 H, MCHC 33.3, RDW 14.0, Plt Count 330, MPV 7.8, Neut % (Auto) 55.5, Lymph % (Auto) 33.4, [place] % (Auto) 8.3, Eos % (Auto) 1.4, Baso % (Auto) 1.4, Neut # (Auto) 8.9 H, Lymph # (Auto) 5.4 H, [place] # (Auto) 1.3 H, Eos # (Auto) 0.2, Baso # (Auto) 0.2, Total Counted 100, Neutrophils % (Manual) 58, Lymphocytes % (Manual) 33, Monocytes % (Manual) 7, Eosinophils % (Manual) 1, Basophils % (Manual) 1.0, Platelet Estimate Normal, RBC Morphology Normal 02/05/22 05:30: Sodium 138, Potassium 3.8, Chloride 100, Carbon Dioxide 33 H, Anion Gap 8.8, BUN 12, Creatinine 0.50 L, Estimated Creat Clear 143, Estimated GFR 128, Est GFR ( Amer) 154, Glucose 97, Calcium 8.9 I & O for Last 24 hours: Intake & Output 02/02/22 02/03/22 02/04/22 02/05/22 11:59 11:59 11:59 11:59 Intake Total 1020 / 1020 840 / 840 Output Total 1350 / 1350 Balance -330 / -330 840 / 840 Weight 174 lb 2.643 oz 158 lb 11.725 oz 159 lb 6.307 oz - Constitutional no acute distress - *Routine Respiratory Exam Present: CTA bilaterally - *Routine Cardiovascular Exam Present: RRR - *Routine Extremities Exam Absent: cyanosis, clubbing, edema - *Routine Neurological Exam Present: alert, oriented X3 Progress Note: A&P (1) CAD (coronary artery disease), [place] coronary artery Status: Acute (2) Coronary stent thrombosis Status: Acute (3) Chronic obstructive pulmonary disease Status: Chronic (4) Anxiety Status: Chronic Assessment and Plan for All Diagnoses:: 1. CAD, s/p LAD and Circ stenting X 2 with acute thrombosis in post op area requiring repeat cath with additional stents to LAD and circ X 3. Clinically stable. Brilinta switched to plavix due to SOA. 2. COPD 3. Anxiety 4. Sinus tachycardia, resolved with increased metoprolol to 50 mg daily. Okay for discharge home today. Home med recommendations: Metoprolol succinate 50 mg daily Aspirin 81 mg daily Plavix 75 mg daily Atorvastatin 40 mg daily Follow-up in our office in 1 week.
[2022-02-05 08:18] LABS: Chol/HDL Ratio 4.3 (1-3.5); Cholesterol 191 mg/dl (140-200); HDL Cholesterol 44 mg/dl (40-60); Triglycerides 271 mg/dl (30-150); VLDL Cholesterol 54 mg/dL (0-40)
[2022-02-05 08:30] LABS: Direct LDL Cholesterol 95.72 mg/dL (100-129)
--- NOTE | 2022-02-05 09:10 | HMH.DCSUM ---
General - General Admission date:: 02/03/22 Discharge date: 02/05/22 HPI HPI: 56 yo WF with abnormal stress test came to [employer] [facility] as outpatient for [facility]. She received stents to LAD and Circumflex. Due to being sedated and unable to take oral antiplatelet meds, she was given brilinta rectally. While in recovery, she began having EKG changes and endorsed chest pain for which she was taken back to [facility] and found to have developed acute thrombus in the stents. This required repeat stenting with balloon angioplasty of the LAD and Circ. She was started on Integrilin IV along with oral DAPT )Per Monae RAND). Hospital Course Hospital Course: Abnormal Lab Results 02/05/22 05:30: WBC 16.0 H D, RBC 3.92 L, Hct 36.9 L, MCH 31.4 H, Neut # (Auto) 8.9 H, Lymph # (Auto) 5.4 H, [place] # (Auto) 1.3 H 02/05/22 05:30: Carbon Dioxide 33 H, Creatinine 0.50 L 02/05/22 05:30: Triglycerides 271 H, LDL Cholesterol Direct 95.72 L, VLDL Cholesterol 54 H, Cholesterol/HDL Ratio 4.3 H Discharge Plan (1) CAD (coronary artery disease), [place] coronary artery-Heart cath- LAD and Circ stenting X 2 with acute thrombosis in post op area requiring repeat cath with additional stents to LAD and circ X 3. Clinically stable. Brilinta switched to plavix due to SOA. Metoprolol succinate 50 mg daily Aspirin 81 mg daily Plavix 75 mg daily Atorvastatin 40 mg daily (2) Coronary stent [id number] and Circ stenting X 2 with acute thrombosis in post op area requiring repeat cath with additional stents to LAD and circ X 3. Clinically stable. Brilinta switched to plavix due to SOA. (3) Chronic obstructive pulmonary disease- continue home treatment, follow up with pulm out pt (4) Anxiety- continue home meds Cardiology consult 1. CAD, s/p LAD and Circ stenting X 2 with acute thrombosis in post op area requiring repeat cath with additional stents to LAD and circ X 3. Clinically stable. Brilinta switched to plavix due to SOA. 2. COPD 3. Anxiety 4. Sinus tachycardia, resolved with increased metoprolol to 50 mg daily. Okay for discharge home today. Home med recommendations: Metoprolol succinate 50 mg daily Aspirin 81 mg daily Plavix 75 mg daily Atorvastatin 40 mg daily Follow-up in our office in 1 week. Objective Vital signs: Temp Pulse Resp BP Pulse Ox 98.3 F 78 16 129/77 97 02/05/22 08:00 02/05/22 08:00 02/05/22 08:00 02/05/22 08:00 02/05/22 08:00 no acute distress - *Routine HEENT Exam Head: Present: normocephalic Eye: Present: EOMI, PERRL ENT: Present: mucous membranes moist - *Routine Neck Exam Present: supple - *Routine Respiratory Exam Present: CTA bilaterally - *Routine Cardiovascular Exam Present: RRR - *Routine Abdominal Exam Present: soft, normoactive bowel sounds. Absent: tenderness - *Routine Extremities Exam Absent: cyanosis, clubbing, edema - *Routine Skin Exam Present: warm. Absent: rash - *Routine Neurological Exam Present: alert, oriented X3 Results Labs on day of discharge: Labs from last 24 hours 02/05/22 02/05/22 02/05/22 05:30 05:30 05:30 WBC 16.0 H D RBC 3.92 L Hgb 12.3 Hct 36.9 L MCV 94.2 MCH 31.4 H MCHC 33.3 RDW 14.0 Plt Count 330 MPV 7.8 Neut % (Auto) 55.5 Lymph % (Auto) 33.4 [place] % (Auto) 8.3 Eos % (Auto) 1.4 Baso % (Auto) 1.4 Neut # (Auto) 8.9 H Lymph # (Auto) 5.4 H [place] # (Auto) 1.3 H Eos # (Auto) 0.2 Baso # (Auto) 0.2 Total Counted 100 Neutrophils % (Manual) 58 Lymphocytes % (Manual) 33 Monocytes % (Manual) 7 Eosinophils % (Manual) 1 Basophils % (Manual) 1.0 Platelet Estimate Normal RBC Morphology Normal Sodium 138 Potassium 3.8 Chloride 100 Carbon Dioxide 33 H Anion Gap 8.8 BUN 12 Creatinine 0.50 L Estimated Creat Clear 143 Estimated GFR 128 Est GFR ( Amer) 154 Glucose 97 Calcium
--- NOTE | 2022-02-05 09:56 | HMH.PHACLD ---
Mckennaadrianna Malhotra has received discharge medication counseling on the following medications: PLAVIX 75MG ASPIRIN 81MG METOPROLOL SUCCINATE 50MG ATORVASTATIN 40MG VIDAL/ARB NOT INDICATED AT THIS TIME. ALL QUESTIONS ANSWERED AND PATIENT VERBALIZED UNDERSTANDING. -PEYTON BARLOW, PHARMD
--- NOTE | 2022-02-07 15:10 | CARE MANAGER ---
Contacted patient related to discharge from hospital. Patient states she picked up her meds and have been taking as prescribed. She is aware of her appointments and denies any questions or concerns at this time.
== END 2022-02-05 10:44 | disposition home or self-care (01) | DRG 246 ==
LOC: 2ND 15:21
PROVIDERS: Nurse Practitioner Family; Physician Assistant; Admitting Provider Emergency Medicine; Referring Provider Internal Medicine; Visit Provider Emergency Medicine
DX: T82.867A Thrombosis due to cardiac prosthetic devices, implants and grafts, initial encounter (principal); T82.855A Stenosis of coronary artery stent, initial encounter; I25.119 Atherosclerotic heart disease of native coronary artery with unspecified angina pectoris; Z85.118 Personal history of other malignant neoplasm of bronchus and lung; J44.9 Chronic obstructive pulmonary disease, unspecified; R00.0 Tachycardia, unspecified; Y83.1 Surgical operation with implant of artificial internal device as the cause of abnormal reaction of the patient, or of later complication, without mention of misadventure at the time of the procedure; Z87.891 Personal history of nicotine dependence
CPT/HCPCS: 36415; 74176; 80048; 80053; 80061; 81001; 85007; 85025; 85347; 92928; 92978; 93308; 93458; 93571; 99152; 99153; C1725; C1760; C1769; C1874; C1876; C1894; C9600; C9803; J0153; J1327; J1644; J2405; Q9967; U0003; U0005

== ENCOUNTER → 2022-02-11 13:52 | Outpatient (CLI) | payer MEDICARE, MEDICAID, SELFPAY ==
[2022-02-11 14:32] LABS: Basophils # 0.1 K/mm3 (0-0.2); Basophils % 1.3 % (0.1-2.0); Eosinophils # 0.1 K/mm3 (0.0-0.4); Eosinophils % 1.2 % (0.1-12.0); Hematocrit 40.4 % (37.0-47.0); Hemoglobin 13.7 g/dL (12.2-16.2); Lymphocytes # 3.8 K/mm3 (0.7-4.5); Lymphocytes % 33.3 % (10-50); Mean Corpuscular HGB Conc 33.8 g/dL (31.8-35.4); Mean Corpuscular Hemoglobin 31.7 pg (27.0-31.2); Mean Corpuscular Volume 93.6 fl (81-99); Mean Platelet Volume 7.9 fl (7.4-10.4); Monocytes # 0.7 K/mm3 (0.1-1.0); Monocytes % 6.3 % (1.7-9.3); Neutrophils # 6.6 K/mm3 (1.8-7.8); Platelet Count 399 K/mm3 (142-424); Red Blood Count 4.31 M/mm3 (4.20-5.40); Red Cell Distribution Width 13.7 % (11.5-17.5); White Blood Count 11.4 K/mm3 (4.8-10.8)
[2022-02-11 16:11] LABS: Anion Gap 13.6 mEq/L (5-15); Blood Urea Nitrogen 12 mg/dl (7-17); Calcium 9.8 mg/dl (8.4-10.2); Carbon Dioxide 32 mmol/L (22.0-30.0); Chloride 97 mmol/L (98-107); Estimated Glomerular Filt Rate 103 ml/min (>60); GFR (African American) 125 ML/MIN (>60); Glucose 114 mg/dl (74-100); Potassium 4.6 mmoL/L (3.5-5.1); Sodium 138 mmol/L (136-145)
== END ==
PROVIDERS: Visit Provider Internal Medicine
DX: G90.50 Complex regional pain syndrome I, unspecified (principal); I20.9 Angina pectoris, unspecified; J44.9 Chronic obstructive pulmonary disease, unspecified; R06.00 Dyspnea, unspecified; R07.9 Chest pain, unspecified; R94.30 Abnormal result of cardiovascular function study, unspecified; R94.39 Abnormal result of other cardiovascular function study; Z85.118 Personal history of other malignant neoplasm of bronchus and lung
CPT/HCPCS: 36415; 80048; 85025

== ENCOUNTER 2022-04-04 12:55 | Outpatient (RCR) | payer MEDICARE, MEDICAID, SELFPAY | END 2022-05-22 14:00 | disposition home or self-care (01) | LOC: PT 12:55 | PROVIDERS: Visit Provider Nurse Practitioner Family | DX: I25.10 Atherosclerotic heart disease of native coronary artery without angina pectoris (principal); Z95.5 Presence of coronary angioplasty implant and graft | CPT/HCPCS: 93798 ==

== ENCOUNTER → 2022-04-10 15:03 | Outpatient (CLI) | payer MEDICARE, MEDICAID, SELFPAY | PROVIDERS: PCP Emergency Medicine; Visit Provider Internal Medicine Pulmonary Disease | DX: R06.02 Shortness of breath (principal) | CPT/HCPCS: 94762 ==

== ENCOUNTER → 2022-05-08 13:00 | Outpatient (CLI) | payer MEDICARE, MEDICAID, SELFPAY ==
[2022-05-08 13:35] VITALS: PULSE 61; PULSE 65
[2022-05-08 14:20] VITALS: BP 120/80; BP 128/70; PULSE 67; RESP 20; RESP 24; O2SAT 97; O2SAT 98
== END ==
PROVIDERS: PCP Emergency Medicine; Visit Provider Internal Medicine Pulmonary Disease
DX: R06.09 Other forms of dyspnea (principal)
CPT/HCPCS: 94060; 94618; 94640; 94727; 94729

== ENCOUNTER → 2022-09-08 15:30 | Outpatient (CLI) | payer MEDICARE, MEDICAID, SELFPAY ==
--- NOTE | 2022-09-08 15:30 | CT_ITS ---
FINAL REPORT TECHNIQUE: Axial images were obtained from the lung apex to the mid abdomen by computed tomography. Coronal reformatted images were obtained. This study was performed with techniques to keep radiation doses as low as reasonably achievable, (ALARA). Individualized dose reduction techniques using automated exposure control or adjustment of mA and/or kV according to the patient''s size were employed. CLINICAL HISTORY: 6 mth F/U COMPARISON: January 15, 2022 FINDINGS: There are multiple borderline size axillary lymph nodes, stable. There is no hilar or mediastinal adenopathy. Heart size is normal. There is no pericardial or pleural effusion. Limited images of the upper abdomen demonstrate postoperative changes from cholecystectomy. There are mild changes of emphysema. There are several calcified granulomas. There is a nodular opacity in the right upper lobe measuring 12 mm that was previously 9 mm and is visually larger. It is uncertain if this is inflammatory or neoplastic. Multiple other bilateral less than 5 mm pulmonary nodules are stable IMPRESSION: Right upper lobe nodular opacity which has increased in size since the prior exam. Uncertain if this is inflammatory or neoplastic. Recommend PET-CT for further evaluation. Reviewed, Interpreted and Dictated by Salo Morejon III, MD Transcribed by Angi Mcpherson Authenticated and [facility]
[2022-09-10 12:59] LABS: Alpha-1-Antitrypsin 152 mg/dL (101-187)
== END ==
PROVIDERS: PCP Emergency Medicine; Visit Provider Internal Medicine Pulmonary Disease
DX: R91.8 Other nonspecific abnormal finding of lung field (principal); J44.9 Chronic obstructive pulmonary disease, unspecified
CPT/HCPCS: 71250; 82103

== ENCOUNTER → 2022-12-10 14:44 | Outpatient (CLI) | payer MEDICARE, MEDICAID, SELFPAY ==
--- NOTE | 2022-12-10 14:44 | CT_ITS ---
FINAL REPORT TECHNIQUE: Axial images were obtained from the lung apex to the mid abdomen by computed tomography. Coronal reformatted images were obtained. This study was performed with techniques to keep radiation doses as low as reasonably achievable, (ALARA). Individualized dose reduction techniques using automated exposure control or adjustment of mA and/or kV according to the patient''s size were employed. CLINICAL HISTORY: 3 mth F/O December 2022, right sided back pain, hx of cancer 2019 COMPARISON: 09/08/2022 FINDINGS: There are borderline sized axillary nodes which are stable. There is no hilar or mediastinal adenopathy. Heart size is normal. There is no pericardial or pleural effusion. There is a 3 mm right lung apical nodule which is stable. There is a persistent focal opacity in the right upper lobe measuring up to approximately 18 mm in transverse dimension which is stable in size and appearance. Other less than 5 mm nodules are stable. There are calcified granulomas bilaterally. The patient is status post cholecystectomy. IMPRESSION: Stable dominant right upper lobe opacities, favor inflammatory. Stable small other nonspecific nodules. Recommend follow-up CT in 6 months. Reviewed, Interpreted and Dictated by Salo Morejon III, MD Transcribed by Kathy Medrano Authenticated and [facility]
== END ==
PROVIDERS: PCP Emergency Medicine; Visit Provider Internal Medicine Pulmonary Disease
DX: R91.8 Other nonspecific abnormal finding of lung field (principal)
CPT/HCPCS: 71250

== ENCOUNTER → 2022-12-29 13:05 | Outpatient (CLI) | payer MEDICARE, MEDICAID, SELFPAY ==
[2022-12-29 18:18] LABS: Microscopic, Urine URINE MICROSCOPIC (MICROSCOPIC)
[2022-12-29 18:24] LABS: Appearance,Urine CLOUDY (Clear); Bilirubin,Urine Negative (Negative); Blood, Urine 1+ (Negative); Color,Urine YELLOW (Yellow); Glucose,Urine (UA) Negative (Negative); Ketones,Urine Negative (Negative); Leukocyte Esterase,Urine 1+ (Negative); Nitrate,Urine Negative (Negative); Protein,Urine Negative (Negative); Specific Gravity, Urine >= 1.030 (1.005-1.030); Urobilinogen,Urine 0.2 EU/dl (0.2)
[2022-12-29 19:23] LABS: Amorphous Sediment,Urine 1+ /lpf; Bacteria,Urine Trace /lpf
== END ==
PROVIDERS: PCP Nurse Practitioner Family; Visit Provider Nurse Practitioner Family
DX: N23 Unspecified renal colic (principal)
CPT/HCPCS: 81001; 87086

== ENCOUNTER → 2022-12-29 15:06 | Outpatient (CLI) | payer MEDICARE, MEDICAID, SELFPAY | PROVIDERS: PCP Emergency Medicine; Visit Provider Internal Medicine Pulmonary Disease | DX: R06.09 Other forms of dyspnea (principal); R82.90 Unspecified abnormal findings in urine | CPT/HCPCS: 81001; 87086; 94762 ==

== ENCOUNTER 2023-06-14 12:57 | Emergency (ER) | payer MEDICARE, MEDICAID, SELFPAY ==
[2023-06-14] VITALS (7 sets, daily range): BP systolic 113–156; BP diastolic 66–87; PULSE 72–99; RESP 18–24; TEMP 36.6; O2SAT 93–98; BMI 28.8
[2023-06-14 13:09] LABS: Coronavirus 19, PCR Not Detected (NotDetected); Influenza A, PCR Not Detected (NotDetected); Influenza B, PCR Not Detected (NotDetected)
--- NOTE | 2023-06-14 13:16 | XR_ITS ---
PROCEDURE INFORMATION: Exam: XR Chest Exam date and time: 06/14/2023 1:13 PM Age: 58 years old Clinical indication: Cough; Additional info: Cough, copd TECHNIQUE: Imaging protocol: Radiologic exam of the chest. Views: 2 views. COMPARISON: CT CHEST WO CON 12/10/2022 2:59 PM FINDINGS: Lungs: There is an irregular sessile shaped lung mass right mid lung zone containing biopsy clips not markedly changed allowing for differences in technique it should be correlated with patient's history and biopsy results. Small nodular density projecting over the lower lung zones see and only the PA projection bilaterally presumed represent nipple shadows. Pleural spaces: Unremarkable. No pleural effusion. No pneumothorax. Heart/Mediastinum: Heart is not enlarged. Prominent epicardial fat pad along the right cardiophrenic angle, stable. Bones/joints: Unremarkable for age. IMPRESSION: 1. Stable irregular shaped sessile opacity right mid lung zone and these be correlated with history. 2. Presumed nipple shadows lower lung zones bilaterally.
--- NOTE | 2023-06-14 13:17 | HMH.EDGENADL ---
Discharge Plan Disposition Patient Disposition: Home, Self-Care Prescriptions Prescriptions: New azithromycin 500 mg tablet 500 mg PO DAILY 3 Days Qty: 3 0RF prednisone 20 mg tablet 40 mg PO BID 5 Days Qty: 20 0RF No Action ipratropium-albuterol 0.5 mg-3 mg(2.5 mg base)/3 mL solution for nebulization 3 ml IH QID PRN (Reason: shortness of breath or wheezing) 90 Days Qty: 270 3RF cephalexin 500 mg capsule 500 mg PO BID 7 Days Qty: 14 0RF albuterol sulfate 90 mcg/actuation HFA aerosol inhaler 2 inh IH Q6HP PRN (Reason: Shortness Of Breath) 90 Days Qty: 3 3RF estradiol 1 mg tablet 1 mg PO DAILY atorvastatin 40 mg tablet 40 mg PO DAILY Qty: 100 3RF venlafaxine 150 mg capsule,extended release 24hr 150 mg PO DAILY Qty: 30 2RF levothyroxine 88 mcg tablet 88 mcg PO DAILY Qty: 30 4RF cholecalciferol (vitamin D3) [Vitamin D3] 25 mcg (1,000 unit) tablet See Rx Instructions .ROUTE .COMPLEX Qty: 90 1RF Dose Instruction: TAKE 1 TABLET BY MOUTH ONCE DAILY Rx Instructions: TAKE 1 TABLET BY MOUTH ONCE DAILY aspirin 81 mg tablet,delayed release (DR/EC) 81 mg PO DAILY Qty: 30 12RF omeprazole 40 mg capsule,delayed release(DR/EC) 40 mg PO DAILY Qty: 30 4RF Anoro Ellipta 62.5-25 mcg/actuation blister with device 1 inh IH DAILY 90 Days Qty: 180 3RF metoprolol succinate 50 mg tablet extended release 24 hr 50 mg PO DAILY Qty: 90 1RF clopidogrel 75 mg tablet 75 mg PO DAILY 90 Days Qty: 90 3RF Referrals Follow up/Referrals: Morro Poe MD [Primary Care Provider] - See instructions Activity Restrictions/Add. Instructions Additional Instructions/Restrictions: Call your family doctor to establish care for this visit to the emergency department and schedule follow-up within 48 hours to ensure improvement. If you have any worsening of your condition or any other concerning signs or symptoms, return to the emergency department or your primary care doctor for further evaluation. Take Tylenol 1000 mg every 6 hours (4 times daily) and ibuprofen 400 mg every 6 hours (4 times daily) as needed with food and water to prevent GI upset and kidney damage. Clinical Impressions Clinical Impression: Acute exacerbation of chronic obstructive pulmonary disease Discharge ED Provider: Lionel Peter General Adult HPI <Michael Garcia MD - Last Filed: 06/14/23 15:37> General Chief complaint: Upper Respiratory Infection Stated complaint: sore throat,cough,congested Time Seen by Provider: 06/14/23 13:06 Mode of Arrival: Ambulatory Source of Information: Patient Limitations: No Limitations Description of Symptoms (Recalled from ER Triage Doc. by RN): Patient complaint of cough, congestion and body aches since Thursday. History of Present Illness HPI narrative: Patient is a 58-year-old female with past medical history of COPD who presents emergency department for evaluation of cough. History is obtained by patient at bedside. Initially presented to sore throat approximately 1 week ago which has largely resolved however she has persistent junky cough causing her to present here for continued evaluation. Patient has a bifrontal headache that is causing her to lose sleep and present here for continued evaluation. Related Data Home Medications Medication Instructions Recorded Confirmed estradiol 1 mg tablet 1 mg PO DAILY 12/29/22 12/29/22 Previous Rx's Medication Instructions Recorded ipratropium 0.5 mg-albuterol 3 mg 3 ml inhalation QID PRN shortness 03/27/22 (2.5 mg base)/3 mL nebulization of breath or wheezing 90 days #270 soln mL atorvastatin 40 mg tablet 40 mg PO DAILY #100 tabs 06/11/22 venlafaxine 150 mg 150 mg PO DAILY MOOD #30 caps 09/08/22 capsule,extended release 24 hr albuterol sulfate 90 mcg/actuation 2 inh inhalation Q6HP PRN 12/25/22 aerosol inhaler Shortness Of Breath 90 days #3 ea cephalexin 500 mg capsule 500 mg PO BID 7 days #14 caps
[2023-06-14 14:27] LABS: Basophils % 0.4 % (0.1-2.0); Eosinophils # 0.2 K/mm3 (0.0-0.4); Hematocrit 41.4 % (37.0-47.0); Hemoglobin 13.5 g/dL (12.2-16.2); Lymphocytes # 3.1 K/mm3 (0.7-4.5); Lymphocytes % 31.7 % (10-50); Mean Corpuscular HGB Conc 32.7 g/dL (31.8-35.4); Mean Corpuscular Hemoglobin 30.5 pg (27.0-31.2); Mean Corpuscular Volume 93.3 fl (81-99); Mean Platelet Volume 7.8 fl (7.4-10.4); Monocytes # 0.8 K/mm3 (0.1-1.0); Monocytes % 7.6 % (1.7-9.3); Neutrophils # 5.7 K/mm3 (1.8-7.8); Neutrophils % 58.2 % (37.0-80.0); Platelet Count 315 K/mm3 (142-424); Red Blood Count 4.44 M/mm3 (4.20-5.40); White Blood Count 9.8 K/mm3 (4.8-10.8)
[2023-06-14 14:29] LABS: Chloride 101 mmol/L (98-107); Potassium 3.1 mmoL/L (3.5-5.1); Sodium 140 mmol/L (136-145)
[2023-06-14 14:31] LABS: Alanine Aminotransferase 23 U/L (12-78); Alkaline Phosphatase 178 U/L (38-126); Aspartate Amino Transferase 32 U/L (14-36); Bilirubin,Total 0.5 mg/dl (0.2-1.3); Blood Urea Nitrogen 5 mg/dl (7-17); Creatinine Clearance Estimated 123 mL/min (50-200); Estimated Glomerular Filt Rate 103 ml/min (>60); GFR (African American) 124 ML/MIN (>60)
[2023-06-14 14:32] LABS: Albumin Level 3.7 g/dl (3.5-5.0); Anion Gap 13.1 mEq/L (5-15); Carbon Dioxide 29 mmol/L (22.0-30.0); Globulin 3.6 g/dL (1.3-3.2); Total Protein,Serum 7.3 g/dl (6.3-8.2)
[2023-06-14 14:33] LABS: Calcium 8.8 mg/dl (8.4-10.2); Glucose 117 mg/dl (74-100)
--- NOTE | 2023-06-14 14:50 | PC.NURSE ---
Rounded on pt. No needs voiced at this time.
--- NOTE | 2023-06-14 15:04 | ECG_ITS ---
APPROVED REPORT Exam: Resting ECG HR:81 bpm ECG Measurements Heart Rate 81 AXES OK 134 P 65 QRSd 89 QRS 77 QT 382 T 59 QTc 419 Conclusion SINUS RHYTHM NONSPECIFIC T-WAVE ABNORMALITY BORDERLINE ECG UNCONFIRMED REPORT Electronically signed by : Cosme Mayberry MD 06/16/2023 17:18:51
--- NOTE | 2023-06-14 15:55 | PC.NURSE ---
PT REFUSED HER POTASSIUM SAYS SHE CANT SWALLOW
--- NOTE | 2023-06-14 16:10 | PC.NURSE ---
Provided pt with another warm blanket. No other needs voiced.
--- NOTE | 2023-06-14 16:47 | PC.NURSE ---
rounded on patient, no new complaints noted
--- NOTE | 2023-06-14 17:03 | PC.NURSE ---
Rounded on patient. Assisted to the bathroom. No other needs at this time.
--- NOTE | 2023-06-14 17:30 | PC.NURSE ---
rounded on pt, pt reports feeling better, asking when she can go home. Notified ER pt reports she is feeling better and wanting to go home.
== END 2023-06-14 17:43 | disposition home or self-care (01) ==
PROVIDERS: Emergency Medicine; Emergency Provider Emergency Medicine; PCP Emergency Medicine
DX: J44.1 Chronic obstructive pulmonary disease with (acute) exacerbation (principal); F41.9 Anxiety disorder, unspecified; Z87.891 Personal history of nicotine dependence
CPT/HCPCS: 71046; 80053; 85025; 87636; 93005; 96361; 96374; 96375; 99285; J1790; J2405

== ENCOUNTER → 2023-06-30 14:41 | Outpatient (CLI) | payer MEDICARE, MEDICAID, SELFPAY ==
--- NOTE | 2023-06-30 14:46 | CT_ITS ---
FINAL REPORT TECHNIQUE: Thin section axial images were obtained from the lung apices through the upper abdomen without contrast. This study was performed with techniques to keep radiation doses as low as reasonably achievable (ALARA). Individualized dose reduction techniques using automated exposure control or adjustment of mA and/or kV according to the patient's size were employed. CLINICAL HISTORY: 6 mth F/U COMPARISON: December 10, 2022 FINDINGS: There is no mediastinal, hilar, or axillary lymphadenopathy. No pleural or pericardial effusion. There is a tiny subpleural left lower lobe nodule stable from the prior exam. There are bilateral calcified granulomas. There is underlying emphysema. There are stable right upper lobe subcentimeter pulmonary nodules. There is discoid atelectasis or scarring in the right upper lobe that is unchanged and favored to represent scarring. There is no new mass or pulmonary nodule. Limited, unenhanced evaluation of the upper abdomen is without acute abnormality. There are old right rib deformities. There is no acute osseous abnormality. IMPRESSION: No acute intrathoracic abnormality. Stable pulmonary nodules. Stable right upper lobe atelectasis or scarring. Reviewed, Interpreted and Dictated by Yoselyn Fisher MD Transcribed by Teo Patton Authenticated and . [facility]
== END ==
PROVIDERS: PCP Emergency Medicine; Visit Provider Internal Medicine Pulmonary Disease
DX: R91.8 Other nonspecific abnormal finding of lung field (principal)
CPT/HCPCS: 71250

== ENCOUNTER 2023-11-03 14:07 | Outpatient (CLI) | payer MEDICARE, MEDICAID, SELFPAY ==
[2023-11-03 14:39] LABS: Basophils # 0.1 K/mm3 (0-0.2); Basophils % 0.7 % (0.1-2.0); Eosinophils # 0.1 K/mm3 (0.0-0.4); Eosinophils % 1.5 % (0.1-12.0); Hematocrit 38.9 % (37.0-47.0); Hemoglobin 13.6 g/dL (12.2-16.2); Lymphocytes # 4.9 K/mm3 (0.7-4.5); Mean Corpuscular HGB Conc 34.9 g/dL (31.8-35.4); Mean Corpuscular Hemoglobin 31.1 pg (27.0-31.2); Mean Corpuscular Volume 89.3 fl (81-99); Mean Platelet Volume 8.4 fl (7.4-10.4); Monocytes # 0.4 K/mm3 (0.1-1.0); Monocytes % 4.4 % (1.7-9.3); Neutrophils % 42.4 % (37.0-80.0); Platelet Count 227 K/mm3 (142-424); Red Blood Count 4.35 M/mm3 (4.20-5.40); Red Cell Distribution Width 13.9 % (11.5-17.5); White Blood Count 9.5 K/mm3 (4.8-10.8)
[2023-11-03 14:49] LABS: MANUAL DIFFERENTIAL MANUAL DIFFERENTIAL (MANUAL DIFF)
[2023-11-03 14:57] LABS: Alanine Aminotransferase 22 U/L (12-78); Albumin Level 4.1 g/dl (3.5-5.0); Alkaline Phosphatase 128 U/L (38-126); Anion Gap 9.8 mEq/L (5-15); Aspartate Amino Transferase 27 U/L (14-36); Bilirubin,Direct 0.1 mg/dl (0.0-0.4); Bilirubin,Indirect 0.2 mg/dL (0.0-0.9); Bilirubin,Total 0.3 mg/dl (0.2-1.3); Bilirubin,Unconjugated 0.2 mg/dL (0.0-1.1); Blood Urea Nitrogen 11 mg/dl (7-17); Carbon Dioxide 28 mmol/L (22.0-30.0); Chloride 105 mmol/L (98-107); Chol/HDL Ratio 3.1 (1-3.5); Cholesterol 171 mg/dl (140-200); Estimated Glomerular Filt Rate 103 ml/min (>60); GFR (African American) 124 ML/MIN (>60); Glucose 102 mg/dl (74-100); HDL Cholesterol 55 mg/dl (40-60); Magnesium 1.8 mg/dl (1.6-2.3); Potassium 3.8 mmoL/L (3.5-5.1); Sodium 139 mmol/L (136-145); Total Protein,Serum 6.5 g/dl (6.3-8.2); Triglycerides 105 mg/dl (30-150); VLDL Cholesterol 21 mg/dL (0-40)
[2023-11-03 15:08] LABS: Direct LDL Cholesterol 83.91 mg/dL (100-129)
[2023-11-03 15:29] LABS: Thyroid Stimulating Hormone 0.89 uIU/mL (0.465-4.68)
[2023-11-03 15:32] LABS: Eosinophils % 3 % (0-3); Lymphocytes % 59 % (10-50); Monocytes % 2 % (2-9); Neutrophils % 35 % (42-76); Platelet Estimate Normal; RBC Morphology Normal; Total Cells Counted 100
== END 2023-11-03 23:59 ==
LOC: LAB 14:08
PROVIDERS: Visit Provider Physician Assistant
DX: C34.90 Malignant neoplasm of unspecified part of unspecified bronchus or lung (principal); E78.5 Hyperlipidemia, unspecified; I10 Essential (primary) hypertension; I25.10 Atherosclerotic heart disease of native coronary artery without angina pectoris; J44.1 Chronic obstructive pulmonary disease with (acute) exacerbation; R06.00 Dyspnea, unspecified
CPT/HCPCS: 36415; 80048; 80061; 80076; 83735; 84439; 84443; 85007; 85025

== ENCOUNTER 2024-01-29 09:54 | Outpatient (CLI) | payer MEDICARE, MEDICAID, SELFPAY ==
[2024-01-29] MEDS: ALBUTEROL 0.083% 2.5 MG/3 ML NEB IH (10:19)
--- NOTE | 2024-01-29 10:20 | PC.NURSE ---
Pre and Post Spirometry completed without incident. Albuterol 0.083% given via HHN, per written protocol, Pt tolerated tx well.
== END 2024-01-29 23:59 | disposition home or self-care (01) ==
LOC: RT 09:55
PROVIDERS: Visit Provider Internal Medicine Pulmonary Disease
DX: R06.09 Other forms of dyspnea (principal)
CPT/HCPCS: 94060

== ENCOUNTER 2024-02-24 09:31 | Outpatient (CLI) | payer MEDICARE, MEDICAID, SELFPAY ==
[2024-02-24 09:50] LABS: Basophils # 0.1 K/mm3 (0-0.2); Basophils % 0.8 % (0.1-2.0); Eosinophils # 0.1 K/mm3 (0.0-0.4); Eosinophils % 1.3 % (0.1-12.0); Hematocrit 41.7 % (37.0-47.0); Hemoglobin 13.7 g/dL (12.2-16.2); Lymphocytes # 3.2 K/mm3 (0.7-4.5); Lymphocytes % 35.3 % (10-50); Mean Corpuscular HGB Conc 32.8 g/dL (31.8-35.4); Mean Corpuscular Hemoglobin 30.9 pg (27.0-31.2); Mean Corpuscular Volume 94.1 fl (81-99); Mean Platelet Volume 7.9 fl (7.4-10.4); Monocytes # 0.4 K/mm3 (0.1-1.0); Monocytes % 4.7 % (1.7-9.3); Neutrophils # 5.2 K/mm3 (1.8-7.8); Platelet Count 299 K/mm3 (142-424); Red Blood Count 4.44 M/mm3 (4.20-5.40); Red Cell Distribution Width 13.5 % (11.5-17.5)
[2024-02-24 09:57] LABS: Alanine Aminotransferase 24 U/L (12-78); Alkaline Phosphatase 136 U/L (38-126); Anion Gap 15.5 mEq/L (5-15); Aspartate Amino Transferase 30 U/L (14-36); Bilirubin,Indirect 0.4 mg/dL (0.0-0.9); Bilirubin,Total 0.4 mg/dl (0.2-1.3); Bilirubin,Unconjugated 0.3 mg/dL (0.0-1.1); Blood Urea Nitrogen 12 mg/dl (7-17); Calcium 9.2 mg/dl (8.4-10.2); Carbon Dioxide 28 mmol/L (22.0-30.0); Chloride 102 mmol/L (98-107); Chol/HDL Ratio 2.6 (1-3.5); Cholesterol 191 mg/dl (140-200); Estimated Glomerular Filt Rate 103 ml/min (>60); GFR (African American) 124 ML/MIN (>60); Glucose 110 mg/dl (74-100); HDL Cholesterol 73 mg/dl (40-60); Magnesium 1.4 mg/dl (1.6-2.3); Potassium 3.5 mmoL/L (3.5-5.1); Sodium 142 mmol/L (136-145); Triglycerides 127 mg/dl (30-150); VLDL Cholesterol 25 mg/dL (0-40)
[2024-02-24 10:08] LABS: Direct LDL Cholesterol 92.33 mg/dL (100-129)
[2024-02-24 10:19] LABS: Troponin I < 0.01 ng/ml (0.00-0.034)
[2024-02-24 10:26] LABS: Thyroid Stimulating Hormone 2.47 uIU/mL (0.465-4.68)
== END 2024-02-24 23:59 | disposition home or self-care (01) ==
LOC: LAB 09:33
PROVIDERS: Visit Provider Nurse Practitioner Family
DX: J44.1 Chronic obstructive pulmonary disease with (acute) exacerbation; R07.9 Chest pain, unspecified; E78.2 Mixed hyperlipidemia; I10 Essential (primary) hypertension; R06.00 Dyspnea, unspecified; I20.89 Other forms of angina pectoris
CPT/HCPCS: 36415; 80048; 80061; 80076; 83735; 84439; 84443; 84484; 85025

== ENCOUNTER 2024-03-11 07:21 | Outpatient (CLI) | payer MEDICARE, MEDICAID, SELFPAY ==
--- NOTE | 2024-03-11 | CA_ITS ---
APPROVED REPORT Exam: Pharmacologic Technologist: Jana Long, Ht: 5 ft 2 in Wt: 166 lbs BSA: 1.77 m2 HR: 59 bpm BP: 132/81 mmHg Rhythm: NSR, RIGHTWARD AXIS Medical History Medical History: HTN, Hyperlipidemia, Smoking Medications: Omeprazole,,,,, Levothyroxine,,,,, Aspirin,,,,, Atorvastatin,,,,, Duoneb,,,,, Albuterol,,,,, Estradiol,,,,, Vit D3,,,,, Venlafaxine,,,,, BREztri,,,,, Metorpolol succinate ER,,,,, Ranalazine ER,,,,, Allergies: IODINATED CONTRAST, IOPAMIDOL, SULFA Cardiac Risk Factors: HTN, Hyperlipidemia, FHX of CAD, Smoking Stress Test Details Test: LEXISCAN HR Resting HR: 65 bpm Max Heart Rate (APMHR): 162 bpm Max HR Achieved: 83 bpm Target HR (85% APMHR): 138 bpm % of APMHR: 51 Recovery HR: 67 bpm BP Resting BP: 132/81 mmHg Max BP: 161/77 mmHg Recovery BP: 138.0/75.0 mmHg ECG Resting ECG: NSR, RIGHTWARD AXIS Stress ECG: No significant ST changes Arrhythmia: None Clinical Exercise duration: 04:00 min Highest Stage Achieved: Stress ECG Conclusion PT HAD SOA, LOWER CHEST AND UPPER ABDOMINAL PRESSURE NO SIGNIFICANT ST CHANGES UNREMARKABLE LEXISCAN STRESS Test Summary REST 04:21 . . 65 . 132/ 81 . . Stage 1 01:00 . . 77 . . . . Stage 2 01:00 . . 83 . . . . Stage 3 01:00 . . 81 . 130/ 88 . . Stage 4 01:00 . . 77 . 145/ 85 . Stop exercise at 04:00 RECOVERY 01:00 . . 76 . . . . RECOVERY 02:00 . . 77 . . . . RECOVERY 03:00 . . 75 . 155/ 89 . . RECOVERY 04:00 . . 74 . 155/ 89 . . RECOVERY 05:00 . . 71 . 148/ 87 . . RECOVERY 06:00 . . 68 . 161/ 77 . . RECOVERY 07:00 . . 69 . 161/ 77 . . RECOVERY 07:53 . . 70 . 138/ 75 . . Electronically signed by : Niya Knight MD 03/14/2024 13:03:02
[2024-03-11] MEDS: SODIUM CHLORIDE 0.9% 10ML SYR (RAD ONLY) 10 ML IV ×2 (07:20→09:00)
--- NOTE | 2024-03-11 07:22 | NM_ITS ---
APPROVED REPORT Exam: Nuclear Stress Test Indication: CAD, H/O VT, COPD, HTN, DM , HYPERLIPIDEMIA, FORMER SMOKER, ANIGINA, SOB, TACHYCARDIA Patient Location: Outpatient Stress Tech: Jana Long [place] Tech:Nicolette MengJIA calderón RT (R)(N)(M) Ht: 5 ft 2 in Wt: 165 lbs Bra Size: B HR: 59 bpm BP: 132/81 mmHg BSA: 1.76 m2 TID: 1.20 BMI: 30.1 History: CAD, H/O VT, COPD, HTN, DM , HYPERLIPIDEMIA, FORMER SMOKER, ANIGINA, SOB, TACHYCARDIA Procedure: Patient received 0.4 mg of intravenous Lexiscan, resting heart rate 59 bpm, resting blood pressure 132/81 mmHg, with Lexiscan maximum heart rate achieved was 82 bpm which is % of the maximum predicted heart rate and blood pressure was 130/88 mmHg. Cardiac Stress and Resting SPECT Images: Cardiac Stress and Resting SPECT images were obtained using technetium 99m Myoview 30.4 mCi stress and 10.22 mCi at rest. Resting and stress imaging in supine and prone positions demonstrate a small sized, moderate, fixed perfusion defect in the inferoapical region. There is borderline increase in transient ischemic dilatation ratio (TID 1.20), suggestive of possible multivessel disease or balanced ischemia. Gated imaging demonstrates normal global LV systolic function. There is mild hypokinesis of the apical region. LVEF is calculated at 54%. Conclusion: Small sized, moderate, fixed perfusion defect in the inferoapical region. There is borderline increase in transient ischemic dilatation ratio (TID 1.20), suggestive of possible multivessel disease or balanced ischemia. Gated imaging demonstrates normal global LV systolic function. There is mild hypokinesis of the apical region. LVEF is calculated at 54%. Electronically signed by : Niya Knight MD 03/14/2024 13:04:58
--- NOTE | 2024-03-11 07:23 | CA_ITS ---
APPROVED REPORT EXAM: Comprehensive 2D, Doppler, and color-flow Echocardiogram Senior Sourcing Manager: Skye Vines RDCS Ht: 5 ft 2 in Wt: 166lbs BSA: 1.77 BP: 152/86 mmHg Indications: CP,CAD,HTN,HLP M-Mode Dimensions RVDd 1.71 cm (0.9-2.6) LA Diam 2.32 cm (1.9-4.0) LVDd 4.95 cm (3.5-5.7) LVDs 3.78 cm (3.5-5.7) IVSd 0.70 cm (0.6-1.1) PWd 0.87 cm (0.6-1.1) EF (Teich) 47.00% FS 23.60% EDV (Teich) 115.50 mL ESV (Teich) 61.20 mL LV Diastology E Decel Time 223 (160-240 msec) E/A Ratio 1.3 Mitral Valve MV E Max Luis. 76.0 (40-130 cm/s) MV A Velocity 60.0 (40-130 cm/s) E/A Ratio 1.27 MV PHT 65.0 ms Left Ventricle The left ventricle is normal size. The left ventricular systolic function is normal. The left ventricular ejection fraction is within the normal range. There is normal left ventricular wall thickness. There is normal LV segmental wall motion. The left ventricular diastolic function is normal. LVEF is 55%. Right Ventricle Right ventricle is mildly dilated. The right ventricular systolic function is normal. Atria The left atrium size is normal. The right atrium size is normal. There is no Doppler evidence of interatrial shunt. Aortic Valve The aortic valve opens well. There is no aortic valvular stenosis. No aortic regurgitation is present. Mitral Valve The mitral valve is normal in structure. No evidence of mitral valve stenosis. There is no mitral valve regurgitation noted. Tricuspid Valve The tricuspid valve leaflets are thin and pliable. Trace tricuspid regurgitation. There is insufficient TR jet to estimate RVSP. Pulmonic Valve The pulmonary valve is normal in structure. Trace pulmonic regurgitation. Great Vessels The aortic root is normal in size. The ascending aorta is normal in size. IVC is normal in size and collapses >50% with inspiration. Pericardium Trivial, anterior pericardial effusion. No echo indications of tamponade. Other Information Study Quality: Fair Conclusion Normal biventricular systolic function. Mild RV dilation. No significant valvular stenosis or regurgitation. Trivial, anterior pericardial effusion. No echo indications of tamponade. Electronically signed by : Niya Knight MD 03/14/2024 11:58:21
[2024-03-11] MEDS: REGADENOSON 0.4MG/5ML SYRINGE 0.400000000000000022 MG IV (09:00)
[2024-03-11] MEDS: ISOTOPE MYOVIEW (PER STUDY) 1 DOSE IV (09:55)
== END 2024-03-11 23:59 | disposition home or self-care (01) ==
LOC: RAD 07:22
PROVIDERS: PCP Nurse Practitioner Family; Visit Provider Nurse Practitioner Family
DX: R06.00 Dyspnea, unspecified (principal); R07.9 Chest pain, unspecified; I25.118 Atherosclerotic heart disease of native coronary artery with other forms of angina pectoris; I10 Essential (primary) hypertension; E78.2 Mixed hyperlipidemia
CPT/HCPCS: 78452; 93017; 93018; 93306; A9502; J2785

== ENCOUNTER 2024-03-28 09:01 | Day surgery (SDC) | payer MEDICARE, MEDICAID, SELFPAY ==
[2024-03-28] VITALS (10 sets, daily range): BP systolic 88–150; BP diastolic 34–86; PULSE 74–88; RESP 17–24; TEMP 36.3–36.6; O2SAT 95–98; BMI 30.9
--- NOTE | 2024-03-28 07:13 | IR_ITS ---
APPROVED REPORT Patient Location: Outpatient PROCEDURES Left heart catheterization Left ventriculogram Selective coronary angiogram INDICATION Angina pectoris, Abnormal Myoview Informed consent was obtained prior to the procedure. COMPLICATIONS NONE Estimated Blood Loss: LESS THAN 10 ML TECHNIQUE One percent lidocaine used to anesthetize the right anterior aspect of the wrist. The right radial artery was accessed via the Seldinger technique. A 6 Occitan sheath was placed in the right radial artery. 2.5 mg of Verapamil, 800 mcg of nitroglycerin, 1mg Lidocaine and 5000 U Heparin were given through the arterial sheath. The papa catheter was also used to perform left heart catheterization, left ventriculogram and selective coronary angiogram. At the end of the procedure the sheath was removed good hemostasis was achieved using Traclet band, patient was transferred to the postop holding area in stable condition. ANGIOGRAPHIC RESULTS The left main artery Stent the proximal stent which extends into the LAD. The stents are widely patent free of in-stent restenosis with excellent proximal transitioning The left anterior descending artery Has stent originating off the left main artery extending the proximal LAD which is widely patent free of in-stent restenosis with excellent distal transitioning. The remaining vessel has mild luminal regularities The circumflex artery Has a stent bifurcating off the left main artery which is widely patent free of in-stent restenosis with excellent distal transitioning with remaining vessel being widely patent with mild 10 to 20% luminal irregularities The right coronary artery Dominant with 10 to 20% luminal irregularities The MYERS ventriculogram reveals Normal slightly hyperdynamic at 75% with a suggestion of apical hocm The left ventricular end-diastolic pressure 10 to 15% IMPRESSION Coronary disease as described above Possible apical HOCM Hyperdynamic ventricle Normal LVEDP PLAN 1. Consider cardiac MRI to evaluate for Yoni syndrome 2. Risk factor modification for coronary disease Electronically signed by : Barney Diaz MD 03/28/2024 14:21:25
[2024-03-28 09:43] LABS: Basophils % 0.4 % (0.1-2.0); Eosinophils % 0.3 % (0.1-12.0); Hematocrit 43.9 % (37.0-47.0); Hemoglobin 14.2 g/dL (12.2-16.2); Lymphocytes # 1.5 K/mm3 (0.7-4.5); Lymphocytes % 14.8 % (10-50); Mean Corpuscular HGB Conc 32.2 g/dL (31.8-35.4); Mean Corpuscular Hemoglobin 31.1 pg (27.0-31.2); Mean Corpuscular Volume 96.6 fl (81-99); Mean Platelet Volume 8.1 fl (7.4-10.4); Monocytes # 0.2 K/mm3 (0.1-1.0); Monocytes % 1.8 % (1.7-9.3); Neutrophils # 8.2 K/mm3 (1.8-7.8); Neutrophils % 82.7 % (37.0-80.0); Platelet Count 318 K/mm3 (142-424); Red Blood Count 4.55 M/mm3 (4.20-5.40); Red Cell Distribution Width 13.6 % (11.5-17.5)
[2024-03-28 09:46] LABS: Chloride 104 mmol/L (98-107); Potassium 4.5 mmoL/L (3.5-5.1); Sodium 138 mmol/L (136-145)
[2024-03-28 09:49] LABS: Blood Urea Nitrogen 11 mg/dl (7-17); Creatinine Clearance Estimated 106 mL/min (50-200); Estimated Glomerular Filt Rate 86 ml/min (>60); GFR (African American) 104 ML/MIN (>60)
[2024-03-28 09:50] LABS: Anion Gap 11.5 mEq/L (5-15); Calcium 9.7 mg/dl (8.4-10.2); Carbon Dioxide 27 mmol/L (22.0-30.0); Glucose 149 mg/dl (74-100)
[2024-03-28] MEDS: LORazepam 2MG/ML VIAL 2 MG IV (10:00)
--- NOTE | 2024-03-28 12:31 | P.PNANES_ITS ---
[facility] Disclaimer: The information contained in this section may have been updated after the patient was seen, as this information can be updated by other users. Medical History RSV bronchitis Vertigo Pleuritic chest pain Influenza A Abnormal nuclear cardiac imaging test Upper respiratory infection Malaise RSV (respiratory syncytial virus infection) Knee contusion Acute exacerbation of chronic obstructive airways disease Chest pain Bronchitis Encounter for follow-up surveillance of lung cancer Acute exacerbation of chronic obstructive pulmonary disease UTI (urinary tract infection) COPD exacerbation Vasomotor symptoms due to menopause Lung cancer Lung nodule Pulmonary emphysema Stopped smoking with greater than 30 pack year history Personal history of other malignant neoplasm of bronchus and lung Dyspnea on exertion Sinus tachycardia Dyspnea Hematuria Dysphagia Chronic obstructive pulmonary disease Anxiety Surgical History Hx of BSO (bilateral salpingo-oophorectomy) History of vaginal hysterectomy History of appendectomy Hx of cholecystectomy History of tonsillectomy Family History Other Alcoholism Cancer Diabetes Heart attack Hyperlipidemia Hypertension Kidney disease Thyroid disorder Social History (Updated 03/28/24 @ 09:16 by Morro Severino RN) Smoking Status: Former smoker tobacco type: cigarettes packs per day: 0 smoking status stop date: 01/2021 alcohol intake: never substance use type: denies use current occupational status: unemployed Travel in the last 8 weeks: None household members: family housing: house current occupational exposures/hazards: No caffeine: Yes [facility] Anesthesia Checklist Patient Identification Patient Identification: Arm Band, Family and Verbal (Name & ) Structural Data Admitted From: Home Planned Operative Procedure/s: Cardiac Cath Consent for Planned Operative Procedure(s) Verified: Yes Verified Documents: Surgical Consent and History and Physical NPO Status Verified Time NPO: 23:00 Chart Verification Results Verified: CBC, BMP, ECG and Chest Xray (+ PFT; FEV1 26%) Additional verifications Patient : No Anesthesia Reactions: No Cardiovascular Assessment Heart Sounds: S1 & S2 Pulse Rhythm: Irregular Peripheral Edema: No Airway Assessment Mallampati Score:: Class II Dentition: Dentures-good fit (Nothing loose per pt.) Neurological Assessment Level of Consciousness: Awake, Alert, Appropriate and Follows Commands Hx Seizures: No Numbness or tingling in extremities: No Anesthesia Plan Anesthesia Risk discussed: Yes Anesthesia Plan: Verified ASA Class: III Anesthesia Type: MAC
[2024-03-28] MEDS: VERAPAMIL 2.5MG/ML 2ML VIAL 2.5 MG IV (14:10)
[2024-03-28] MEDS: NITROGLYCERIN 800MCG/8ML SYR (CATH LAB) 800 MCG IA (14:10)
[2024-03-28] MEDS: diphenhydrAMINE 50MG/ML VIAL 50 MG IV (14:10)
[2024-03-28] MEDS: LIDOCAINE 1% 10ML MDV 20 ML IJ (14:10)
[2024-03-28] MEDS: HEPARIN 1,000 UNITS/500ML NS (CATH LAB) 3000 UNIT IV (14:11)
[2024-03-28] MEDS: 0.9 % SODIUM CHLORIDE 500 ML 25 ML IV (14:11)
[2024-03-28] MEDS: HEPARIN 1,000 UNITS/ML 10ML VIAL (CATH LAB) 10000 UNIT IV (14:11)
[2024-03-28] MEDS: IOPAMIDOL-370 (76%);100ML BOTTLE 50 ML IV (14:34)
--- NOTE | 2024-03-28 14:40 | EXP.ANES.I ---
[facility] Anesthesia Record Part I Anesthesia Record I Intake, IV Amount: 300 Hydration: Adequate Estimated blood loss (mL): 5 Urine output (mL): 0 Blood Products used (#): none Blood Pressure: 88/34 (Treated with Aguila 200 mcg; responded to 107/59) SaO2: 95 Pulse Rate: 85 Airway Patency: Patent Respiratory Rate: 24 Temperature: 97.4 F Patient is:: Awake (Talking) and Stable Stable to PACU at:: 14:28
== END 2024-03-28 16:23 | disposition home or self-care (01) ==
PROVIDERS: PCP Nurse Practitioner Family; Visit Provider Internal Medicine
DX: I25.118 Atherosclerotic heart disease of native coronary artery with other forms of angina pectoris; I10 Essential (primary) hypertension; E78.2 Mixed hyperlipidemia; R06.02 Shortness of breath; F41.9 Anxiety disorder, unspecified; J43.9 Emphysema, unspecified; Z79.899 Other long term (current) drug therapy; Z95.5 Presence of coronary angioplasty implant and graft; J44.9 Chronic obstructive pulmonary disease, unspecified
CPT/HCPCS: 80048; 85025; 93458; 99152; C1725; C1769; J1644; J2060; J3010; Q9967

== ENCOUNTER 2024-04-20 09:26 | Outpatient (CLI) | payer MEDICARE, MEDICAID, SELFPAY ==
--- NOTE | 2024-04-20 09:39 | MR_ITS ---
APPROVED REPORT Breastfeeding Peer Counselor: CLINICAL INDICATION Known CAD, evaluation for apical HCM (LV with spade-shaped appearance on LHC) TECHNIQUE Image Acquisition: Cardiac magnetic resonance (CMR) was performed on Siemens Espree MRI 1.5T scanner. Software platform sequences were performed using the Siemens [place] MR B19 platform. A set of three-plane, low-resolution, large [id number]-cn-fsln localizers were initially acquired. Then axial, coronal, sagittal TrueFISP, as well as axial HASTE images, were obtained. These were followed by gated TrueFISP breathold cinematic sequences obtained in the short axis with 8 mm slices and 2 mm gaps, 2-chamber (vertical long axis), 3-chamber, 4-chamber (horizontal long axis). A bolus of contrast was injected intravenously with first-pass sequences obtained in the short axis and four-chamber planes. After approximately 10 minutes, a TI sleeping bag filler sequence was performed to determine the optimal TI time. Using the optimized TI time, delayed contrast enhancement segmented inversion???recovery TurboFLASH sequences were obtained in the short axis, 2-chamber, 3-chamber, and 4-chamber projections. 2D-velocity phase mapping was performed. Functional parameters were calculated by offline analysis on an independent workstation ([employer] Platform, KeyView). Contrast: ProHance??? (Gadoteridol) FINDINGS MORPHOLOGY AND FUNCTION Left ventricle: The left ventricle cavity is small in size. The indexed left ventricular end-diastolic volume (LVEDVi) is 40 ml/m2 (reference range 57-105 ml/m2 in males, 56-96 ml/m2 in females). Low normal left ventricular systolic function is present. There is normal left ventricular wall thickness. Severe hypokinesis of the distal inferolateral LV wall and towards the apical region. LVEF is calculated at 51.4% (reference range 57-77%). Right ventricle: The right ventricle cavity is small in size. The indexed right ventricular end-diastolic volume (RVEDVi) is 33 ml/m2 (reference range 61-121 ml/m2 in males, 48-112 ml/m2 in females). Normal right ventricular systolic function is present. RVEF is calculated at 53.2% (reference range 52-72% in males, 51-71% in females). Atria: The left atrium is normal in size. The maximum indexed left atrial volume is 26 ml/m2 (reference range 26-52 ml/m2 in males, 27-53 ml/m2 in females). The right atrium is normal in size. The maximum indexed right atrial volume is 18 ml/m2 (reference range 18-90 ml/m2). Aorta: The diameter of the aortic annulus is normal, measuring 20 mm (coronal view reference range 21-30 mm in males, 19-27 mm in females). The diameter of the aortic sinus is normal, measuring 29 mm (coronal view reference range 25-42 mm in males, 24-36 mm in females). The diameter of the sinotubular junction is normal, measuring 26 mm (coronal view reference range 18-32 mm in males, 18-28 mm in females). The diameters of the ascending and descending thoracic aorta are normal. Main pulmonary artery: The main pulmonary artery diameter is normal. Pericardium: The pericardial thickness is normal. The pericardial thickness measures 1.0 mm (normal < 4.0 mm). There is no pericardial effusion. VALVES The valvular morphologies in the visualized sequences appear normal. There is no significant valvular stenosis or regurgitation of the mitral, aortic, tricuspid, or pulmonic valve noted visually. Systolic anterior motion of the mitral valve is not visualized. Ratio of pulmonary to systemic flow, Qp:Qs ratio = 1.1 (normal < or = 1.2, hemodynamically significant shunt > 1.5), demonstrating no evidence of hemodynamically significant shunt. TISSUE CHARACTERIZATION Resting Perfusion: Resting hypoperfusion is present in the distal inferolateral LV wall Myocardial Fibrosis and/o
[2024-04-20 09:51] LABS: Blood Urea Nitrogen 10 mg/dl (7-17); Estimated Glomerular Filt Rate 74 ml/min (>60); GFR (African American) 89 ML/MIN (>60)
== END 2024-04-20 23:59 | disposition home or self-care (01) ==
LOC: RAD 09:27
PROVIDERS: Physician Assistant; PCP Nurse Practitioner Family; Visit Provider Nurse Practitioner Family
DX: I42.2 Other hypertrophic cardiomyopathy (principal)
CPT/HCPCS: 36415; 75561; 82565; 84520; A9576

== ENCOUNTER 2024-04-26 01:03 | Emergency (ER) | payer MEDICARE, MEDICAID, SELFPAY ==
[2024-04-26 01:05] VITALS: BP 152/95; PULSE 87; RESP 23; TEMP 38.7; O2SAT 96; BMI 30.3
--- NOTE | 2024-04-26 01:17 | XR_ITS ---
PROCEDURE INFORMATION: Exam: XR Chest Exam date and time: 04/26/2024 1:26 AM Age: 59 years old Clinical indication: Cough and fever; Additional info: Cough fever TECHNIQUE: Imaging protocol: Radiologic exam of the chest. Views: 2 views. COMPARISON: CT CHEST WO CON 06/30/2023 2:46 PM FINDINGS: Lungs: Linear scarring in the right mid lung with surgical clips. No acute appearing consolidation and airspace disease. Pleural spaces: No pleural effusion or pneumothorax. Heart/Mediastinum: No acute findings or cardiomegaly. Bones/joints: No acute osseous findings. IMPRESSION: No acute cardiopulmonary findings.
[2024-04-26 01:19] VITALS: BMI 30.3
[2024-04-26] MEDS: PROCHLORPERAZINE 10MG/2ML VIAL 10 MG IV (01:24)
[2024-04-26] MEDS: ACETAMINOPHEN 500MG TAB 1000 MG PO (01:24)
[2024-04-26 01:25] LABS: Influenza A, PCR Not Detected (NotDetected); Influenza B, PCR Not Detected (NotDetected)
[2024-04-26] MEDS: KETOROLAC 30MG/ML VIAL 30 MG IV (01:25)
[2024-04-26 01:30] LABS: Basophils # 0.3 K/mm3 (0-0.2); Basophils % 4.2 % (0.1-2.0); Eosinophils % 0.5 % (0.1-12.0); Hematocrit 44.1 % (37.0-47.0); Hemoglobin 14.8 g/dL (12.2-16.2); Lymphocytes # 2.5 K/mm3 (0.7-4.5); Lymphocytes % 31.8 % (10-50); Mean Corpuscular HGB Conc 33.5 g/dL (31.8-35.4); Mean Corpuscular Hemoglobin 31.1 pg (27.0-31.2); Mean Corpuscular Volume 92.8 fl (81-99); Monocytes % 12.2 % (1.7-9.3); Neutrophils # 4.4 K/mm3 (1.8-7.8); Neutrophils % 55.5 % (37.0-80.0); Platelet Count 236 K/mm3 (142-424); Red Blood Count 4.75 M/mm3 (4.20-5.40); Red Cell Distribution Width 13.8 % (11.5-17.5)
[2024-04-26 01:31] VITALS: BP 154/86; PULSE 75; O2SAT 100
[2024-04-26 01:32] LABS: Chloride 100 mmol/L (98-107); Potassium 3.5 mmoL/L (3.5-5.1); Sodium 136 mmol/L (136-145)
[2024-04-26 01:34] LABS: Alanine Aminotransferase 43 U/L (12-78); Aspartate Amino Transferase 53 U/L (14-36); Blood Urea Nitrogen 15 mg/dl (7-17); Creatinine Clearance Estimated 90 mL/min (50-200); Estimated Glomerular Filt Rate 73 ml/min (>60); GFR (African American) 89 ML/MIN (>60); Magnesium 1.5 mg/dl (1.6-2.3)
[2024-04-26 01:35] LABS: Albumin Level 4.3 g/dl (3.5-5.0); Albumin/Globulin Ratio 1.2 (1.1-1.8); Alkaline Phosphatase 126 U/L (38-126); Anion Gap 10.5 mEq/L (5-15); Bilirubin,Total 0.4 mg/dl (0.2-1.3); Calcium 8.8 mg/dl (8.4-10.2); Carbon Dioxide 29 mmol/L (22.0-30.0); Globulin 3.7 g/dL (1.3-3.2); Glucose 115 mg/dl (74-100); Lipase 136 U/L (23-300)
--- NOTE | 2024-04-26 01:36 | PC.NURSE ---
pt to xray via wheelchair
[2024-04-26] MEDS: IPRATROPIUM/ALBUTEROL 3 ML NEB IH (01:37)
[2024-04-26 01:45] LABS: Coronavirus 19, PCR Detected (NotDetected)
--- NOTE | 2024-04-26 01:50 | HMH.EDGENADL ---
Discharge Plan Disposition Patient Disposition: Home, Self-Care Prescriptions Prescriptions: New ondansetron HCl 4 mg tablet 4 mg PO Q8H PRN (Reason: nausea and vomiting) 5 Days Qty: 30 0RF No Action estradiol 1 mg tablet 0.5 mg PO DAILY Qty: 90 3RF metoprolol succinate 100 mg tablet extended release 24 hr 100 mg PO DAILY Qty: 90 3RF ranolazine 500 mg tablet extended release 12 hr 500 mg PO BID Qty: 60 3RF albuterol sulfate 90 mcg/actuation HFA aerosol inhaler 2 inh IH Q6HP PRN (Reason: Shortness Of Breath) 90 Days Qty: 3 3RF famotidine [Pepcid] 20 mg tablet 20 mg PO BID 2 Days Qty: 4 0RF Rx Instructions: pepcid 20 mg bid x 2 days before heart cath aspirin 81 mg tablet,delayed release (DR/EC) 81 mg PO DAILY Trelegy Ellipta 100-62.5-25 mcg blister with device 1 inh inhalation DAILY Qty: 60 2RF Vraylar 1.5 mg capsule 1.5 mg PO Q OTHER DAY Qty: 45 3RF levothyroxine 88 mcg tablet See Rx Instructions .ROUTE .COMPLEX Qty: 30 5RF Dose Instruction: TAKE 1 TABLET ORALLY DAILY FOR THYROID Rx Instructions: TAKE 1 TABLET ORALLY DAILY FOR THYROID cholecalciferol (vitamin D3) [Vitamin D3] 25 mcg (1,000 unit) tablet See Rx Instructions .ROUTE .COMPLEX Qty: 90 1RF Dose Instruction: TAKE 1 TABLET BY MOUTH ONCE DAILY Rx Instructions: TAKE 1 TABLET BY MOUTH ONCE DAILY ipratropium-albuterol 0.5 mg-3 mg(2.5 mg base)/3 mL solution for nebulization 3 ml IH QID PRN (Reason: shortness of breath or wheezing) 90 Days Qty: 270 3RF omeprazole 40 mg capsule,delayed release(DR/EC) See Rx Instructions .ROUTE .COMPLEX Qty: 90 4RF Dose Instruction: TAKE 1 CAPSULE BY MOUTH ONCE DAILY FOR GERD Rx Instructions: TAKE 1 CAPSULE BY MOUTH ONCE DAILY FOR GERD atorvastatin 80 mg tablet 80 mg PO HS Qty: 90 1RF venlafaxine 150 mg capsule,extended release 24hr 150 mg PO DAILY Qty: 90 3RF Referrals Follow up/Referrals: Chaya Garcia APRN [Primary Care Provider] - See instructions Activity Restrictions/Add. Instructions Additional Instructions/Restrictions: Please follow-up with your primary care provider. Please return to the emergency department if you develop any new or worsening symptoms or become concerned for your health. Please take Tylenol and ibuprofen as needed for fever. Please take Zofran as needed for nausea or vomiting. Please try remain hydrated with Gatorade Pedialyte etc. Clinical Impressions Clinical Impression: COVID-19 Discharge ED Provider: Jonn Smith Adult HPI General Chief complaint: Fever Stated complaint: vomiting, diarrhea, cough, dizzy spells Time Seen by Provider: 04/26/24 01:34 Mode of Arrival: Family Vehicle Source of Information: Patient Limitations: No Limitations Description of Symptoms (Recalled from ER Triage Doc. by RN): 59 F presents to ER with multiple complaints. Reports her symptoms began yesterday with dizziness upon waking up but this subsided throughout the day. She then began to vomit and have diarrhea. Reports 10 episodes of diarrhea today. She also reports fever (t max 101), chills, body aches, cough, congestion, and weakness in her legs when standing. She reports she took Ibuprofen 200mg @ 2300 last night (04/25/24). History of Present Illness HPI narrative: 59-year-old female with history of COPD, hypothyroidism, coronary artery disease presents with multiple complaints. She reports that she has been having intermittent dizziness for a few days. She is also been having intermittent fever chills body aches cough congestion generalized weakness and diarrhea for the last few days. [place] positive review of systems. Cough is nonproductive. Related Data Home Medications Medication Instructions Recorded Confirmed aspirin 81 mg tablet,delayed 81 mg PO DAILY 03/14/24 04/18/24 release Previous Rx's Medication Instructions Recorded albuterol sulfate 90 mcg/actuation 2 inh inhalation Q6HP PRN 12/25/22 aerosol inhaler Shortness Of Breath 90 days #3 ea levothyroxine 88 mcg tablet See Rx Instructions .Route 12/15/23 .COMPLEX #30 tabs estradiol 1 mg tablet 0.5 mg (1/2 x 1 mg) PO DAILY #90 12/23/23 tabs cholecalciferol (vitamin D3) 25 See Rx Instructions .Route 01/13/24 mcg (1,000 unit) tablet (Vitamin .COMPLEX #90 tabs D3) ipratropium 0.5 mg-albuterol 3 mg 3 ml inhalation QID PRN shortness 02/02/24 (2.5 mg base)/3 mL nebulization of breath or wheezing 90 days #270 soln mL omeprazole 40 mg capsule,delayed See Rx Instructions .Route 02/12/24 release .COMPLEX #90 caps atorvastatin 80 mg tablet 80 mg PO HS #90 tabs 02/24/24 metoprolol succinate 100 mg 100 mg PO DAILY #90 tabs 02/24/24 tablet,extended release 24 hr ranolazine 500 mg tablet,extended 500 mg PO BID #60 tabs 02/24/24 release,12 hr fluticasone fur. 100 mcg-umeclid 1 inh inhalation DAILY #60 ea 03/14/24 62.5 mcg-vilant 25 mcg inhalat.powder (Trelegy Ellipta) famotidine 20 mg tablet (Pepcid) 20 mg PO BID 2 days #4 tabs 03/16/24 venlafaxine 150 mg 150 mg PO DAILY #90 caps 03/22/24 capsule,extended release 24 hr cariprazine 1.5 mg capsule 1.5 mg PO Q OTHER DAY #45 caps 04/18/24 (Vraylar) ondansetron HCl 4 mg tablet 4 mg PO Q8H PRN nausea and 04/26/24 vomiting 5 days #30 tabs Allergies Allergy/AdvReac Type Severity Reaction Status Date / Time Iodinated Contrast Media Allergy Severe Difficulty Verified 04/18/24 15:05 Breathing iopamidol Allergy Intermediate Verified 04/18/24 15:05 Sulfa (Sulfonamide Allergy Intermediate I-RASH Verified 04/18/24 15:05 Antibiotics) [SULFA (SULFONAMIDE ANTIBIOTICS)] [facility] Disclaimer: The information contained in this section may have been updated after the patient was seen, as this information can be updated by other users. Medical History RSV bronchitis Vertigo Pleuritic chest pain Influenza A Abnormal nuclear cardiac imaging test Upper respiratory infection Malaise RSV (respiratory syncytial virus infection) Knee contusion Acute exacerbation of chronic obstructive airways disease Chest pain Bronchitis Encounter for follow-up surveillance of lung cancer Acute exacerbation of chronic obstructive pulmonary disease UTI (urinary tract infection) COPD exacerbation Vasomotor symptoms due to menopause Lung cancer Lung nodule Pulmonary emphysema Stopped smoking with greater than 30 pack year history Personal history of other malignant neoplasm of bronchus and lung Dyspnea on exertion Sinus tachycardia Dyspnea Hematuria Dysphagia Chronic obstructive pulmonary disease Anxiety Surgical History Hx of BSO (bilateral salpingo-oophorectomy) History of vaginal hysterectomy History of appendectomy Hx of cholecystectomy History of tonsillectomy Family History Other Alcoholism Cancer Diabetes Heart attack Hyperlipidemia Hypertension Kidney disease Thyroid disorder Social History Smoking Status: Former smoker tobacco type: cigarettes packs per day: 0 smoking status stop date: 01/2021 alcohol intake: never substance use type: denies use current occupational status: unemployed Travel in the last 8 weeks: None household members: family housing: house current occupational exposures/hazards: No caffeine: Yes ROS Obtained: Yes All systems reviewed & no additional complaints except as documented Physical Exam General General appearance: alert and in no apparent distress Head Head exam: atraumatic and normocephalic Eye Eye exam: Present normal appearance, PERRL and EOMI ENT ENT exam: Present normal oropharynx and normal external ear exam Neck Neck exam: Present normal inspection and full ROM Chest Chest inspection: Present normal inspection and symmetric chest wall rise; Absent tenderness Respiratory Respiratory exam: Present wheezes (Diffuse); Absent respiratory distress Cardiovascular Cardiovascular exam: Present regular rate and normal rhythm Abdominal Exam Abdominal exam: Present soft; Absent distention, tenderness or guarding Extremities Exam Extremities exam: Present normal inspection; Absent edema or joint swelling Back Exam Back exam: Present normal inspection; Absent tenderness Neurological Exam Neurological exam: Present alert and oriented X3; Absent motor sensory deficit Psychiatric Psychiatric exam: Present normal affect and normal mood Skin Skin exam: Present warm, dry and normal color Lymphatic Lymphatic Findings: no adenopathy Medical Decision Making Medical Records Medical records reviewed: Yes I reviewed the patient's medical records. [place] Inquiry Pt receiving controlled substance: No Kiel was queried for this patient: No Vital Signs: 04/26/24 01:05 04/26/24 01:17 04/26/24 01:31 Temperature 101.6 F H Temperature Source Oral Oral Pulse Rate 75 Pulse Rate [Right] 87 Respiratory Rate 23 Blood Pressure 154/86 H Blood Pressure [Right Arm] 152/95 H Blood Pressure Mean 101 Blood Pressure Mean [Right Arm] 114 Blood Pressure Source [Right Arm] Automatic Cuff 02 Sat by Pulse Oximetry 96 100 Oxygen Delivery Method Room Air Aerosol Mask 04/26/24 02:00 04/26/24 02:30 04/26/24 03:00 Temperature Temperature Source Pulse Rate 74 70 66 Pulse Rate [Right] Respiratory Rate Blood Pressure 113/76 115/62 101/63 L Blood Pressure [Right Arm] Blood Pressure Mean 96 Blood Pressure Mean [Right Arm] Blood Pressure Source [Right Arm] 02 Sat by Pulse Oximetry 99 90 L 91 L Oxygen Delivery Method Room Air Lab Data Lab results reviewed: Yes I reviewed the patient's lab results. Lab Results 04/26/24 01:10: WBC 8.0, RBC 4.75, Hgb 14.8, Hct 44.1, MCV 92.8, MCH 31.1, MCHC 33.5, RDW 13.8, Plt Count 236, MPV 8.0, Neut % (Auto) 55.5, Lymph % (Auto) 31.8, [place] % (Auto) 12.2 H, Eos % (Auto) 0.5, Baso % (Auto) 4.2 H, Neut # (Auto) 4.4, Lymph # (Auto) 2.5, [place] # (Auto) 1.0, Eos # (Auto) 0.0, Baso # (Auto) 0.3 H, Sodium 136, Potassium 3.5, Chloride 100, Carbon Dioxide 29, Anion Gap 10.5, BUN 15, Creatinine 0.80, Estimated Creat Clear 90, Estimated GFR 73, Est GFR ( Amer) 89, Glucose 115 H, Calcium 8.8, Magnesium 1.5 L, Total Bilirubin 0.4, AST 53 H, ALT 43, Alkaline Phosphatase 126, Total Protein 8.0, Albumin 4.3, Globulin 3.7 H, Albumin/Globulin Ratio 1.2, Lipase 136 04/26/24 01:15: SARS-CoV-2 (PCR) Detected A, Influenza A Untype (PCR) Not detected, Influenza Type B (PCR) Not detected 04/26/24 01:10 04/26/24 01:10 Orders (Tests/Meds): ED MEDICATIONS Discontinued Medications Generic Name Dose Route Start Last Admin Trade Name Freq PRN Reason Stop Dose Admin Acetaminophen 1,000 mg 04/26/24 01:17 04/26/24 01:24 Acetaminophen 500mg Tab PO 04/26/24 01:18 1,000 mg ONCE ONE Administration Albuterol/Ipratropium 3 ml 04/26/24 01:17 04/26/24 01:37 Ipratropium/Albuterol 3 Ml Neb IH 04/26/24 01:18 3 ml ONCE ONE Administration Lactated Ringer's 1,000 mls @ 999 mls/hr 04/26/24 02:00 04/26/24 01:54 Lactated Ringer's 1000 Ml Bag IV 04/26/24 03:00 999 mls/hr .Q1H1M FATOU Administration Magnesium Sulfate 2 gm in 50 mls @ 50 mls/hr 04/26/24 01:52 04/26/24 01:54 Magnesium Sulfate 2gm/50ml Premix IV 04/26/24 02:51 50 mls/hr ONCE ONE Administration Ketorolac Tromethamine 30 mg 04/26/24 01:17 04/26/24 01:25 Ketorolac 30mg/Ml Vial IV 04/26/24 01:18 30 mg ONCE ONE Administration Prochlorperazine Edisylate 10 mg 04/26/24 01:17 04/26/24 01:24 Prochlorperazine 10mg/2ml Vial IV 04/26/24 01:18 10 mg ONCE ONE Administration ORDERS Category Date Time Status Chest XR 2 view (NOT portable) [XR chest 2V] Stat Exams 04/26/24 01:17 Taken CBC w/Auto Diff [Complete Blood Count Auto Diff] Stat Lab 04/26/24 01:10 Completed CMP [Comprehensive Metabolic Panel] Stat Lab 04/26/24 01:10 Completed Lipase Stat Lab 04/26/24 01:10 Completed Magnesium Stat Lab 04/26/24 01:10 Completed Rapid PCR Covid and Flu A/B Stat Lab 04/26/24 01:15 Completed Medical Decision Narrative: 59-year-old female with history of COPD, hypothyroidism, coronary artery disease presents with multiple complaints including fever, weakness, dizziness, diarrhea, nonproductive cough. History was obtained via interactive discussion with patient. On arrival, patient is febrile, normotensive, satting appropriately on room air, alert and oriented x 4, moving all extremities spontaneously. Full physical exam performed and significant for minimal generalized wheezing, otherwise benign physical exam. Differential includes but is not limited to COVID, flu, pneumonia, COPD exacerbation gastroenteritis, dehydration, electrolyte derangement. Patient was given DuoNeb x 1, 1 L IV fluid bolus, 2 g mag, Compazine, Toradol, Tylenol for symptomatic management and correction of underlying abnormalities. Workup initiated including CBC CMP 2 view chest x-ray mag lipase blood cultures On re-evaluation, patient reports symptomatic improvement. No wheezing noted on exam. Laboratory workup independently interpreted by me and significant for mild hypomagnesemia which was repleted IV, otherwise no significant electrolyte derangement or leukocytosis. COVID is positive. Imaging independently interpreted by me and significant for clear lungs bilaterally without evidence of focal bacterial pneumonia.. See radiology read for full review of final results. Antibiotic treatment was considered, but deemed unnecessary due to viral infection. Given patient history, exam and workup, patient's presentation most likely represents acute COVID infection with mild dehydration in the setting of frequent diarrhea. These findings were communicated with patient. She was discharged in stable condition with return precautions and instructions regarding symptomatic care. Procedures Risk/Benefits of Procedure(s) Were Explained: Yes Critical Care Critical Care Time Critical Care Time: No
[2024-04-26] MEDS: LACTATED RINGERS 1000ML 1,000 ML 999 ML IV (01:54)
[2024-04-26] MEDS: MAGNESIUM SULFATE IN WATER 2 GM/50 ML PIGGYBACK IV (01:54)
[2024-04-26 02:00] VITALS: BP 113/76; PULSE 74; O2SAT 99
[2024-04-26 02:30] VITALS: BP 115/62; PULSE 70; O2SAT 90
[2024-04-26 03:00] VITALS: BP 101/63; PULSE 66; O2SAT 91
[2024-04-26 03:16] VITALS: BP 101/59; PULSE 75; RESP 20; TEMP 37.2; O2SAT 94
== END 2024-04-26 03:17 | disposition home or self-care (01) ==
PROVIDERS: Emergency Provider Emergency Medicine; PCP Nurse Practitioner Family
DX: U07.1 COVID-19 (principal); R50.9 Fever, unspecified; R19.7 Diarrhea, unspecified; R05.9 Cough, unspecified; R11.2 Nausea with vomiting, unspecified; R42 Dizziness and giddiness; J44.9 Chronic obstructive pulmonary disease, unspecified; E03.9 Hypothyroidism, unspecified; E83.42 Hypomagnesemia; E86.0 Dehydration
CPT/HCPCS: 71046; 80053; 83690; 83735; 85025; 87636; 96365; 96375; 99284; J0780; J1885; J3475; J7120; J7620

== ENCOUNTER 2024-05-23 12:52 | Outpatient (CLI) | payer MEDICARE, MEDICAID, SELFPAY ==
--- NOTE | 2024-05-23 12:53 | MM_ITS ---
PROCEDURE INFORMATION: Exam: MG Bilateral Screening 3D Mammography Exam date and time: 05/23/2024 12:50 PM Age: 59 years old Clinical indication: Screening examination TECHNIQUE: Imaging protocol: Bilateral Screening tomosynthesis and 2D mammography including computer-aided detection (CAD) when performed. COMPARISON: 1. MG MM DIG MAMM BI DX W/CAD 10/18/2020 2:45 PM 2. MG MM DIG MAMM DX UNILAT RT CAD 03/05/2020 2:08 PM FINDINGS: MAMMOGRAPHY: Breast composition: There are scattered areas of fibroglandular density. Mass: None. Architectural distortion: None. Calcifications: No suspicious calcifications. Asymmetric density: None. Skin thickening: None. Axillary adenopathy: None. IMPRESSION: No mammographic evidence of malignancy. Annual screening is recommended unless otherwise clinically indicated. ASSESSMENT: BI-RADS Category 1: Negative
--- NOTE | 2024-05-23 13:28 | XR_ITS ---
FINAL REPORT CLINICAL HISTORY: SOB COMPARISON: 04/26/2024 FINDINGS: 2 views of the chest were obtained . The heart is normal in size. The mediastinum is within normal limits. Scarring is seen at the minor fissure. There are surgical clips in the right lung. The left lung is clear. There is no pneumothorax. Osseous structures are unremarkable. IMPRESSION: No acute cardiopulmonary process. Reviewed, Interpreted and Dictated by Walker Clinton MD Transcribed by Olivia Quintana Authenticated and [facility]
== END 2024-05-23 23:59 | disposition home or self-care (01) ==
PROVIDERS: PCP Nurse Practitioner Family; Visit Provider Obstetrics & Gynecology
DX: Z12.31 Encounter for screening mammogram for malignant neoplasm of breast (principal); R06.02 Shortness of breath
CPT/HCPCS: 71046; 77063; 77067

== ENCOUNTER 2024-07-26 08:26 | Outpatient (CLI) | payer MEDICARE, MEDICAID, SELFPAY ==
--- NOTE | 2024-07-26 08:29 | CT_ITS ---
FINAL REPORT TECHNIQUE: Thin section axial images were obtained from the lung apices to the upper abdomen by computed tomography. Reformatted images were obtained and reviewed. This study was performed with techniques to keep radiation doses al low as reasonably achievable (ALARA). Individualized dose reduction techniques using automated exposure control or adjustment of mA and/or kV according to the patient's size were employed. CLINICAL HISTORY: lung cancer screening FORMER SMOKER QUIT 3 YEARS AGO, 2PPD X 44 YEARS COMPARISON: CT chest 06/30/2023 FINDINGS: CHEST CT LOW DOSE CTDI vol (mGy): 2.90 DLP (mGy-cm): 109.94 There are presumed coronary artery stents. There is no axillary adenopathy. There is no mediastinal or hilar mass or adenopathy. The heart is normal in size. There is no pericardial or pleural effusion. There is mild emphysema and mild pulmonary scarring. There are several calcified granulomas. Lung window images demonstrate a new 5 mm posterior left upper lobe nodule on series 3 image 15. There are several less than 5 mm nodules in the posterior right upper lobe which are stable. A 3 mm anterior left upper lobe nodule on series 3 image 18 is stable. Linear right upper lobe scarring is stable with questionable postoperative changes in this region. Limited images of the upper abdomen are unremarkable. The patient is postcholecystectomy. IMPRESSION: New 5 mm left upper lobe nodule. Lung-RADS category 3. Recommend 6 month follow up low dose chest CT. Reviewed, Interpreted and Dictated by Salo Morejon III, MD Transcribed by Tara Ramon Authenticated and [facility]
[2024-07-26] MEDS: ALBUTEROL 0.083% 2.5 MG/3 ML NEB IH (11:48)
== END 2024-07-26 23:59 | disposition home or self-care (01) ==
LOC: RAD 08:26
PROVIDERS: PCP Nurse Practitioner Family; Visit Provider Internal Medicine Pulmonary Disease
DX: R06.09 Other forms of dyspnea (principal); F17.210 Nicotine dependence, cigarettes, uncomplicated
CPT/HCPCS: 71271; 94060; 94618; 94726; 94729; J7613

== ENCOUNTER 2024-08-11 16:20 | Outpatient (CLI) | payer MEDICARE, MEDICAID, SELFPAY ==
[2024-08-11 17:18] LABS: Albumin Level 4.1 g/dl (3.5-5.0); Chloride 104 mmol/L (98-107)
[2024-08-11 17:19] LABS: Sodium 136 mmol/L (136-145)
[2024-08-11 17:21] LABS: Alanine Aminotransferase 22 U/L (12-78); Albumin/Globulin Ratio 1.6 (1.1-1.8); Alkaline Phosphatase 117 U/L (38-126); Aspartate Amino Transferase 25 U/L (14-36); Bilirubin,Total 0.5 mg/dl (0.2-1.3); Blood Urea Nitrogen 9 mg/dl (7-17); Carbon Dioxide 25 mmol/L (22.0-30.0); Estimated Glomerular Filt Rate 126 ml/min (>60); GFR (African American) 153 ML/MIN (>60); Globulin 2.6 g/dL (1.3-3.2); Total Protein,Serum 6.7 g/dl (6.3-8.2)
[2024-08-11 17:22] LABS: Calcium 9.1 mg/dl (8.4-10.2); Glucose 111 mg/dl (74-100); Iron 99 ug/dL (37-170); Magnesium 1.7 mg/dl (1.6-2.3)
[2024-08-11 17:32] LABS: Total Iron Binding Capacity 311 ug/dL (265-497)
[2024-08-11 18:21] LABS: Intact Parathyroid Hormone 99.7 pg/mL (7.5-53.5)
[2024-08-11 18:36] LABS: Ferritin 24.5 ng/ml (11.1-264)
[2024-08-11 19:00] LABS: HIV (1&2) Antibody Rapid NONREACTIVE (NONREACTIVE)
[2024-08-12 17:06] LABS: 25-OH Vitamin D, Total 31.1 ng/mL (30-100)
[2024-08-13 08:22] LABS: HCV Ab Non Reactive (Non Reactive)
[2024-08-15 14:10] LABS: Calcium, Ionized 4.9 mg/dL (4.5-5.6)
== END 2024-08-11 23:59 | disposition home or self-care (01) ==
LOC: LAB.DROPOF 08-12 08:19
PROVIDERS: PCP Nurse Practitioner Family; Visit Provider Nurse Practitioner Family
DX: E03.9 Hypothyroidism, unspecified (principal); F41.9 Anxiety disorder, unspecified; R53.83 Other fatigue; E83.42 Hypomagnesemia; Z11.59 Encounter for screening for other viral diseases; Z11.4 Encounter for screening for human immunodeficiency virus [HIV]; M81.0 Age-related osteoporosis without current pathological fracture; E78.2 Mixed hyperlipidemia; I10 Essential (primary) hypertension; E61.1 Iron deficiency
CPT/HCPCS: 80053; 82306; 82330; 82728; 83540; 83550; 83735; 83970; 84100; 86803; 87389

== ENCOUNTER 2024-08-24 10:01 | Day surgery (SDC) | payer MEDICARE, MEDICAID, SELFPAY ==
--- NOTE | 2024-08-23 10:09 | SUR.PREOP ---
DANIELLE w/ call back # on 08/23/24 @ [phone].
[2024-08-23 12:29] VITALS: BMI 29.2
[2024-08-24 10:25] VITALS: BP 134/85; PULSE 90; RESP 18; TEMP 36.7; O2SAT 94
[2024-08-24] MEDS: LACTATED RINGERS 1000ML 1,000 ML 25 ML IV (10:32)
--- NOTE | 2024-08-24 11:05 | P.PNANES_ITS ---
[facility] Disclaimer: The information contained in this section may have been updated after the patient was seen, as this information can be updated by other users. Medical History Establishing care with new doctor, encounter for COVID-19 RSV bronchitis Vertigo Pleuritic chest pain Influenza A Abnormal nuclear cardiac imaging test Upper respiratory infection Malaise RSV (respiratory syncytial virus infection) Knee contusion Acute exacerbation of chronic obstructive airways disease Chest pain Bronchitis Encounter for follow-up surveillance of lung cancer Acute exacerbation of chronic obstructive pulmonary disease UTI (urinary tract infection) COPD exacerbation Vasomotor symptoms due to menopause Lung cancer Lung nodule Pulmonary emphysema Stopped smoking with greater than 30 pack year history Personal history of other malignant neoplasm of bronchus and lung Dyspnea on exertion Sinus tachycardia Dyspnea Hematuria Dysphagia Chronic obstructive pulmonary disease Anxiety Surgical History Hx of BSO (bilateral salpingo-oophorectomy) History of vaginal hysterectomy History of appendectomy Hx of cholecystectomy History of tonsillectomy Family History Other Alcoholism Cancer Diabetes Heart attack Hyperlipidemia Hypertension Kidney disease Thyroid disorder Social History (Updated 08/23/24 @ 11:47 by Latoya Rosenberg RN) Smoking Status: Former smoker tobacco type: cigarettes packs per day: 0 smoking status stop date: 01/2021 alcohol intake: never substance use type: denies use current occupational status: disabled Travel in the last 8 weeks: None household members: family housing: house current occupational exposures/hazards: No caffeine: No [facility] Anesthesia Checklist Patient Identification Patient Identification: Arm Band Structural Data Admitted From: Home Planned Operative Procedure/s: Colonoscopy Consent for Planned Operative Procedure(s) Verified: Yes Verified Documents: Surgical Consent and History and Physical NPO Status Verified Time NPO: 09:30 (water) Additional verifications Anesthesia Reactions: No Airway Assessment Mallampati Score:: Class II TMJ Mobility Assessed: Yes Dentition: Edentulous Neurological Assessment Level of Consciousness: Awake, Alert and Appropriate Anesthesia Plan Anesthesia Risk discussed: Yes Anesthesia Plan: Verified ASA Class: III Anesthesia Type: MAC
[2024-08-24 11:39] VITALS: O2SAT 96
--- NOTE | 2024-08-24 11:46 | P.HP_ITS ---
History of Present Illness *Admission Date: 08/24/24 *Reason for visit:: Screening *History of present illness: Mrs. Malhotra is a 59-year-old female who is here for screening colonoscopy. She does state that she had a colonoscopy at age 45 and had polyps removed at that time. That was her last colonoscopy.. The examination is deemed medically necessary for screening colonoscopy. The patient has been seen, interviewed and examined prior to the procedure by both myself and the anesthesia provider. [facility] Disclaimer: The information contained in this section may have been updated after the patient was seen, as this information can be updated by other users. Medical History Establishing care with new doctor, encounter for COVID-19 RSV bronchitis Vertigo Pleuritic chest pain Influenza A Abnormal nuclear cardiac imaging test Upper respiratory infection Malaise RSV (respiratory syncytial virus infection) Knee contusion Acute exacerbation of chronic obstructive airways disease Chest pain Bronchitis Encounter for follow-up surveillance of lung cancer Acute exacerbation of chronic obstructive pulmonary disease UTI (urinary tract infection) COPD exacerbation Vasomotor symptoms due to menopause Lung cancer Lung nodule Pulmonary emphysema Stopped smoking with greater than 30 pack year history Personal history of other malignant neoplasm of bronchus and lung Dyspnea on exertion Sinus tachycardia Dyspnea Hematuria Dysphagia Chronic obstructive pulmonary disease Anxiety Surgical History Hx of BSO (bilateral salpingo-oophorectomy) History of vaginal hysterectomy History of appendectomy Hx of cholecystectomy History of tonsillectomy Family History Other Alcoholism Cancer Diabetes Heart attack Hyperlipidemia Hypertension Kidney disease Thyroid disorder Social History (Updated 08/23/24 @ 11:47 by Latoya Rosenberg RN) Smoking Status: Former smoker tobacco type: cigarettes packs per day: 0 smoking status stop date: 01/2021 alcohol intake: never substance use type: denies use current occupational status: disabled Travel in the last 8 weeks: None household members: family housing: house current occupational exposures/hazards: No caffeine: No Other Medical History Have you received the Flu Vaccine for this season: No Have you received the Pneumonia Vaccine: No Review of Systems Review of Systems Review of systems (narrative): Negative *Cardiovascular Comments: Negative *Gastrointestinal Comments: Negative *Genitourinary Comments: Negative *Musculoskeletal Comments: Negative *Neurologic Comments: Negative Meds Home Medications and Allergies Home Medications ?Medication ?Instructions ?Recorded ?Confirmed ?Type albuterol sulfate 90 mcg/actuation 2 inh inhalation Q6HP PRN 12/25/22 08/24/24 Rx aerosol inhaler Shortness Of Breath 90 days #3 ea estradiol 1 mg tablet 0.5 mg (1/2 x 1 mg) PO DAILY #90 12/23/23 08/24/24 Rx tabs ipratropium 0.5 mg-albuterol 3 mg 3 ml inhalation QID PRN shortness 02/02/24 08/24/24 Rx (2.5 mg base)/3 mL nebulization of breath or wheezing 90 days #270 soln mL metoprolol succinate 100 mg 100 mg PO DAILY #90 tabs 02/24/24 08/24/24 Rx tablet,extended release 24 hr aspirin 81 mg tablet,delayed 81 mg PO DAILY 03/14/24 08/24/24 History release coenzyme Q10 100 mg capsule 100 mg PO DAILY 06/21/24 08/24/24 History (CoQ-10) venlafaxine 150 mg tablet,extended 150 mg PO DAILY 06/21/24 08/24/24 History release 24 hr cariprazine 1.5 mg capsule 1.5 mg PO Q OTHER DAY #45 caps 08/11/24 08/24/24 Rx (Vraylar) magnesium 500 mg tablet 400 mg PO DAILY 08/11/24 08/24/24 History cholecalciferol (vitamin D3) 25 25 mcg PO DAILY 08/12/24 08/24/24 History mcg (1,000 unit) tablet (Vitamin D3) fluticasone fur. 100 mcg-umeclid 1 inh inhalation DAILY 08/12/24 08/24/24 History 62.5 mcg-vilant 25 mcg inhalat.powder (Trelegy Ellipta) levothyroxine 88 mcg tablet 88 mcg PO DAILY 08/12/24 08/24/24 History omeprazole 40 mg capsule,delayed 40 mg PO DAILY 08/12/24 08/24/24 History release ranolazine 500 mg tablet,extended 500 mg PO BID 08/12/24 08/24/24 History release,12 hr atorvastatin 80 mg tablet See Rx Instructions .Route 08/15/24 08/24/24 Rx .COMPLEX #90 tabs New Prescriptions to Start Prescriptions: Allergies Allergy/AdvReac Type Severity Reaction Status Date / Time Iodinated Contrast Media Allergy Severe Difficulty Verified 08/24/24 10:23 Breathing iopamidol Allergy Intermediate Swelling Verified 08/24/24 10:23 of Lip/Tongue/Throat Sulfa (Sulfonamide Allergy Intermediate I-RASH Verified 08/24/24 10:23 Antibiotics) (SULFA (SULFONAMIDE ANTIBIOTICS)) Exam Data for Last 24 hours Vital signs and Labs for Last 24 Hours: Pulse Resp BP Pulse Ox O2 Del Method 90 18 134/85 94 L Room Air 08/24/24 10:25 08/24/24 10:25 08/24/24 10:25 08/24/24 10:25 08/24/24 10:25 I & O for Last 24 hours: Intake & Output 08/21/24 08/22/24 08/23/24 08/24/24 23:59 23:59 23:59 23:59 Weight 160 lb *Routine HEENT Exam Head: Present normocephalic Eye: Present EOMI and PERRL ENT: Present mucous membranes moist *Routine Neck Exam Neck: Present supple *Routine Respiratory Exam Respiratory: Present CTA bilaterally *Routine Cardiovascular Exam Cardiovascular: Present RRR *Routine Abdominal Exam Abdominal: Present soft and normoactive bowel sounds; Absent tenderness *Routine Rectal Exam Rectal:: deferred *Routine Genitalia Exam Genitalia:: deferred *Routine Extremities Exam Extremities: Absent cyanosis, clubbing or edema *Routine Skin Exam Skin: Present warm; Absent rash *Routine Neurological Exam Neurological: Present alert and oriented X3 Assessment and Plan *Assessment and plan (1) Colon cancer screening: Status: Acute Category: Medical Code(s): Z12.11 - Encounter for screening for malignant neoplasm of colon Plan A/P: 1. Screening for colon cancer is the preprocedural diagnosis. The patient will be anesthetized/sedated using MAC sedation. The patient has been seen and examined. Cardiac and lung assessment prior to the examination is stable. Proceed with planned colonoscopy
--- NOTE | 2024-08-24 11:47 | HMH.PROCNOTE ---
[facility] Procedure Note Date: 08/24/24 Time: 12:05 Procedure Note:: Colonoscopy Procedure Report: Colonoscopy with cold snare polypectomy Endoscopist: Patrice Ackerman II, MD Referring physician: KIMMY Montgomery Date of Procedure: August 24, 2024 Equipment: Olympus 190 variable stiffness pediatric colonoscope Sedation: MAC sedation Indication: Mrs. Malhotra is a 59-year-old female who is here for screening colonoscopy. She does state that she had a colonoscopy at age 45 at which time polyps were removed. She does state that this is her second colonoscopy. She reports no abdominal pain, weight loss, change in her bowel habits or rectal bleeding. She reports no family history of colon cancer. She does state that she has a prior history of IBS. Procedure: Prior to the procedure, a history and physical exam was performed, and patient's medications and allergies were reviewed. The risks, benefits and alternatives of the sedation and procedure were discussed with the patient. All questions were answered and informed consent was obtained. The patient was brought to the procedure room. Patient identification and proposed procedure were verified by the physician and the nurse. The patient was placed in a left lateral decubitus position and the scope was passed under direct vision. Throughout the procedure, the patient's blood pressure, pulse, and oxygen saturations were monitored continuously. The colonoscopy was accomplished without difficulty. The patient tolerated the procedure well. Findings: On digital rectal examination there was normal rectal tone. There were no external hemorrhoids. The colonoscope was introduced through the anal canal to the rectum and advanced to the cecum. The ileocecal valve and appendiceal orifice were identified. The scope was advanced a short distance into the ileum which appeared grossly normal. The scope was then withdrawn into the colon. There were 2 diminutive polyps (cecum x 1 (4 mm) and descending x 1 (4 mm)). Both of these were removed via cold snare polypectomy. The remaining cecum, ascending, transverse, descending, sigmoid and rectum were grossly normal. There were other no mucosal abnormalities identified. There was a smaller rectal vault. Upon retroflexion within the rectum there were grade 0?1 internal hemorrhoids.The preparation was excellent throughout with Florence Preparation Score of 9. The cecal time was 11 minutes. Impression: 1. Diminutive colonic polyps x 2 Plan: I will follow-up the polyp histology and recommend repeat surveillance colonoscopy again in 7 to 10 years based upon the pathology.
[2024-08-24 12:19] VITALS: BP 111/61; BP 123/93; PULSE 68; PULSE 71; RESP 18; TEMP 36.4; O2SAT 100; O2SAT 99
[2024-08-24 12:28] VITALS: BP 125/72; PULSE 70; RESP 18; O2SAT 98
[2024-08-24 12:29] VITALS: BP 104/71; PULSE 70; RESP 18; O2SAT 100
== END 2024-08-24 12:46 | disposition home or self-care (01) ==
PROVIDERS: PCP Internal Medicine Adolescent Medicine; Visit Provider Internal Medicine Gastroenterology
PROC: (CPT 45385; principal; 2024-08-24 11:30)
DX: K63.5 Polyp of colon (principal); K64.8 Other hemorrhoids; Z12.11 Encounter for screening for malignant neoplasm of colon
CPT/HCPCS: 45385; 88305; J2250; J7120

== ENCOUNTER 2024-09-07 14:19 | Outpatient (CLI) | payer MEDICARE, MEDICAID, SELFPAY ==
--- NOTE | 2024-09-07 14:20 | XR_ITS ---
FINAL REPORT CLINICAL HISTORY: osteoporosis screening COMPARISON: None FINDINGS: Using L1-4, the bone mineral density of the spine is 0.997 g/cm2, corresponding to T-score of -0.5, within normal limits but likely falsely elevated secondary to hypertrophic changes. Using the left hip, the bone mineral density of the femoral neck is 0.600 g/cm2, corresponding to a T-score of -2.2, consistent with low bone density. Using the right hip, the bone mineral density of the femoral neck is 0.575 g/cm2, corresponding to a T-score of -2.5, consistent with osteoporosis. FRAX not reported because some T-score at or below -2.5. NOTE: T-score: Standard deviation compared with peak bone mass of young adult mean. *Following the recommendations of the International Society of Bone densitometry, classification of hip BMD is based on the lower of two T-scores; total hip or femoral neck. IMPRESSION: Diminished bone mineral density consistent with osteoporosis. Reviewed, Interpreted and Dictated by Salo Morejon III, MD Transcribed by Tara Ramon Authenticated and [facility]
== END 2024-09-07 23:59 | disposition home or self-care (01) ==
LOC: RAD 14:20
PROVIDERS: PCP Nurse Practitioner Family; Visit Provider Nurse Practitioner Family
DX: M81.0 Age-related osteoporosis without current pathological fracture (principal)
CPT/HCPCS: 77080

== ENCOUNTER 2024-09-09 08:37 | Outpatient (CLI) | payer MEDICARE, MEDICAID, SELFPAY ==
--- NOTE | 2024-09-09 08:39 | NM_ITS ---
FINAL REPORT CLINICAL HISTORY: elevated PTH, hyperparathyroid FINDINGS: NM PARATHYROID SCAN 21 mCi Technetium Sestamibi was administered. Planar imaging was performed early and two-hour delayed of the neck and upper thorax. Early imaging shows physiologic uptake within the upper neck involving the salivary glands and lower neck involving the thyroid gland. On delayed imaging there is no abnormal retained activity in the lower neck or mediastinum to localize parathyroid adenoma. IMPRESSION: No scintigraphic evidence of parathyroid adenoma. Reviewed, Interpreted and Dictated by Salo Morejon III, MD Transcribed by Lula Mejía Authenticated and [facility]
[2024-09-09] MEDS: SODIUM CHLORIDE 0.9% 10ML SYR (RAD ONLY) 10 ML IV (10:23)
[2024-09-09] MEDS: ISO TC99M (SESTAMIBI);1 DOSE VIAL IV (10:23)
== END 2024-09-09 23:59 | disposition home or self-care (01) ==
LOC: RAD 08:39
PROVIDERS: PCP Nurse Practitioner Family; Visit Provider Nurse Practitioner Family
DX: E21.3 Hyperparathyroidism, unspecified (principal)
CPT/HCPCS: 78071; A9500

== ENCOUNTER 2024-09-23 14:21 | Outpatient (CLI) | payer MEDICARE, MEDICAID, SELFPAY ==
--- NOTE | 2024-09-23 14:22 | CT_ITS ---
FINAL REPORT TECHNIQUE: Thin section axial CT with coronal reconstruction without IV contrast This study was performed with techniques to keep radiation doses as low as reasonably achievable, (ALARA). Individualized dose reduction techniques using automated exposure control or adjustment of mA and/or kV according to the patient's size were employed. CLINICAL HISTORY: chronic sinusitis COMPARISON: None FINDINGS: CT SINUS: No fracture is present. Paranasal sinuses are clear. The TMJs are intact. There is mild nasal septal deviation to the right. The mastoid air cells are clear. IMPRESSION: No evidence of acute sinusitis. Reviewed, Interpreted and Dictated by Monae Flores MD Transcribed by Katia Bolivar Authenticated and [facility]
== END 2024-09-23 23:59 | disposition home or self-care (01) ==
LOC: RAD 14:22
PROVIDERS: PCP Nurse Practitioner Family; Visit Provider Student in an Organized Health Care Education/Training Program
DX: J32.9 Chronic sinusitis, unspecified (principal)
CPT/HCPCS: 70486

== ENCOUNTER 2025-01-30 14:13 | Outpatient (CLI) | payer MEDICARE, MEDICAID, SELFPAY ==
--- NOTE | 2025-01-30 14:15 | CT_ITS ---
FINAL REPORT TECHNIQUE: Axial images were obtained through the chest without contrast. Coronal and sagittal images were obtained and reviewed. This study was performed with techniques to keep radiation doses as low as reasonably achievable, (ALARA). Individualized dose reduction techniques using automated exposure control or adjustment of mA and/or kV according to the patient's size were employed. CLINICAL HISTORY: sob COMPARISON: 07/26/2024 CT low-dose FINDINGS: There is no mediastinal mass or adenopathy. The heart size is normal. Coronary artery stent is present. There is no pericardial or pleural effusion. Again seen is a nodule in the posterior left apex measuring 6 mm in greatest dimension on image 13 of series 2, stable. Linear opacity with metallic radiodensities in the inferior right upper lobe is stable. Calcification in the posterior right lower lobe is stable. Limited images of the upper abdomen demonstrate the gallbladder is surgically absent. IMPRESSION: Stable 6 mm nodule posterior left upper lobe. Stable scarring inferior right upper lobe, probably post treatment change. Reviewed, Interpreted and Dictated by Walker Clinton MD Transcribed by Tara Ramon Authenticated and [facility]
[2025-01-30] MEDS: ALBUTEROL 0.083% 2.5 MG/3 ML NEB IH (15:35)
[2025-01-30 15:40] VITALS: PULSE 62; PULSE 68
== END 2025-01-30 23:59 | disposition home or self-care (01) ==
LOC: RAD 14:13
PROVIDERS: PCP Nurse Practitioner Family; Visit Provider Internal Medicine Pulmonary Disease
DX: R91.8 Other nonspecific abnormal finding of lung field (principal); R06.09 Other forms of dyspnea
CPT/HCPCS: 71250; 94060; 94618; 94640; J7613

== ENCOUNTER 2025-03-09 09:48 | Outpatient (CLI) | payer MEDICARE, MEDICAID, SELFPAY ==
[2025-03-09 17:25] LABS: Basophils % 0.2 % (0.1-2.0); Eosinophils # 0.1 Kmm3 (0.0-0.4); Eosinophils % 0.6 % (0.1-12.0); Hematocrit 41.3 % (37.0-47.0); Hemoglobin 13.2 g/dL (12.2-16.2); Immature Granulocytes # 0.02 10^3uL; Immature Granulocytes % 0.2 %; Lymphocytes # 3.6 K/mm3 (0.7-4.5); Lymphocytes % 38.5 % (10-50); Mean Corpuscular Hemoglobin 30.1 pg (27.0-31.2); Mean Corpuscular Volume 94.3 fl (81-99); Mean Platelet Volume 11.6 fl (7.4-10.4); Monocytes # 0.7 K/mm3 (0.1-1.0); Monocytes % 7.2 % (1.7-9.3); Neutrophils % 53.3 % (37.0-80.0); Nucleated Red Blood Cells # 0 10^3/uL; Nucleated Red Blood Cells % 0 %; Platelet Count 315 K/mm3 (142-424); Red Blood Count 4.38 M/mm3 (4.20-5.40); Red Cell Distribution Width 12.1 % (11.5-17.5); Red Cell Distribution Width-SD 42.3 fL; White Blood Count 9.3 K/mm3 (4.8-10.8)
[2025-03-09 17:50] LABS: Alanine Aminotransferase 25 U/L (12-78); Albumin Level 4.4 g/dl (3.5-5.0); Albumin/Globulin Ratio 1.6 (1.1-1.8); Alkaline Phosphatase 111 U/L (38-126); Anion Gap 14.5 mEq/L (5-15); Aspartate Amino Transferase 31 U/L (14-36); Bilirubin,Total 0.6 mg/dl (0.2-1.3); Blood Urea Nitrogen 12 mg/dl (7-17); Calcium 9.5 mg/dl (8.4-10.2); Carbon Dioxide 30 mmol/L (22.0-30.0); Chloride 99 mmol/L (98-107); Chol/HDL Ratio 2.8 (1-3.5); Cholesterol 150 mg/dl (140-200); Estimated Glomerular Filt Rate 86 ml/min (>60); GFR (African American) 104 ML/MIN (>60); Globulin 2.8 g/dL (1.3-3.2); Glucose 73 mg/dl (74-100); HDL Cholesterol 53 mg/dl (40-60); Magnesium 1.3 mg/dl (1.6-2.3); Potassium 4.5 mmoL/L (3.5-5.1); Sodium 139 mmol/L (136-145); Total Protein,Serum 7.2 g/dl (6.3-8.2); Triglycerides 127 mg/dl (30-150); VLDL Cholesterol 25 mg/dL (0-40)
[2025-03-09 18:02] LABS: Direct LDL Cholesterol 57.15 mg/dL (100-129)
[2025-03-09 18:06] LABS: Free T4 (Free Thyroxine) 1.49 ng/dl (0.78-2.19)
[2025-03-09 18:09] LABS: Hemoglobin A1C 4.9 % (4.0-6.0)
[2025-03-09 18:21] LABS: Thyroid Stimulating Hormone 4.18 uIU/mL (0.465-4.68)
[2025-03-09 18:40] LABS: Vitamin B12 275 pg/mL (239-931)
== END 2025-03-09 23:59 | disposition home or self-care (01) ==
LOC: RT 09:49
PROVIDERS: PCP Nurse Practitioner Family; Visit Provider Internal Medicine Pulmonary Disease
DX: E83.42 Hypomagnesemia (principal); E03.9 Hypothyroidism, unspecified; E78.5 Hyperlipidemia, unspecified; J44.9 Chronic obstructive pulmonary disease, unspecified; I10 Essential (primary) hypertension; F41.9 Anxiety disorder, unspecified; E11.9 Type 2 diabetes mellitus without complications; J02.9 Acute pharyngitis, unspecified; G47.33 Obstructive sleep apnea (adult) (pediatric); R41.3 Other amnesia
CPT/HCPCS: 80053; 80061; 82306; 82607; 83036; 83735; 84439; 84443; 85025; 87070; 94618

== ENCOUNTER 2025-03-22 13:28 | Outpatient (CLI) | payer MEDICARE, MEDICAID, SELFPAY ==
--- OUTSIDE RECORDS SUMMARY | 2025-03-22 13:33 | XMS_ITS | Clinical Summary ---
Author Organization Healthcare Address [address] [place] [address] Care Team Providers Care Claim Benefit Specialist Name Role Phone Morro Poe MD Primary Care Provider [phone] Family History Medical History Relation Name Comments Anxiety disorder Other 1 Depression Other 2 Hypotension Other 3 Other cancer Other 4 Hyperlipidemia Other 5 Relation Name Status Comments Other 1 Other 2 Other 3 Other 4 Other 5 Social History Tobacco Use Types Packs/Day Years Used Date Smoking Tobacco: Every Day Comments:Smokes 1.5 packs of cigarettes per day Alcohol Use Standard Drinks/Week Comments No 0 (1 standard drink = 0.6 oz pur e alcohol) Comments Unknown Sex and Gender Information Value Date Recorded Sex Assigned at Not on file Legal Sex Female 7:49 PM EDT Gender Identity Not on file Sexual Orientation Not on file Last Filed Vital Signs Vital Sign Reading Time Taken Comments Blood Pressure - - Pulse - - Temperature - - Respiratory Rate - - Oxygen Saturation - - Inhaled Oxygen Concentration - - Weight 57.2 kg (125 lb 15.9 oz) 017 11:00 AM EST Height 157.5 cm (5' 2 ) 09/25/2017 11:0 0 AM EST Body Mass Index 23.04 09/25/2017 11:00 AM EST Plan of Treatment Health Maintenance Due Date Last Done Comments Dental Oral Exam 1965 Dental Prophylaxis 1965 Dental X-Ray: Bitewings 1965 Dental X-Ray: Full Mouth 1965 [facility]-Depression Screening 1965 [facility]-/Child/Adol SDOH Screenings 1965 [facility]- SDOH Screenings 1983 [facility]Y-Adult SDOH Screenings 1983 [facility]-DTaP,Tdap,and Td Vaccine s (1 - Tdap) 1984 [facility]-Hepatitis B Vaccines (1 of 3 - 19+ 3-dose series) 1984 [facility]-Pap Smear 1986 [facility]-Cervical Cancer Screening 1995 [facility]-HPV/Cotest 1995 CT Colonography 2010 Colonoscopy 2010 FIT-DNA 2010 FIT 2010 FOBT 2010 Sigmoidoscopy 2010 [facility]-Colorectal Cancer Screening 2010 UKY-Pneumococcal Vaccine: 50 + Years (1 of 1 - PCV) 2015 [facility]Y-Zoster Vaccines (1 of 2) 2015 [id number] Vaccine ( 24-25 season) 2024 [facility]Y-Influenza Vaccine (Seaso n Ended) 2025 HPV Vaccines Aged Out No longer eligi ble based on patient's age to complete this topic UKY-HIB Vaccines Aged Out No longer e ligible based on patient's age to complete this topic UKY-Hepatitis A Vaccines Aged Out No longer eligible based on patient's age to complete this topic UKY-IPV Vaccines Aged Out No longer e ligible based on patient's age to complete this topic UKY-Rotavirus Vaccines Aged Out No lo nger eligible based on patient's age to complete this topic Care Teams Claim Benefit Specialist Relationship Specialty Start Date End Date Morro Poe MD [address] [place] [id number] PCP - General 02/15/21
--- OUTSIDE RECORDS SUMMARY | 2025-03-22 13:33 | XMS_ITS | Referral Summary ---
Author Organization [employer] Address [address] [place] [address] Care Team Providers Care Solar Sales Ambassador Name Role Phone Unavailable Primary Care Provider Unavailabl e Social History Tobacco Use Types Packs/Day Years Used Date Smoking Tobacco: Never Assessed Interpersonal Safety Answer Date Record ed Family or friends hurt you Not on file 10/23 Family or friends insult you Not on file Family or friends threaten you Not on file 0 10/23/2023 Family or friends scream or curse at you Not on file 10/23/2023 Housing Stability Answer Date Recorded Living situation today Not on file Living situation problems Not on file 2023 Food Insecurity Answer Date Recorded Food run out past 12 months Not on file 10/05 Food did not last past 12 months Not on file 10/23/2023 Employment Answer Date Recorded Help finding and keeping a job Not on file 0 10/23/2023 Family and Community Support Answer [place] e Recorded Help with Day to Day Activities Not on file 10/23/2023 Feeling Lonely or Isolated Not on file 10/23 Educational Attainment Answer Date Elmo rded Speak language other than Albanian at home Not on file 10/23/2023 Want help with school or training Not on file 10/23/2023 Depression Answer Date Recorded PHQ-2 Risk Not on file 10/23/2023 Disabilities Answer Date Recorded Difficulty concentrating Not on file 024 Difficulty doing errands alone Not on file 0 10/23/2023 Substance Use Answer Date Recorded Used prescription meds for non-medical reasons N ot on file 10/23/2023 Used illegal drugs past 12 months Not on file 10/23/2023 Comments Unknown Sex and Gender Information Value Date Recorded Sex Assigned at Female 04/01/2022 7:07 PM CDT Legal Sex Female 7:07 PM CDT Gender Identity Female 04/01/2022 7:07 PM CDT Sexual Orientation Not on file Plan of Treatment Not on file
--- OUTSIDE RECORDS SUMMARY | 2025-03-22 13:33 | XMS_ITS | Clinical Summary ---
Author Organization [employer] Address [address] [place] [address] Care Team Providers Care It Admin Name Role Phone Unavailable Primary Care Provider [...] Date Elmo rded Speak language other than Wolof at home Not on file 10/23/2023 Want [...] Orientation Not on file Plan of Treatment Health Maintenance Due Date Last Done Comments CT Colonography 1965 Colonoscopy 1965 Colorectal Cancer Screening 1965 FOBT/FIT 1965 Fit-DNA (Cologuard) 1965 Sigmoidoscopy 1965 Depression Screening (12+) 1977 Tobacco Cessation Counseling and Screening (12+) 1977 HIV Screening 1980 Hepatitis C Screening 1983 DTAP/TDAP/TD VACCINES (1 - Tdap) 1984 Pap Smear 1986 Breast Cancer Screening 2005 Lipid Panel 2010 Shingles Vaccine (Zoster) (1 of 2) 2015 COVID-19 VACCINE ( - season) 2024 Influenza Vaccine (Season Ended) 2025 08/17/20 19 Pneumococcal 50+ years Completed , 07/02/2017, 07/02/2017
[2025-03-22] MEDS: DENOSUMAB 60 MG/ML SYRINGE SUBCUT (13:40)
[2025-03-22 13:45] VITALS: BP 146/76; PULSE 72; RESP 18; TEMP 36.8; O2SAT 100
== END 2025-03-22 13:52 | disposition home or self-care (01) ==
LOC: INF 13:30
PROVIDERS: PCP Nurse Practitioner Family; Visit Provider Nurse Practitioner Family
DX: M81.0 Age-related osteoporosis without current pathological fracture (principal)
CPT/HCPCS: 96372; J0897

== ENCOUNTER 2025-04-05 09:41 | Outpatient (CLI) | payer MEDICARE, MEDICAID, SELFPAY ==
--- NOTE | 2025-04-05 09:43 | XR_ITS ---
FINAL REPORT CLINICAL HISTORY: Right foot pain FINDINGS: RIGHT FOOT Three views were obtained. There is no fracture or dislocation. The joint spaces appear normal. No soft tissue abnormality is identified. IMPRESSION: No acute process. Reviewed, Interpreted and Dictated by Walker Clinton MD Transcribed by Kathy Medrano Authenticated and . [facility]
--- OUTSIDE RECORDS SUMMARY | 2025-04-05 09:45 | XMS_ITS | Clinical Summary ---
Author Organization Healthcare Address [address] [facility] [place] [address] Care Team Providers Care Screening Unit Registered Nurse Name Role Phone Mroro Poe MD Primary Care Provider [phone] Family History Medical History Relation Name Comments [...] Health Maintenance Due Date Last Done Comments [facility]-Depression Screening 1965 [facility]-/Child/Adol SDOH Screenings 1965 [...] 2015 [facility]-Zoster Vaccines (1 of 2) 2015 [id number] Vaccine (1 - 20 24-25 season) 2024 [facility]-Influenza Vaccine (Seaso n [...] age to complete this topic Care Teams Screening Unit Registered Nurse Relationship Specialty Start Date End Date Morro Poe MD [address] [place] [address] PCP - General 02/15/21
--- OUTSIDE RECORDS SUMMARY | 2025-04-05 09:45 | XMS_ITS | Clinical Summary ---
Author Organization [employer] ([place], [place], [place], [place]) Address [address] [place] [address] Care Team Providers Care Compliance Quality Performance Analyst Name Role Phone Unavailable Primary Care Provider Unavailabl e Social History Tobacco Use Types Packs/Day Years Used Date Smoking Tobacco: Never Assessed Food Insecurity Answer Date Recorded Food run [...] Date Elmo rded Speak language other than [place] Island[place] at home Not on file 10/23/2023 Want help with school or training Not on file 10/23/2023 Substance Use Answer Date Recorded Used [...] of 2) 2015 COVID-19 VACCINE ( - 2023- season) 2024 Influenza Vaccine (Season Ended) 2025 08/17/20 19 Pneumococcal 50+ years Completed , 07/02/2017, 07/02/2017
--- OUTSIDE RECORDS SUMMARY | 2025-04-05 09:45 | XMS_ITS | Referral Summary ---
Author Organization [employer] ([place], [place], [place], [place]) Address [address] [place] [address] Care Team Providers Care Entry Table Operator Name Role Phone Unavailable Primary Care Provider [...] Date Elmo rded Speak language other than Pashto at home Not on file 10/23/2023 Want [...]
[2025-04-05 10:18] LABS: Hematocrit 41.2 % (37.0-47.0); Hemoglobin 13.5 g/dL (12.2-16.2); Immature Granulocytes % 0.2 %; Mean Corpuscular HGB Conc 32.8 g/dL (31.8-35.4); Mean Corpuscular Hemoglobin 31.0 pg (27.0-31.2); Mean Corpuscular Volume 94.7 fl (81-99); Nucleated Red Blood Cells % 0 %; Platelet Count 254 K/mm3 (142-424); Red Blood Count 4.35 M/mm3 (4.20-5.40); Red Cell Distribution Width-SD 42.8 fL; White Blood Count 8.4 K/mm3 (4.8-10.8)
[2025-04-05 11:04] LABS: Alanine Aminotransferase 21 U/L (12-78); Albumin Level 4.4 g/dl (3.5-5.0); Albumin/Globulin Ratio 1.6 (1.1-1.8); Alkaline Phosphatase 96 U/L (38-126); Anion Gap 13.4 mEq/L (5-15); Aspartate Amino Transferase 26 U/L (14-36); Bilirubin,Total 0.6 mg/dl (0.2-1.3); Blood Urea Nitrogen 9 mg/dl (7-17); Calcium 9.3 mg/dl (8.4-10.2); Carbon Dioxide 31 mmol/L (22.0-30.0); Chloride 95 mmol/L (98-107); Creatinine,Serum 0.70 mg/dl (0.52-1.04); Estimated Glomerular Filt Rate 86 ml/min (>60); GFR (African American) 104 ML/MIN (>60); Globulin 2.7 g/dL (1.3-3.2); Glucose 100 mg/dl (74-100); Potassium 4.4 mmoL/L (3.5-5.1); Sodium 135 mmol/L (136-145); Total Protein,Serum 7.1 g/dl (6.3-8.2)
[2025-04-05 11:10] LABS: C-Reactive Protein 0.4 mg/L (0-4)
== END 2025-04-05 23:59 | disposition home or self-care (01) ==
LOC: LAB 09:41
PROVIDERS: PCP Nurse Practitioner Family; Visit Provider Podiatrist
DX: M25.571 Pain in right ankle and joints of right foot (principal); M79.671 Pain in right foot; R60.9 Edema, unspecified
CPT/HCPCS: 36415; 73630; 80053; 85025; 85651; 86140; 87070; 87077; 87186; 87205

== ENCOUNTER 2025-04-12 09:21 | Outpatient (CLI) | payer MEDICARE, MEDICAID, SELFPAY ==
--- NOTE | 2025-04-12 09:30 | US_ITS ---
FINAL REPORT CLINICAL HISTORY: Decreased Pedal Pulses, ex-smoker, HLD, CAD, claudication, FINDINGS: ANKLE-BRACHIAL PRESSURE INDICES Pressure indices are as follows: RIGHT LOWER EXTREMITY: Ankle-brachial pressure index: 0.90 Comments: Mildly depressed LEFT LOWER EXTREMITY: Ankle-brachial pressure index: 0.94 Comments: Mildly depressed IMPRESSION: Mild obstructive peripheral vascular disease of the bilateral lower extremities Reviewed, Interpreted and Dictated by Walker Clinton MD Transcribed by Tara Ramon Authenticated and [facility]
--- OUTSIDE RECORDS SUMMARY | 2025-04-12 09:30 | XMS_ITS | Clinical Summary ---
Author Organization Healthcare Address [address] [place] [address] Care Team Providers Care Tax Director Name Role Phone Morro Poe MD Primary Care Provider [phone] Family History Medical History Relation Name Comments [...] 2015 [facility]-Zoster Vaccines (1 of 2) 2015 [id number] Vaccine (1 - 20 24-25 season) 2024 [facility]-Influenza Vaccine (#1) 2025 HPV Vaccines Aged Out No longer [...] age to complete this topic Care Teams Tax Director Relationship Specialty Start Date End Date Morro Poe MD [address] [place] [address] PCP - General 02/15/21
== END 2025-04-12 23:59 | disposition home or self-care (01) ==
LOC: RT 09:22
PROVIDERS: PCP Nurse Practitioner Family; Visit Provider Podiatrist
DX: I70.203 Unspecified atherosclerosis of native arteries of extremities, bilateral legs (principal); I25.10 Atherosclerotic heart disease of native coronary artery without angina pectoris; E78.5 Hyperlipidemia, unspecified; Z87.891 Personal history of nicotine dependence
CPT/HCPCS: 93923

== ENCOUNTER 2025-04-24 07:58 | Day surgery (SDC) | payer MEDICARE, MEDICAID, SELFPAY ==
[2025-04-24] VITALS (11 sets, daily range): BP systolic 103–161; BP diastolic 43–91; PULSE 69–84; RESP 16–18; O2SAT 90–100; BMI 29.8
--- NOTE | 2025-04-24 07:06 | IR_ITS ---
APPROVED REPORT Patient Location: Outpatient PROCEDURES Catheter placement abdominal aorta Abdominal aortography Position of the catheter and abdominal aorta Bilateral iliofemoral runoff INDICATION [place] claudication class IV-V with poorly healing lower extremity ulcer, Abnormal MONI, Peripheral artery disease Informed consent was obtained prior to the procedure. COMPLICATIONS NONE Estimated Blood Loss: LESS THAN 10 ML TECHNIQUE 1% lidocaine used to anesthetize the left femoral groin. The left femoral artery was accessed via the Seldinger technique. Using fluoroscopic guidance the JR4 catheter was advanced from the aorta into the right common iliac artery and then advanced into the right superficial femoral artery. There unilateral selective angiography with runoff to the foot was performed. Following this the catheter was pulled back into the right common iliac artery and angiography was performed. At the end of the procedure the patient was transferred to the postop holding area in stable condition for sheath removal. ANGIOGRAPHIC RESULTS Abdominal aorta is normal Bilateral common internal and external iliac arteries are widely patent Bilateral common femoral and profunda femoris arteries are patent Bilateral superficial femoral and SFA arteries are patent There is bilateral three-vessel runoff below the knees however the distal vessels are small in caliber and appear to have small vessel vasculopathy IMPRESSION Peripheral artery disease as described above Diffuse distal small vessel vasculopathy PLAN 1. Xarelto 2.5 twice daily plus aspirin 81 mg daily 2. LDL less than 55 3. Wound care 4. Physical therapy and rehabilitation 5. Evaluate for ischemic heart disease if not already performed Electronically signed by : Barney Diaz MD 04/24/2025 13:01:09
[2025-04-24 08:37] LABS: Hematocrit 41.6 % (37.0-47.0); Hemoglobin 13.6 g/dL (12.2-16.2); Mean Corpuscular HGB Conc 32.7 g/dL (31.8-35.4); Mean Corpuscular Hemoglobin 30.8 pg (27.0-31.2); Mean Corpuscular Volume 94.1 fl (81-99); Platelet Count 245 K/mm3 (142-424); Red Blood Count 4.42 M/mm3 (4.20-5.40); Red Cell Distribution Width-SD 40.5 fL; White Blood Count 10.8 K/mm3 (4.8-10.8)
[2025-04-24 08:38] LABS: Immature Granulocytes % 0.8 %; Nucleated Red Blood Cells % 0 %
[2025-04-24 08:44] LABS: Potassium 4.4 mmoL/L (3.5-5.1); Sodium 140 mmol/L (136-145)
[2025-04-24 08:45] LABS: Anion Gap 14.4 mEq/L (5-15); Blood Urea Nitrogen 14 mg/dl (7-17); Calcium 9.7 mg/dl (8.4-10.2); Carbon Dioxide 28 mmol/L (22.0-30.0); Chloride 102 mmol/L (98-107); Creatinine Clearance Estimated 116 mL/min (50-200); Creatinine,Serum 0.60 mg/dl (0.52-1.04); Estimated Glomerular Filt Rate 102 ml/min (>60); GFR (African American) 123 ML/MIN (>60); Glucose 145 mg/dl (74-100)
[2025-04-24] MEDS: LIDOCAINE 1% 10ML MDV 10 ML IJ (09:43)
[2025-04-24] MEDS: 0.9 % SODIUM CHLORIDE 500 ML 25 ML IV (09:43)
[2025-04-24] MEDS: HEPARIN 1,000 UNITS/500ML NS (CATH LAB) 3000 UNIT IV (09:43)
[2025-04-24] MEDS: FENTANYL 100MCG/2ML VIAL 50 MCG IV (09:44)
[2025-04-24] MEDS: MIDAZOLAM HCL 1MG/ML 5ML VIAL 1 MG IV (09:44)
[2025-04-24] MEDS: FAMOTIDINE 20MG/2ML VIAL 20 MG IV (09:47)
[2025-04-24] MEDS: METHYLPREDNISOLONE SOD SUCC 125MG VIAL 125 MG IV (09:47)
[2025-04-24] MEDS: IOHEXOL-240 100ML BOTTLE 125 ML IV (11:09)
[2025-04-24] MEDS: HYDROCODONE/APAP 5/325 MG TABLET 1 TAB PO (11:38)
== END 2025-04-24 13:40 | disposition home or self-care (01) ==
LOC: CATHLAB 07:59
PROVIDERS: PCP Nurse Practitioner Family; Visit Provider Internal Medicine
DX: I70.235 Atherosclerosis of native arteries of right leg with ulceration of other part of foot (principal); L97.519 Non-pressure chronic ulcer of other part of right foot with unspecified severity; R93.1 Abnormal findings on diagnostic imaging of heart and coronary circulation; I25.10 Atherosclerotic heart disease of native coronary artery without angina pectoris; I10 Essential (primary) hypertension; E78.2 Mixed hyperlipidemia; I42.2 Other hypertrophic cardiomyopathy; J44.9 Chronic obstructive pulmonary disease, unspecified; Z87.891 Personal history of nicotine dependence; F41.9 Anxiety disorder, unspecified; Z79.52 Long term (current) use of systemic steroids; Z79.890 Hormone replacement therapy; Z79.82 Long term (current) use of aspirin; Z79.01 Long term (current) use of anticoagulants; Z79.899 Other long term (current) drug therapy; Z91.041 Radiographic dye allergy status; Z88.2 Allergy status to sulfonamides; Z88.1 Allergy status to other antibiotic agents; Z82.49 Family history of ischemic heart disease and other diseases of the circulatory system
CPT/HCPCS: 36200; 80048; 85025; 99152; C1725; C1760; C1769; C1894; J1200; J1644; J2003; J2919; J3010; J7040; Q9966

== ENCOUNTER 2025-05-16 08:33 | Outpatient (CLI) | payer MEDICARE, MEDICAID, SELFPAY ==
--- OUTSIDE RECORDS SUMMARY | 2019-06-29 10:54 | XMS_ITS | Encounter Summary ---
[facility] Address [address] [place] [address] Care Team Providers Care Marine Painter Name Role Phone Billie Quesada Primary Care Provider [phone] Encounter Details Date Type Department Care Team (Late st Contact Info) Description 06/29/2019 10:54 AM EDT Hospital Encounter [facility] PUL[facility] CRITICAL CARE MEDICINE [address] [place] [phone] Social History Tobacco Use Types Packs/Day Years [...] on filedocumented in this encounter Care Teams Marine Painter Relationship Specialty Start Date End Date Billie Quesada PA PCP - General Physician [employer] Lieutenant 03/08/19 documented as of this encounter
--- NOTE | 2025-05-16 08:45 | CA_ITS ---
APPROVED REPORT EXAM: Comprehensive 2D, Doppler, and color-flow Echocardiogram Phlebotomist Associate: Saumya Santiago RVT Ht: 5 ft 2 in Wt: 162lbs BSA: 1.75 BP: 127/80 mmHg Indications: SHORTNESS OF BREATH,COPD 2D Dimensions LA Volume 15.10 mL LA Volume Index 8.63 mL/m2 (M/F) 16-34 M-Mode Dimensions RVDd 2.07 cm (0.9-2.6) LA Diam 2.98 cm (1.9-4.0) LVDd 3.14 cm (3.5-5.7) LVDs 2.17 cm (3.5-5.7) IVSd 0.70 cm (0.6-1.1) PWd 0.70 cm (0.6-1.1) EF (Teich) 59.80% FS 30.90% EDV (Teich) 39.10 mL TAPSE 1.95 (<1.7) ESV (Teich) 15.70 mL LV Diastology E Decel Time 200 (160-240 msec) E/A Ratio 1.4 Aortic Valve FREDO Index 1.22 cm2/m2 AoV Peak Luis. 117.0 (50-130 cm/s) AO Peak GR. 5.50 mmHg AO Mean GR. 3.10 (<5 mmHg) AO VTI 26.6 (18-25 cm) FREDO (VTI) 2.18 (2.5-4.5 cm2) Mitral Valve MV E Max Luis. 76.0 (40-130 cm/s) MV A Velocity 53.0 (40-130 cm/s) E/A Ratio 1.43 MV PHT 59.0 ms Pulmonary Valve PV Peak Velocity 80.0 (50-150 cm/s) Left Ventricle The left ventricle is normal size. Left ventricular systolic function is low-normal. There is normal left ventricular wall thickness. There is normal LV segmental wall motion. The left ventricular diastolic function is normal. LVEF is 50% Right Ventricle The right ventricle is not very well visualized, but grossly appears normal in size and function. Atria The left atrium size is normal. The right atrium size is normal. There is no color Doppler evidence of interatrial shunt. Aortic Valve The aortic valve opens well. There is no hemodynamically significant aortic valvular stenosis. No aortic regurgitation is present. Mitral Valve The mitral valve is normal in structure. No evidence of mitral valve stenosis. Trace mitral regurgitation is present. Tricuspid Valve The tricuspid valve leaflets are thin and pliable. Trace tricuspid regurgitation. There is insufficient TR jet to estimate RVSP. Pulmonic Valve The pulmonary valve is grossly normal in structure. Trace pulmonic valve regurgitation is present. Great Vessels The aortic root is normal in size. IVC is normal in size and collapses >50% with inspiration. Pericardium There is no pericardial effusion. Other Information Study Quality: Fair Conclusion Low-normal LV systolic function (LVEF 50%). No significant valvular stenosis or regurgitation. Electronically signed by : Niya Knight MD 05/16/2025 11:41:17
--- OUTSIDE RECORDS SUMMARY | 2025-05-16 08:45 | XMS_ITS | Clinical Summary ---
Author Organization Healthcare Address [address] [place] [address] Care Team Providers Care Animal Breeder Name Role Phone Morro Poe MD Primary Care Provider [phone] Family History Medical History Relation Name Comments [...] Date Last Done Comments UKY-Depression Screening 1965 UK[facility]-Infant/Child/Adol SDOH Screenings 1965 UKY- SDOH Screenings 1983 UKY-Adult SDOH Screenings 1983 UKY-DTaP,Tdap,and Td Vaccine s (1 - Tdap) 1984 UKY-Pap Smear 1986 UKY-Cervical Cancer Screening 1995 UKY-HPV/Cotest 1995 CT Colonography 2010 Colonoscopy 2010 FIT-DNA 2010 FIT 2010 FOBT 2010 Sigmoidoscopy 2010 UKY-Colorectal Cancer Screening 2010 UKY-Pneumococcal Vaccine: 50 + Years (1 of 1 - PCV) 2015 UKY-Zoster Vaccines (1 of 2) 2015 [id number] Vaccine (1 - 20 24-25 season) 2024 UKY-Influenza Vaccine (#1) 2025 UKY-RSV Vaccine: 60+ Years o r (1 - 1-dose 75+ series) 2040 HPV Vaccines Aged Out No longer eligi [...] age to complete this topic Care Teams Animal Breeder Relationship Specialty Start Date End Date Morro Poe MD [address] [place] [address] PCP - General 02/15/21
--- OUTSIDE RECORDS SUMMARY | 2025-05-16 08:45 | XMS_ITS | Clinical Summary ---
Author Organization [employer] ([place], [place], [place], [place]) Address [address] [place] [address] Care Team Providers Care Guest Services Agent Name Role Phone Unavailable Primary Care Provider [...] Date Elmo rded Speak language other than Kyrgyz at home Not on file 10/23/2023 Want [...] (Zoster) (1 of 2) 2015 COVID-19 VACCINE (1 - 2023- season) 2024 Influenza Vaccine (#1) 2025 08/17/2019 Pneumococcal 50+ years Completed , 07/02/2017, 07/02/2017
--- OUTSIDE RECORDS SUMMARY | 2025-05-16 08:45 | XMS_ITS | Clinical Summary ---
Author Organization [facility] Address [address] [place] [address] Care Team Providers Care Pot Builder Name Role Phone Billie Quesada Primary Care Provider [phone] Allergies Active Allergy Reactions Criticality Noted Date Comments Sulfa Antibiotics Rash Low 03/08/2019 Medications cholecalciferol (VITAMIN D3) 1000 units tablet Take 1,000 Units by mouth Daily. 9 Active estradiol (ESTRACE) 1 MG tablet Take 1 mg by mouth Daily. 9 Active hydrOXYzine pamoate (VISTARIL) 25 MG capsule Take 25 mg by mouth 3 (Three) Times a Day As Needed for Anxiety. 9 Active levothyroxine (SYNTHROID, LEVOTHROID) 75 MCG tablet Take 75 mcg by mouth Daily. 9 Active omeprazole (priLOSEC) 40 MG capsule Take 40 mg by mouth Daily. 9 Active simvastatin (ZOCOR) 20 MG tablet Take 20 mg by mouth Every Night. 9 Active Calcium Acetate, Phos Binder, (CALCIUM ACETATE PO) Take 600 mg by mouth 2 (Two) Times a Day. Active ondansetron (ZOFRAN) 8 MG tablet Take by mouth Every 8 (Eight) Hours As Needed for Nausea or Vomiting. Active Multiple Vitamins-Mineral s (MULTIVITAL PO) Take 1 tablet by mouth Daily. Active venlafaxine XR (EFFEXOR-XR) 150 MG 24 hr capsule 9 Active azithromycin (ZITHROMAX) 250 MG tablet Take 2 tablets the first day, then 1 tablet daily for 4 days. 30 tablet 3 9 Active Revefenacin 175 MCG/3ML solution Inhale 3 mL Daily. 90 mL 11 9 Active dextromethorphan polistirex ER (DELSYM) 30 MG/5ML Suspension Extended Release oral suspension Take 60 mg by mouth Every 12 (Twelve) Hours As Needed (cough). 280 mL 3 9 Active lidocaine (LIDODERM) 5 %Indications:Korina sed fracture of one rib of left side with routine healing, subsequent encounter Place 1 patch on the skin as directed by provider Daily. Remove & Discard patch within 12 hours or as directed by MD 15 each 9 Active arformoterol (Brovana) 15 MCG/2ML nebulizer solutionIndicati ons:COPD with acute exacerbation,SOB (shortness of breath),Chronic obstructive pulmonary disease, unspecified COPD type Take 2 mL by nebulization 2 (Two) Times a Day. 120 mL 3 0 Active budesonide (Pulmicort) 0.5 MG/2ML nebulizer solutionIndicati ons:COPD with acute exacerbation,SOB (shortness of breath),Chronic obstructive pulmonary disease, unspecified COPD type Take 2 mL by nebulization Daily. 60 mL 3 0 Active Glycopyrrolate-F ormoterol (Bevespi Aerosphere) 9-4.8 MCG/ACT aerosolIndicatio ns:COPD with acute exacerbation Inhale 2 sprays 2 (Two) Times a Day. 10.7 g 2 0 Active gabapentin (NEURONTIN) 100 MG capsule 0 Active HYDROcodone-acet aminophen (NORCO) 5-325 MG per tablet 0 Active naproxen (NAPROSYN) 500 MG tablet 0 Active cyclobenzaprine (FLEXERIL) 10 MG tabletIndication s:Malignant neoplasm of upper lobe of right lung Take 1 tablet by mouth 3 (Three) Times a Day As Needed for Muscle Spasms. 20 tablet 0 Active Fluticasone-Umec lidin-Vilant (Trelegy Ellipta) 100-62.5-25 MCG/INH aerosol powder Inhale 1 puff Daily. 3 each 1 0 Active buPROPion XL (WELLBUTRIN XL) 150 MG 24 hr tabletIndication s:Cigarette nicotine dependence without complication TAKE 1 TABLET BY MOUTH DAILY. 30 tablet 2 0 Active Active Problems Problem Noted Date Diagnosed Date Malignant neoplasm of upper lobe of right lung 0 03/14/2019 Cancer Staging:Clinical stage from 03/11/2019:Stage IA1(cT1a, cN0, cM0) - Unsigned Tobacco abuse 03/14/2019 Anxiety 03/14/[address] of the chest 03/09/2019 Overview (03/09/2019): Added automatically from request for surgery [id number] Immunizations Immunization Administration Dates Next Due flucelvax quad pfs =>4 YRS 08/17/2019 Family History Medical History Relation Name Comments Cancer Brother COPD Father Cancer Mother Relation Name Status Comments Brother Father (Age 81) Mother (Age 62) Social History Tobacco Use Types Packs/Day Years Used Date Smoking Tobacco: Former Cigarettes 1.5 39 Smokeless Tobacco: Never Tobacco Cessation:Ready to Q uit: Yes; Counseling Given: Yes Comments:former 1-1.5 PPD x39 years, quit November 2019 Alcohol Use Standard [...] Sign Reading Time Taken Comments Blood Pressure 137/91 03/19/2020 2:46 PM EDT Pulse 58 03/19/2020 2:46 PM EDT Temperature 35.8 C (96.5 F) 03/19/2020 2:46 PM EDT Respiratory Rate 20 03/19/2020 2:46 PM EDT Oxygen Saturation 94% 03/19/2020 2:46 PM EDT Inhaled Oxygen Concentration - - Weight 69.3 kg (152 lb 11.2 oz) 03/19/2020 2:46 PM EDT Height 157.5 cm (5' 2 ) 08/17/2019 12:2 7 PM EST Body Mass Index 27.93 08/17/2019 12:27 PM EST Plan of Treatment Health Maintenance Due Date Last Done Comments Annual Gynecologic Pelvic an d Breast Exam 1965 TDAP/TD VACCINES (1 - Tdap) 1984 MAMMOGRAM 2005 COLOGUARD 2010 COLON CANCER SCREENING 5 YEA R SIGMOIDOSCOPY 2010 COLONOSCOPY 2010 COL[address]ECTAL CANCER SCREENING 2010 CT COLONOGRAPHY 2010 FECAL OCCULT BLOOD TEST 2010 FIT Testing (1 year) 2010 Pneumococcal Vaccine 50+ (1 of 1 - PCV) 2015 ZOSTER VACCINE (1 of 2) 2015 ANNUAL PHYSICAL 03/08/2019 HEPATITIS C SCREENING 03/08/2019 COVID-19 Vaccine ( - season) 2024 INFLUENZA VACCINE 07/05/2025 08/17/2019, 08/17/2019 LUNG CANCER SCREENING Discontinued 07/26/2019, 019 Medical Devices Implanted Type Area Mucker Operator Device Identifier Shelf Expiration Date Model / Serial / Lot Markr Cobra Suprlk .8x3.5mm - [id number] Implanted:Qty: 1 on 03/11/2019 by Sathya Sharma MD at [facility] Implant N/A: Lung SUPER DIMENSION [id number] / / [id number] Description:Right upper lobe fiducial marker implanted Markr Cobra Suprlk .8x3.5mm - [id number] Implanted:Qty: 1 on 03/11/2019 by Sathya Sharma MD at [facility] Implant N/A: Lung SUPER DIMENSION [id number] / / [id number] Description:Right upper lobe fiducial implanted Markr Cobra Suprlk .8x3.5mm - [id number] Implanted:Qty: 1 on 03/11/2019 by Sathya Sharma MD at [facility] Implant N/A: Lung SUPER DIMENSION [id number] / / [id number] Description:Right upper lobe fiducial implanted Procedures Procedure Name Priority Date/Time Associated Diagnosis Comments SCANNED - INFLUENZA 08/17/2019 CT ANGIOGRAM CHEST STAT 07/26/2019 1: 27 PM EDT from Last 3 Months or Most Recently Relevant to Health Maintenance Results * SCANNED - INFLUENZA (08/17/2019) Kerry Damon APRN CHART REVIEW TABS Final R esult * CT Angiogram Chest (07/26/2019 1:27 PM EDT) Anatomical Region Laterality Modality Chest, Vascular N/A Computed Tomogra phy 07/26/2019 1:29 PM EDT Impressions 07/26/2019 4:27 PM EDT 1. There is no pulmonary embolus. 2. Small patchy airspace process in the right middle lobe, new when compared with 03/10/2019. 3. There is a nodular process in the right upper lobe adjacent to the fiducials. This process appears larger than on the previous examination, but radiation therapy may explain the difference in size. E: 07/26/2019 This report was finalized on 07/26/2019 4:[address] Jesus Jose MD. Narrative 07/26/2019 4:27 PM EDT EXAMINATION: CT ANGIOGRAM CHEST-07/26/2019: INDICATION: Cough, chest pain, hx of lung cancer with resection 03/23. TECHNIQUE: CT angiogram of the chest was performed following bolus infusion of contrast. There is no prior exam for comparison. The radiation dose reduction device was turned on for each scan per the ALARA (As Low as Reasonably Achievable) protocol. COMPARISON: NONE. FINDINGS: There is no axillary lymphadenopathy. There is no mediastinal or hilar adenopathy. There is no pulmonary embolus. There is no pericardial or pleural effusion. There are 3 fiducials in the right upper lobe in and near a small nodular process. The process is larger than on the previous examination of 03/10/2019. The change in size may partially be a reflection of radiation therapy. There is a new small airspace process in the right middle lobe. Procedure Note He Jose MD - 07/26/2019 EXAMINATION: CT ANGIOGRAM CHEST-07/26/2019: INDICATION: Cough, chest pain, hx of lung cancer with resection 03/23. TECHNIQUE: CT angiogram of the chest was performed following bolus infusion of contrast. There is no prior exam for comparison. The radiation dose reduction device was turned on for each scan per the ALARA (As Low as Reasonably Achievable) protocol. COMPARISON: NONE. FINDINGS: There is no axillary lymphadenopathy. There is no mediastinal or hilar adenopathy. There is no pulmonary embolus. There is no pericardial or pleural effusion. There are 3 fiducials in the right upper lobe in and near a small nodular process. The process is larger than on the previous examination of 03/10/2019. The change in size may partially be a reflection of radiation therapy. There is a new small airspace process in the right middle lobe. IMPRESSION: 1. There is no pulmonary embolus. 2. Small patchy airspace process in the right middle lobe, new when compared with 03/10/2019. 3. There is a nodular process in the right upper lobe adjacent to the fiducials. This process appears larger than on the previous examination, but radiation therapy may explain the difference in size. E: 07/26/2019 This report was finalized on 07/26/2019 4:[address] Jesus Jose MD. Astrid RAND [facility] CT ORDERABLES Final Result from Last 3 Months or Most Recently Relevant to Health Maintenance Insurance [place] [address] Care Teams Pot Builder Relationship Specialty Start Date End Date Billie Quesada PA PCP - General Physician Process Trainer 03/08/19
--- OUTSIDE RECORDS SUMMARY | 2025-05-16 08:45 | XMS_ITS | Referral Summary ---
Author Organization [employer] ([place], [place], [place], [place]) Address [address] [place] [address] Care Team Providers Care Bus Transportation Manager Name Role Phone Unavailable Primary Care Provider [...] Date Elmo rded Speak language other than Thai at home Not on file 10/23/2023 Want [...]
== END 2025-05-16 23:59 | disposition home or self-care (01) ==
LOC: RT 08:34
PROVIDERS: PCP Nurse Practitioner Family; Visit Provider Physician Assistant
DX: I25.10 Atherosclerotic heart disease of native coronary artery without angina pectoris (principal); I42.2 Other hypertrophic cardiomyopathy; I11.9 Hypertensive heart disease without heart failure; J44.9 Chronic obstructive pulmonary disease, unspecified; J96.11 Chronic respiratory failure with hypoxia; R68.89 Other general symptoms and signs
CPT/HCPCS: 93306

== ENCOUNTER 2025-05-31 14:25 | Outpatient (RCR) | payer MEDICARE, MEDICAID, SELFPAY | END 2025-08-10 08:00 | disposition home or self-care (01) | LOC: PULREHAB 14:25 | PROVIDERS: Visit Provider Internal Medicine Pulmonary Disease | DX: J44.9 Chronic obstructive pulmonary disease, unspecified | CPT/HCPCS: 94626 ==

== ENCOUNTER 2025-06-05 19:13 | Emergency (ER) | payer MEDICARE, MEDICAID, SELFPAY ==
--- OUTSIDE RECORDS SUMMARY | 2019-06-29 10:54 | XMS_ITS | Encounter Summary ---
Author Organization [facility] yste Address [address] [place] [address] Care Team Providers Care Communication Instructor Name Role Phone Billie Quesada Primary Care Provider [phone] Encounter Details Date Type Department Care Team (Late st Contact Info) Description 06/29/2019 10:54 AM EDT Hospital Encounter [facility] PULMONARY & CRITICAL CARE MEDICINE [address] [place] [id number] Social History Tobacco Use Types Packs/Day Years [...] on file documented as of this encounter Functional Status documented as of this encounter Plan of [...] on filedocumented in this encounter Care Teams Communication Instructor Relationship Specialty Start Date End Date Billie Quesada PA PCP - General Physician Unit Operator 03/08/19 documented as of this encounter
[2025-06-05] VITALS (15 sets, daily range): BP systolic 123–168; BP diastolic 70–96; PULSE 64–75; RESP 15–24; TEMP 36.4; O2SAT 97–99; BMI 30.5
--- OUTSIDE RECORDS SUMMARY | 2025-06-05 19:30 | XMS_ITS | Referral Summary ---
Author Organization [employer] ([place], [place], [place], [place]) Address [address] [place] [address] Care Team Providers Care Hide And Skin Colerer Name Role Phone Unavailable Primary Care Provider [...] Date Elmo rded Speak language other than Indian at home Not on file 10/23/2023 Want [...]
--- OUTSIDE RECORDS SUMMARY | 2025-06-05 19:30 | XMS_ITS | Clinical Summary ---
Author Organization Healthcare Address [address] [place] [address] Care Team Providers Care Energy Assistant Name Role Phone Morro Poe MD Primary Care Provider [phone] Family History Medical History Relation Name Comments [...] 2015 UKY-Zoster Vaccines (1 of 2) 2015 [id number] Vaccine (1 - 20 24-25 season) 2024 [...] age to complete this topic Care Teams Energy Assistant Relationship Specialty Start Date End Date Morro Poe MD [address] [place] [address] PCP - General 02/15/21
--- OUTSIDE RECORDS SUMMARY | 2025-06-05 19:30 | XMS_ITS | Clinical Summary ---
Author Organization [employer] ([place], [place], [place], [place]) Address [address] [place] [address] Care Team Providers Care Boat Rigger Name Role Phone Unavailable Primary Care Provider [...] Date Elmo rded Speak language other than Norwegian at home Not on file 10/23/2023 Want [...]
--- OUTSIDE RECORDS SUMMARY | 2025-06-05 19:30 | XMS_ITS | Clinical Summary ---
Author Organization [facility] Address [address] [place] [address] Care Team Providers Care Buffet Attendant Name Role Phone Billie Quesada Primary Care Provider Allergies Active Allergy Reactions Criticality Noted Date [...] (03/09/2019): Added automatically from request for surgery [id number] Immunizations Immunization Administration Dates Next Due flucelvax [...] 03/08/2019 HEPATITIS C SCREENING 03/08/2019 COVID-19 Vaccine (1 - 2023- season) 2024 INFLUENZA VACCINE 07/05/2025 08/17/2019, 08/17/2019 LUNG CANCER SCREENING Discontinued 07/26/2019, 019 Medical Devices Implanted Type Area Diet Clerk Device Identifier Shelf Expiration Date Model / Serial / Lot Markr Cobra Suprlk .8x3.5mm - [id number] Implanted:Qty: 1 on 03/11/2019 by Sathya Sharma MD at [facility] Implant N/A: Lung SUPER DIMENSION [id number] / / [id number] Description:Right upper lobe fiducial marker implanted Markr Cobra Suprlk .8x3.5mm - [id number] Implanted:Qty: 1 on 03/11/2019 by Sathya Sharma MD at [facility] Implant N/A: Lung SUPER DIMENSION [id number] / / [id number] Description:Right upper lobe fiducial implanted Markr Cobra Suprlk .8x3.5mm - [id number] Implanted:Qty: 1 on 03/11/2019 by Sathya Sharma MD at [facility] Implant N/A: Lung SUPER DIMENSION [id number] / / [id number] Description:Right upper lobe fiducial implanted Procedures Procedure [...] by Dr. Jesus Jose MD. Astrid RAND IMG CT ORDERABLES Final Result from Last 3 Months or Most Recently Relevant to Health Maintenance Insurance [employer] Care Teams Buffet Attendant Relationship Specialty Start Date End Date Billie Quesada PA PCP - General Physician Antisqueak Applier 03/08/19
[2025-06-05 19:35] LABS: Coronavirus 19, PCR Not Detected (NotDetected); Influenza A, PCR Not Detected (NotDetected); Influenza B, PCR Not Detected (NotDetected)
--- NOTE | 2025-06-05 19:39 | ED_ITS ---
<Statement entered by Michael Garcia MD - 06/05/25 23:15> I was consulted by the TALHA, and we discussed the complexity of the problems being addressed. I approved the treatment and management plan for this patient's care in the emergency department, thus performing a substantive portion of the medical decision making. Michael Garcia MD Discharge Plan Disposition Patient Disposition: Home, Self-Care Condition: Good Prescriptions Prescriptions: New prednisone 20 mg tablet 40 mg PO DAILY 5 Days Qty: 10 0RF azithromycin 500 mg tablet 500 mg PO DAILY 5 Days Qty: 5 0RF Rx Instructions: start on day 2 of therapy No Action Prolia 60 mg/mL syringe 60 mg SQ [id number] Qty: 1 2RF ketoconazole 2 % cream 1 applic topical BID 28 Days Qty: 60 2RF aspirin 81 mg tablet,delayed release (DR/EC) 81 mg PO DAILY atorvastatin 80 mg tablet 80 mg PO HS cholecalciferol (vitamin D3) 25 mcg (1,000 unit) capsule 1,000 unit PO DAILY omeprazole 40 mg capsule,delayed release(DR/EC) 40 mg PO DAILY ranolazine 500 mg tablet extended release 12 hr 500 mg PO BID sertraline 50 mg tablet 50 mg PO DAILY Qty: 30 2RF cariprazine 3 mg capsule 3 mg PO DAILY Qty: 30 2RF hydroxyzine pamoate 25 mg capsule 25 mg PO HS 30 Days Qty: 30 2RF Trelegy Ellipta 200-62.5-25 mcg blister with device 1 inh inhalation DAILY 90 Days Qty: 90 2RF nystatin 100,000 unit/gram powder 1 applic topical BID 30 Days Qty: 45 3RF Rx Instructions: Sprinkle between toes up to twice daily for itchy skin coenzyme Q10 [CoQ-10] 100 mg Capsule 100 mg PO DAILY magnesium 500 mg tablet 400 mg PO DAILY estradiol 1 mg tablet 1 mg PO DAILY Qty: 90 3RF albuterol sulfate 90 mcg/actuation HFA aerosol inhaler 2 inh IH Q6HP PRN (Reason: Shortness Of Breath) 90 Days Qty: 3 3RF metoprolol succinate 100 mg tablet extended release 24 hr 100 mg PO DAILY Qty: 90 3RF ondansetron 4 mg tablet,disintegrating 4 mg PO Q6H Qty: 30 2RF levothyroxine 88 mcg tablet See Rx Instructions .ROUTE .COMPLEX Qty: 90 3RF Dose Instruction: TAKE 1 TABLET BY MOUTH ONCE DAILY FOR THYROID Rx Instructions: TAKE 1 TABLET BY MOUTH ONCE DAILY FOR THYROID rivaroxaban [Xarelto] 2.5 mg Tablet 2.5 mg PO BID Qty: 60 3RF Referrals Follow up/Referrals: Chaya Garcia APRN [Primary Care Provider, Family Practice] - See instructions Activity Restrictions/Add. Instructions Additional Instructions/Restrictions: Please return to the emergency department with any worsening signs or symptoms. Please continue to take all your medications as prescribed, please take your steroids and antibiotics with food for the next 5 days. Please follow-up with your PCP and a lung doctor in the upcoming days/weeks. Clinical Impressions Clinical Impression: COPD exacerbation Instructions Patient Instructions: DI for Chronic Obstructive Pulmonary Disease Print Language Print Language: Ukrainian Discharge ED Provider: Michael Garcia General Adult HPI General Chief complaint: Upper Respiratory Infection Stated complaint: SOA,Diarrhea,IGNACIO,hot,sweating,stomach pain Time Seen by Provider: 06/05/25 19:31 Mode of Arrival: Ambulatory Source of Information: Patient Description of Symptoms (Recalled from ER Triage Doc. by RN): Pt presents for evaluation of multiple complaints. Pt states since jun 01 she has had diarrhea, headache, sweating episodes, generalized weakness, and chills. Pt states the last 2 days she has progressively become more short of breath. History of Present Illness HPI narrative: 60-year-old female presents the emergency department with a 4 to 5-day history of dyspnea, not worse on exertion, as well as nonbloody diarrhea, patient on 2 L nasal cannula as needed, she has been utilizing nasal cannula 2 L consistently for the last several days, she admits to subjective fever chills and flushing, denies weakness, she denies any overt chest pain, denies any abdominal pain has had some abdominal cramping with her diarrhea, denies any nausea vomiting, denies any melena hematochezia hematemesis or hemoptysis, denies any recent sick contacts, she is a former smoker, denies any alcohol or drug use, initial triage vitals are unremarkable, other past medical history is consistent with MDD/ROMINA, PAD, hyperparathyroidism, hypertrophic cardiomyopathy, GERD, hypothyroidism, emphysema, CRPS, CAD status post stent placement, hyperlipidemia, hypertension. Also of note, patient states that her PCP/mental health provider increased her Vraylar to 3 mg as well as increased her sertraline to 50 mg, on , ever since increasing her medication, the symptoms have started, this patient has stopped taking those medications. Please note that above description of symptoms, in this electronic medical record under categorization of recalled from ER triage doctor by RN are reflective of an initial nursing assessment, however, is not reflective of my full history and physical exam that was personally taken and clarified. Consequentially, this preceding description of symptoms, which may include the patient's categorized chief complaint in the EMR, do not reflect my personal clinical impression, and the ultimate description of history of present illness and patient stated complaints should be deferred to this section of the note. Unless stated otherwise or congruent with this section of the note, additional signs, symptoms, or incongruence should be interpreted as inaccurate with my clinical impression. Onset (ago): day(s) Related Data Home Medications ?Medication ?Instructions ?Recorded ?Confirmed coenzyme Q10 100 mg capsule 100 mg PO DAILY 06/21/24 0 05/31/25 (CoQ-10) magnesium 500 mg tablet 400 mg PO DAILY 08/11/24 aspirin 81 mg tablet,delayed 81 mg PO DAILY 03/11/25 0 05/31/25 release atorvastatin 80 mg tablet 80 mg PO HS 03/11/25 5 cholecalciferol (vitamin D3) 25 1,000 unit PO DAILY 05/31/25 mcg (1,000 unit) capsule omeprazole 40 mg capsule,delayed 40 mg PO DAILY 05/31/25 release ranolazine 500 mg tablet,extended 500 mg PO BID 05/31/25 release,12 hr Previous Rx's ?Medication ?Instructions ?Recorded estradiol 1 mg tablet 1 mg PO DAILY #90 tabs 11/02 albuterol sulfate 90 mcg/actuation 2 inh inhalation Q6 HP PRN 01/06/25 aerosol inhaler Shortness Of Breath 90 days #3 ea metoprolol succinate 100 mg 100 mg PO DAILY #90 tabs 0 02/06/25 tablet,extended release 24 hr fluticasone fur. 200 mcg-umeclid 1 inh inhalation LUCIANO Y 90 days #90 02/07/25 62.5 mcg-vilant 25 mcg ea inhalat.powder (Trelegy Ellipta) denosumab 60 mg/mL subcutaneous 60 mg SQ [id number] #1 m L 03/09/25 syringe (Prolia) ketoconazole 2 % topical cream 1 applic topical BID 4 weeks #60 03/09/25 grams ondansetron 4 mg disintegrating 4 mg PO Q6H nausea and vomiting 04/10/25 tablet #30 tabs nystatin 100,000 unit/gram topical 1 applic topical BI D tinea 30 days 04/18/25 powder #45 ea rivaroxaban 2.5 mg tablet (Xarelto) 2.5 mg PO BID #60 tabs 04/24/25 levothyroxine 88 mcg tablet See Rx Instructions .Route 05/05/25 .COMPLEX #90 tabs cariprazine 3 mg capsule 3 mg PO DAILY #30 caps 05/31 hydroxyzine pamoate 25 mg capsule 25 mg PO HS For anxi ety will cause 05/31/25 Drowsiness 30 days #30 caps sertraline 50 mg tablet 50 mg PO DAILY #30 tabs 05/06 04/28 azithromycin 500 mg tablet 500 mg PO DAILY 5 days #5 t abs 06/05/25 prednisone 20 mg tablet 40 mg (2 x 20 mg) PO DAILY 5 days 06/05/25 #10 tabs Allergies Allergy/AdvReac Type Severity Reaction Status Date / Time Iodinated Contrast Media Allergy Severe Difficulty Verified 05/31/25 13:38 Breathing iopamidol Allergy Intermediate Swelling Verified 05/31/25 13:38 of Lip/Tongue/Throat Sulfa (Sulfonamide Allergy Intermediate I-RASH Verified 05/31/25 13:38 Antibiotics) (SULFA (SULFONAMIDE ANTIBIOTICS)) doxycycline Allergy Mild Nausea Verified 05/31/25 13:38 PFSH [facility] Disclaimer: The information contained in this section may have been updated after the patient was seen, as this information can be updated by other users. Medical History PAD (peripheral artery disease) Mixed hyperlipidemia Upper respiratory infection Hoarseness Encounter for hepatitis C screening test for low risk patient Screening for HIV (human immunodeficiency virus) Post-nasal discharge Chronic sinusitis Establishing care with new doctor, encounter for COVID-19 RSV bronchitis Vertigo Pleuritic chest pain Influenza A Abnormal nuclear cardiac imaging test Malaise RSV (respiratory syncytial virus infection) Knee contusion Acute exacerbation of chronic obstructive airways disease Chest pain Bronchitis Encounter for follow-up surveillance of lung cancer Acute exacerbation of chronic obstructive pulmonary disease UTI (urinary tract infection) COPD exacerbation Vasomotor symptoms due to menopause Lung cancer Lung nodule Pulmonary emphysema Stopped smoking with greater than 30 pack year history Personal history of other malignant neoplasm of bronchus and lung Dyspnea on exertion Sinus tachycardia Dyspnea Hematuria Dysphagia Chronic obstructive pulmonary disease Anxiety Surgical History Hx of BSO (bilateral salpingo-oophorectomy) History of vaginal hysterectomy History of appendectomy Hx of cholecystectomy History of tonsillectomy Family History Other Alcoholism Cancer Diabetes Heart attack Hyperlipidemia Hypertension Kidney disease Thyroid disorder Social History Smoking Status: Former smoker tobacco type: cigarettes packs per day: 0 smoking status stop date: 01/2021 alcohol intake: never substance use type: denies use current occupational status: unemployed Travel in the last 8 weeks?: None household members: family housing: house current occupational exposures/hazards: No caffeine: No Have you lived/traveled outside US in past 30 days?: No Contact w/someone who lives/traveled outside US past 30 days?: No Exposure to someone with infectious disease in past 14 days?: No Do you have a fever (greater than 100.4 F or 38 C)?: No Have you tested positive for COVID-19?: No Exposed to someone with COVID-19 in past 14 days?: No Do you have a sore throat?: No Do you have a cough?: No Do you have any weakness?: No Do you have any diarrhea?: No Are you experiencing any unusual bleeding?: No Do you have any muscle aches/pain?: No Do you have any abdominal pain?: No Are you experiencing loss of taste or smell?: No Other Medical History Have you received the Flu Vaccine for this season: No Have you received the Pneumonia Vaccine: No ROS Obtained: Yes All systems reviewed & no additional complaints except as documented Physical Exam General General appearance: alert and in no apparent distress Head Head exam: atraumatic and normocephalic Eye Eye exam: Present PERRL and EOMI ENT ENT exam: Present mucous membranes moist Neck Neck exam: Present normal inspection Chest Chest inspection: Present normal inspection and symmetric chest wall rise Respiratory Respiratory exam: Present wheezes, prolonged expiratory phase and other (Minimal wheezing noted throughout bilateral lung hartman); Absent normal lung sounds bilaterally or respiratory distress Cardiovascular Cardiovascular exam: Present regular rate and normal rhythm Abdominal Exam Abdominal exam: Present soft; Absent tenderness, guarding, rebound or rigidity Extremities Exam Extremities exam: Present normal inspection Neurological Exam Neurological exam: Present alert and oriented X3 Psychiatric Psychiatric exam: Present normal affect Skin Skin exam: Present warm and dry Medical Decision Making Medical Records Medical records reviewed: Yes I reviewed the patient's medical records. Screening: Per USPSTF and CDC recommendations, given the prevalence of disease in our region, it is our hospital?s policy to screen for HIV and viral Hepatitis for all patients aged 18 and over and those with ongoing risk factors. Kiel Inquiry Pt receiving controlled substance: No Kiel was queried for this patient: No Vital Signs: 06/05/25 19:21 06/05/25 19:42 06/05/25 19:45 Temperature 97.5 F L Temperature Source Temporal Artery Scan Pulse Rate 65 70 Pulse Rate [Right] 74 Respiratory Rate 24 19 15 Blood Pressure Blood Pressure [Right Arm] 168/75 H Blood Pressure Mean Blood Pressure Mean [Right Arm] 106 Blood Pressure Source [Right Arm] Automatic Cuff Blood Pressure Position [Right Arm] Sitting 02 Sat by Pulse Oximetry 97 98 99 Oxygen Delivery Method Room Air 06/05/25 20:00 06/05/25 20:02 06/05/25 20:02 Temperature Temperature Source Pulse Rate 64 65 Pulse Rate [Right] Respiratory Rate 22 24 Blood Pressure 136/70 Blood Pressure [Right Arm] Blood Pressure Mean 92 Blood Pressure Mean [Right Arm] Blood Pressure Source [Right Arm] Blood Pressure Position [Right Arm] 02 Sat by Pulse Oximetry 99 97 Oxygen Delivery Method 06/05/25 21:32 Temperature Temperature Source Pulse Rate 66 Pulse Rate [Right] Respiratory Rate Blood Pressure Blood Pressure [Right Arm] Blood Pressure Mean Blood Pressure Mean [Right Arm] Blood Pressure Source [Right Arm] Blood Pressure Position [Right Arm] 02 Sat by Pulse Oximetry Oxygen Delivery Method Lab Data Lab results reviewed: Yes I reviewed the patient's lab results. Lab Results 06/05/25 19:25: SARS-CoV-2 (PCR) Not detected, Influenza A Untype (PCR) Not detected, Influenza Type B (PCR) Not detected 06/05/25 20:00: WBC 10.1, RBC 4.04 L, Hgb 12.7, Hct 37.5, MCV 92.8, MCH 31.4 H, MCHC 33.9, RDW 11.9, Plt Count 231, MPV 10.3, Neut % (Auto) 59.1, Lymph % (Auto) 27.9, [place] % (Auto) 10.4 H, Eos % (Auto) 1.9, Baso % (Auto) 0.4, Neut # (Auto) 6.0, Lymph # (Auto) 2.8, [place] # (Auto) 1.1 H, Eos # (Auto) 0.2, Baso # (Auto) 0.0, PT 10.3, INR 0.92, Sodium 138, Potassium 4.0, Chloride 107, Carbon Dioxide 28, Anion Gap 7.0, BUN 16, Creatinine 0.70, Estimated Creat Clear 102, Estimated GFR 85, Est GFR ( Amer) 103, Glucose 107 H, Calcium 9.3, Magnesium 1.6, Total Bilirubin 0.4, AST 27, ALT 18, Alkaline Phosphatase 93, Troponin I < 0.01, NT-Pro-B Natriuret Pep 74.9, Total Protein 7.1, Albumin 4.2, Globulin 2.9, Albumin/Globulin Ratio 1.4, Lipase 125, TSH 7.83 H, Thyroxine (T4) 14.7 H 06/05/25 20:05: VBG pH 7.38, VBG pCO2 47.2, VBG pO2 111.8 H, VBG HCO3 27.2, VBG Total CO2 28.7 H, VBG O2 Saturation 97.9 H, VBG Base Excess 2.1, VBG Lactic Acid 1.1, Lactate 0.8 06/05/25 21:14: Urine Color Yellow, Urine Appearance Clear, Urine pH 6.0, Ur Specific Floweree >= 1.030, Urine Protein Negative, Urine Glucose (UA) Negative, Urine Ketones Negative, Urine Blood Negative, Urine Nitrate Negative, Urine Bilirubin Negative, Urine Urobilinogen 0.2, Ur Leukocyte Esterase Negative, Urine RBC 10-20, Urine WBC 3-5, Ur Squamous Epith Cells 5-10, Urine Bacteria 1+ 06/05/25 20:00 06/05/25 20:00 Orders (Tests/Meds): ED MEDICATIONS Discontinued Medications Generic Name Dose Route Start Last Admin Trade Name Freq PRN Reason Stop Dose Admin Albuterol/Ipratropium 6 ml 06/05/25 20:19 06/05/25 20:31 Ipratropium/Albuterol 3 Ml Neb IH 06/05/25 20:20 6 ml ONCE ONE Administration Methylprednisolone Sodium Succinate 125 mg 06/05/25 20:20 06/05/25 20:29 Methylprednisolone Sod Succ 125mg Vial IV 06/05/25 20:21 125 mg ONCE ONE Administration ORDERS Category Date Time Status XR chest portable Stat Exams 06/05/25 19:45 Completed Complete Blood Count Auto Diff Stat Lab 06/05/25 20:00 Completed Comprehensive Metabolic Panel Stat Lab 06/05/25 20:00 Completed Lactic Acid Stat Lab 06/05/25 20:05 Completed Lipase Stat Lab 06/05/25 20:00 Completed Magnesium Stat Lab 06/05/25 20:00 Completed NT Pro Brain Natriuretic Pep. Stat Lab 06/05/25 20:00 Completed PT INR [Prothrombin Time INR] Stat Lab 06/05/25 20:00 Completed Rapid PCR Covid and Flu A/B Stat Lab 06/05/25 19:25 Completed T4 (Thyroxine) Stat Lab 06/05/25 20:00 Completed TSH [Thyroid Stimulating Hormone] Stat Lab 06/05/25 20:00 Completed Troponin I Q3H Lab 06/05/25 22:45 Ordered Troponin I Q3H Lab 06/06/25 01:45 Ordered Troponin I Stat Lab 06/05/25 20:00 Completed Urinalysis and Microscopic Stat Lab 06/05/25 21:14 Completed VBG [Venous Blood Gas] Stat RT 06/05/25 20:05 Completed Medical Decision Narrative: 60-year-old female presents to the emergency department with shortness of air, diarrhea, for several days, differential diagnose include but not limited to, COPD exacerbation, new onset CHF/exacerbation, cardiac arrhythmia, electrolyte disturbance, acute bronchitis, pneumonia, other URI, medication side effect, anxiety type reaction, panic attack, ACS, pulmonary edema, among others. I discussed this patient case with attending physician Dr. Garcia Will obtain basic laboratory studies, lactic acid, lipase level, magnesium proBNP PT/INR, PCR COVID and flu, TSH and T4, troponin, UA, VBG, EKG and CXR. I reviewed and independently interpreted the patient's chest x-ray, there is no acute pulmonary edema no pleural effusion, will give 6 mm DuoNeb and 125 mg IV methylprednisone. CBC unremarkable PT/INR within normal limits VBG is notable for normal pH, PO2 is elevated at 111.8, bicarb within normal limits lactic acid level on being this is normal. T4 is minimally elevated at 14.7 Troponin proBNP within normal limits. TSH is mildly elevated at 7.83 Coags within normal limits, COVID-19 and influenza are negative via PCR I reviewed the patient's chest x-ray along the corresponding radiologic report, right upper lobe scarring, no acute airspace pattern infiltrates or effusions. UA is unremarkable, negative hematuria negative nitrites, leg leukocyte esterase. Microscopic analysis of the patient's urine is unremarkable. Reexamination of the patient at approximately 9:35 PM, patient is resting comfortably in bed, she has no other acute complaints, states her shortness of breath is improved, patient most likely has COPD exacerbation in the setting of wheezing, she has as needed nasal cannula oxygen therapy I advised her to take/use as needed, will prescribe the patient 40 mg p.o. prednisone for 5 days as well as azithromycin 500 mg p.o daily for 5 days. Patient was given strict ED return precautions. Patient voiced understanding and agreement with current treatment plan/discharge plan. PE to be less likely as patient is on coagulant therapy with Xarelto states she is taking as prescribed. Critical Care Critical Care Time Critical Care Time: No
--- NOTE | 2025-06-05 19:45 | ECG_ITS ---
APPROVED REPORT Exam: Resting ECG HR:64 bpm ECG Measurements Heart Rate 64 AXES DE 140 P 75 QRSd 75 QRS 88 QT 413 T 77 QTc 423 Conclusion SINUS RHYTHM LOW QRS VOLTAGE IN PRECORDIAL LEADS [QRS DEFLECTION < 1.0 mV IN CHEST LEADS] BORDERLINE ECG Electronically signed by : EVELIA DAVIS, 06/05/2025 23:38:41
--- NOTE | 2025-06-05 19:45 | XR_ITS ---
PROCEDURE INFORMATION: Exam: XR Chest Exam date and time: 06/05/2025 8:05 PM Age: 60 years old Clinical indication: Shortness of breath; Additional info: SOA TECHNIQUE: Imaging protocol: Radiologic exam of the chest. Views: 1 view. COMPARISON: CT CHEST WO CON 01/30/2025 2:16 PM FINDINGS: Lungs: Fiducial markers are present in scarring at the inferior right upper lobe similar to CT scan from January Pleural spaces: Unremarkable. No pleural effusion. No pneumothorax. Heart/Mediastinum: Unremarkable. No cardiomegaly. Bones/joints: Unremarkable. IMPRESSION: 1. Right upper lobe scarring 2. No acute airspace pattern infiltrates or effusions.
[2025-06-05 20:09] LABS: Hematocrit 37.5 % (37.0-47.0); Hemoglobin 12.7 g/dL (12.2-16.2); Immature Granulocytes % 0.3 %; Mean Corpuscular HGB Conc 33.9 g/dL (31.8-35.4); Mean Corpuscular Hemoglobin 31.4 pg (27.0-31.2); Mean Corpuscular Volume 92.8 fl (81-99); Nucleated Red Blood Cells % 0 %; Platelet Count 231 K/mm3 (142-424); Red Blood Count 4.04 M/mm3 (4.20-5.40); Red Cell Distribution Width-SD 41.0 fL; White Blood Count 10.1 K/mm3 (4.8-10.8)
[2025-06-05 20:11] LABS: Lactate Venous 1.1 mmol/L (0.4-2.0); VBG HCO3 27.2 mmol/L (23-30); VBG PCO2 47.2 mmol/L (35-51); VBG PH 7.38 mmol/L (7.31-7.41); VBG PO2 111.8 mmol/L (28-40)
[2025-06-05 20:16] LABS: Albumin Level 4.2 g/dl (3.5-5.0); Chloride 107 mmol/L (98-107); Potassium 4.0 mmoL/L (3.5-5.1); Sodium 138 mmol/L (136-145)
[2025-06-05 20:17] LABS: INR 0.92 (0.9-1.1); Prothrombin Time 10.3 seconds (10.1-12.5)
[2025-06-05 20:18] LABS: Alanine Aminotransferase 18 U/L (12-78); Anion Gap 7.0 mEq/L (5-15); Aspartate Amino Transferase 27 U/L (14-36); Blood Urea Nitrogen 16 mg/dl (7-17); Carbon Dioxide 28 mmol/L (22.0-30.0); Creatinine Clearance Estimated 102 mL/min (50-200); Creatinine,Serum 0.70 mg/dl (0.52-1.04); Estimated Glomerular Filt Rate 85 ml/min (>60); GFR (African American) 103 ML/MIN (>60)
[2025-06-05 20:19] LABS: Albumin/Globulin Ratio 1.4 (1.1-1.8); Alkaline Phosphatase 93 U/L (38-126); Bilirubin,Total 0.4 mg/dl (0.2-1.3); Calcium 9.3 mg/dl (8.4-10.2); Globulin 2.9 g/dL (1.3-3.2); Glucose 107 mg/dl (74-100); Lipase 125 U/L (23-300); Magnesium 1.6 mg/dl (1.6-2.3); Total Protein,Serum 7.1 g/dl (6.3-8.2)
[2025-06-05 20:29] LABS: NT Pro Brain Natriuretic Pep. 74.9 pg/mL (0-125)
[2025-06-05] MEDS: METHYLPREDNISOLONE SOD SUCC 125MG VIAL 125 MG IV (20:29)
[2025-06-05] MEDS: IPRATROPIUM/ALBUTEROL 3 ML NEB 6 ML IH (20:31)
[2025-06-05 20:36] LABS: T4 (Thyroxine) 14.7 ug/dl (5.53-11.0)
[2025-06-05 20:37] LABS: Troponin I < 0.01 ng/ml (0.00-0.034)
[2025-06-05 20:50] LABS: Thyroid Stimulating Hormone 7.83 uIU/mL (0.465-4.68)
[2025-06-05 21:19] LABS: Microscopic, Urine URINE MICROSCOPIC (MICROSCOPIC)
[2025-06-05 21:25] LABS: Bilirubin,Urine Negative (Negative); Color,Urine YELLOW (Yellow); Glucose,Urine (UA) Negative (Negative); Ketones,Urine Negative (Negative); Leukocyte Esterase,Urine Negative (Negative); PH,Urine 6.0 (5.0-8.5); Protein,Urine Negative (Negative); Specific Gravity, Urine >= 1.030 (1.005-1.030); Urobilinogen,Urine 0.2 EU/dl (0.2)
[2025-06-05 21:39] LABS: Bacteria,Urine 1+ /lpf
== END 2025-06-05 21:55 | disposition home or self-care (01) ==
PROVIDERS: Physician Assistant; Emergency Provider Emergency Medicine; PCP Nurse Practitioner Family
DX: J44.1 Chronic obstructive pulmonary disease with (acute) exacerbation (principal); R51.9 Headache, unspecified; R53.1 Weakness; R19.7 Diarrhea, unspecified; Z87.891 Personal history of nicotine dependence
CPT/HCPCS: 71045; 80053; 81001; 82803; 83605; 83690; 83735; 83880; 84436; 84443; 84484; 85025; 85610; 87636; 93005; 96374; 99284; J2919

== ENCOUNTER 2025-09-21 13:38 | Outpatient (CLI) | payer MEDICARE, MEDICAID, SELFPAY ==
--- OUTSIDE RECORDS SUMMARY | 2019-06-29 09:54 | XMS_ITS | Encounter Summary ---
Author Organization [facility] yste Address [address] [place] [address] Care Team Providers Care Supervisor Fine Grading Name Role Phone Billie Quesada Primary Care Provider [phone] Encounter Details Date Type Department Care Team (Late st Contact Info) Description 06/29/2019 10:54 AM EDT Hospital Encounter [facility] PULMON[facility] & CRITICAL CARE MEDICINE [address] [place] [id number] Social History Tobacco Use Types Packs/Day Years Used Date Smoking Tobacco: Former Cigarettes 1.5 39 Smokeless Tobacco: Never Comments:former 1-1.5 PPD x3 9 years, quit November 2019 Alcohol Use Standard Drinks/Week Comments No 0 (1 standard drink = 0.6 oz pur e alcohol) AUDIT-C Answer Date Recorded Frequency of Alcohol Consumption Never 03/08/2019 Average Number of Drinks Not on file 019 Frequency of Binge Drinking Not on file 01/2019 Abuse Screen Answer Date Recorded Unsafe at Home or Work/School Not on file Feels Threatened by Someone? Not on file 06/2023 Does Anyone Keep You from Co ntacting Others or Doint Things Outside the Home? Not on file 07/13/2023 Physical Sign of Abuse Present Not on file 1 Housing Stability Answer Date Recorded Current Living Arrangements Not on file 06/2023 Potentially Unsafe Housing Conditions Not on yamel e 07/13/2023 Family and Community Support Answer [place] e Recorded Help with Day-to-Day Activities Not on file 07/13/2023 Lonely or Isolated Not on file 07/13/2023 Employment Answer Date Recorded Do you want help finding or keeping work or a wilfredo b? Not on file 07/13/2023 Disabilities Answer Date Recorded Concentrating, Remembering, or Making Decisions Difficulty Not on file 07/13/2023 Doing Errands Independently Difficulty Not on fi le 07/13/2023 Education Answer Date Recorded Help with school or training? Not on file Preferred Language Not on file 07/13/2023 Comments No Sex and Gender Information Value Date Recorded Sex Assigned at Not on file Legal Sex Female 11:05 AM EDT Gender Identity Not on file Sexual Orientation Not on file documented as of this encounter Plan of Treatment Not on file documented as of this encounter Procedures Procedure Name Priority Date/Time Associated Diagnosis Comments XR CHEST PA AND LATERAL Routine 06/29/2019 11:02 AM EDT SOB (shortness of breath) documented in this encounter Results * XR Chest PA & Lateral (06/29/2019 11:02 AM EDT) Anatomical Region Laterality Modality Body, Chest N/A Radiographic Brit ging 06/29/2019 11:4 0 AM EDT Impressions 06/29/2019 4:50 PM EDT Redemonstration of three fiducial markers within the right midlung with surrounding predominantly linear opacity. E: 06/29/2019 This report was finalized on 06/29/2019 4:[address] Gentry Cifuentes MD. Narrative 06/29/2019 4:50 PM EDT EXAMINATION: XR CHEST PA AND LATERAL- INDICATION: R06.02-Shortness of breath. COMPARISON: Chest radiograph 03/11/2019. FINDINGS: Two views of the chest were submitted for review. The heart is not enlarged. Three fiducial markers are again identified within the right mid lung with surrounding opacity which is predominantly linear. No new pulmonary mass is identified. No pleural effusion or pneumothorax. Visualized upper abdomen is unrevealing for acute abnormality. Thoracolumbar degenerative changes are identified. Procedure Note Gentry Cifuentes, DO - 06/29/2019 EXAMINATION: XR CHEST PA AND LATERAL- INDICATION: R06.02-Shortness of breath. COMPARISON: Chest radiograph 03/11/2019. FINDINGS: Two views of the chest were submitted for review. The heart is not enlarged. Three fiducial markers are again identified within the right mid lung with surrounding opacity which is predominantly linear. No new pulmonary mass is identified. No pleural effusion or pneumothorax. Visualized upper abdomen is unrevealing for acute abnormality. Thoracolumbar degenerative changes are identified. IMPRESSION: Redemonstration of three fiducial markers within the right midlung with surrounding predominantly linear opacity. E: 06/29/2019 This report was finalized on 06/29/2019 4:[address] Gentry Cifuentes MD. Nicolette Garvin APRN [facility] ORDERA BLES Final Result documented in this encounter Visit Diagnoses Not on filedocumented in this encounter Care Teams Supervisor Fine Grading Relationship Specialty Start Date End Date Billie Quesada PA PCP - General Physician Code Enforcement Inspector 03/08/19 documented as of this encounter
[2025-09-21 13:46] VITALS: BP 145/69; PULSE 58; RESP 14; TEMP 36.7; O2SAT 99
[2025-09-21] MEDS: DENOSUMAB 60 MG/ML SYRINGE SUBCUT (13:46)
--- OUTSIDE RECORDS SUMMARY | 2025-09-21 13:56 | XMS_ITS | Clinical Summary ---
Author Organization [employer] ([place], [place], [place], [place], [place]) Address [address] [place] [address] Care Team Providers Care Dinkey Brakeman Name Role Phone Unavailable Primary Care Provider [...] Date Elmo rded Speak language other than Luxembourgish at home Not on file 10/23/2023 Want [...] 2) 2015 COVID-19 VACCINE ( - season) 2025 Influenza Vaccine (#1) 2025 08/17/2019 Pneumococcal 50+ years Completed , 07/02/2017, 07/02/2017
--- OUTSIDE RECORDS SUMMARY | 2025-09-21 13:56 | XMS_ITS | Referral Summary ---
Author Organization [facility] ([place], [place], [place], [place], [place]) Address [address] [place] [address] Care Team Providers Care Principal Research Economist Name Role Phone Unavailable Primary Care Provider [...] Date Elmo rded Speak language other than Fijian at home Not on file 10/23/2023 Want [...]
--- OUTSIDE RECORDS SUMMARY | 2025-09-21 13:56 | XMS_ITS | Clinical Summary ---
Author Organization Healthcare Address [address] [place] [address] Care Team Providers Care Lunch Truck Operator Name Role Phone Morro Poe MD Primary Care Provider [phone] Family History Medical History Relation Name Comments [...] 2015 [facility]-Zoster Vaccines (1 of 2) 2015 ULD-[id number]-99 Vaccine ( - 20 25-26 season) 2025 UKY-Influenza Vaccine (#1) 2025 UKY-RSV Vaccine: 60+ Years o r (1 - 1-dose 75+ series) 2040 HPV Vaccines (No Doses Required) Completed UKY-HIB Vaccines Aged Out No longer e [...] age to complete this topic Care Teams Lunch Truck Operator Relationship Specialty Start Date End Date Morro Poe MD [address] [place] [address] [place] [id number] PCP - General 02/15/21
--- OUTSIDE RECORDS SUMMARY | 2025-09-21 13:56 | XMS_ITS | Clinical Summary ---
Author Organization [facility] Address [address] [place] [address] Care Team Providers Care Cloth Hauler Name Role Phone Billie Quesada Primary Care Provider [phone] Allergies Active Allergy Reactions Criticality Noted Date [...] (03/09/2019): Added automatically from request for surgery [id number] Immunizations Immunization Administration Dates Next Due flucelvax [...] ANNUAL PHYSICAL 03/08/2019 HEPATITIS C SCREENING 03/08/2019 INFLUENZA VACCINE 05/05/2025 08/17/2019, 08/17/2019 LUNG CANCER SCREENING Discontinued 07/26/2019, 019 Medical Devices Implanted Type Area Deputy County Clerk Device Identifier Shelf Expiration Date Model / Serial / Lot Markr Cobra Suprlk .8x3.5mm - [id number] Implanted:Qty: 1 on 03/11/2019 by Sathya Sharma MD at [facility] Implant N/A: Lung SUPER DIMENSION [id number] / / [id number] Description:Right upper lobe fiducial marker implanted Markr Cobra Suprlk .8x3.5mm - [id number] Implanted:Qty: 1 on 03/11/2019 by Sathya Sharma MD at [facility] Implant N/A: Lung SUPER DIMENSION [id number] / / [id number] Description:Right upper lobe fiducial implanted Markr Cobra Suprlk .8x3.5mm - [id number] Implanted:Qty: 1 on 03/11/2019 by Sathya Sharma MD at [facility] Implant N/A: Lung SUPER DIMENSION [id number] / / [id number] Description:Right upper lobe fiducial implanted Procedures Procedure [...] Health Maintenance Insurance [employer] Care Teams Cloth Hauler Relationship Specialty Start Date End Date Billie Quesada PA PCP - General Physician Public Health Veterinarian 03/08/19
== END 2025-09-21 23:59 | disposition home or self-care (01) ==
LOC: INF 13:39
PROVIDERS: PCP Nurse Practitioner Family; Visit Provider Nurse Practitioner Family
DX: M81.0 Age-related osteoporosis without current pathological fracture (principal)
CPT/HCPCS: 96372; J0897